=== PATIENT | male | born 1955 | race Caucasian/White ===

== ENCOUNTER 2021-05-16 13:57 | Inpatient (IN) | payer MEDICARE, SELFPAY ==
[2021-05-16] VITALS (42 sets, daily range): BP systolic 122–159; BP diastolic 36–108; PULSE 88–118; RESP 22–41; TEMP 37.3–37.4; O2SAT 70–97; BMI 37.0
--- NOTE | ~2021-05-16 | XR_ITS ---
EXAMINATION: XR chest 1V portable EXAM DATE: 05/19/2021 06:07 INDICATION: COVID-19 pneumonia, acute respiratory failure. TECHNIQUE: Portable AP frontal chest x-ray was obtained. Comparison is made to prior examination from 05/18/2021. FINDINGS: Endotracheal tube, nasogastric tube are in expected positions. There is extensive bilateral pneumonia and/or edema unchanged. Possible small right pleural effusion. There is no pneumothorax pruitt spected. Mild cardiomegaly. There is no pneumothorax suspected. There are bony degenerative changes . IMPRESSION: 1. Tubes in position. 2. Extensive pneumonia/edema unchanged. Reviewed, dictated and finalized at location A. MUTUEL TICKET CASHIER
--- NOTE | ~2021-05-16 | XR_ITS ---
XR chest 1V portable 06/13/2021 05:49 Indication: Respiratory failure Procedure: AP portable chest Comparison: Comparison to multiple prior studies sequentially, with oldest reviewed study dated 06/09. Findings: Endotracheal tube tip 3.9 cm above the alexander. PICC line tip in the SVC. Left-sided chest t ube position unchanged. No pneumothorax identified. Persistent diffuse bilateral airspace disease unc hanged. No significant effusion or pneumothorax. Impression: 1: Stable diffuse bilateral airspace disease which may represent pneumonia or edema. Reviewed, dictated and finalized at location A. NG ROOM MAID Impression: 1: Stable diffuse bilateral airspace disease which may represent pneumonia or e telly.
--- NOTE | ~2021-05-16 | XR_ITS ---
EXAMINATION: XR chest 1V portable DATE: 05/25/2021 06:10 INDICATION: Respiratory failure. COVID-19 pneumonia. TECHNIQUE: A single frontal view of the chest was obtained. COMPARISON: Chest single view 05/24/2021 FINDINGS: The patient is rotated to his left. There are airspace and interstitial opacities throughou t the lungs bilaterally. No pleural effusion or pneumothorax. The heart size is obscured. The endotra cheal tube tip is 4.2 cm above the alexander. The nasogastric tube tip is beyond the inferior margin of the radiograph, but at least to the stomach. A right upper extremity peripherally inserted central ve nous catheter (PICC) is seen with tip at the superior cavoatrial junction. IMPRESSION: 1. Diffuse lung disease with improvement on the left, consistent with COVID-19 pneumonia versus acute respiratory distress syndrome (ARDS). Reviewed, dictated and finalized at location A. MANUFACTURING TECHNICIAN
--- NOTE | ~2021-05-16 | XR_ITS ---
EXAMINATION: XR chest 1V portable DATE: 06/02/2021 05:52 INDICATION: Respiratory failure TECHNIQUE: frontal view of the chest was obtained. COMPARISON: Chest radiograph dated 06/01/2021 FINDINGS: Endotracheal tube tip 4.4 cm above the alexander. Nasogastric tube with proximal side-port in the body o f the stomach and with distal tip collimated off the study. Right upper extremity peripherally insert ed central venous catheter (PICC) tip at the caudal superior vena cava. Unchanged bilateral chest tu bes projecting over the mid lung zones. No interval change in the diffuse increased interstitial pattern and patchy airspace opacities throug hout both lungs. Opacities are greatest at the lung bases where the diaphragm is indistinct suggestin g possibility of small pleural effusions. No pneumothorax. The cardiomediastinal silhouette is normal . IMPRESSION: 1. Stable diffuse bilateral lung disease which could represent pneumonia and/or pulmonary edema gibson haley superimposed over small pleural effusions. Reviewed, dictated and finalized at location A. JOURNEYMAN IMPRESSION: 1. Stable diffuse bilateral lung disease which could represent pneumonia and/or pulmonary edema potentially superimposed over small pleural effusions.
--- NOTE | ~2021-05-16 | XR_ITS ---
EXAMINATION: XR chest 1V portable INDICATION: Respiratory failure TECHNIQUE: Portable AP chest at 0517 hours COMPARISON: 06/10/2021 FINDINGS: The endotracheal tube ends approximately 3.9 cm above the alexander. The nasogastric tube is f ollowed as far as the stomach. Its tip is beyond the inferior margin of the radiograph. Bilateral robert st tubes are unchanged in position. No pneumothorax is identified. A right upper extremity PICC ends with its tip in the distal superior vena cava. Patchy airspace opacities persist throughout all lung zones with slight improvement. There is no pleural effusion or pneumothorax. The cardiomediastinal si lhouette is normal. IMPRESSION: 1. Diffuse lung disease with interval improvement, consistent with pneumonia and/or pulmonary edema a nd/or acute respiratory distress syndrome (ARDS). Reviewed, dictated and finalized at location A. LOGUE AND SPECIAL PRODUCTS MANAGER IMPRESSION: 1. Diffuse lung disease with interval improvement, consistent with pneumonia an d/or pulmonary edema and/or acute respiratory distress syndrome (ARDS).
--- NOTE | ~2021-05-16 | XR_ITS ---
EXAMINATION: XR chest 1V portable DATE: 06/07/2021 05:48 INDICATION: Respiratory failure. TECHNIQUE: A single frontal view of the chest was obtained. COMPARISON: Chest single view 06/06/2021, CT abdomen and pelvis 02/04/2013 FINDINGS: There are airspace and interstitial opacities throughout the lungs bilaterally, worst in th e mid and lower lung zones. No pleural effusion or pneumothorax. The heart size is normal. Bilateral chest tubes are noted. The endotracheal tube tip is 4.5 cm above the alexander. The nasogastric tube tip is beyond the inferior margin of the radiograph, but at least to the stomach. A right upper extremit y peripherally inserted central venous catheter (PICC) is seen with tip in the superior vena cava. IMPRESSION: 1. Stable diffuse lung disease, consistent with pneumonia and/or pulmonary edema and/or acute respira tory distress syndrome (ARDS). 2. No pneumothorax. Bilateral chest tubes unchanged. Reviewed, dictated and finalized at location A. T DRIVER IMPRESSION: 1. Stable diffuse lung disease, consistent with pneumonia and/or pulmonary taras a and/or acute respiratory distress syndrome (ARDS). 2. No pneumothorax. Bilateral chest tubes unchanged.
--- NOTE | ~2021-05-16 | XR_ITS ---
XR chest 1V portable 05/30/2021 06:16 Indication: Respiratory failure. Procedure: AP portable chest Comparison: Comparison to multiple prior studies sequentially, with oldest reviewed study dated 05/2021. Findings: NG tube in the stomach. Endotracheal tube not definitely visualized. Correlate clinically f or extubation. PICC line tip in the SVC. There are bilateral chest tube, positions unchanged. No pneu mothorax identified. Diffuse bilateral airspace disease is unchanged. Impression: 1: Stable diffuse bilateral airspace disease which may represent pneumonia and/or edema. Reviewed, dictated and finalized at location A. ASSESSMENT CONSULTANT Impression: 1: Stable diffuse bilateral airspace disease which may represent pneumonia and/ or edema.
--- NOTE | ~2021-05-16 | XR_ITS ---
EXAMINATION: XR chest 1V portable DATE: 05/31/2021 06:28 INDICATION: Respiratory failure TECHNIQUE: frontal view of the chest was obtained. COMPARISON: Chest radiograph dated 05/30/2021 FINDINGS: Endotracheal tube tip 3.3 cm above the alexander. Nasogastric tube with proximal side-port in the body o f the stomach and distal tip collimated below the inferior margin of the [id number]. Bilateral robert st tubes remain in place. Right upper extremity peripherally inserted central venous catheter (PICC) tip at the superior cavoatrial junction. No significant change in diffuse bilateral airspace opacities. No pleural effusion or pneumothorax. H eart size is normal. IMPRESSION: 1. Stable diffuse bilateral lung disease which could represent pneumonia and/or pulmonary edema. Reviewed, dictated and finalized at location A. ENTICE STYLIST
--- NOTE | ~2021-05-16 | XR_ITS ---
EXAMINATION: XR chest 1V portable INDICATION: Respiratory failure TECHNIQUE: Portable AP chest at 0518 hours COMPARISON: 06/09/2021 FINDINGS: Bilateral chest tubes are unchanged in position. The endotracheal tube ends approximately 3 .6 cm above the alexander. The nasogastric tube is followed as far as the stomach. Its tip is beyond the inferior margin of the radiograph. Interstitial and airspace opacities persist throughout all lung z ones without significant change. There is no pleural effusion or pneumothorax. A right upper extremit y PICC ends with its tip in the distal superior vena cava. The heart size is normal. IMPRESSION: 1. Stable diffuse lung disease, consistent with pneumonia and/or pulmonary edema and/or acute respira tory distress syndrome (ARDS). Reviewed, dictated and finalized at location A. NE MECHANIC IMPRESSION: 1. Stable diffuse lung disease, consistent with pneumonia and/or pulmonary taras a and/or acute respiratory distress syndrome (ARDS).
--- NOTE | ~2021-05-16 | XR_ITS ---
EXAMINATION: XR chest 1V portable INDICATION: Shortness of breath TECHNIQUE: Portable AP chest at 1454 hours COMPARISON: None available FINDINGS: There are diffuse airspace opacities throughout all lung zones. No pleural effusion or pneu mothorax is identified. The cardiomediastinal silhouette is normal. IMPRESSION: 1. Diffuse lung disease, consistent with COVID 19 pneumonia. Reviewed, dictated and finalized at location F. F DEVELOPMENT OFFICER
--- NOTE | ~2021-05-16 | XR_ITS ---
EXAMINATION: XR abdomen NG/feed tube insert DATE: 06/03/2021 14:38 INDICATION: Orogastric tube verification TECHNIQUE: A supine view of the upper abdomen was obtained for evaluation of feeding tube placement. COMPARISON: 05/18/2021 FINDINGS: Nasogastric tube tip in proximal side port in the body of the stomach. Bilateral chest tubes with dis mariposa tips at the inferomedial aspect of both the left and right hemithoraces. Airspace opacities throu ghout the visualized bilateral lung bases. Cholecystectomy clips in right upper quadrant. Proximal lo op of a left internal ureteral stent projects over the expected location of the left renal pelvis. No dilated loops of gas-filled bowel in the visualized abdomen. IMPRESSION: 1. Orogastric tube in the stomach. 2. Opacities in the visualized bilateral lower lung zones which could represent pneumonia and/or pulm onary edema. Reviewed, dictated and finalized at location A. ERGARTEN INSTRUCTIONAL ASSISTANT IMPRESSION: 1. Orogastric tube in the stomach. 2. Opacities in the visualized bilateral lower lung zones which could represent pneumonia and/or pulmonary edema.
--- NOTE | ~2021-05-16 | XR_ITS ---
EXAMINATION: XR chest 1V portable INDICATION: Chest tube leak TECHNIQUE: Portable AP chest at 1703 hours COMPARISON: 06/05/2021 FINDINGS: Diffuse opacities persist throughout all lung zones without significant change. Bilateral c hest tubes appear unchanged in position. The endotracheal tube ends approximately 3.2 cm above the ca sergo. The nasogastric tube is followed as far as the stomach. Its tip is beyond the inferior margin o f the radiograph. A right upper extremity PICC ends with its tip in the distal superior vena cava. Th e cardiomediastinal silhouette is stable. No pleural effusion or pneumothorax is identified. IMPRESSION: 1. Stable diffuse lung disease, consistent with pneumonia and/or pulmonary edema and/or acute respira tory distress syndrome (ARDS). 2. Chest tubes unchanged in position without pneumothorax identified. Reviewed, dictated and finalized at location F. ATOR CONDUCTOR IMPRESSION: 1. Stable diffuse lung disease, consistent with pneumonia and/or pulmonary taras a and/or acute respiratory distress syndrome (ARDS). 2. Chest tubes unchanged in position without pneumothorax identified.
--- NOTE | ~2021-05-16 | XR_ITS ---
EXAMINATION: XR chest 1V portable EXAM DATE: 06/14/2021 05:58 INDICATION: Respiratory failure. TECHNIQUE: Portable AP frontal chest x-ray was obtained. Comparison is made to prior examination from 06/13/2021. FINDINGS: Endotracheal tube in position. Bilateral chest tubes positions unchanged. There is a nasog astric tube seen with tip collimated off the study, but below the left hemidiaphragm. Right-sided P ICC line poorly visualized. Diffuse bilateral pneumonia and/or edema. There are no sizable pleural effusions. There is no pneu mothorax suspected. The cardiomediastinal silhouette is prominent but magnified on this AP techniqu e. The bones and soft tissues are unremarkable. There is no significant interval change compared to prior exam. IMPRESSION: 1. Line and tube(s) in position. 2. Diffuse bilateral pneumonia and/or edema. Reviewed, dictated and finalized at location A. ER CRANE LADLE
--- NOTE | ~2021-05-16 | XR_ITS ---
XR abdomen NG/feed tube insert DATE: 05/18/2021 18:38 INDICATION: Orogastric tube insertion TECHNIQUE: Portable AP view on 05/18/2021 at 1830 hours COMPARISON: None FINDINGS: There is an orogastric tube, with distal tip in the gastric antrum IMPRESSION: OG tube in gastric antrum Status post cholecystectomy Left nephrostomy catheter Extensive diffuse bilateral pulmonary infiltrates Reviewed, dictated and finalized at Location A. Reviewed, dictated and finalized at location A. T LINER
--- NOTE | ~2021-05-16 | XR_ITS ---
EXAMINATION: XR chest 1V portable INDICATION: Respiratory failure TECHNIQUE: Portable AP chest at 0516 hours COMPARISON: 06/15/2021 FINDINGS: The endotracheal tube ends approximately 5.3 cm above the alexander. The nasogastric tube is f ollowed as far as the stomach. Its tip is beyond the inferior margin of the radiograph. Bilateral robert st tubes are unchanged in position. Diffuse interstitial and airspace opacities persist throughout al l lung zones without significant change. There is no pleural effusion or pneumothorax. The cardiomedi astinal silhouette is stable. IMPRESSION: 1. Stable diffuse lung disease, consistent with pneumonia and/or pulmonary edema and/or acute respira tory distress syndrome (ARDS). Reviewed, dictated and finalized at location A. DER / CEO IMPRESSION: 1. Stable diffuse lung disease, consistent with pneumonia and/or pulmonary taras a and/or acute respiratory distress syndrome (ARDS).
--- NOTE | ~2021-05-16 | XR_ITS ---
EXAMINATION: XR abdomen NG/feed tube rechec DATE: 06/04/2021 13:04 INDICATION: Orogastric tube repositioning TECHNIQUE: A supine view of the abdomen and lower chest was obtained for evaluation of feeding tube placement. COMPARISON: None. FINDINGS: Endotracheal tube tip 3.0 cm above the alexander. Nasogastric tube with proximal side-port in the body o f the stomach in distal tip collimated off the inferior margin of the [id number]. Right upper extr emity peripherally inserted central venous catheter (PICC) tip at the caudal superior vena cava. Unc hanged bilateral chest tubes. Proximal loop of a left internal ureteral stent projects of the region of the left renal pelvis. Diffuse bilateral lung disease which could represent pulmonary edema and/or pneumonia. Heart size is normal. IMPRESSION: 1. Nasogastric tube in the stomach. 2. Diffuse bilateral lung disease consistent with pulmonary edema and/or pneumonia. Reviewed, dictated and finalized at location A. HELPER IMPRESSION: 1. Nasogastric tube in the stomach. 2. Diffuse bilateral lung disease consistent with pulmonary edema and/or pneumo [place].
--- NOTE | ~2021-05-16 | XR_ITS ---
EXAMINATION: XR chest 1V portable DATE: 05/24/2021 07:10 INDICATION: Respiratory failure. COVID-19 pneumonia. TECHNIQUE: A single frontal view of the chest was obtained. COMPARISON: Chest single view 05/22/2021 FINDINGS: There are airspace and interstitial opacities throughout the lungs bilaterally. No pleural effusion or pneumothorax. The heart size is obscured. The endotracheal tube tip is 5.6 cm above the c layne. The nasogastric tube tip is beyond the inferior margin of the radiograph, but at least to the stomach. A right upper extremity peripherally inserted central venous catheter (PICC) is seen with ti p at the superior cavoatrial junction. IMPRESSION: 1. Stable diffuse lung disease, consistent with COVID-19 pneumonia versus acute respiratory distress syndrome (ARDS). Reviewed, dictated and finalized at location A. LASS LENS GRINDER
--- NOTE | ~2021-05-16 | US_ITS ---
EXAMINATION: US venous doppler LE EXAM DATE: 05/17/2021 12:52 INDICATION: Respiratory abnormality. Elevated d-dimer. TECHNIQUE: Multiple grayscale, color flow and Doppler images of the lower extremity deep venous syste ms bilaterally were obtained and reviewed. There is no prior study for comparison. FINDINGS: Right side: The right common femoral, femoral and profunda veins demonstrate normal color flow, respi ratory variation, augmentation and compressibility. Compressibility, color flow confirmed within the right popliteal, posterior tibial, peroneal, and greater saphenous veins. Left side: The left common femoral, femoral and profunda veins demonstrate normal color flow, respira tory variation, augmentation and compressibility. Compressibility, color flow confirmed within the l eft popliteal, posterior tibial, peroneal, and greater saphenous veins. IMPRESSION: 1. No lower extremity deep venous thrombosis bilaterally. Reviewed, dictated and finalized at location A. L TENDER
--- NOTE | ~2021-05-16 | XR_ITS ---
EXAMINATION: XR chest 1V portable EXAM DATE: 06/15/2021 06:10 INDICATION: Resp Failure TECHNIQUE: Portable AP frontal chest x-ray was obtained. Comparison is made to prior examination from 06/14/2021. FINDINGS: Endotracheal tube in position. Bilateral chest tubes positions unchanged. There is a nasoga stric tube seen with tip collimated off the study, but below the left hemidiaphragm. Right-sided PI CC line poorly visualized. Diffuse bilateral pneumonia and/or edema. There are no sizable pleural effusions. There is no pneu mothorax suspected. The cardiomediastinal silhouette is prominent but magnified on this AP techniqu e. The bones and soft tissues are unremarkable. There is no significant interval change compared to prior exam. IMPRESSION: 1. Line and tube(s) in position. 2. Diffuse bilateral pneumonia and/or edema. Reviewed, dictated and finalized at location A. EDGE MACHINE OPERATOR
--- NOTE | ~2021-05-16 | XR_ITS ---
EXAMINATION: XR chest 1V portable EXAM DATE: 06/04/2021 13:27 INDICATION: Desaturation. COVID pneumonia. TECHNIQUE: Portable AP frontal chest x-ray was obtained. Comparison is made to prior examination from 06/04/2021. FINDINGS: Endotracheal tube tip is 2.5 centimeters above the alexander. There is a right-sided PICC sol e in position. There are bilateral chest tubes. There is a nasogastric tube seen with tip collimated off the study, but below the left hemidiaphragm. No evidence of pneumothorax. Diffuse bilateral airspace disease with relative sparing of the upper nj ng zones unchanged. Small pleural effusions. Cardiomediastinal silhouette is normal. There are bony d egenerative changes. IMPRESSION: 1. Tubes, line in position. 2. Extensive mid and lower lung zone pneumonia and/or edema unchanged. Reviewed, dictated and finalized at location B. IC CHARGE NURSE
--- NOTE | ~2021-05-16 | XR_ITS ---
EXAMINATION: XR chest 1V portable EXAM DATE: 05/18/2021 05:34 INDICATION: COVID-19 pneumonia, acute respiratory failure. TECHNIQUE: Portable AP frontal chest x-ray was obtained. Comparison is made to prior examination from 05/17/2021, 05/16. FINDINGS: Extensive bilateral ill-defined airspace disease which could be pneumonia or edema. There i s no pneumothorax suspected. There are no pleural effusions. Cardiomediastinal silhouette is normal. There are bony degenerative changes. There is no significant interval change. IMPRESSION: Extensive bilateral pneumonia or edema, unchanged. GER OF OPERATIONS Reviewed, dictated and finalized at location A.
--- NOTE | ~2021-05-16 | XR_ITS ---
EXAMINATION: XR chest 1V portable EXAM DATE: 05/21/2021 05:51 INDICATION: COVID-19 pneumonia, acute respiratory failure . TECHNIQUE: Portable AP frontal chest x-ray was obtained. Comparison is made to prior examination from 05/20/2021. FINDINGS: There is a nasogastric tube seen with tip collimated off the study, but below the left joes diaphragm. Right-sided PICC line in position. Endotracheal tube in expected positions. There is extensive bilateral pneumonia and/or edema unchanged. There is small right pleural effusion. There is no pneumothorax suspected. Mild cardiomegaly. There are bony degenerative changes. IMPRESSION: 1. Tubes, line in position. 2. Extensive pneumonia/edema unchanged. Reviewed, dictated and finalized at location A. ER WAX BALL
--- NOTE | ~2021-05-16 | XR_ITS ---
XR chest ET placement DATE: 05/18/2021 18:38 INDICATION: New intubation TECHNIQUE: COMPARISON: None FINDINGS: ET tube is 5.4 cm above the alexander. NG tube is noted passing at least to the lower esophag us, not well demonstrated. There are extensive bilateral diffuse pulmonary infiltrates consistent with extensive pneumonia and/o r pulmonary edema, increased in severity since05/18/2021 at 0513 hours. IMPRESSION: ET tube 5.4 cm above alexander NG tube not well demonstrated distally Extensive diffuse bilateral pulmonary infiltrates, increased since 05/18/10 at 0513 hours Reviewed, dictated and finalized at Location A. Reviewed, dictated and finalized at location A. N DRIVER IMPRESSION: ET tube 5.4 cm above alexander NG tube not well demonstrated distally Extensive diffuse bilateral pulmonary infiltrates, increased since 05/18/10 at 0 513 hours
--- NOTE | ~2021-05-16 | XR_ITS ---
EXAMINATION: XR chest ET placement DATE: 06/04/2021 06:38 INDICATION: Endotracheal tube replacement TECHNIQUE: frontal view of the chest was obtained. COMPARISON: Chest radiograph dated 06/04/2021 at 6:12 AM FINDINGS: Endotracheal tube tip 3.7 cm above the alexander. Nasogastric tube extends below the left hemidiaphragm with distal tip collimated off the study. Right upper extremity peripherally inserted central venous catheter (PICC) tip at the mid superior vena cava. Unchanged bilateral chest tubes. No significant change in diffuse airspace opacities throughout both lungs with lower lung predominanc e. No pneumothorax. The cardiomediastinal silhouette is normal. IMPRESSION: 1. Unchanged diffuse bilateral lung disease which could represent pneumonia or pulmonary edema potent ially with superimposed small pleural effusions. Reviewed, dictated and finalized at location A. RS IMPRESSION: 1. Unchanged diffuse bilateral lung disease which could represent pneumonia or pulmonary edema potentially with superimposed small pleural effusions.
--- NOTE | ~2021-05-16 | XR_ITS ---
EXAMINATION: XR chest-chest tube insert/pos DATE: 05/25/2021 11:51 INDICATION: Insertion of bilateral chest tubes TECHNIQUE: frontal view of the chest was obtained. COMPARISON: Chest radiograph dated 05/25/2021 at 11:18 AM FINDINGS: Endotracheal tube tip 4.0 cm above the alexander. Right upper extremity peripherally inserted central ve nous catheter (PICC) tip at the caudal superior vena cava. Nasogastric tube with proximal side-port in the body of the stomach and distal tip collimated off the study. Interval placement of a lateral chest tubes which extend inferiorly and medially with the distal tips projecting over the regions of the vertebrophrenic angles. Very small residual right pneumothorax. N o evident left pneumothorax. Airspace opacities throughout both lungs consistent with pneumonia. No d efinite pleural effusion. Heart size is normal. Subcutaneous emphysema along the left chest wall. IMPRESSION: 1. Near complete resolution of a now tiny right pneumothorax and resolution of a prior left pneumotho rax post bilateral chest tube placement. 2. Opacities throughout both lungs consistent with pneumonia. Reviewed, dictated and finalized at location A. SIVE WATER JET CUTTER OPERATOR IMPRESSION: 1. Near complete resolution of a now tiny right pneumothorax and resolution of a prior left pneumothorax post bilateral chest tube placement. 2. Opacities throughout both lungs consistent with pneumonia.
--- NOTE | ~2021-05-16 | XR_ITS ---
EXAMINATION: XR chest ET placement DATE: 06/04/2021 05:31 INDICATION: Hypoxia with increased oxygen demand. Endotracheal tube placement. TECHNIQUE: frontal view of the chest was obtained. COMPARISON: Chest radiograph dated 06/03/2021 FINDINGS: Endotracheal tube tip 4.7 cm above the alexander. Nasogastric tube extends below the left hemidiaphragm with distal tip collimated off the study. Right upper extremity peripherally inserted central venous catheter (PICC) tip at the mid superior vena cava. Unchanged bilateral chest tubes. Slight worsening in diffuse airspace opacities throughout both lungs with lower lung predominance. No pneumothorax. The cardiomediastinal silhouette is normal. IMPRESSION: 1. Slight worsening of diffuse bilateral lung disease which could represent pneumonia or pulmonary ed aracelis potentially with superimposed small pleural effusions. Reviewed, dictated and finalized at location A. RVISOR OF RESEARCH IMPRESSION: 1. Slight worsening of diffuse bilateral lung disease which could represent pne umonia or pulmonary edema potentially with superimposed small pleural effusions .
--- NOTE | ~2021-05-16 | XR_ITS ---
EXAMINATION: XR chest 1V portable DATE: 05/28/2021 06:09 INDICATION: COVID-19 pneumonia. Respiratory failure. TECHNIQUE: A single frontal view of the chest was obtained. COMPARISON: Chest single view 05/27/2021 FINDINGS: There are interstitial and airspace opacities throughout the lungs bilaterally. No pleural effusion or pneumothorax. The heart size is normal. The endotracheal tube tip is 6.8 cm above the car neri. Bilateral chest tubes are noted. A right upper extremity peripherally inserted central venous ca theter (PICC) is seen with tip at the superior cavoatrial junction. The nasogastric tube tip is in th e stomach. IMPRESSION: 1. Diffuse lung disease, likely stable given differences in rotation, consistent with COVID-19 pneumo [place] versus acute respiratory distress syndrome (ARDS). 2. No pneumothorax. Bilateral chest tubes unchanged. Reviewed, dictated and finalized at location E. ER STRIPPER MACHINE IMPRESSION: 1. Diffuse lung disease, likely stable given differences in rotation, consisten t with COVID-19 pneumonia versus acute respiratory distress syndrome (ARDS). 2. No pneumothorax. Bilateral chest tubes unchanged.
--- NOTE | ~2021-05-16 | US_ITS ---
EXAMINATION: US venous doppler UE RT DATE: 06/12/2021 10:59 INDICATION: Right upper limb swelling TECHNIQUE: Grayscale images without and with compression and Doppler images of the right upper extrem ity veins were obtained. COMPARISON: None. FINDINGS: The right internal jugular vein, subclavian vein, axillary vein, brachial vein, basilic vein, cephali c vein, radial vein, and ulnar vein are patent. IMPRESSION: 1. Patent right upper extremity veins. No evidence of venous thrombosis. Reviewed, dictated and finalized at location A. UCK DIVER
--- NOTE | ~2021-05-16 | XR_ITS ---
EXAMINATION: XR chest 1V portable DATE: 06/01/2021 05:47 INDICATION: Respiratory failure TECHNIQUE: frontal view of the chest was obtained. COMPARISON: Chest radiograph dated 05/31/2021 FINDINGS: Endotracheal tube tip 3.1 cm above the alexander. Nasogastric tube extends into the stomach with distal tip collimated below the inferior margin of the [id number]. No significant change in bilateral robert [address] tubes. Right upper extremity peripherally inserted central venous catheter (PICC) tip at the supe rior vena cava. A diffuse increased interstitial and patchy airspace opacities throughout both lungs. No pleural effu rashaun or pneumothorax. The cardiomediastinal silhouette is normal. IMPRESSION: 1. Stable diffuse bilateral lung disease which could represent pneumonia and/or pulmonary edema. Reviewed, dictated and finalized at location A. NOSE THROAT PHYSICIAN
--- NOTE | ~2021-05-16 | XR_ITS ---
EXAMINATION: XR chest 1V portable INDICATION: Respiratory failure, COVID pneumonia TECHNIQUE: Portable AP chest at 0524 hours COMPARISON: 06/04/2021 FINDINGS: The endotracheal tube ends approximately 3.1 cm above the alexander. The nasogastric tube is f ollowed as far as the stomach. Its tip is beyond the inferior margin of the radiograph. Bilateral robert st tubes are unchanged in position. A right upper extremity PICC ends with its tip at the superior ca voatrial junction. Diffuse opacities persist throughout all lung zones with slight interval worsening . No pleural effusion or pneumothorax is identified. IMPRESSION: 1. Diffuse lung disease with slight interval worsening, consistent with pneumonia and/or pulmonary ed aracelis and/or acute respiratory distress syndrome (ARDS). Reviewed, dictated and finalized at location A. R CONE GRADER IMPRESSION: 1. Diffuse lung disease with slight interval worsening, consistent with pneumon ia and/or pulmonary edema and/or acute respiratory distress syndrome (ARDS).
--- NOTE | ~2021-05-16 | XR_ITS ---
XR chest 1V portable 05/29/2021 05:46 Indication: Respiratory failure Procedure: AP portable chest Comparison: Comparison to multiple prior studies sequentially, with oldest reviewed study dated 04/2021. Findings: Endotracheal tube tip 5.5 cm above the alexander. NG tube in the stomach. Stable position to b ilateral chest tubes. PICC line tip in the SVC. No pneumothorax. Diffuse bilateral airspace disease u nchanged. Impression: 1: Diffuse bilateral airspace disease unchanged, which may represent pneumonia, edema or ARDS. Reviewed, dictated and finalized at location A. N STATION AGENT Impression: 1: Diffuse bilateral airspace disease unchanged, which may represent pneumonia, edema or ARDS.
--- NOTE | ~2021-05-16 | XR_ITS ---
EXAMINATION: XR chest 1V portable DATE: 05/22/2021 06:01 INDICATION: COVID-19 pneumonia. TECHNIQUE: A single frontal view of the chest was obtained on 2 radiographs. COMPARISON: Chest single view 05/21/2021, CT abdomen and pelvis 02/04/2013 FINDINGS: The patient is rotated to his left. There are airspace and interstitial opacities throughou t the lungs bilaterally. No pleural effusion or pneumothorax. The heart size is normal. The endotrach eal tube tip is 5.4 cm above the alexander. The nasogastric tube tip is beyond the inferior margin of th e radiograph, but at least to the stomach. A right upper extremity peripherally inserted central veno us catheter (PICC) is seen with tip at the superior cavoatrial junction. IMPRESSION: 1. Stable diffuse lung disease, consistent with COVID-19 pneumonia. Reviewed, dictated and finalized at location A. ITION REPRESENTATIVE
--- NOTE | ~2021-05-16 | CT_ITS ---
EXAMINATION: CT brain wo con INDICATION: Altered mental status COMPARISON: None TECHNIQUE: Standard unenhanced head CT. The dose-length product (DLP) was 681.00 mGy-cm. The mA was a djusted according to patient size. Iterative reconstruction technique was employed. FINDINGS: There is no intracranial hemorrhage, acute infarction, or abnormal mass lesion. The ventric les are normal. There is no abnormal mass effect or midline shift. The duffy-white matter differentiat ion is normal. The basal cisterns are patent. The orbits are normal. The paranasal sinuses, mastoids and calvarium are normal. IMPRESSION: 1. No acute intracranial abnormality. Reviewed, dictated and finalized at location F. MBLER UNIT
--- NOTE | ~2021-05-16 | XR_ITS ---
EXAMINATION: XR chest 1V portable DATE: 06/12/2021 05:47 INDICATION: COVID pneumonia TECHNIQUE: frontal view of the chest was obtained. COMPARISON: Chest radiograph dated 06/11/2021 FINDINGS: Endotracheal tube tip 4.0 cm above the alexander. Nasogastric tube in the stomach. Right upper extremity peripherally inserted central venous catheter (PICC) tip at the caudal superior vena cava. Unchange d bilateral chest tubes. No interval change in airspace opacities scattered throughout both lungs. No pneumothorax or definiti ve pleural effusion. The cardiomediastinal silhouette is normal. IMPRESSION: 1. No significant change in diffuse bilateral lung disease consistent with pneumonia, pulmonary edema and/or acute respiratory distress syndrome (ARDS). Reviewed, dictated and finalized at location A. OIDERY FINISHER IMPRESSION: 1. No significant change in diffuse bilateral lung disease consistent with pneu monia, pulmonary edema and/or acute respiratory distress syndrome (ARDS).
--- NOTE | ~2021-05-16 | XR_ITS ---
EXAMINATION: XR chest 1V portable DATE: 06/09/2021 06:02 INDICATION: Respiratory failure. TECHNIQUE: A single frontal view of the chest was obtained. COMPARISON: Chest single view 06/08/2021 FINDINGS: There are airspace and interstitial opacities throughout the lungs bilaterally with a lower lung predominance. No pleural effusion or pneumothorax. The heart size is normal. The endotracheal t ube tip is 4.4 cm above the alexander. The nasogastric tube tip is beyond the inferior margin of the rad iograph, but at least to the stomach. Bilateral chest tubes are noted. A right upper extremity periph erally inserted central venous catheter (PICC) is seen with tip at the superior cavoatrial junction. IMPRESSION: 1. Worsened diffuse lung disease, consistent with pneumonia versus acute respiratory distress syndrom e (ARDS) without or with pulmonary edema. 2. No pneumothorax. Bilateral chest tubes unchanged. Reviewed, dictated and finalized at location A. S CARRIER IMPRESSION: 1. Worsened diffuse lung disease, consistent with pneumonia versus acute respir atory distress syndrome (ARDS) without or with pulmonary edema. 2. No pneumothorax. Bilateral chest tubes unchanged.
--- NOTE | ~2021-05-16 | XR_ITS ---
EXAMINATION: XR chest 1V portable EXAM DATE: 05/17/2021 06:00 INDICATION: increased oxygen demands. TECHNIQUE: Portable AP frontal chest x-ray was obtained. Comparison is made to prior examination from 05/16/2021. FINDINGS: Extensive bilateral ill-defined airspace disease which could be pneumonia or edema. There i s no pneumothorax suspected. There are no pleural effusions. Cardiomediastinal silhouette is normal. There are bony degenerative changes. IMPRESSION: Extensive bilateral pneumonia or edema, mild interval progression. Reviewed, dictated and finalized at location A. CLINICAL RESEARCH
--- NOTE | ~2021-05-16 | XR_ITS ---
EXAMINATION: XR abdomen NG/feed tube insert DATE: 06/12/2021 13:08 INDICATION: Orogastric tube placement TECHNIQUE: A supine view of the abdomen and lower chest was obtained for evaluation of feeding tube placement. COMPARISON: None. FINDINGS: Orogastric tube extends through the stomach with proximal side-port at the gastric antrum and the dis [place] tip extending into the second portion of the duodenum. There are some gas and stool within the vi sualized transverse colon. No dilated gas-filled loops of bowel to suggest obstruction. Cholecystectomy clips in right upper quadrant. Partially visualized left internal ureteral stent with loops formed over the expected location of the left renal pelvis and with the stent extending distal ly beyond the inferior margin of the [id number]. Bilateral chest tubes remain in place. Diffuse airspace opacities throughout the visualized bilateral mid and lower lung zones. Heart size is normal. IMPRESSION: 1. Orogastric tube tip in the second portion of the duodenum. 2. Diffuse bilateral lung disease consistent with pneumonia, pulmonary edema and/or acute respiratory distress syndrome (ARDS). Reviewed, dictated and finalized at location A. EWATER TREATMENT PLANT CHEMIST IMPRESSION: 1. Orogastric tube tip in the second portion of the duodenum. 2. Diffuse bilateral lung disease consistent with pneumonia, pulmonary edema an d/or acute respiratory distress syndrome (ARDS).
--- NOTE | ~2021-05-16 | XR_ITS ---
EXAMINATION: XR chest 1V portable DATE: 05/26/2021 06:13 INDICATION: Respiratory failure. COVID-19 pneumonia. TECHNIQUE: A single frontal view of the chest was obtained. COMPARISON: Chest single view 05/25/2021 FINDINGS: There are airspace and interstitial opacities throughout the lungs bilaterally. No pleural effusion or pneumothorax. Bilateral chest tubes are noted. The heart size is normal. The endotracheal tube tip is 5.9 cm above the alexander. The nasogastric tube tip is beyond the inferior margin of the r adiograph, but at least to the stomach. A right upper extremity peripherally inserted central venous catheter (PICC) is seen with tip at the superior cavoatrial junction. IMPRESSION: 1. Stable diffuse lung disease, consistent with COVID-19 pneumonia versus acute respiratory distress syndrome (ARDS). 2. No pneumothorax. Bilateral chest tubes noted. Reviewed, dictated and finalized at location E. ERMAN
--- NOTE | ~2021-05-16 | XR_ITS ---
EXAMINATION: XR chest 1V portable EXAM DATE: 05/20/2021 06:13 INDICATION: COVID-19 pneumonia, acute respiratory failure. TECHNIQUE: Portable AP frontal chest x-ray was obtained. Comparison is made to prior examination from 05/19/2021. FINDINGS: Distal aspect nasogastric tube poorly visualized. Right-sided PICC line in position. Endotr acheal tube in expected positions. There is extensive bilateral pneumonia and/or edema unchanged. Pos sible small right pleural effusion. There is no pneumothorax suspected. Mild cardiomegaly. There is no pneumothorax suspected. There are bony degenerative changes. IMPRESSION: 1. Extensive pneumonia/edema unchanged. Reviewed, dictated and finalized at location A. CH CHECKER
--- NOTE | ~2021-05-16 | XR_ITS ---
EXAMINATION: XR chest 1V portable DATE: 06/03/2021 07:59 INDICATION: Respiratory failure TECHNIQUE: frontal view of the chest was obtained. COMPARISON: Chest radiograph dated 06/02/2021 FINDINGS: Endotracheal tube tip 3.7 cm above the alexander. Nasogastric tube extends below the left hemidiaphragm with distal tip collimated off the study. Right upper extremity peripherally inserted central venous catheter (PICC) tip at the caudal superior vena cava. Unchanged bilateral chest tubes. Again seen are diffuse airspace opacities throughout both lungs with lower lobe predominance where th ere has been some improvement in aeration. No pneumothorax. The cardiomediastinal silhouette is caroline l. IMPRESSION: 1. Diffuse bilateral lung disease with slight improvement in aeration at the bilateral lung bases. Kell ng disease could be related to pneumonia and/or pulmonary edema, possibly superimposed over small jonnie ateral pleural effusions. Reviewed, dictated and finalized at location A. RER VINEYARD IMPRESSION: 1. Diffuse bilateral lung disease with slight improvement in aeration at the bi lateral lung bases. Lung disease could be related to pneumonia and/or pulmonary edema, possibly superimposed over small bilateral pleural effusions.
--- NOTE | ~2021-05-16 | XR_ITS ---
EXAMINATION: XR chest 1V portable DATE: 05/25/2021 11:28 INDICATION: Oxygen desaturation. TECHNIQUE: A single frontal view of the chest was obtained. COMPARISON: Chest single view at 5:27 AM FINDINGS: There are airspace and interstitial opacities throughout the lungs bilaterally. There are m oderate-sized bilateral pneumothoraces. No pleural effusion. The heart size is normal. The endotrache al tube tip is 5.4 cm above the alexander. The nasogastric tube tip is beyond the inferior margin of the radiograph, but at least to the stomach. A right upper extremity peripherally inserted central venou s catheter (PICC) is seen with tip in the superior vena cava. There is gas in left lateral chest wall . IMPRESSION: 1. New bilateral moderate-sized pneumothoraces. I called this result to the intensive care unit staff , who were already aware. 2. Diffuse lung disease, consistent with COVID-19 pneumonia versus acute respiratory distress syndrom e (ARDS). Reviewed, dictated and finalized at location A. MATOR AND DRAFTER SUPERVISOR IMPRESSION: 1. New bilateral moderate-sized pneumothoraces. I called this result to the [facility] unit staff, who were already aware. 2. Diffuse lung disease, consistent with COVID-19 pneumonia versus acute respir atory distress syndrome (ARDS).
--- NOTE | ~2021-05-16 | US_ITS ---
EXAMINATION: US renal BI EXAM DATE: 05/17/2021 12:51 INDICATION: Renal failure. TECHNIQUE: Multiple grayscale and Doppler images of the kidneys were obtained (by a technologist who performed the scan) and subsequently reviewed. There is no prior study for comparison. FINDINGS: Incidental note made of hepatic steatosis. Right kidney: There is normal contour and echogenicity. Mild renal cortical thinning. It measures 13. 9 x 6.1 x 6.5 centimeters. There are no focal renal lesions identified. There is no hydronephrosis . Left kidney: There is normal contour and echogenicity. Moderate renal cortical thinning. It measures 8.0 x 13.4 x 4.2 centimeters. There are no focal renal lesions identified. There is no hydronephro sis. Rocha catheter within a collapsed bladder. IMPRESSION: 1. Bilateral renal cortical thinning, atrophy. No hydronephrosis. 2. Hepatic steatosis. Reviewed, dictated and finalized at location A. ER BARBER
--- NOTE | ~2021-05-16 | XR_ITS ---
EXAMINATION: XR chest 1V portable DATE: 06/08/2021 05:51 INDICATION: Respiratory failure. TECHNIQUE: A single frontal view of the chest was obtained. COMPARISON: Chest single view 06/07/2021 FINDINGS: There are airspace opacities in all lung zones bilaterally, worst in the mid and lower lung zones. No pleural effusion or pneumothorax. The heart size is normal. The endotracheal tube tip is 4 .0 cm above the alexander. The nasogastric tube tip is beyond the inferior margin of the radiograph, but at least to the stomach. Bilateral chest tubes are noted. A right upper extremity peripherally inser rosetta central venous catheter (PICC) is seen with tip in the superior vena cava. IMPRESSION: 1. Stable diffuse lung disease, consistent with pneumonia versus acute respiratory distress syndrome (ARDS) without or with pulmonary edema. 2. No pneumothorax. Bilateral chest tubes unchanged. Reviewed, dictated and finalized at location A. ET MAKER IMPRESSION: 1. Stable diffuse lung disease, consistent with pneumonia versus acute respirat ory distress syndrome (ARDS) without or with pulmonary edema. 2. No pneumothorax. Bilateral chest tubes unchanged.
--- NOTE | ~2021-05-16 | XR_ITS ---
EXAMINATION: XR chest 1V portable DATE: 05/27/2021 06:15 INDICATION: Respiratory failure. COVID-19 pneumonia. TECHNIQUE: A single frontal view of the chest was obtained. COMPARISON: Chest single view 05/26/2021 FINDINGS: The patient is rotated to his left. There are airspace and interstitial opacities throughou t the lungs bilaterally. No pleural effusion. There is a tiny left pneumothorax. Bilateral chest tube s are noted. The heart size is normal. The endotracheal tube tip is 6.2 cm above the alexander. The naso gastric tube tip is in the stomach. A right upper extremity peripherally inserted central venous cath eter (PICC) is seen with tip in the superior vena cava. IMPRESSION: 1. Tiny left pneumothorax. Bilateral chest tubes unchanged. 2. Diffuse lung disease, likely unchanged given differences in rotation, consistent with COVID-19 pne umonia versus acute respiratory distress syndrome (ARDS). Reviewed, dictated and finalized at location E. E AUDITOR IMPRESSION: 1. Tiny left pneumothorax. Bilateral chest tubes unchanged. 2. Diffuse lung disease, likely unchanged given differences in rotation, consis tent with COVID-19 pneumonia versus acute respiratory distress syndrome (ARDS).
--- NOTE | 2021-05-16 14:11 | ECG_ITS ---
Measurements Intervals [place] Rate: 115 P: 4 ND: 143 QRS: 11 QRSD: 103 T: -25 QT: 322 QTc: 446 Interpretive Statements SINUS TACHYCARDIA BASELINE WANDER- I, II, III, AVR, AVL, AVF, V1-V6 ABNORMAL ECG Electronically Signed On 05-17-2021 13:44:04 DIRECTOR FACILITIES MAINTENANCE by Diony Skelton D.O.
--- NOTE | 2021-05-16 14:24 | ED.SOB ---
HPI - SOB/Dyspnea General Chief Complaint: Shortness of Breath/Dyspnea Stated Complaint: SOB, COVID + Time Seen by Provider: 05/16/21 14:05 History of Present Illness HPI Narrative: Patient is a 66-year-old male who presents to the ER with shortness of breath. Patient diagnosed with COVID 4 days ago. He has had increased work of breathing. EMS found patient be hypoxic in the 70s on room air. Patient alert to self. According to patient became increasingly short of breath last night and has been daily confused for 2 days. Patient is unvaccinated. Related Data Home Medications Medication Instructions Recorded Confirmed amlodipine 5 mg PO DAILY 05/16/21 05/16/21 apalutamide [Erleada] 240 mg PO DAILY 05/16/21 05/16/21 gabapentin 05/16/21 glimepiride mg 05/16/21 hydrochlorothiazide 05/16/21 montelukast 10 mg PO DAILY 05/16/21 05/16/21 sucralfate 05/16/21 Allergies Allergy/AdvReac Type Severity Reaction Status Date / Time fexofenadine Allergy Unknown Other Verified 05/16/21 14:17 loratadine Allergy Unknown Other Verified 05/16/21 14:17 pseudoephedrine Allergy Unknown Other Verified 05/16/21 14:17 Review of Systems Review of Systems: ROS unobtainable: Yes unobtainable due to mental status PMFSH Past Medical History Medical History (Updated 05/16/21 @ 16:27 by Alysa Burkett PA-C) Arthritis Hypertension Prostate cancer Type 2 diabetes mellitus Surgical History Surgical History (Updated 05/16/21 @ 16:24 by Alysa Burkett PA-C) History of cholecystectomy History of colonoscopy with polypectomy History of total right hip arthroplasty Family History Family History Mother Patient's mother is in good health Father Patient's father is in good health Sibling Patient's sister is in good health Patient's brother is in good health Grandparent Malignant neoplasm of prostate Other Diabetes mellitus Social History Social History (Updated 05/16/21 @ 16:25 by Alysa Burkett PA-C) Social History: Resides in [place]. Retired. Remote smoking history. Surrogate decision maker: Jacqueline Davis, . Code status: Full code. Exam Narrative: GENERAL: Ill-appearing, well-nourished, and in moderate distress. HEAD: Normocephalic, atraumatic. EYES: PERRL and EOMI. ENT: Mucous membranes moist. NECK: Supple. CHEST: Clear to auscultation. Moderate respiratory distress. HEART: Tachycardic and regular. normal peripheral pulses. ABDOMEN: Soft, nontender, nondistended. EXTREMITIES: Normal range of motion. No edema. SKIN: Warm, dry, no rash. NEURO: Alert and oriented x2. Course Course Emergency Course: Patient admitted to hospitalist service. Received Decadron. Patient severely ill. 30 mL/kg IV fluid bolus being provided given sepsis. Patient's contacted triage nurse reporting that they do not want patient to have remdesivir but they would entertain ivermectin. This has been relayed to the hospitalist service. Reevaluation(s) Reevaluation #1: Patient more awake and on BiPAP. Oxygenation seems to be persistently poor. He does not want intubation unless he is obtunded. He has been evaluated by hospitalist service. He will go to the ICU and has been accepted by Dr. Callahan. Date: 05/16/21 Time: 18:10 Vital Signs Vital signs: Vital Signs Temperature 99.1 F 05/16/21 14:04 Pulse Rate 117 H 05/16/21 14:04 Respiratory Rate 38 H 05/16/21 14:04 Blood Pressure 137/77 05/16/21 14:04 Pulse Oximetry 81 L 05/16/21 14:04 Temperature 99.1 F 05/16/21 14:04 Pulse Rate 100 05/16/21 17:49 Respiratory Rate 36 H 05/16/21 17:49 Blood Pressure 124/75 05/16/21 17:49 Pulse Oximetry 89 L 05/16/21 17:49 MDM - SOB/Dyspnea Lab Data Result diagrams: 05/16/21 14:20 05/16/21 14:20 Labs: Lab Results 05/16/21 05/16/21 05/16/21 Range/Units 14:20 14:20 14:20 WBC 11
[2021-05-16 14:36] LABS: Alveolar/Arterial O2 Gradient 621.2 mmHg; Base Excess ABG 1.1 mEq/l (+/-2.0); Carboxyhemoglobin 0.8 % THb (0-2.0); Fractional Inspired Oxygen 100 %; HCO3 ABG 23.1 mEq/l (22.0-26.0); Methemoglobin ABG 0.1 %THb (0-1.5); Oxygen Content ABG 20.3 %vol (16.0-22.0); Oxygen Saturation ABG 93.8 % (95.0-100.0); Oxyhemoglobin 90.6 % THb (90.0-100.0); PCO2 ABG 30.1 mmHg (35.0-45.0); PO2 ABG 61.7 mmHg (80.0-100.0); PO2 FiO2 Ratio Arterial Blood 0.62 %; Reduced Hemoglobin 8.5 %THb (0-5.0)
[2021-05-16 14:37] LABS: Modified Allen's Test Pass; Site Drawn LEFT RADIAL; pH ABG 7.503 (7.350-7.450)
[2021-05-16 14:38] LABS: Device BIPAP; Expiratory Pressure 6 cmH2O; Inspiratory Pressure 12 cmH2O
[2021-05-16 14:46] LABS: Basophils Percent Auto 0.2 % (0.2-1.2); Hematocrit 47.6 % (42.0-52.0); Hemoglobin 16.4 g/dL (14.0-18.0); Immature Granulocyte Absolute 0.12 K/mm3 (0.00-0.031); Immature Granulocyte Percent A 1.1 % (0-0.5); Lymphocytes Percent Auto 13.6 % (18.3-44.2); Mean Corpuscular HGB Conc 34.5 g/dl (32-36); Mean Corpuscular Hemoglobin 30.1 pg (26-34); Mean Corpuscular Volume 87.5 fl (80-100); Mean Platelet Volume 9.9 fl (7.4-10.4); Monocytes Absolute Auto 0.8 K/mm3 (0.1-0.6); Monocytes Percent Auto 7.2 % (2.6-8.5); Neutrophils Absolute Auto 8.6 K/mm3 (1.3-6.7); Neutrophils Percent Auto 77.9 % (45.5-73.1); Nucleated Red Blood Cells Perc 0.2 % (0.0-0.2); Platelet Count Result 278 k/mm3 (150-375); Red Blood Count 5.44 M/mm3 (4.6-6.20); Red Cell Distribution Width 14.2 % (11.5-14.5)
[2021-05-16 15:00] LABS: Alanine Aminotransferase 63 U/L (4-50); Albumin Level 4.1 g/dL (3.5-5.1); Alkaline Phosphatase 127 U/L (38-126); Anion Gap 11 mmol/L (8-16); Aspartate Amino Transferase 88 U/L (17-59); Bilirubin,Total 0.9 mg/dL (0.2-1.3); Blood Urea Nitrogen 59 mg/dL (9-20); Calcium 8.6 mg/dL (8.4-10.2); Carbon Dioxide 30 mmol/L (22-30); Chloride 90 mmol/L (98-107); Estimated CRCL calculation 26 ml/min; Estimated Glomerular Filt Rate 19; Glucose 326 mg/dL (65-110); Potassium 3.9 mmol/L (3.4-5.0); Sodium 131 mmol/L (137-145)
[2021-05-16 15:01] LABS: Lactic Acid Reflex 3.2 mmol/L (0.7-2.1)
[2021-05-16 15:03] LABS: INR 1.1; Prothrombin Time 13.9 Seconds (11.1-14.7)
[2021-05-16 15:04] LABS: Partial Thromboplastin Time 45.6 SECONDS (22.3-36.8)
[2021-05-16 15:06] LABS: D Dimer 0.77 ug/mL (<0.48)
[2021-05-16 15:06] LABS: CRP 7.6 mg/dL (<1.0)
[2021-05-16 15:10] LABS: NT Pro B Type Natriuretic Pept 2060 pg/mL (5-100)
--- NOTE | 2021-05-16 15:21 | PC.NURSE ---
Pt. son roland up to senior front end web developer requesting hospital not to give the pt. remdesiver. left phone number [phone]
[2021-05-16 15:36] LABS: Alveolar/Arterial O2 Gradient 620.9 mmHg; Base Excess ABG 0.7 mEq/l (+/-2.0); Carboxyhemoglobin 1.1 % THb (0-2.0); Fractional Inspired Oxygen 100 %; HCO3 ABG 21.7 mEq/l (22.0-26.0); Oxygen Content ABG 20.3 %vol (16.0-22.0); Oxygen Saturation ABG 95.2 % (95.0-100.0); Oxyhemoglobin 90.8 % THb (90.0-100.0); PCO2 ABG 26.5 mmHg (35.0-45.0); PO2 ABG 65.6 mmHg (80.0-100.0); PO2 FiO2 Ratio Arterial Blood 0.66 %; Reduced Hemoglobin 8.1 %THb (0-5.0); Total Hemoglobin 15.9 g/dL (12.0-18.0)
[2021-05-16 15:38] LABS: pH ABG 7.532 (7.350-7.450)
[2021-05-16 15:39] LABS: Device BIPAP; Expiratory Pressure 6 cmH2O; Inspiratory Pressure 12 cmH2O; Modified Allen's Test Pass; Site Drawn LEFT RADIAL
--- NOTE | 2021-05-16 17:00 | PM.IMHP ---
H&P: HPI History of Present Illness Date/Time: 05/16/21 17:00 Chief Complaint: Shortness of breath. Narrative: This is a 66-year-old male with hypertension, diabetes, chronic kidney disease stage 4, and prostate cancer who presented to the emergency department via EMS from home for evaluation of shortness of breath. He has not been feeling well since May 04 with symptoms to include generalized malaise, body aches, weakness, fatigue, and headache. He was started on levofloxacin on May 10 and I believe he tested positive for COVID on that day as well. He has not been eating or drinking much since that time and has spent a majority of his time asleep on the couch. According to his , he started coughing and complaining of shortness of breath over the last couple of days and she has also noticed that he seems to be confused. Yesterday and today she also noticed that he had some bluish discoloration around his lips and on his fingers and she encouraged him to come to the hospital be he declined. Today he was too sick to even put up a fight about coming to the ER and she called 911. On EMS arrival his SpO2 was in the 70s an on arrival to the emergency department he was satting in the 80s on a non-rebreather. He has since been started on a BiPAP with 100% FiO2 with oxygen saturations consistently in the mid to upper 80s. Chest x-ray shows diffuse pneumonia consistent with COVID and he is being admitted to the ICU in this setting for close monitoring. I had a lengthy discussion with the patient and his family members via phone, with the patient's permission, and he would like to avoid intubation at this time however he agrees to such should his condition deteriorate. The only complaint he has at this time is that of thirst. He denies fever, sinus congestion, sore throat, chest pain, pleuritic pain, vomiting, diarrhea, abdominal pain, dysuria, and hematuria. He did not receive a COVID vaccination. Of note the patient had a ureteral stent placed approximately [address] [facility] due to ?scar tissue? and is supposed to be removed in the next coming week or so. Review of Systems Review of Systems: Twelve systems were reviewed. It does not sound as though he has been checking his glucose often at home. States compliance with CPAP at nighttime. No dysuria. No history of venous thromboembolism. Except as documented, all other systems were reviewed and are negative. [facility] Past Medical History Medical History (Updated 05/17/21 @ 19:49 by Angela Hernandez MD) Arthritis Chronic kidney disease, stage 4 (severe) History of tobacco abuse Hypertension Obstructive sleep apnea Prostate cancer Type 2 diabetes mellitus Surgical History Surgical History History of cholecystectomy History of colonoscopy with polypectomy History of total right hip arthroplasty History of ureter stent Family History Family History Mother Patient's mother is in good health Father Patient's father is in good health Sibling Patient's sister is in good health Patient's brother is in good health Grandparent Malignant neoplasm of prostate Other Diabetes mellitus Social History Social History Social History: Resides in [place]. Retired. Remote smoking history. No alcohol or drug abuse. Surrogate decision maker: Jacqueline Davis, . Code status: Full code. Meds Home Medications and Allergies Home Medications Medication Instructions Recorded Confirmed Type amlodipine 5 mg PO DAILY 05/16/21 05/16/21 History apalutamide [Erleada] 240 mg PO DAILY 05/16/21 05/16/21 History gabapentin 800 mg PO TID 05/16/21 05/16/21 History glimepiride 4 mg PO DAILY 05/16/21 05/16/21 History hydrochlorothiazide 25 mg PO DAILY 05/16/21 05/16/21 History montelukast 10 mg PO DAILY
[2021-05-16 17:36] LABS: Alveolar/Arterial O2 Gradient 631.5 mmHg; Base Excess ABG -1.4 mEq/l (+/-2.0); Carboxyhemoglobin 0.4 % THb (0-2.0); Device BIPAP; Fractional Inspired Oxygen 100 %; HCO3 ABG 21.4 mEq/l (22.0-26.0); Modified Allen's Test Pass; Oxygen Content ABG 16.4 %vol (16.0-22.0); Oxygen Saturation ABG 88.5 % (95.0-100.0); Oxyhemoglobin 83.7 % THb (90.0-100.0); PCO2 ABG 30.6 mmHg (35.0-45.0); PO2 ABG 50.9 mmHg (80.0-100.0); PO2 FiO2 Ratio Arterial Blood 0.51 %; Reduced Hemoglobin 15.9 %THb (0-5.0); Site Drawn LEFT RADIAL; pH ABG 7.462 (7.350-7.450)
[2021-05-16 17:37] LABS: Expiratory Pressure 6 cmH2O; Inspiratory Pressure 12 cmH2O
[2021-05-16 17:40] LABS: SARS-CoV-2 RNA PCR Positive
[2021-05-16 17:42] LABS: Reflex Lactic Acid Yes or No Add Lactic
[2021-05-16 18:27] LABS: Lactic Acid 1.5 mmol/L (0.7-2.1)
[2021-05-16 21:25] LABS: Anion Gap 9 mmol/L (8-16); Blood Urea Nitrogen 57 mg/dL (9-20); Calcium 7.7 mg/dL (8.4-10.2); Carbon Dioxide 22 mmol/L (22-30); Chloride 97 mmol/L (98-107); Estimated CRCL calculation 37 ml/min; Estimated Glomerular Filt Rate 27; Glucose 360 mg/dL (65-110); Magnesium 2.6 mg/dL (1.6-2.3); Potassium 4.2 mmol/L (3.4-5.0); Sodium 128 mmol/L (137-145)
[2021-05-16 21:48] LABS: Hemoglobin A1C 8.4 % (<5.7)
[2021-05-16] MEDS: SODIUM CHLORIDE 0.9% IV 1,000 ML 125 ML IV CONT (22:30)
[2021-05-16] MEDS: ENOXAPARIN 120 MG/0.8 ML SYRINGE SUB-Q (22:32)
[2021-05-16] MEDS: BARICITINIB 2 MG TABLET PO (22:32)
[2021-05-16] MEDS: GABAPENTIN 400 MG CAPSULE 800 MG PO (22:33)
[2021-05-17] VITALS (27 sets, daily range): BP systolic 108–152; BP diastolic 62–87; PULSE 71–95; RESP 20–31; TEMP 35.8–38; O2SAT 88–94
[2021-05-17 00:23] LABS: Glucose Point of Care 425 mg/dl (65-105)
[2021-05-17] MEDS: INSULIN ASPART (*BKC) 100 UNITS/ML 10 UNITS SUB-Q (00:35)
[2021-05-17 04:54] LABS: Basophils Percent Auto 0.1 % (0.2-1.2); Hematocrit 39.8 % (42.0-52.0); Hemoglobin 13.4 g/dL (14.0-18.0); Immature Granulocyte Percent A 1.3 % (0-0.5); Lymphocytes Absolute Auto 1.46 K/mm3 (0.9-3.2); Lymphocytes Percent Auto 18.5 % (18.3-44.2); Mean Corpuscular HGB Conc 33.7 g/dl (32-36); Mean Corpuscular Hemoglobin 30.2 pg (26-34); Mean Corpuscular Volume 89.8 fl (80-100); Mean Platelet Volume 9.4 fl (7.4-10.4); Monocytes Absolute Auto 0.4 K/mm3 (0.1-0.6); Monocytes Percent Auto 4.8 % (2.6-8.5); Neutrophils Absolute Auto 5.9 K/mm3 (1.3-6.7); Neutrophils Percent Auto 75.3 % (45.5-73.1); Platelet Count Result 179 k/mm3 (150-375); Red Blood Count 4.43 M/mm3 (4.6-6.20); White Blood Count 7.9 K/mm3 (4.5-10.0)
[2021-05-17 05:07] LABS: Alanine Aminotransferase 44 U/L (4-50); Albumin Level 2.8 g/dL (3.5-5.1); Alkaline Phosphatase 92 U/L (38-126); Anion Gap 7 mmol/L (8-16); Aspartate Amino Transferase 62 U/L (17-59); Bilirubin,Total 0.5 mg/dL (0.2-1.3); Blood Urea Nitrogen 50 mg/dL (9-20); Calcium 7.7 mg/dL (8.4-10.2); Carbon Dioxide 27 mmol/L (22-30); Chloride 97 mmol/L (98-107); Estimated CRCL calculation 42 ml/min; Estimated Glomerular Filt Rate 32; Glucose 351 mg/dL (65-110); Magnesium 2.9 mg/dL (1.6-2.3); Potassium 3.8 mmol/L (3.4-5.0); Sodium 131 mmol/L (137-145)
[2021-05-17 05:17] LABS: Alveolar/Arterial O2 Gradient 615.9 mmHg; Base Excess ABG 0.9 mEq/l (+/-2.0); Fractional Inspired Oxygen 100 %; HCO3 ABG 25.3 mEq/l (22.0-26.0); Oxygen Content ABG 17.3 %vol (16.0-22.0); Oxygen Saturation ABG 90.6 % (95.0-100.0); Oxyhemoglobin 87.3 % THb (90.0-100.0); PCO2 ABG 39.5 mmHg (35.0-45.0); PO2 ABG 57.6 mmHg (80.0-100.0); PO2 FiO2 Ratio Arterial Blood 0.58 %; Total Hemoglobin 14.1 g/dL (12.0-18.0); pH ABG 7.424 (7.350-7.450)
[2021-05-17 05:18] LABS: Device NON-INVASIVE VENT; Modified Allen's Test Pass; Site Drawn RIGHT RADIAL
[2021-05-17 05:19] LABS: Non-Invasive Expiratory Pressure 6 CMH2O; Non-Invasive Inspiratory Pressure 12 CMH2O; Non-Invasive Vent Rate 20 /MIN
[2021-05-17] MEDS: INSULIN ASPART (*BKC) 100 UNITS/ML SUB-Q ×3 (05:21→16:57)
--- NOTE | 2021-05-17 09:40 | WPDCNINT ---
Assessment and Plan Assessment and plan (1) Acute respiratory failure with hypoxia: Code(s): J96.01 - Acute respiratory failure with hypoxia Status: Acute Assessment and Plan: Acute respiratory failure likely related to COVID pneumonia -currently on BiPAP 03/29, 100% FiO2 -maintain O2 sats greater than 90% -chest x-ray and ABGs reviewed - discussed with patient that if his O2 sats remain low is a PO2 is significantly low or he is in impending respiratory failure will have to put the breathing tube in who came to the breathing machine to which she is agreeable -continue bronchodilators -continue Rocephin and azithromycin for a total of 5 days (2) Pneumonia due to COVID-19 virus: Code(s): U07.1 - COVID-19; J12.82 - Pneumonia due to coronavirus disease 2018 Status: Acute Assessment and Plan: Positive COVID on 05/10/2020, patient is unvaccinated -patient presented with worsening shortness of breath malaise, fatigue, headaches, generalized weakness, decreased p.o. intake -CRP 7.6 -started on dexamethasone and baricitinib on 05/16/2021 -continue droplet, airborne and contact isolation/precautions (3) Type 2 diabetes mellitus: Code(s): E11.9 - Type 2 diabetes mellitus without complications Status: Acute Assessment and Plan: Patient with history of type 2 diabetes, currently hyperglycemic -started on Lantus and high-dose sliding scale and Accu-Cheks, -hemoglobin A1c is 8.4 this admission (4) Acute renal failure superimposed on stage 4 chronic kidney disease: Code(s): N17.9 - Acute kidney failure, unspecified; N18.4 - Chronic kidney disease, stage 4 (severe) Status: Acute Assessment and Plan: Patient presented with acute on chronic kidney disease with a creatinine of 3.30 on admission, patient was given IV fluid bolus in the ER for elevated lactic acid -creatinine down to 2.10 this morning, patient has been making urine -will continue to monitor urine output, renal function and electrolytes -patient does have a ureteral stent which was placed at [facility] 5 weeks ago due to scar tissue -renal ultrasound has been ordered (5) Prostate cancer: Code(s): C61 - Malignant neoplasm of prostate Status: Chronic Assessment and Plan: Patient has a history of prostate cancer -Status post radiation, on Erleada., will continue to hold at this time given patient is on baricitinib (6) Hypertension: Code(s): I10 - Essential (primary) hypertension Status: Acute Assessment and Plan: Blood pressures have been stable, will hold oral antihypertensives -will add p.r.n. hydralazine (7) DVT prophylaxis: Code(s): Z29.9 - Encounter for prophylactic measures, unspecified Status: Acute Assessment and Plan: Enoxaparin Additional Plan Discussed with patient updated with his condition and plan of care Code status: Full code Critical care time spent: 45 minute This dictation may have been done utilizing a voice recognition system. Attempts have been made to correct errors. However, there may be uncorrected grammatical, spelling, and recognition errors present. Due to a high probability of clinically significant, life threatening deterioration, the patient required my highest level of preparedness to intervene emergently and I personally spent this critical care time directly and personally managing the patient. This critical care time included obtaining a history; examining the patient; pulse oximetry; ordering and review of studies; arranging urgent treatment with development of a management plan; evaluation of patient's response to treatment; frequent reassessment; and discussions with other providers. It was exclusive of separately billable procedures and treating other patients and teaching time. Please see Assessment and Plan section and the rest of the note for further information on patient assessment and treatment In
[2021-05-17] MEDS: SODIUM CHLORIDE 0.9% IV 1,000 ML 50 ML IV CONT (09:54)
[2021-05-17] MEDS: INSULIN GLARGINE (*BKC) 100 UNITS/ML 20 UNITS SUB-Q (09:55)
[2021-05-17] MEDS: ENOXAPARIN 40 MG/0.4 ML SYRINGE SUB-Q (10:56)
[2021-05-17] MEDS: BARICITINIB 2 MG TABLET PO (10:56)
[2021-05-17 11:08] LABS: Glucose Point of Care 277 mg/dl (65-105)
--- NOTE | 2021-05-17 13:07 | PM.CNPUL ---
Assessment and Plan Assessment and plan (1) Pneumonia due to COVID-19 virus: Code(s): U07.1 - COVID-19; J12.82 - Pneumonia due to coronavirus disease 2018 Status: Acute Assessment and Plan: (+) COVID SARS CoV-2 on 05/16; non vaccinated. He is at increased risk for adverse outcome with elevated BMI 37.2 and history of tobacco, prostate cancer which he is being treated at [facility], Dr Reid and Dr Mckinnon. He did not want to take remdesivir, family wanted him to have a monoclonal antibody, and he is on baricitinib. He is on 100% O2, on BiPAP, has diffuse infiltrates. He started having symptoms May 04, was admitted when he worsened and was not able to object to being admitted. (2) Acute respiratory failure with hypoxia: Code(s): J96.01 - Acute respiratory failure with hypoxia Status: Acute Assessment and Plan: He is requiring FiO2 100% and positive pressure, desaturates quickly when his mask is removed to take sips of water. He may get worse before getting better. He is a full code. He smoked for 14+ yeras, 2 ppd, had history of asthma in childhood. He is on albuterol. He is not on inhalers at home. Will need PFTs after discharge. (3) Obstructive sleep apnea: Code(s): G47.33 - Obstructive sleep apnea (adult) (pediatric) Status: Acute Assessment and Plan: uses CPAP at home, His current device is one of the many that have been recalled, and he is not using it now as his recent illness has made it difficult for him to tolerate his current settings. (4) History of tobacco abuse: Code(s): Z87.891 - Personal history of nicotine dependence Status: Acute Assessment and Plan: 2 ppd age [age]; had asthma in childhood History of Present Illness History of Present Illness Consult date: 05/17/21 Requesting physician: Sonia Callahan MD Reason for consult: pneumonia (COVID 19 pneumonia, acute respiratory Failure) Chief complaint: COVID pneumonia/respiratory failure/renal failure Narrative: Not vaccinated against COVID NEW: Jake Davis is a 66 year old man admitted 05/16 with increased shortness of breath since May 04, generalized malaise, body aches, weakness, fatigue, and headache. She was treated with Levaquin May 10 and was COVID (+) that day. He had decreased oral intake with bluish discoloration on lips and fingers. His complaint on admission was thirst. He denies fever, sinus congestion, sore throat, chest pain, pleuritic pain, vomiting, diarrhea, abdominal pain, dysuria, and hematuria. He did not receive a COVID vaccination. Of note, the patient had a ureteral stent placed approximately 5 weeks ago at [facility] due to ?scar tissue? and is supposed to be removed in the next coming week or so. He has acute renal insufficiency with BUN 59 and creatinine 3.3. This is improving, BUN 50 and creatinine 2.1. He is a diabetic. He is on Erleada, antineoplastic antiandrogen agent for his prostate cancer. Family stated what they wanted for treatment including no remdesivir, yes to baricitinib as an alternative to other monoclonal antibody that we do not have on our formulary. His family wanted tocilizumab however with his prostate cancer, tocilizumab was not considered as good an option. He was brought to the hospital when he was too lethargic to object to hospital care. Normal bedtime is 9 pm, wakes at 6:30 to 7:00 am. Avoids naps so he sleeps more soundly at night. Labs: DATE 05/16 05/17 BNP 2059 Na+ 131 BUN 59 50 creat 3.3 2.1 WBC 11 7.9 SLEEP: Has COURTNEY, uses CPAP for at least the last 5 years. His current device is one of the many PAP machines impacted by the national recall,
[2021-05-17 16:00] LABS: Glucose Point of Care 281 mg/dl (65-105)
--- NOTE | 2021-05-17 19:58 | PCRCNOTE ---
pt 02 saturation drops when BIPAP mask is off. MDI cannot be given at this time. medication should be switched to in line UPD treatments
[2021-05-17] MEDS: ACETAMINOPHEN 325 MG TABLET 650 MG PO (22:21)
[2021-05-17 23:34] LABS: Glucose Point of Care 212 mg/dl (65-105)
[2021-05-18] VITALS (26 sets, daily range): BP systolic 109–166; BP diastolic 58–84; PULSE 77–117; RESP 20–35; TEMP 36.4–38.7; O2SAT 80–97
[2021-05-18] MEDS: SODIUM CHLORIDE 0.9% IV 1,000 ML 50 ML IV CONT (03:19)
[2021-05-18 03:58] LABS: Glucose Point of Care 169 mg/dl (65-105)
[2021-05-18] MEDS: ACETAMINOPHEN 325 MG TABLET 650 MG PO (04:44)
[2021-05-18 05:04] LABS: Alveolar/Arterial O2 Gradient 625.2 mmHg; Base Excess ABG 4.9 mEq/l (+/-2.0); Carboxyhemoglobin 0.3 % THb (0-2.0); Fractional Inspired Oxygen 100 %; HCO3 ABG 27.6 mEq/l (22.0-26.0); Methemoglobin ABG 0.3 %THb (0-1.5); Oxygen Content ABG 17.4 %vol (16.0-22.0); PCO2 ABG 34.6 mmHg (35.0-45.0); PO2 ABG 53.2 mmHg (80.0-100.0); PO2 FiO2 Ratio Arterial Blood 0.53 %; Reduced Hemoglobin 10.4 %THb (0-5.0); Total Hemoglobin 13.9 g/dL (12.0-18.0)
[2021-05-18 05:05] LABS: Device BIPAP; Modified Allen's Test Unable to perform; Site Drawn RIGHT RADIAL
[2021-05-18 05:06] LABS: Expiratory Pressure 6 cmH2O; Inspiratory Pressure 12 cmH2O
[2021-05-18 05:07] LABS: Basophils Percent Auto 0.1 % (0.2-1.2); Eosinophils Absolute Auto 0.1 K/mm3 (0-0.3); Eosinophils Percent Auto 0.5 % (0-4.4); Hematocrit 39.2 % (42.0-52.0); Hemoglobin 13.1 g/dL (14.0-18.0); Immature Granulocyte Absolute 0.14 K/mm3 (0.00-0.031); Immature Granulocyte Percent A 1.3 % (0-0.5); Lymphocytes Absolute Auto 0.72 K/mm3 (0.9-3.2); Lymphocytes Percent Auto 6.9 % (18.3-44.2); Mean Corpuscular HGB Conc 33.4 g/dl (32-36); Mean Corpuscular Volume 89.7 fl (80-100); Mean Platelet Volume 9.7 fl (7.4-10.4); Monocytes Absolute Auto 0.2 K/mm3 (0.1-0.6); Monocytes Percent Auto 2.1 % (2.6-8.5); Neutrophils Absolute Auto 9.3 K/mm3 (1.3-6.7); Neutrophils Percent Auto 89.1 % (45.5-73.1); Platelet Count Result 183 k/mm3 (150-375); Red Blood Count 4.37 M/mm3 (4.6-6.20); Red Cell Distribution Width 13.7 % (11.5-14.5); White Blood Count 10.5 K/mm3 (4.5-10.0)
[2021-05-18 05:21] LABS: Lactic Acid Reflex 1.5 mmol/L (0.7-2.1)
[2021-05-18 05:37] LABS: D Dimer < 0.27 ug/mL (<0.48)
[2021-05-18 05:38] LABS: Alanine Aminotransferase 63 U/L (4-50); Albumin Level 2.9 g/dL (3.5-5.1); Alkaline Phosphatase 123 U/L (38-126); Anion Gap 6 mmol/L (8-16); Aspartate Amino Transferase 91 U/L (17-59); Blood Urea Nitrogen 35 mg/dL (9-20); CRP 7.7 mg/dL (<1.0); Calcium 7.8 mg/dL (8.4-10.2); Carbon Dioxide 28 mmol/L (22-30); Chloride 102 mmol/L (98-107); Estimated CRCL calculation 63 ml/min; Estimated Glomerular Filt Rate 51; Glucose 204 mg/dL (65-110); Magnesium 2.8 mg/dL (1.6-2.3); Phosphorus 2.3 mg/dL (2.5-4.5); Potassium 3.6 mmol/L (3.4-5.0); Sodium 136 mmol/L (137-145)
[2021-05-18 05:54] LABS: Lactate Dehydrogenase 2178 U/L (313-618)
[2021-05-18] MEDS: INSULIN ASPART (*BKC) 100 UNITS/ML SUB-Q ×3 (06:07→18:41)
[2021-05-18] MEDS: IPRATROPIUM BR 0.02% INH SOLN 0.5 MG/2.5 ML VIAL INHALATION ×2 (08:44→13:18)
[2021-05-18] MEDS: ALBUTEROL SULFATE NEB 2.5 MG/0.5 ML INH INHALATION ×2 (08:44→13:18)
[2021-05-18] MEDS: ENOXAPARIN 40 MG/0.4 ML SYRINGE SUB-Q (09:05)
[2021-05-18] MEDS: INSULIN GLARGINE (*BKC) 100 UNITS/ML 20 UNITS SUB-Q (09:05)
--- NOTE | 2021-05-18 09:45 | PC.NURSE ---
Updated daughter, Veronica and spouse, Jacqueline, for 30 minutes on plan of care and patient condition.
[2021-05-18] MEDS: BARICITINIB 2 MG TABLET PO (11:37)
[2021-05-18 12:04] LABS: Glucose Point of Care 223 mg/dl (65-105)
--- NOTE | 2021-05-18 13:59 | PC.NURSE ---
Updated, Ysabel, daughter, Umang, son-in-law and Jacqueline, spouse, on patient condition. Family now discussing possible transfer of patient to an [facility] facility with Dr. Callahan.
--- NOTE | 2021-05-18 14:14 | P.PNINT_ITS ---
Progress Note: A&P Assessment and Plan (1) Acute respiratory failure with hypoxia: Code(s): J96.01 - Acute respiratory failure with hypoxia Status: Acute Assessment and Plan: Acute respiratory failure likely related to COVID pneumonia -currently on BiPAP 03/29, 100% FiO2 -maintain O2 sats greater than 90% -chest x-ray and ABGs reviewed - discussed with patient that if his O2 sats remain low is a PO2 is signi ficantly low or he is in impending respiratory failure will have to put the breathing tube in who came to the breathing machine to which she is agreeable -continue bronchodilators -continue Rocephin and azithromycin for a total of 5 days (2) Pneumonia due to COVID-19 virus: Code(s): U07.1 - COVID-19; J12.82 - Pneumonia due to coronavirus disease 2018 Status: Acute Assessment and Plan: Positive COVID on 05/10/2020, patient is unvaccinated -patient presented with worsening shortness of breath malaise, fatigue, headaches, generalized weakness, decreased p.o. intake -CRP 7.6 -started on dexamethasone and baricitinib on 05/16/2021 -continue droplet, airborne and contact isolation/precautions (3) Type 2 diabetes mellitus: Code(s): E11.9 - Type 2 diabetes mellitus without complications Status: Acute Assessment and Plan: Patient with history of type 2 diabetes, currently hyperglycemic -started on Lantus and high-dose sliding scale and Accu-Cheks, -hemoglobin A1c is 8.4 this admission (4) Acute renal failure superimposed on stage 4 chronic kidney disease: Code(s): N17.9 - Acute kidney failure, unspecified; N18.4 - Chronic kidney disease, stage 4 (severe) Status: Acute Assessment and Plan: Patient presented with acute on chronic kidney disease with a creatinine of 3.30 on admission, patient was given IV fluid bolus in the ER for elevated lactic acid -creatinine down to 1.40 this morning, patient has been making urine -will continue to monitor urine output, renal function and electrolytes -patient does have a ureteral stent which was placed at [facility] 5 weeks ago due to scar tissue -renal ultrasound has been ordered (5) Prostate cancer: Code(s): C61 - Malignant neoplasm of prostate Status: Chronic Assessment and Plan: Patient has a history of prostate cancer -Status post radiation, on Erleada., will continue to hold at this time given patient is on baricitinib (6) Hypertension: Code(s): I10 - Essential (primary) hypertension Status: Acute Assessment and Plan: Blood pressures have been stable, will hold oral antihypertensives -will add p.r.n. hydralazine (7) DVT prophylaxis: Code(s): Z29.9 - Encounter for prophylactic measures, unspecified Status: Acute Assessment and Plan: Enoxaparin Additional Plan Discussed with patient updated with his condition and plan of care Code status: Full code Critical care time spent: 33 minute This dictation may have been done utilizing a voice recognition system. Attempts have been made to correct errors. However, there may be uncorrected grammatical, spelling, and recognition errors present. Due to a high probability of clinically significant, life threatening deterioration, the patient required my highest level of preparedness to intervene emergently and I personally spent this critical care time directly and personally managing the patient. This critical care time included obtaining a history; examining the patient; pulse oximetry; ordering and review of studies; arranging urgent treatment with development of a management plan; e
--- NOTE | 2021-05-18 16:20 | PM.PNPUL ---
Progress Note: A&P Assessment and Plan (1) Pneumonia due to COVID-19 virus: Code(s): U07.1 - COVID-19; J12.82 - Pneumonia due to coronavirus disease 2018 Status: Acute Assessment and Plan: (+) COVID SARS CoV-2 on 05/16; non vaccinated. He is at increased risk for adverse outcome with elevated BMI 37.2 and history of tobacco, prostate cancer which he is being treated at [facility], Dr Reid and Dr Mckinnon. He did not want to take remdesivir, family wanted him to have a monoclonal antibody, and he is on baricitinib. He is on 100% O2, on BiPAP, has diffuse infiltrates. He started having symptoms May 04, was admitted when he worsened and was not able to object to being admitted. He is having more trouble breathing, working harder. Dr Callahan spoke with the family today about his condition and plans for treatment. Continue current treatment with expectant management. He may get worse before he gets better. (2) Acute respiratory failure with hypoxia: Code(s): J96.01 - Acute respiratory failure with hypoxia Status: Acute Assessment and Plan: He is requiring FiO2 100% and positive pressure, desaturates quickly when his mask is removed to take sips of water. He may get worse before getting better. He is a full code. He smoked for 14+ yeras, 2 ppd, had history of asthma in childhood. He is on albuterol. He is not on inhalers at home. Will need PFTs after discharge. He is having increased O2 demand. He is a full code. (3) Obstructive sleep apnea: Code(s): G47.33 - Obstructive sleep apnea (adult) (pediatric) Status: Acute Assessment and Plan: He uses CPAP at home, His current device is one of the many that have been recalled, and he is not using it now as his recent illness has made it difficult for him to tolerate his current settings. (4) History of tobacco abuse: Code(s): Z87.891 - Personal history of nicotine dependence Status: Acute Assessment and Plan: 2 ppd age [age]; had asthma in childhood Subjective Date/time seen: 05/18/21 16:20 Jake Daivs is a 66 year old man admitted 05/16 with increased shortness of breath since May 04, has COVID pneumonia and acute respiratory failure. He is having more difficulty speaking and his O2 requirements are higher. His renal function is slightly better. BUN is down to 39, creat 1.4. His ferritin is high 1910, increased inflammation. His initial symptoms included shortness of breath, generalized malaise, body aches, weakness, fatigue, and headache. She was treated with Levaquin May 10 and was COVID (+) that day. He had decreased oral intake with bluish discoloration on lips and fingers. His complaint on admission was thirst. He denies fever, sinus congestion, sore throat, chest pain, pleuritic pain, vomiting, diarrhea, abdominal pain, dysuria, and hematuria. He did not receive a COVID vaccination. Of note, the patient had a ureteral stent placed approximately 5 weeks ago at [facility] due to ?scar tissue? and is supposed to be removed in the next coming week or so. He has acute renal insufficiency with BUN 59 and creatinine 3.3. This is improving, BUN 50 and creatinine 2.1. He is a diabetic. He is on Erleada, antineoplastic antiandrogen agent for his prostate cancer. Family stated what they wanted for treatment including no remdesivir, yes to baricitinib as an alternative to other monoclonal antibody that we do not have on our formulary. His family wanted tocilizumab however with his prostate cancer, tocilizumab was not considered as good an option. He was brought to the hospital when he was too lethargic to object to hospital care. Normal bedtime is
--- NOTE | 2021-05-18 16:37 | PC.NURSE ---
FaceTime call initiated with family.
--- NOTE | 2021-05-18 18:15 | P.PCNBED_ITS ---
Procedures Intubation Intubation Date: 05/18/21 <MARVIN Stokes Last Filed: 05/18/21 18:50> Intubation Time: 18:15 <MARVIN Stokes Last Filed: 05/18/21 18:50> Consent: Patient gave verbal consent. <MARVIN Stokes Last Filed: 05/18/21 18:50> A pre-procedural Time-Out was completed immediately before starting the procedure and confirmed: Patient Identification, Site, Procedure, Patient Position and the Availability of Requisite Equipment: Yes <MARVIN Stokes Last Filed: 05/18/21 18:50> Sedative: etomidate <MARVIN Stokes Last Filed: 05/18/21 18:50> Mg given: 30 <MARVIN Stokes Last Filed: 05/18/21 18:50> Paralytic: succinylcholine <MARVIN Stokes Last Filed: 05/18/21 18:50> Mg given: 100 <MARVIN Stokes Last Filed: 05/18/21 18:50> Laryngoscope: fiber optic video scope <MARVIN Stokes Last Filed: 05/18/21 18:50> Assist device used: fiber optic device <MARVIN Stokes Last Filed: 05/18/21 18:50> ET tube size: cuffed <MARVIN Stokes Last Filed: 05/18/21 18:50> Tube secured depth (cm): 23 <MARVIN Stokes Last Filed: 05/18/21 18:50> Tube secured location: teeth <MARVIN Stokes Last Filed: 05/18/21 18:50> Tube placement confirmation: visualized tube passing through cords, equal breath sounds bilaterally, no breath sounds over epigastrium and confirmation by capnometry <MARVIN Stokes Last Filed: 05/18/21 18:50> Patient tolerated procedure: well <MARVIN Stokes Last Filed: 05/18/21 18:50> Intubation complications: hypoxia <Alysa Burkett PA-C - Last Filed: 05/18/21 18:50> Additional comments: Patient had a pre-intubation sat of 86% and we were unable to improve upon that with BVM despite having an easy time bagging. Oxygen dropped to mid 70s post- intubation and he remains in the upper 70's on 100% FiO2. Initial difficulties sedating the patient despite fentanyl and versed bolus and drip and patient was given fentanyl 100 mg bolus and rocuronium 50 mg. Patient is now being bagged with PEEP valve at 15 with steady improvement in SpO2 to the mid to upper 80's near where he has been since admission. Discussed with Dr. Callahan via phone, plan is to start the patient on Nimbex and attempt prone if needed. Dr. García Frias, attending ED physician, was at bedside during the procedure. <Alysa Burkett PA-C - Last Filed: 05/18/21 18:50>
--- NOTE | 2021-05-18 18:15 | P.PNCROSS_ITS ---
Event Note Event Note Event Note: I received a call to intubate the patient due to impending respiratory failure. Patient was on BiPAP, alert and oriented, on my arrival to the room and he gave consent for intubation. Chart was reviewed and I discussed the process with the patient. Vent settings were obtained from the allied health professional. Patient's SpO2 was pretty consistently in the mid to upper 80s on 100% FiO2 on the BiPAP. Attempts to preoxygenate with bag valve mask were unsuccessful despite the patient being easy to bag, and his SpO2 dropped to 76%. Decision was made to intubate emergently. Using fiberoptic scope he was intubated easily and on 1st attempt. Oxygen saturations did not recover above the mid 80s and shortly thereafter the patient became agitated, gagging, and attempting to pull at the tube. His SpO2 dipped briefly into the 60s and verbal orders were given for fentanyl and Versed pushes. Patient remained agitated and he was given propofol 100 mg followed by rocuronium 50 mg. Once he was sedated, we had to bag the patient for 25 minutes with a Peep valve at 15 until his SpO2 was greater than 90%. Decision was made to start Nimbex after discussing the case with Dr. Callahan. Patient was then proned and his SpO2 has been in the mid to upper 90s. <Alysa Burkett PA-C - Last Filed: 05/19/21 00:17> Critical Care Time Critical Care Time: Yes <Alysa Burkett PA-C - Last Filed: 05/19/21 00:17> Total Critical Care Time: 45 <Alysa Burkett PA-C - Last Filed: 05/19/21 00:17> Attestation: A total of 45 minutes critical care time was spent in attention of this patient including assessment, examination, review of chart, arranging urgent treatment with development of a management plan, evaluation of the patient's response to treatment, frequent reassessments, and discussions with other providers including Dr. Callahan. This time was exclusive of separately billable procedures. <Alysa Burkett PA-C - Last Filed: 05/19/21 00:17>
[2021-05-18] MEDS: MIDAZOLAM 100MG/NS 100ML(*CRX) 100 MG/100 ML BAG IV CONT (18:22)
[2021-05-18] MEDS: FENTANYL 2,500MCG/NS250ML(*CRX 2,500 MCG/250 ML BAG 10 MCG IV CONT (18:23)
[2021-05-18] MEDS: PROPOFOL IV EMULSION 200 MG/20 ML VIAL 100 MG IV PUSH (18:41)
[2021-05-18] MEDS: ROCURONIUM BROMIDE 50 MG/5 ML VIAL IV PUSH (18:41)
[2021-05-18] MEDS: CISATRACURIUM BESYLATE 200 MG in DEXTROSE 5% 80 ML 11.09 ML IV CONT (19:00)
[2021-05-18 19:16] LABS: Glucose Point of Care 225 mg/dl (65-105)
--- NOTE | 2021-05-18 19:27 | PC.NURSE ---
Patient intubated, sedated and paralyzed. OG placed and confirmed.
[2021-05-18] MEDS: MINERAL OIL/WHITE PETROLATUM OINTMENT 1 APPLIC EACH EYE (20:25)
[2021-05-18 21:19] LABS: Alveolar/Arterial O2 Gradient 600.8 mmHg; Base Excess ABG -1.8 mEq/l (+/-2.0); Fractional Inspired Oxygen 100 %; HCO3 ABG 24.9 mEq/l (22.0-26.0); Oxygen Saturation ABG 89.6 % (95.0-100.0); PCO2 ABG 50.1 mmHg (35.0-45.0); PO2 ABG 62.1 mmHg (80.0-100.0); PO2 FiO2 Ratio Arterial Blood 0.62 %; Total Hemoglobin 13.8 g/dL (12.0-18.0); pH ABG 7.315 (7.350-7.450)
[2021-05-18 21:20] LABS: Device VENTILATOR; Modified Allen's Test Pass; Oxyhemoglobin 87.4 % THb (90.0-100.0); Site Drawn LEFT RADIAL
[2021-05-18 21:21] LABS: Arterial Blood Gas PEEP 15 cmH2O; Arterial Blood Gas Tidal Volume 450 ml; Arterial Blood Gas Vent Mode CMV; Arterial Blood Gas Ventilator rate 24 /MIN
--- NOTE | 2021-05-18 21:31 | PC.NURSE ---
212 Dr. Callahan informed of [facility]. no new orders received.
--- NOTE | 2021-05-18 22:49 | PC.NURSE ---
2200 Patient placed in prone position. Tolerated well. O2 sats 97%
[2021-05-18 23:41] LABS: Glucose Point of Care 238 mg/dl (65-105)
[2021-05-19] VITALS (31 sets, daily range): BP systolic 103–156; BP diastolic 57–72; PULSE 82–111; RESP 24; TEMP 36.1–37.7; O2SAT 90–97; BMI 36.9
[2021-05-19] MEDS: INSULIN ASPART (*BKC) 100 UNITS/ML SUB-Q ×4 (00:15→23:39)
[2021-05-19] MEDS: SODIUM CHLORIDE 0.9% IV 1,000 ML 50 ML IV CONT (00:17)
[2021-05-19 04:46] LABS: Alveolar/Arterial O2 Gradient 552.8 mmHg; Base Excess ABG 1.1 mEq/l (+/-2.0); Carboxyhemoglobin 0.3 % THb (0-2.0); Fractional Inspired Oxygen 100 %; HCO3 ABG 28.2 mEq/l (22.0-26.0); Methemoglobin ABG 0.2 %THb (0-1.5); Oxygen Content ABG 19.1 %vol (16.0-22.0); Oxygen Saturation ABG 97.3 % (95.0-100.0); Oxyhemoglobin 96.4 % THb (90.0-100.0); PCO2 ABG 55.4 mmHg (35.0-45.0); PO2 ABG 104.8 mmHg (80.0-100.0); PO2 FiO2 Ratio Arterial Blood 1.05 %; Reduced Hemoglobin 3.1 %THb (0-5.0); pH ABG 7.325 (7.350-7.450)
[2021-05-19 04:47] LABS: Device VENTILATOR; Modified Allen's Test Pass; Site Drawn LEFT RADIAL
[2021-05-19 04:48] LABS: Arterial Blood Gas PEEP 15 cmH2O; Arterial Blood Gas Tidal Volume 450 ml; Arterial Blood Gas Vent Mode CMV; Arterial Blood Gas Ventilator rate 24 /MIN
[2021-05-19 05:14] LABS: Glucose Point of Care 181 mg/dl (65-105)
[2021-05-19] MEDS: CISATRACURIUM BESYLATE 200 MG in DEXTROSE 5% 80 ML 11.09 ML IV CONT ×2 (08:00→17:18)
[2021-05-19] MEDS: INSULIN GLARGINE (*BKC) 100 UNITS/ML 20 UNITS SUB-Q (08:50)
[2021-05-19] MEDS: ENOXAPARIN 40 MG/0.4 ML SYRINGE SUB-Q (08:51)
[2021-05-19] MEDS: MINERAL OIL/WHITE PETROLATUM OINTMENT 1 APPLIC EACH EYE ×2 (09:00→20:02)
[2021-05-19] MEDS: IPRATROPIUM BR 0.02% INH SOLN 0.5 MG/2.5 ML VIAL INHALATION ×3 (09:04→20:14)
[2021-05-19] MEDS: ALBUTEROL SULFATE NEB 2.5 MG/0.5 ML INH INHALATION ×3 (09:04→20:14)
[2021-05-19] MEDS: LIDOCAINE HCL 1% PF INJ 5 ML VIAL INFILTRATE (09:50)
[2021-05-19] MEDS: FENTANYL 2,500MCG/NS250ML(*CRX 2,500 MCG/250 ML BAG 15 MCG IV CONT (10:31)
[2021-05-19 10:51] LABS: Basophils Percent Auto 0.2 % (0.2-1.2); Eosinophils Absolute Auto 0.1 K/mm3 (0-0.3); Eosinophils Percent Auto 0.7 % (0-4.4); Hematocrit 41.2 % (42.0-52.0); Hemoglobin 13.2 g/dL (14.0-18.0); Immature Granulocyte Absolute 0.11 K/mm3 (0.00-0.031); Lymphocytes Absolute Auto 0.44 K/mm3 (0.9-3.2); Mean Corpuscular Hemoglobin 30.1 pg (26-34); Mean Corpuscular Volume 94.1 fl (80-100); Mean Platelet Volume 9.9 fl (7.4-10.4); Monocytes Absolute Auto 0.2 K/mm3 (0.1-0.6); Monocytes Percent Auto 1.6 % (2.6-8.5); Neutrophils Absolute Auto 10.1 K/mm3 (1.3-6.7); Neutrophils Percent Auto 92.5 % (45.5-73.1); Platelet Count Result 167 k/mm3 (150-375); Red Blood Count 4.38 M/mm3 (4.6-6.20); Red Cell Distribution Width 14.5 % (11.5-14.5); White Blood Count 10.9 K/mm3 (4.5-10.0)
[2021-05-19 10:54] LABS: Alanine Aminotransferase 40 U/L (4-50); Albumin Level 2.8 g/dL (3.5-5.1); Alkaline Phosphatase 114 U/L (38-126); Anion Gap 6 mmol/L (8-16); Aspartate Amino Transferase 37 U/L (17-59); Bilirubin,Total 0.8 mg/dL (0.2-1.3); Blood Urea Nitrogen 24 mg/dL (9-20); Calcium 7.9 mg/dL (8.4-10.2); Carbon Dioxide 30 mmol/L (22-30); Chloride 105 mmol/L (98-107); Estimated CRCL calculation 67 ml/min; Estimated Glomerular Filt Rate 55; Glucose 218 mg/dL (65-110); Magnesium 2.8 mg/dL (1.6-2.3); Potassium 4.8 mmol/L (3.4-5.0); Sodium 141 mmol/L (137-145)
[2021-05-19 11:18] LABS: Glucose Point of Care 209 mg/dl (65-105)
[2021-05-19] MEDS: BARICITINIB 2 MG TABLET PO (11:55)
[2021-05-19] MEDS: MIDAZOLAM 100MG/NS 100ML(*CRX) 100 MG/100 ML BAG 6 MG IV CONT (12:00)
[2021-05-19 12:09] LABS: Glucose Point of Care 211 mg/dl (65-105)
--- NOTE | 2021-05-19 14:13 | WPDINTPN ---
Progress Note: A&P Assessment and Plan (1) Acute respiratory failure with hypoxia: Code(s): J96.01 - Acute respiratory failure with hypoxia Status: Acute Assessment and Plan: Acute respiratory failure likely related to COVID pneumonia -Intubated on 05/18/2021 - Currently on mechanical ventilator, 100 % FiO2 , Peep or 15. wean FiO2 to maitain )2 sats > 92% - Continue prone positioning for 16-18 hrs daily - low tidal volume, startegy to avoid volu trauma -chest x-ray and ABGs reviewed -continue bronchodilators -continue Rocephin and azithromycin for a total of 5 days (2) Pneumonia due to COVID-19 virus: Code(s): U07.1 - COVID-19; J12.82 - Pneumonia due to coronavirus disease 2018 Status: Acute Assessment and Plan: Positive COVID on 05/10/2020, patient is unvaccinated -patient presented with worsening shortness of breath malaise, fatigue, headaches, generalized weakness, decreased p.o. intake -CRP 7.6 -started on dexamethasone and baricitinib on 05/16/2021 -continue droplet, airborne and contact isolation/precautions (3) Type 2 diabetes mellitus: Code(s): E11.9 - Type 2 diabetes mellitus without complications Status: Acute Assessment and Plan: Patient with history of type 2 diabetes, currently hyperglycemic -started on Lantus and high-dose sliding scale and Accu-Cheks, -hemoglobin A1c is 8.4 this admission (4) Acute renal failure superimposed on stage 4 chronic kidney disease: Code(s): N17.9 - Acute kidney failure, unspecified; N18.4 - Chronic kidney disease, stage 4 (severe) Status: Acute Assessment and Plan: Patient presented with acute on chronic kidney disease with a creatinine of 3.30 on admission, patient was given IV fluid bolus in the ER for elevated lactic acid -creatinine down to 1.30 this morning, patient has been making adequate urine -will continue to monitor urine output, renal function and electrolytes -patient does have a ureteral stent which was placed at [facility] 5 weeks ago due to scar tissue -renal ultrasound has been ordered (5) Prostate cancer: Code(s): C61 - Malignant neoplasm of prostate Status: Chronic Assessment and Plan: Patient has a history of prostate cancer -Status post radiation, on Erleada., will continue to hold at this time given patient is on baricitinib (6) Hypertension: Code(s): I10 - Essential (primary) hypertension Status: Acute Assessment and Plan: Blood pressures have been stable, will hold oral antihypertensives -will add p.r.n. hydralazine (7) DVT prophylaxis: Code(s): Z29.9 - Encounter for prophylactic measures, unspecified Status: Acute Assessment and Plan: Enoxaparin Additional Plan Discussed with patient updated with his condition and plan of care Code status: Full code Critical care time spent: 34 minute This dictation may have been done utilizing a voice recognition system. Attempts have been made to correct errors. However, there may be uncorrected grammatical, spelling, and recognition errors present. Due to a high probability of clinically significant, life threatening deterioration, the patient required my highest level of preparedness to intervene emergently and I personally spent this critical care time directly and personally managing the patient. This critical care time included obtaining a history; examining the patient; pulse oximetry; ordering and review of studies; arranging urgent treatment with development of a management plan; evaluation of patient's response to treatment; frequent reassessment; and discussions with other providers. It was exclusive of separately billable procedures and treating other patients and teaching time. Please see Assessment and Plan section and the rest of the note for further information on patient assessment and treatment Subjective Date/time seen: 05/19/21 14:13 Interval history: Re
[2021-05-19] MEDS: CENTRAL LINE FLUSH 10 ML IV PUSH ×2 (14:35→20:03)
[2021-05-19 17:29] LABS: Glucose Point of Care 264 mg/dl (65-105)
[2021-05-19 23:17] LABS: Pneumococcal Antigen Urine Not Detected (Not Detected)
[2021-05-19 23:36] LABS: Glucose Point of Care 295 mg/dl (65-105)
[2021-05-20] VITALS (43 sets, daily range): BP systolic 102–170; BP diastolic 59–81; PULSE 76–123; RESP 24; TEMP 36.1–37.6; O2SAT 85–97
[2021-05-20] MEDS: FENTANYL 2,500MCG/NS250ML(*CRX 2,500 MCG/250 ML BAG 15 MCG IV CONT (01:24)
[2021-05-20] MEDS: CISATRACURIUM BESYLATE 200 MG in DEXTROSE 5% 80 ML 11.09 ML IV CONT (02:05)
[2021-05-20] MEDS: ALBUTEROL SULFATE NEB 2.5 MG/0.5 ML INH INHALATION ×4 (02:11→19:56)
[2021-05-20] MEDS: IPRATROPIUM BR 0.02% INH SOLN 0.5 MG/2.5 ML VIAL INHALATION ×4 (02:11→19:56)
[2021-05-20 04:10] LABS: Alanine Aminotransferase 11 U/L (4-50); Albumin Level 3.7 g/dL (3.5-5.1); Alkaline Phosphatase 38 U/L (38-126); Anion Gap 8 mmol/L (8-16); Aspartate Amino Transferase 24 U/L (17-59); Bilirubin,Total 0.4 mg/dL (0.2-1.3); Blood Urea Nitrogen 39 mg/dL (9-20); Carbon Dioxide 20 mmol/L (22-30); Chloride 102 mmol/L (98-107); Estimated CRCL calculation 67 ml/min; Estimated Glomerular Filt Rate 55; Glucose 170 mg/dL (65-110); Magnesium 1.8 mg/dL (1.6-2.3); Phosphorus 3.8 mg/dL (2.5-4.5); Potassium 4.1 mmol/L (3.4-5.0); Sodium 130 mmol/L (137-145)
[2021-05-20] MEDS: MIDAZOLAM 100MG/NS 100ML(*CRX) 100 MG/100 ML BAG 6 MG IV CONT (04:25)
[2021-05-20 04:41] LABS: Basophils Percent Auto 0.2 % (0.2-1.2); Eosinophils Percent Auto 0.2 % (0-4.4); Hematocrit 40.7 % (42.0-52.0); Immature Granulocyte Absolute 0.12 K/mm3 (0.00-0.031); Immature Granulocyte Percent A 1.4 % (0-0.5); Lymphocytes Absolute Auto 0.41 K/mm3 (0.9-3.2); Lymphocytes Percent Auto 4.7 % (18.3-44.2); Mean Corpuscular HGB Conc 31.9 g/dl (32-36); Mean Corpuscular Hemoglobin 30.6 pg (26-34); Mean Corpuscular Volume 95.8 fl (80-100); Mean Platelet Volume 10.4 fl (7.4-10.4); Monocytes Absolute Auto 0.2 K/mm3 (0.1-0.6); Monocytes Percent Auto 1.7 % (2.6-8.5); Neutrophils Absolute Auto 8.1 K/mm3 (1.3-6.7); Neutrophils Percent Auto 91.8 % (45.5-73.1); Platelet Count Result 142 k/mm3 (150-375); Red Blood Count 4.25 M/mm3 (4.6-6.20); Red Cell Distribution Width 14.6 % (11.5-14.5); White Blood Count 8.8 K/mm3 (4.5-10.0)
[2021-05-20 05:32] LABS: Alveolar/Arterial O2 Gradient 393.4 mmHg; Base Excess ABG 1.8 mEq/l (+/-2.0); Carboxyhemoglobin 0.2 % THb (0-2.0); Fractional Inspired Oxygen 75 %; HCO3 ABG 29.7 mEq/l (22.0-26.0); Methemoglobin ABG 0.2 %THb (0-1.5); Oxygen Content ABG 18.9 %vol (16.0-22.0); Oxyhemoglobin 94.1 % THb (90.0-100.0); PO2 ABG 77.2 mmHg (80.0-100.0); PO2 FiO2 Ratio Arterial Blood 1.03 %; Reduced Hemoglobin 5.5 %THb (0-5.0); Total Hemoglobin 14.3 g/dL (12.0-18.0); pH ABG 7.309 (7.350-7.450)
[2021-05-20 05:34] LABS: Device VENTILATOR; Modified Allen's Test Unable to perform; PCO2 ABG 60.4 mmHg (35.0-45.0); Site Drawn LEFT RADIAL
[2021-05-20 05:35] LABS: Arterial Blood Gas PEEP 15 cmH2O; Arterial Blood Gas Tidal Volume 450 ml; Arterial Blood Gas Vent Mode CMV; Arterial Blood Gas Ventilator rate 24 /MIN
[2021-05-20] MEDS: CENTRAL LINE FLUSH 10 ML IV PUSH ×3 (06:36→21:35)
[2021-05-20] MEDS: MINERAL OIL/WHITE PETROLATUM OINTMENT 1 APPLIC EACH EYE ×2 (08:49→21:30)
[2021-05-20] MEDS: INSULIN GLARGINE (*BKC) 100 UNITS/ML 20 UNITS SUB-Q (08:50)
[2021-05-20] MEDS: ENOXAPARIN 40 MG/0.4 ML SYRINGE SUB-Q (08:52)
--- NOTE | 2021-05-20 10:15 | PC.NURSE ---
Updated family on labs, patient condition and plan of care.
[2021-05-20] MEDS: polyethylene glycoL 3350 17 GM POWD.PACK PO (11:51)
--- NOTE | 2021-05-20 11:51 | PCFNICU ---
ICU Rounding Note: Pt current nutrition is Vital AF 1.2 at 60 ml/hr hover 22 hours. Goal rate at 75 ml/hr. Last recorded weight is 124.1 kg-stable Bowel Motility:+BM reported 05/18 Labs Reviewed:Glu 170,BUN 39, GFR 55, Na 130, Hct 40.7,Hgb 13.0 Meds Noted:Fentanyl, Versed, Miralax, Decadron, Vit C, Vit D, Zinc, Lantus, Atrovent. Skin: WNL Additional Notes: Patient remains on mechanical vent and tube feedings of Vital AF 1.2 at 60 ml/hr over 22 hours. Tolerating. Plans for goal rate of 75 ml/hr. Free water flush 30 ml q 4 hours. Agree with diet orders. Following daily in ICU rounds. Will monitor every Monday and Monday.
[2021-05-20] MEDS: INSULIN ASPART (*BKC) 100 UNITS/ML SUB-Q (11:52)
[2021-05-20] MEDS: CISATRACURIUM BESYLATE 200 MG in DEXTROSE 5% 80 ML 14.78 ML IV CONT ×2 (11:53→18:48)
[2021-05-20] MEDS: BARICITINIB 2 MG TABLET PO (11:53)
[2021-05-20 12:11] LABS: Glucose Point of Care 272 mg/dl (65-105)
--- NOTE | 2021-05-20 13:25 | WPDINTPN ---
Progress Note: A&P Assessment and Plan (1) Acute respiratory failure with hypoxia: Code(s): J96.01 - Acute respiratory failure with hypoxia Status: Acute Assessment and Plan: Acute respiratory failure likely related to COVID pneumonia -Intubated on 05/18/2021 - Currently on mechanical ventilator, 100 % FiO2 , Peep or 15. Will wean PEEP to 14 and continue of wean FiO2 to maintain O2 sats > 92% - Continue prone positioning for 16-18 hrs daily - low tidal volume, strategy to avoid volu trauma -chest x-ray and ABGs reviewed -patient has been started on vitamin-D, vitamin-C and zinc -continue bronchodilators -continue Rocephin and azithromycin for a total of 5 days (2) Pneumonia due to COVID-19 virus: Code(s): U07.1 - COVID-19; J12.82 - Pneumonia due to coronavirus disease 2019 Status: Acute Assessment and Plan: Positive COVID on 05/10/2020, patient is unvaccinated -patient presented with worsening shortness of breath malaise, fatigue, headaches, generalized weakness, decreased p.o. intake -CRP 7.6 -started on dexamethasone and baricitinib on 05/16/2021 -continue droplet, airborne and contact isolation/precautions (3) Type 2 diabetes mellitus: Code(s): E11.9 - Type 2 diabetes mellitus without complications Status: Acute Assessment and Plan: Patient with history of type 2 diabetes, currently hyperglycemic -started on Lantus and high-dose sliding scale and Accu-Cheks, -hemoglobin A1c is 8.4 this admission (4) Acute renal failure superimposed on stage 4 chronic kidney disease: Code(s): N17.9 - Acute kidney failure, unspecified; N18.4 - Chronic kidney disease, stage 4 (severe) Status: Acute Assessment and Plan: Patient presented with acute on chronic kidney disease with a creatinine of 3.30 on admission, patient was given IV fluid bolus in the ER for elevated lactic acid -creatinine down to 1.30 this morning, patient has been making adequate urine -will continue to monitor urine output, renal function and electrolytes -patient does have a ureteral stent which was placed at [facility] 5 weeks ago due to scar tissue -renal ultrasound has been ordered (5) Prostate cancer: Code(s): C61 - Malignant neoplasm of prostate Status: Chronic Assessment and Plan: Patient has a history of prostate cancer -Status post radiation, on Erleada., will continue to hold at this time given patient is on baricitinib (6) Hypertension: Code(s): I10 - Essential (primary) hypertension Status: Acute Assessment and Plan: Blood pressures have been stable, will hold oral antihypertensives -will add p.r.n. hydralazine (7) DVT prophylaxis: Code(s): Z29.9 - Encounter for prophylactic measures, unspecified Status: Acute Assessment and Plan: Enoxaparin Additional Plan Nutrition: Tolerating tube feeds Stress ulcer prophylaxis: Protonix Code status: Full code Critical care time spent: 34 minute 05/20/2021: Called [facility] and spoke to the patient transfer line, currently they do not have any beds but have taken his information and was they have a bed available they will call us for more information. This dictation may have been done utilizing a voice recognition system. Attempts have been made to correct errors. However, there may be uncorrected grammatical, spelling, and recognition errors present. Due to a high probability of clinically significant, life threatening deterioration, the patient required my highest level of preparedness to intervene emergently and I personally spent this critical care time directly and personally managing the patient. This critical care time included obtaining a history; examining the patient; pulse oximetry; ordering and review of studies; arranging urgent treatment with development of a management plan; evaluation of patient's response to treatment; frequent reassessment; and di
[2021-05-20] MEDS: MIDAZOLAM 100MG/NS 100ML(*CRX) 100 MG/100 ML BAG 7 MG IV CONT (15:15)
[2021-05-20] MEDS: FENTANYL 2,500MCG/NS250ML(*CRX 2,500 MCG/250 ML BAG 20 MCG IV CONT (15:16)
[2021-05-20 17:15] LABS: Legionella pneumophila Ag Ur Not Detected (Not Detected)
[2021-05-20 17:29] LABS: Glucose Point of Care 436 mg/dl (65-105)
[2021-05-20 17:29] LABS: Glucose Point of Care 451 mg/dl (65-105)
[2021-05-20] MEDS: INSULIN HUMAN REGULAR (*BKC) 100 UNITS/ML 10 UNITS SUB-Q (17:49)
[2021-05-20] MEDS: INSULIN GLARGINE (*BKC) 100 UNITS/ML 30 UNITS SUB-Q (21:31)
[2021-05-20 22:06] LABS: Glucose Point of Care 436 mg/dl (65-105)
[2021-05-20 23:00] LABS: Glucose Point of Care 433 mg/dl (65-105)
[2021-05-21] VITALS (36 sets, daily range): BP systolic 90–167; BP diastolic 52–81; PULSE 93–137; RESP 24–31; TEMP 36.1–37.7; O2SAT 89–99
[2021-05-21] MEDS: INSULIN ASPART (*BKC) 100 UNITS/ML 12 UNITS SUB-Q (00:11)
[2021-05-21] MEDS: ALBUTEROL SULFATE NEB 2.5 MG/0.5 ML INH INHALATION ×2 (01:47→19:54)
[2021-05-21] MEDS: IPRATROPIUM BR 0.02% INH SOLN 0.5 MG/2.5 ML VIAL INHALATION ×2 (01:47→19:54)
[2021-05-21] MEDS: CISATRACURIUM BESYLATE 200 MG in DEXTROSE 5% 80 ML 14.78 ML IV CONT (01:56)
[2021-05-21] MEDS: FENTANYL 2,500MCG/NS250ML(*CRX 2,500 MCG/250 ML BAG 20 MCG IV CONT ×2 (03:56→16:31)
[2021-05-21 04:16] LABS: Glucose Point of Care 380 mg/dl (65-105)
[2021-05-21 04:22] LABS: Alveolar/Arterial O2 Gradient 545.9 mmHg; Base Excess ABG 0.3 mEq/l (+/-2.0); Carboxyhemoglobin 0.1 % THb (0-2.0); Fractional Inspired Oxygen 100 %; HCO3 ABG 31.8 mEq/l (22.0-26.0); Methemoglobin ABG 0.4 %THb (0-1.5); Oxygen Content ABG 18.9 %vol (16.0-22.0); Oxygen Saturation ABG 90.7 % (95.0-100.0); Oxyhemoglobin 92.8 % THb (90.0-100.0); PO2 ABG 76.8 mmHg (80.0-100.0); PO2 FiO2 Ratio Arterial Blood 0.77 %; Reduced Hemoglobin 6.7 %THb (0-5.0); Total Hemoglobin 14.5 g/dL (12.0-18.0)
[2021-05-21 04:23] LABS: Device VENTILATOR; Modified Allen's Test Pass; PCO2 ABG 90.3 mmHg (35.0-45.0); Site Drawn LEFT RADIAL; pH ABG 7.165 (7.350-7.450)
[2021-05-21 04:24] LABS: Arterial Blood Gas PEEP 14 cmH2O; Arterial Blood Gas Tidal Volume 480 ml; Arterial Blood Gas Vent Mode CMV; Arterial Blood Gas Ventilator rate 24 /MIN
[2021-05-21 04:31] LABS: Basophils Absolute Auto 0.1 K/mm3 (0.0-0.1); Basophils Percent Auto 0.4 % (0.2-1.2); Eosinophils Absolute Auto 0.1 K/mm3 (0-0.3); Eosinophils Percent Auto 0.8 % (0-4.4); Hematocrit 46.1 % (42.0-52.0); Hemoglobin 14.1 g/dL (14.0-18.0); Immature Granulocyte Absolute 0.38 K/mm3 (0.00-0.031); Immature Granulocyte Percent A 2.4 % (0-0.5); Lymphocytes Absolute Auto 0.68 K/mm3 (0.9-3.2); Lymphocytes Percent Auto 4.3 % (18.3-44.2); Mean Corpuscular HGB Conc 30.6 g/dl (32-36); Mean Corpuscular Hemoglobin 29.7 pg (26-34); Mean Corpuscular Volume 97.3 fl (80-100); Mean Platelet Volume 10.4 fl (7.4-10.4); Monocytes Absolute Auto 0.5 K/mm3 (0.1-0.6); Monocytes Percent Auto 2.9 % (2.6-8.5); Neutrophils Absolute Auto 14.2 K/mm3 (1.3-6.7); Neutrophils Percent Auto 89.2 % (45.5-73.1); Platelet Count Result 183 k/mm3 (150-375); Red Blood Count 4.74 M/mm3 (4.6-6.20); Red Cell Distribution Width 14.8 % (11.5-14.5); White Blood Count 15.9 K/mm3 (4.5-10.0)
[2021-05-21 04:58] LABS: Alanine Aminotransferase 38 U/L (4-50); Albumin Level 3.2 g/dL (3.5-5.1); Alkaline Phosphatase 135 U/L (38-126); Anion Gap 3 mmol/L (8-16); Aspartate Amino Transferase 37 U/L (17-59); Bilirubin,Total 0.8 mg/dL (0.2-1.3); Blood Urea Nitrogen 42 mg/dL (9-20); Calcium 8.6 mg/dL (8.4-10.2); Carbon Dioxide 30 mmol/L (22-30); Chloride 107 mmol/L (98-107); Estimated CRCL calculation 63 ml/min; Estimated Glomerular Filt Rate 51; Glucose 386 mg/dL (65-110); Magnesium 3.5 mg/dL (1.6-2.3); Phosphorus 5.3 mg/dL (2.5-4.5); Potassium 5.6 mmol/L (3.4-5.0); Sodium 140 mmol/L (137-145)
[2021-05-21] MEDS: CENTRAL LINE FLUSH 10 ML IV PUSH ×3 (05:37→20:28)
[2021-05-21] MEDS: INSULIN ASPART (*BKC) 100 UNITS/ML SUB-Q (05:37)
[2021-05-21] MEDS: MIDAZOLAM 100MG/NS 100ML(*CRX) 100 MG/100 ML BAG 7 MG IV CONT ×2 (05:53→20:26)
[2021-05-21] MEDS: polyethylene glycoL 3350 17 GM POWD.PACK PO (08:01)
[2021-05-21] MEDS: MINERAL OIL/WHITE PETROLATUM OINTMENT 1 APPLIC EACH EYE ×2 (08:01→20:28)
[2021-05-21] MEDS: PANTOPRAZOLE SODIUM IV 40 MG VIAL IV PUSH (08:02)
[2021-05-21] MEDS: ENOXAPARIN 40 MG/0.4 ML SYRINGE SUB-Q (08:02)
[2021-05-21] MEDS: ZINC SULFATE 220 MG CAPSULE PO (08:02)
[2021-05-21] MEDS: CHOLECALCIFEROL 1,000 UNITS TABLET 1000 UNITS PO (08:02)
[2021-05-21] MEDS: ASCORBIC ACID 500 MG TABLET PO (08:02)
[2021-05-21] MEDS: CISATRACURIUM BESYLATE 200 MG in DEXTROSE 5% 80 ML 12.94 ML IV CONT ×2 (08:19→16:30)
[2021-05-21 08:24] LABS: Glucose Point of Care 371 mg/dl (65-105)
[2021-05-21] MEDS: INSULIN HUMAN REGULAR (*BKC) 100 UNITS/ML 10 UNITS IV PUSH ×2 (08:58→13:25)
[2021-05-21] MEDS: SODIUM BICARBONATE 8.4% 50 MEQ/50 ML SYRINGE IV PUSH (08:58)
[2021-05-21] MEDS: SODIUM POLYSTYRENE SULFONONATE 15 GM/60 ML BTL 30 GM PO ×2 (08:58→15:14)
[2021-05-21] MEDS: INSULIN GLARGINE (*BKC) 100 UNITS/ML 45 UNITS SUB-Q ×2 (08:59→20:28)
[2021-05-21] MEDS: ALBUTEROL SULFATE NEB 2.5 MG/0.5 ML INH 10 MG INHALATION (09:28)
[2021-05-21 11:59] LABS: Anion Gap 0 mmol/L (8-16); Blood Urea Nitrogen 53 mg/dL (9-20); Calcium 8.1 mg/dL (8.4-10.2); Carbon Dioxide 34 mmol/L (22-30); Chloride 106 mmol/L (98-107); Estimated CRCL calculation 49 ml/min; Estimated Glomerular Filt Rate 38; Glucose 438 mg/dL (65-110); Potassium 5.6 mmol/L (3.4-5.0); Sodium 140 mmol/L (137-145)
[2021-05-21] MEDS: BARICITINIB 2 MG TABLET PO (12:02)
[2021-05-21] MEDS: METOCLOPRAMIDE HCL INJ 10 MG/2 ML VIAL IV PUSH ×3 (12:02→23:29)
[2021-05-21] MEDS: INSULIN ASPART (*BKC) 100 UNITS/ML 15 UNITS SUB-Q (12:13)
--- NOTE | 2021-05-21 12:26 | PCNFU ---
Nutrition Follow-Up Complete: Inadequate Oral Intake as related to mechanical vent and evidenced by NPO Goal: Meet estimated nutritional needs Patient will continue current goal. Pt current nutrition is Vital AF 1.2 at 75 ml/hr over 22 hours. Last recorded weight is 125 kg-stable Bowel Motility:+BM reported 05/19 Labs Reviewed:Glu 386, GFR 51,BUN 42, K 5.6,Alb 3.2 Meds Noted:Fentanyl, Versed, Nimbex, Lantus, Miralax, Vit D, Vit C, Zinc, Atrovent, Reglan. Skin: WNL Additional Notes: Patient current with mechanical vent. Tube feeding had been on hold for increased residuals. Reglan starting today. Tube feedings of Vital AF 1.2 at 75 ml/hr over 22 hours will provide 1980 kcals/124 gm protein/1338 ml water. Free water flush 30 ml q 4 hours. Agree with diet orders. Will monitor in ICU rounds and reassessing every Monday and Monday.
[2021-05-21] MEDS: ALBUTEROL SULFATE NEB 2.5 MG/0.5 ML INH 15 MG INHALATION (12:44)
[2021-05-21] MEDS: INSULIN HUMAN REGULAR (*BKC) 100 UNITS in SODIUM CHLORIDE 0.9% IV 99 ML 7.56 UNITS IV CONT (13:25)
[2021-05-21 13:42] LABS: Alveolar/Arterial O2 Gradient 518.9 mmHg; Base Excess ABG 3.4 mEq/l (+/-2.0); Fractional Inspired Oxygen 100 %; HCO3 ABG 31.1 mEq/l (22.0-26.0); Oxygen Content ABG 17.9 %vol (16.0-22.0); Oxygen Saturation ABG 98.3 % (95.0-100.0); Oxyhemoglobin 97.3 % THb (90.0-100.0); PO2 ABG 131.7 mmHg (80.0-100.0); PO2 FiO2 Ratio Arterial Blood 1.32 %; Total Hemoglobin 12.9 g/dL (12.0-18.0); pH ABG 7.316 (7.350-7.450)
[2021-05-21 13:45] LABS: Device VENTILATOR; Modified Allen's Test Pass; PCO2 ABG 62.4 mmHg (35.0-45.0); Site Drawn RIGHT RADIAL
[2021-05-21 13:46] LABS: Arterial Blood Gas PEEP 15 cmH2O; Arterial Blood Gas Tidal Volume 480 ml; Arterial Blood Gas Vent Mode CMV; Arterial Blood Gas Ventilator rate 30 /MIN
--- NOTE | 2021-05-21 13:46 | WPDINTPN ---
Progress Note: A&P Assessment and Plan (1) Acute respiratory failure with hypoxia: Code(s): J96.01 - Acute respiratory failure with hypoxia Status: Acute Assessment and Plan: Acute respiratory failure likely related to COVID pneumonia -Intubated on 05/18/2021 - Currently on mechanical ventilator, 100 % FiO2 , Peep or 14. Chest x-ray and ABGs reviewed, increased rate to 30, peep of 15 and 100% FiO2. -repeat ABGs much improved, will wean FiO2 to maintain O2 sats greater than 92% - Continue prone positioning for 16-18 hrs daily - low tidal volume, strategy to avoid volu trauma -chest x-ray and ABGs reviewed -patient has been started on vitamin-D, vitamin-C and zinc -continue bronchodilators -continue Rocephin and azithromycin for a total of 5 days (2) Pneumonia due to COVID-19 virus: Code(s): U07.1 - COVID-19; J12.82 - Pneumonia due to coronavirus disease 2018 Status: Acute Assessment and Plan: Positive COVID on 05/10/2020, patient is unvaccinated -patient presented with worsening shortness of breath malaise, fatigue, headaches, generalized weakness, decreased p.o. intake -CRP 7.6 -started on dexamethasone and baricitinib on 05/16/2021 -continue droplet, airborne and contact isolation/precautions (3) Type 2 diabetes mellitus: Code(s): E11.9 - Type 2 diabetes mellitus without complications Status: Acute Assessment and Plan: Patient with history of type 2 diabetes, currently hyperglycemic -patient hyperglycemic will start insulin infusion continue Lantus. Hyperglycemia likely related to steroids -hemoglobin A1c is 8.4 this admission (4) Acute renal failure superimposed on stage 4 chronic kidney disease: Code(s): N17.9 - Acute kidney failure, unspecified; N18.4 - Chronic kidney disease, stage 4 (severe) Status: Acute Assessment and Plan: Patient presented with acute on chronic kidney disease with a creatinine of 3.30 on admission, patient was given IV fluid bolus in the ER for elevated lactic acid -creatinine up to 1.8, nephrology has been consulted -hyperkalemia, patient being treated with insulin, albuterol, bicarb, Kayexalate., -patient continues to have adequate urine output -will continue to monitor urine output, renal function and electrolytes -patient does have a ureteral stent which was placed at [facility] 5 weeks ago due to scar tissue -05/17/2021: Renal ultrasound shows bilateral renal cortical thinning, atrophy, no hydronephrosis a hepatic steatosis (5) Prostate cancer: Code(s): C61 - Malignant neoplasm of prostate Status: Chronic Assessment and Plan: Patient has a history of prostate cancer -Status post radiation, on Erleada., will continue to hold at this time given patient is on baricitinib (6) Hypertension: Code(s): I10 - Essential (primary) hypertension Status: Acute Assessment and Plan: Blood pressures have been stable, will hold oral antihypertensives -will add p.r.n. hydralazine (7) DVT prophylaxis: Code(s): Z29.9 - Encounter for prophylactic measures, unspecified Status: Acute Assessment and Plan: Enoxaparin Additional Plan Nutrition: Tolerating tube feeds Stress ulcer prophylaxis: Protonix Code status: Full code Critical care time spent: 34 minute 05/20/2021: Called [facility] and spoke to the patient transfer line, currently they do not have any beds but have taken his information and was they have a bed available they will call us for more information. This dictation may have been done utilizing a voice recognition system. Attempts have been made to correct errors. However, there may be uncorrected grammatical, spelling, and recognition errors present. Due to a high probability of clinically significant, life threatening deterioration, the patient required my highest level of preparedness to intervene emergently and I personally spent this critical
[2021-05-21 14:47] LABS: Anion Gap 4 mmol/L (8-16); Blood Urea Nitrogen 58 mg/dL (9-20); Calcium 8.1 mg/dL (8.4-10.2); Carbon Dioxide 31 mmol/L (22-30); Chloride 106 mmol/L (98-107); Estimated CRCL calculation 47 ml/min; Estimated Glomerular Filt Rate 36; Glucose 492 mg/dL (65-110); Sodium 141 mmol/L (137-145)
--- NOTE | 2021-05-21 14:59 | PM.CNNEP ---
Assessment and Plan Assessment and plan (1) Acute kidney injury: Code(s): N17.9 - Acute kidney failure, unspecified Status: Acute Assessment and Plan: the patient has acute kidney injury. His creatinine is rising. His blood pressure is a little bit low. His systolic usually runs between 120 and 160. his amlodipine was held at the time of admission. Will try a small amount of IV fluids. If that does not help then possibly midodrine or low-dose pressor might help. (2) Chronic kidney disease, unspecified: Code(s): N18.9 - Chronic kidney disease, unspecified Status: Acute Assessment and Plan: the patient has chronic kidney disease. Not sure with the outpatient GFR is run. He has hypertension and diabetes which are probably responsible. (3) Pneumonia due to COVID-19 virus: Code(s): U07.1 - COVID-19; J12.82 - Pneumonia due to coronavirus disease 2019 Status: Acute Assessment and Plan: The patient has COVID. He is getting supportive care plus dexamethasone plus baricitinib (4) Hypertension: Code(s): I10 - Essential (primary) hypertension Status: Acute Assessment and Plan: blood pressure is low so antihypertensives are off. (5) Type 2 diabetes mellitus: Code(s): E11.9 - Type 2 diabetes mellitus without complications Status: Acute Assessment and Plan: On Accu-Cheks and sliding-scale insulin (6) History of tobacco abuse: Code(s): Z87.891 - Personal history of nicotine dependence Status: Acute (7) Obstructive sleep apnea: Code(s): G47.33 - Obstructive sleep apnea (adult) (pediatric) Status: Acute Assessment and Plan: he is on the ventilator (8) Prostate cancer: Code(s): C61 - Malignant neoplasm of prostate Status: Chronic History of Present Illness Reason for Consult Consult date: 05/21/21 Chief Complaint Chief complaint: COVID pneumonia/respiratory failure/renal failure History of Present Illness Narrative: Jake is an unfortunate 66-year-old gentleman with multiple medical problems including chronic kidney disease per family. he also has history of tobacco abuse, hypertension, sleep apnea, diabetes, prostate cancer. The patient had shortness of breath aches pains weakness and headache. This had been going on for a few days before he came into the hospital. At 1st he resisted coming in but then eventually he gave up as he continued to worsen.He was evaluated and found to have COVID-19. He was hypoxic in the emergency room. Chest x-ray showed COVID findings. He was admitted to the ICU. He was placed on BiPAP on 100% FiO2. He deteriorated further and ended up being intubated on the . Currently is on a peep of 15 and FiO2 of 100%. He is not on pressors. He is getting supportive care, ventilator, Dexamethasone, Baricitinib, . His creatinine was 3.3 on admission. This improved however to 1.3 by the . Now however the creatinine is rising again so renal consultation was requested. It is risen from 1.3-1.9 over the last 4 days. There is no record of him having any nonsteroidal anti-inflammatory agents here or at home. His potassium was also high. He was given insulin bicarb D50 and Kayexalate. His potassium was down to 5.0 today. His hemoglobin is on the rise. His no black or bloody stools recorded. No potassium supplements. [facility] Past Medical History Medical History (Updated 05/21/21 @ 15:13 by Remington Oconnell MD) Acute kidney injury Arthritis Chronic kidney disease, stage 4 (severe) Chronic kidney disease, unspecified History of tobacco abuse Hypertension Obstructive sleep apnea Prostate cancer Type 2 diabetes mellitus Surgical History Surgical History History of cholecystectomy History of colonoscopy with polypectomy History of total right hip arthroplasty History
[2021-05-21 15:06] LABS: Creatine Kinase 77 U/L (55-170)
[2021-05-21 15:52] LABS: Potassium Urine Random 26.8 meq/L
[2021-05-21 16:14] LABS: Sodium Urine Random 5 meq/L
[2021-05-21 16:27] LABS: Glucose Point of Care 420 mg/dl (65-105)
[2021-05-21 16:27] LABS: Glucose Point of Care 445 mg/dl (65-105)
[2021-05-21 16:27] LABS: Glucose Point of Care 338 mg/dl (65-105)
[2021-05-21 16:30] LABS: Eosinophil Urine None Seen % (None Seen)
[2021-05-21] MEDS: SODIUM CHLORIDE 0.9% IV 1,000 ML 50 ML IV CONT (16:31)
[2021-05-21 17:13] LABS: Glucose Point of Care 332 mg/dl (65-105)
[2021-05-21] MEDS: INSULIN HUMAN REGULAR (*BKC) 100 UNITS in SODIUM CHLORIDE 0.9% IV 99 ML 18.8 UNITS IV CONT (18:56)
[2021-05-21 19:00] LABS: Glucose Point of Care 295 mg/dl (65-105)
[2021-05-21 19:00] LABS: Glucose Point of Care 295 mg/dl (65-105)
[2021-05-21 22:24] LABS: Glucose Point of Care 196 mg/dl (65-105)
[2021-05-21 22:24] LABS: Glucose Point of Care 214 mg/dl (65-105)
[2021-05-21 22:24] LABS: Glucose Point of Care 216 mg/dl (65-105)
[2021-05-22] VITALS (35 sets, daily range): BP systolic 111–148; BP diastolic 58–78; PULSE 87–117; RESP 30; TEMP 36.4–37.7; O2SAT 89–96
[2021-05-22] MEDS: CISATRACURIUM BESYLATE 200 MG in DEXTROSE 5% 80 ML 11.09 ML IV CONT ×2 (00:21→19:39)
[2021-05-22 00:41] LABS: Glucose Point of Care 152 mg/dl (65-105)
[2021-05-22 00:41] LABS: Glucose Point of Care 183 mg/dl (65-105)
[2021-05-22] MEDS: ALBUTEROL SULFATE NEB 2.5 MG/0.5 ML INH INHALATION ×4 (02:01→20:52)
[2021-05-22] MEDS: IPRATROPIUM BR 0.02% INH SOLN 0.5 MG/2.5 ML VIAL INHALATION ×4 (02:01→20:53)
[2021-05-22] MEDS: INSULIN HUMAN REGULAR (*BKC) 100 UNITS in SODIUM CHLORIDE 0.9% IV 99 ML 8.8 UNITS IV CONT (03:10)
[2021-05-22 04:30] LABS: Basophils Absolute Auto 0.1 K/mm3 (0.0-0.1); Basophils Percent Auto 0.5 % (0.2-1.2); Eosinophils Absolute Auto 0.3 K/mm3 (0-0.3); Hematocrit 39.3 % (42.0-52.0); Hemoglobin 12.2 g/dL (14.0-18.0); Immature Granulocyte Absolute 0.33 K/mm3 (0.00-0.031); Immature Granulocyte Percent A 3.4 % (0-0.5); Immature Platelet Fraction Pct 4.6 % (0.9-11.2); Lymphocytes Absolute Auto 0.72 K/mm3 (0.9-3.2); Lymphocytes Percent Auto 7.4 % (18.3-44.2); Mean Corpuscular Volume 96.8 fl (80-100); Mean Platelet Volume 10.2 fl (7.4-10.4); Monocytes Absolute Auto 0.4 K/mm3 (0.1-0.6); Monocytes Percent Auto 4.1 % (2.6-8.5); Neutrophils Absolute Auto 7.9 K/mm3 (1.3-6.7); Neutrophils Percent Auto 81.6 % (45.5-73.1); Platelet Count Result 135 k/mm3 (150-375); Red Blood Count 4.06 M/mm3 (4.6-6.20); White Blood Count 9.7 K/mm3 (4.5-10.0)
[2021-05-22 04:39] LABS: Alanine Aminotransferase 41 U/L (4-50); Albumin Level 2.7 g/dL (3.5-5.1); Alkaline Phosphatase 126 U/L (38-126); Anion Gap 2 mmol/L (8-16); Aspartate Amino Transferase 44 U/L (17-59); Bilirubin,Total 0.4 mg/dL (0.2-1.3); Blood Urea Nitrogen 66 mg/dL (9-20); Calcium 8.3 mg/dL (8.4-10.2); Carbon Dioxide 31 mmol/L (22-30); Chloride 109 mmol/L (98-107); Estimated CRCL calculation 39 ml/min; Estimated Glomerular Filt Rate 29; Glucose 125 mg/dL (65-110); Magnesium 3.4 mg/dL (1.6-2.3); Potassium 4.4 mmol/L (3.4-5.0); Sodium 142 mmol/L (137-145)
[2021-05-22 05:15] LABS: Base Excess ABG 3.5 mEq/l (+/-2.0); PCO2 ABG 66.9 mmHg (35.0-45.0)
[2021-05-22 05:16] LABS: Carboxyhemoglobin 0.3 % THb (0-2.0); Methemoglobin ABG 0.3 %THb (0-1.5); Oxygen Content ABG 16.8 %vol (16.0-22.0); Reduced Hemoglobin 5.6 %THb (0-5.0); Total Hemoglobin 12.7 g/dL (12.0-18.0)
[2021-05-22 05:17] LABS: Arterial Blood Gas Vent Mode CMV; Arterial Blood Gas Ventilator rate 30 /MIN; Device VENTILATOR; Fractional Inspired Oxygen 65 %; Modified Allen's Test Pass; PO2 FiO2 Ratio Arterial Blood 1.12 %; Site Drawn RIGHT RADIAL
[2021-05-22] MEDS: FENTANYL 2,500MCG/NS250ML(*CRX 2,500 MCG/250 ML BAG 20 MCG IV CONT ×2 (05:17→17:46)
[2021-05-22 05:18] LABS: Arterial Blood Gas PEEP 15 cmH2O; Arterial Blood Gas Tidal Volume 480 ml
[2021-05-22] MEDS: METOCLOPRAMIDE HCL INJ 10 MG/2 ML VIAL IV PUSH ×3 (05:23→17:40)
[2021-05-22] MEDS: CENTRAL LINE FLUSH 10 ML IV PUSH ×3 (05:24→21:08)
[2021-05-22 06:21] LABS: Glucose Point of Care 131 mg/dl (65-105)
[2021-05-22 06:22] LABS: Glucose Point of Care 131 mg/dl (65-105)
[2021-05-22 06:22] LABS: Glucose Point of Care 127 mg/dl (65-105)
[2021-05-22 06:22] LABS: Glucose Point of Care 148 mg/dl (65-105)
[2021-05-22 06:22] LABS: Glucose Point of Care 111 mg/dl (65-105)
[2021-05-22 06:22] LABS: Glucose Point of Care 107 mg/dl (65-105)
[2021-05-22 07:16] LABS: Glucose Point of Care 137 mg/dl (65-105)
[2021-05-22] MEDS: MINERAL OIL/WHITE PETROLATUM OINTMENT 1 APPLIC EACH EYE ×2 (08:17→21:06)
[2021-05-22] MEDS: INSULIN GLARGINE (*BKC) 100 UNITS/ML 45 UNITS SUB-Q (08:17)
[2021-05-22] MEDS: ASCORBIC ACID 500 MG TABLET PO (08:18)
[2021-05-22] MEDS: ZINC SULFATE 220 MG CAPSULE PO (08:18)
[2021-05-22] MEDS: polyethylene glycoL 3350 17 GM POWD.PACK PO (08:18)
[2021-05-22] MEDS: CHOLECALCIFEROL 1,000 UNITS TABLET 1000 UNITS PO (08:18)
[2021-05-22] MEDS: ENOXAPARIN 40 MG/0.4 ML SYRINGE SUB-Q (08:19)
[2021-05-22] MEDS: PANTOPRAZOLE SODIUM IV 40 MG VIAL IV PUSH (08:19)
--- NOTE | 2021-05-22 09:11 | PM.PNNEP ---
Progress Note: A&P Assessment and Plan (1) Acute kidney injury: Code(s): N17.9 - Acute kidney failure, unspecified Status: Acute Assessment and Plan: the patient has acute kidney injury. Urine sodium is low. Renal ultrasound showed no acute findings. His creatinine continues to rise. His blood pressure was low yesterday. He received 500cc of saline is blood pressure is better now with a systolic between 110 and 130. His urine output has improved since the blood pressure was better Will try low-dose midodrine to see if blood pressures between 140 and 150 will improve renal perfusion and help the BUN and creatinine. Discussed with Dr. Callahan (2) Chronic kidney disease, unspecified: Code(s): N18.9 - Chronic kidney disease, unspecified Status: Acute Assessment and Plan: the patient has chronic kidney disease. Not sure with the outpatient GFR is run. He has hypertension and diabetes which are probably responsible. (3) Pneumonia due to COVID-19 virus: Code(s): U07.1 - COVID-19; J12.82 - Pneumonia due to coronavirus disease 2018 Status: Acute Assessment and Plan: The patient has COVID. He is getting supportive care plus dexamethasone plus baricitinib (4) Hypertension: Code(s): I10 - Essential (primary) hypertension Status: Acute Assessment and Plan: blood pressure is better but not high enough for antihypertensives. (5) Type 2 diabetes mellitus: Code(s): E11.9 - Type 2 diabetes mellitus without complications Status: Acute Assessment and Plan: On Accu-Cheks and sliding-scale insulin (6) History of tobacco abuse: Code(s): Z87.891 - Personal history of nicotine dependence Status: Acute (7) Obstructive sleep apnea: Code(s): G47.33 - Obstructive sleep apnea (adult) (pediatric) Status: Acute Assessment and Plan: he is on the ventilator (8) Prostate cancer: Code(s): C61 - Malignant neoplasm of prostate Status: Chronic Subjective Date/time seen: 05/22/21 09:11 Interval history: Jake is in the prone position on sedatives, on the ventilator, and on paralytics. Exam Narrative: WDWN in NAD skin no rash head ncat lungs bilateral mildly coarse. cor reg no rub abd BS+ nontender and soft ext no edema. Objective Data Vital Signs Vital Signs: Vital Signs - 24 hr 05/21/21 09:30 05/21/21 10:00 05/21/21 10:30 Temperature Pulse Rate 119 H 116 H 101 H Respiratory Rate 30 H 30 H 31 H Blood Pressure 103/58 L Pulse Oximetry 97 97 05/21/21 12:00 05/21/21 12:45 05/21/21 13:45 Temperature 36.8 C Pulse Rate 102 H 99 98 Respiratory Rate 30 H 30 H 30 H Blood Pressure 93/58 L Pulse Oximetry 99 98 05/21/21 14:00 05/21/21 15:06 05/21/21 15:19 Temperature 36.8 C Pulse Rate 102 H 98 98 Respiratory Rate 30 H 30 H 30 H Blood Pressure 90/55 L 97/54 L Pulse Oximetry 99 97 97 05/21/21 15:20 05/21/21 16:00 05/21/21 16:26 Temperature Pulse Rate 98 100 99 Respiratory Rate 30 H Blood Pressure Pulse Oximetry 98 05/21/21 16:30 05/21/21 16:31 05/21/21 17:30 Temperature Pulse Rate 99 99 102 H Respiratory Rate 30 H 30 H Blood Pressure 108/57 L Pulse Oximetry 96 05/21/21 18:00 05/21/21 19:51 05/21/21 19:53 Temperature Pulse Rate 99 100 98 Respiratory Rate 30 H 30 H Blood Pressure 116/58 L Pulse Oximetry 95 95 05/21/21 20:00 05/21/21 20:26 05/21/21 20:29 Temperature 36.6 C Pulse Rate 101 H 102 H 101 H Respiratory Rate 30 H 30 H 30 H Blood Pressure 119/57 L 119/57 L Pulse Oximetry 96 05/21/21 22:00 05/21/21 22:19 05/21/21 22:56 Temperature Pulse Rate 97 97 93 Respiratory Rate 30 H 30 H Blood Pressure 126/72 126/72 Pulse Oximetry 97 96 05/22/21 00:00 05/22/21 00:21 05/22/21 01:26 Temperature 36.7 C Pulse Rate 98 96 97 Respiratory Rate 30 H 30 H 30 H Blood Pressure 118/62
--- NOTE | 2021-05-22 09:23 | WPDINTPN ---
Progress Note: A&P Assessment and Plan (1) Acute respiratory failure with hypoxia: Code(s): J96.01 - Acute respiratory failure with hypoxia Status: Acute Assessment and Plan: Acute respiratory failure likely related to COVID pneumonia -Intubated on 05/18/2021 - Currently on mechanical ventilator, 70 % FiO2 , Peep or 15. Chest x-ray and ABGs reviewed, -allow permissive hypercapnia - Continue prone positioning for 16-18 hrs daily - low tidal volume, strategy to avoid volu trauma -continue bronchodilators -status post 5 days of Rocephin and azithromycin -sedated with fentanyl, Versed, Nimbex infusion for vent synchrony (2) Pneumonia due to COVID-19 virus: Code(s): U07.1 - COVID-19; J12.82 - Pneumonia due to coronavirus disease 2018 Status: Acute Assessment and Plan: Positive COVID on 05/10/2020, patient is unvaccinated -patient presented with worsening shortness of breath malaise, fatigue, headaches, generalized weakness, decreased p.o. intake -CRP 7.6 -started on dexamethasone and baricitinib on 05/16/2021 -continue vitamin-D, vitamin-C and zinc -continue droplet, airborne and contact isolation/precautions (3) Type 2 diabetes mellitus: Code(s): E11.9 - Type 2 diabetes mellitus without complications Status: Acute Assessment and Plan: Patient with history of type 2 diabetes, currently hyperglycemic -patient hyperglycemic patient currently on insulin and Lantus. Anion gap has closed, bicarb is in the 30s, blood sugars in the 100s. Will increase Lantus and discontinue insulin infusion. - Hyperglycemia likely related to steroids -hemoglobin A1c is 8.4 this admission (4) Acute renal failure superimposed on stage 4 chronic kidney disease: Code(s): N17.9 - Acute kidney failure, unspecified; N18.4 - Chronic kidney disease, stage 4 (severe) Status: Acute Assessment and Plan: Patient presented with acute on chronic kidney disease with a creatinine of 3.30 on admission, patient was given IV fluid bolus in the ER for elevated lactic acid -creatinine up to 2.30 this morning -appreciate nephrology following the patient -hyperkalemia, resolved -urine output has decreased, patient had borderline blood pressures yesterday, -patient is on IV fluids at 50 mL/hour per Nephrology -nephrology recommended adding midodrine -urine sodium is low -patient does have a ureteral stent which was placed at [facility] 5 weeks ago due to scar tissue -05/17/2021: Renal ultrasound shows bilateral renal cortical thinning, atrophy, no hydronephrosis a hepatic steatosis (5) Prostate cancer: Code(s): C61 - Malignant neoplasm of prostate Status: Chronic Assessment and Plan: Patient has a history of prostate cancer -Status post radiation, on Erleada., will continue to hold at this time given patient is on baricitinib (6) Hypertension: Code(s): I10 - Essential (primary) hypertension Status: Acute Assessment and Plan: Blood pressures have been stable, will hold oral antihypertensives -will add p.r.n. hydralazine (7) DVT prophylaxis: Code(s): Z29.9 - Encounter for prophylactic measures, unspecified Status: Acute Assessment and Plan: Enoxaparin Additional Plan Nutrition: Tolerating tube feeds Stress ulcer prophylaxis: Protonix Code status: Full code Critical care time spent: 32 minute 05/20/2021: Called [facility] and spoke to the patient transfer line, currently they do not have any beds but have taken his information and was they have a bed available they will call us for more information. This dictation may have been done utilizing a voice recognition system. Attempts have been made to correct errors. However, there may be uncorrected grammatical, spelling, and recognition errors present. Due to a high probability of clinically significant, life threatening deterioration, the patient required my highe
[2021-05-22] MEDS: MIDODRINE HCL 2.5 MG TABLET 5 MG PO ×3 (09:32→17:39)
[2021-05-22 09:37] LABS: Glucose Point of Care 142 mg/dl (65-105)
[2021-05-22 09:37] LABS: Glucose Point of Care 131 mg/dl (65-105)
[2021-05-22] MEDS: INSULIN GLARGINE (*BKC) 100 UNITS/ML 10 UNITS SUB-Q (09:45)
[2021-05-22] MEDS: MIDAZOLAM 100MG/NS 100ML(*CRX) 100 MG/100 ML BAG 7 MG IV CONT (10:44)
[2021-05-22] MEDS: CISATRACURIUM BESYLATE 200 MG in DEXTROSE 5% 80 ML 9.24 ML IV CONT (10:47)
[2021-05-22] MEDS: BARICITINIB 2 MG TABLET PO (11:56)
[2021-05-22 12:09] LABS: Glucose Point of Care 192 mg/dl (65-105)
[2021-05-22 12:09] LABS: Glucose Point of Care 151 mg/dl (65-105)
[2021-05-22] MEDS: SODIUM CHLORIDE 0.9% IV 1,000 ML 50 ML IV CONT (13:03)
[2021-05-22 16:38] LABS: Glucose Point of Care 353 mg/dl (65-105)
[2021-05-22] MEDS: INSULIN ASPART (*BKC) 100 UNITS/ML SUB-Q (17:40)
[2021-05-22] MEDS: INSULIN GLARGINE (*BKC) 100 UNITS/ML 55 UNITS SUB-Q (21:07)
[2021-05-22] MEDS: INSULIN ASPART (*BKC) 100 UNITS/ML 15 UNITS SUB-Q (21:16)
[2021-05-22 21:21] LABS: Glucose Point of Care 415 mg/dl (65-105)
[2021-05-23] VITALS (41 sets, daily range): BP systolic 120–224; BP diastolic 55–93; PULSE 90–123; RESP 30; TEMP 36.1–36.6; O2SAT 94–100
[2021-05-23] MEDS: INSULIN ASPART (*BKC) 100 UNITS/ML SUB-Q ×4 (00:13→12:21)
[2021-05-23] MEDS: METOCLOPRAMIDE HCL INJ 10 MG/2 ML VIAL IV PUSH ×4 (00:18→17:34)
[2021-05-23 00:34] LABS: Glucose Point of Care 378 mg/dl (65-105)
[2021-05-23] MEDS: MIDAZOLAM 100MG/NS 100ML(*CRX) 100 MG/100 ML BAG 7 MG IV CONT ×2 (02:45→16:25)
[2021-05-23] MEDS: ALBUTEROL SULFATE NEB 2.5 MG/0.5 ML INH INHALATION ×4 (03:04→19:35)
[2021-05-23] MEDS: IPRATROPIUM BR 0.02% INH SOLN 0.5 MG/2.5 ML VIAL INHALATION ×4 (03:04→19:35)
[2021-05-23 04:23] LABS: Alveolar/Arterial O2 Gradient 394.1 mmHg; Base Excess ABG -0.6 mEq/l (+/-2.0); Carboxyhemoglobin 0.4 % THb (0-2.0); Fractional Inspired Oxygen 75 %; HCO3 ABG 26.8 mEq/l (22.0-26.0); Methemoglobin ABG 0.4 %THb (0-1.5); Oxygen Content ABG 20.8 %vol (16.0-22.0); Oxyhemoglobin 94.8 % THb (90.0-100.0); PCO2 ABG 54.7 mmHg (35.0-45.0); PO2 ABG 82.5 mmHg (80.0-100.0); Reduced Hemoglobin 4.4 %THb (0-5.0); Total Hemoglobin 15.6 g/dL (12.0-18.0); pH ABG 7.308 (7.350-7.450)
[2021-05-23 04:24] LABS: Arterial Blood Gas PEEP 15 cmH2O; Arterial Blood Gas Tidal Volume 480 ml; Arterial Blood Gas Vent Mode CMV; Arterial Blood Gas Ventilator rate 30 /MIN; Device VENTILATOR; Modified Allen's Test Pass; Site Drawn LEFT RADIAL
[2021-05-23] MEDS: CENTRAL LINE FLUSH 10 ML IV PUSH ×3 (04:49→20:10)
[2021-05-23] MEDS: CISATRACURIUM BESYLATE 200 MG in DEXTROSE 5% 80 ML 11.09 ML IV CONT ×3 (04:56→21:08)
[2021-05-23 05:09] LABS: Glucose Point of Care 309 mg/dl (65-105)
[2021-05-23 05:48] LABS: Basophils Absolute Auto 0.1 K/mm3 (0.0-0.1); Basophils Percent Auto 0.5 % (0.2-1.2); Eosinophils Absolute Auto 0.2 K/mm3 (0-0.3); Hematocrit 38.2 % (42.0-52.0); Hemoglobin 11.6 g/dL (14.0-18.0); Immature Granulocyte Percent A 5.4 % (0-0.5); Lymphocytes Absolute Auto 0.86 K/mm3 (0.9-3.2); Lymphocytes Percent Auto 9.3 % (18.3-44.2); Mean Corpuscular HGB Conc 30.4 g/dl (32-36); Mean Corpuscular Hemoglobin 29.7 pg (26-34); Mean Corpuscular Volume 97.9 fl (80-100); Mean Platelet Volume 10.4 fl (7.4-10.4); Monocytes Absolute Auto 0.4 K/mm3 (0.1-0.6); Monocytes Percent Auto 4.6 % (2.6-8.5); Neutrophils Absolute Auto 7.2 K/mm3 (1.3-6.7); Neutrophils Percent Auto 78.2 % (45.5-73.1); Platelet Count Result 138 k/mm3 (150-375); Red Cell Distribution Width 15.3 % (11.5-14.5); White Blood Count 9.3 K/mm3 (4.5-10.0)
[2021-05-23] MEDS: SODIUM CHLORIDE 0.9% IV 1,000 ML 50 ML IV CONT (06:03)
[2021-05-23] MEDS: FENTANYL 2,500MCG/NS250ML(*CRX 2,500 MCG/250 ML BAG 20 MCG IV CONT ×2 (06:04→18:18)
[2021-05-23 06:10] LABS: Alanine Aminotransferase 57 U/L (4-50); Aspartate Amino Transferase 44 U/L (17-59); Estimated CRCL calculation 40 ml/min; Estimated Glomerular Filt Rate 29
[2021-05-23 06:50] LABS: Alanine Aminotransferase 59 U/L (4-50); Albumin Level 2.6 g/dL (3.5-5.1); Alkaline Phosphatase 151 U/L (38-126); Anion Gap 2 mmol/L (8-16); Aspartate Amino Transferase 45 U/L (17-59); Bilirubin,Total 0.5 mg/dL (0.2-1.3); Blood Urea Nitrogen 93 mg/dL (9-20); Calcium 8.2 mg/dL (8.4-10.2); Carbon Dioxide 30 mmol/L (22-30); Chloride 108 mmol/L (98-107); Estimated CRCL calculation 36 ml/min; Estimated Glomerular Filt Rate 26; Glucose 345 mg/dL (65-110); Potassium 5.2 mmol/L (3.4-5.0); Sodium 140 mmol/L (137-145)
[2021-05-23] MEDS: CHOLECALCIFEROL 1,000 UNITS TABLET 1000 UNITS PO (07:41)
[2021-05-23] MEDS: ASCORBIC ACID 500 MG TABLET PO (07:42)
[2021-05-23] MEDS: ENOXAPARIN 40 MG/0.4 ML SYRINGE SUB-Q (07:42)
[2021-05-23] MEDS: PANTOPRAZOLE SODIUM IV 40 MG VIAL IV PUSH (07:43)
[2021-05-23] MEDS: MINERAL OIL/WHITE PETROLATUM OINTMENT 1 APPLIC EACH EYE ×2 (07:43→20:10)
[2021-05-23] MEDS: polyethylene glycoL 3350 17 GM POWD.PACK PO (07:43)
[2021-05-23] MEDS: MIDODRINE HCL 2.5 MG TABLET 5 MG PO ×2 (07:43→12:23)
[2021-05-23] MEDS: ZINC SULFATE 220 MG CAPSULE PO (07:43)
[2021-05-23 07:57] LABS: Glucose Point of Care 295 mg/dl (65-105)
[2021-05-23] MEDS: INSULIN GLARGINE (*BKC) 100 UNITS/ML 55 UNITS SUB-Q (07:58)
[2021-05-23] MEDS: INSULIN GLARGINE (*BKC) 100 UNITS/ML 20 UNITS SUB-Q (09:11)
--- NOTE | 2021-05-23 09:59 | PM.PNNEP ---
Progress Note: A&P Assessment and Plan (1) Acute kidney injury: Code(s): N17.9 - Acute kidney failure, unspecified Status: Acute Assessment and Plan: the patient has acute kidney injury. Urine sodium is low. Renal ultrasound showed no acute findings. His creatinine seems to have stabilized and his urine output is a little bit better. Systolic pressure is a little bit better overnight. Will see high urine output and creatinine is tomorrow. Consider diuretics at that point Discussed with Dr. Callahan (2) Chronic kidney disease, unspecified: Code(s): N18.9 - Chronic kidney disease, unspecified Status: Acute Assessment and Plan: the patient has chronic kidney disease. Not sure with the outpatient GFR runs. He has hypertension and diabetes which are probably responsible. (3) Pneumonia due to COVID-19 virus: Code(s): U07.1 - COVID-19; J12.82 - Pneumonia due to coronavirus disease 2019 Status: Acute Assessment and Plan: The patient has COVID. He is getting supportive care plus dexamethasone plus baricitinib (4) Hypertension: Code(s): I10 - Essential (primary) hypertension Status: Acute Assessment and Plan: blood pressure is better but not high enough for antihypertensives. (5) Type 2 diabetes mellitus: Code(s): E11.9 - Type 2 diabetes mellitus without complications Status: Acute Assessment and Plan: On Accu-Cheks and sliding-scale insulin (6) History of tobacco abuse: Code(s): Z87.891 - Personal history of nicotine dependence Status: Acute (7) Obstructive sleep apnea: Code(s): G47.33 - Obstructive sleep apnea (adult) (pediatric) Status: Acute Assessment and Plan: he is on the ventilator (8) Prostate cancer: Code(s): C61 - Malignant neoplasm of prostate Status: Chronic Subjective Date/time seen: 05/23/21 09:59 Interval history: Jake is in the prone position on sedatives, on the ventilator, and on paralytics. he cannot give a history or review of systems Exam Narrative: WDWN in NAD skin no rash head ncat lungs bilateral mildly coarse. cor reg no rub or gallop abd BS+ nontender and soft ext no edema. Objective Data Vital Signs Vital Signs: Vital Signs - 24 hr 05/22/21 10:00 05/22/21 11:50 05/22/21 12:00 Temperature 37.2 C Pulse Rate 113 H 109 H 108 H Respiratory Rate 30 H 30 H Blood Pressure 130/64 122/61 Pulse Oximetry 94 93 94 05/22/21 14:00 05/22/21 14:03 05/22/21 14:04 Temperature Pulse Rate 99 104 H 101 H Respiratory Rate 30 H 30 H Blood Pressure 132/68 Pulse Oximetry 93 93 05/22/21 14:11 05/22/21 16:00 05/22/21 17:45 Temperature 37.2 C Pulse Rate 100 96 100 Respiratory Rate 30 H 30 H 30 H Blood Pressure 142/77 H 148/78 H Pulse Oximetry 93 95 05/22/21 17:46 05/22/21 18:02 05/22/21 19:39 Temperature Pulse Rate 100 96 95 Respiratory Rate 30 H 30 H Blood Pressure 144/67 H Pulse Oximetry 96 05/22/21 20:00 05/22/21 20:57 05/22/21 20:58 Temperature 36.4 C L Pulse Rate 93 94 94 Respiratory Rate 30 H 30 H Blood Pressure 130/58 L Pulse Oximetry 95 96 05/22/21 21:08 05/22/21 22:00 05/22/21 23:26 Temperature Pulse Rate 98 87 94 Respiratory Rate 30 H 30 H Blood Pressure 113/60 Pulse Oximetry 95 93 05/23/21 00:00 05/23/21 00:16 05/23/21 00:18 Temperature 36.6 C Pulse Rate 93 93 95 Respiratory Rate 30 H 30 H 30 H Blood Pressure 132/69 Pulse Oximetry 95 05/23/21 02:00 05/23/21 02:45 05/23/21 03:05 Temperature Pulse Rate 98 98 102 H Respiratory Rate 30 H 30 H Blood Pressure 150/70 H Pulse Oximetry 94 95 05/23/21 03:07 05/23/21 04:00 05/23/21 04:56 Temperature 36.5 C Pulse Rate 102 H 96 100 Respiratory Rate 30 H 30 H 30 H Blood Pressure 120/59 L 120/59 L Pulse Oximetry 95 05/23/21 05:22 05/23/21 06:00 05/23/21 06:04 Tem
[2021-05-23] MEDS: SODIUM POLYSTYRENE SULFONONATE 15 GM/60 ML BTL 30 GM PO (10:45)
[2021-05-23] MEDS: INSULIN HUMAN REGULAR (*BKC) 100 UNITS/ML 10 UNITS IV PUSH (10:45)
[2021-05-23] MEDS: BARICITINIB 2 MG TABLET PO (10:46)
[2021-05-23] MEDS: SODIUM BICARBONATE 8.4% 50 MEQ/50 ML SYRINGE IV PUSH (10:46)
--- NOTE | 2021-05-23 10:46 | WPDINTPN ---
Progress Note: A&P Assessment and Plan (1) Acute respiratory failure with hypoxia: Code(s): J96.01 - Acute respiratory failure with hypoxia Status: Acute Assessment and Plan: Acute respiratory failure likely related to COVID pneumonia -Intubated on 05/18/2021 - Currently on mechanical ventilator, 75 % FiO2 , Peep or 15. Chest x-ray and ABGs reviewed, -allow permissive hypercapnia -patient being in prone position for the last 48 hours - low tidal volume, strategy to avoid volu trauma -continue bronchodilators -status post 5 days of Rocephin and azithromycin -sedated with fentanyl, Versed, Nimbex infusion for vent synchrony (2) Pneumonia due to COVID-19 virus: Code(s): U07.1 - COVID-19; J12.82 - Pneumonia due to coronavirus disease 2018 Status: Acute Assessment and Plan: Positive COVID on 05/10/2020, patient is unvaccinated -patient presented with worsening shortness of breath malaise, fatigue, headaches, generalized weakness, decreased p.o. intake -CRP 7.6 -continue dexamethasone and renally dosed baricitinib on 05/16/2021 -continue vitamin-D, vitamin-C and zinc -continue droplet, airborne and contact isolation/precautions (3) Type 2 diabetes mellitus: Code(s): E11.9 - Type 2 diabetes mellitus without complications Status: Acute Assessment and Plan: Patient with history of type 2 diabetes, currently hyperglycemic -patient hyperglycemic patient currently on insulin and Lantus. Anion gap has closed, bicarb is in the 30s, blood sugars in the 100s. Insulin infusion discontinued yesterday, remains hyperglycemic, increase Lantus this morning - Hyperglycemia likely related to steroids -hemoglobin A1c is 8.4 this admission (4) Acute renal failure superimposed on stage 4 chronic kidney disease: Code(s): N17.9 - Acute kidney failure, unspecified; N18.4 - Chronic kidney disease, stage 4 (severe) Status: Acute Assessment and Plan: Patient presented with acute on chronic kidney disease with a creatinine of 3.30 on admission, patient was given IV fluid bolus in the ER for elevated lactic acid -appreciate nephrology following the patient -hyperkalemia, resolved -urine output improving, creatinine has stabilized, continue to monitor -patient is on IV fluids at 50 mL/hour per Nephrology -on midodrine on 05/22/2021 per Nephrology to maintain higher systolic blood pressures for adequate renal perfusion -urine sodium is low -patient does have a ureteral stent which was placed at [facility] 5 weeks ago due to scar tissue -05/17/2021: Renal ultrasound shows bilateral renal cortical thinning, atrophy, no hydronephrosis a hepatic steatosis (5) Prostate cancer: Code(s): C61 - Malignant neoplasm of prostate Status: Chronic Assessment and Plan: Patient has a history of prostate cancer -Status post radiation, on Erleada., will continue to hold at this time given patient is on baricitinib (6) Hypertension: Code(s): I10 - Essential (primary) hypertension Status: Acute Assessment and Plan: Blood pressures have been stable, will hold oral antihypertensives - p.r.n. hydralazine (7) DVT prophylaxis: Code(s): Z29.9 - Encounter for prophylactic measures, unspecified Status: Acute Assessment and Plan: Enoxaparin Additional Plan Nutrition: Tolerating tube feeds Stress ulcer prophylaxis: Protonix Code status: Full code Critical care time spent: 32 minute 05/23/2021: Discussed with Cesar, patient's son and updated with patient's condition and plan of care. I did discuss with him regarding patient being on high ventilatory support, I discussed with him regarding his acute kidney injury, I also discussed with him that he is on baricitinib and dexamethasone for his COVID 19 pneumonia. They had a question regarding his prostate cancer chemotherapy I explained to them that since patient is on steroids and baricitin
[2021-05-23] MEDS: ALBUTEROL SULFATE NEB 2.5 MG/0.5 ML INH 15 MG INHALATION (11:17)
[2021-05-23 12:08] LABS: Anion Gap 1 mmol/L (8-16); Blood Urea Nitrogen 85 mg/dL (9-20); Calcium 7.3 mg/dL (8.4-10.2); Carbon Dioxide 28 mmol/L (22-30); Chloride 112 mmol/L (98-107); Estimated CRCL calculation 41 ml/min; Estimated Glomerular Filt Rate 30; Glucose 349 mg/dL (65-110); Potassium 4.7 mmol/L (3.4-5.0); Sodium 141 mmol/L (137-145)
[2021-05-23 12:29] LABS: Glucose Point of Care 375 mg/dl (65-105)
[2021-05-23 16:30] LABS: Glucose Point of Care 432 mg/dl (65-105)
[2021-05-23] MEDS: INSULIN HUMAN REGULAR (*BKC) 100 UNITS in SODIUM CHLORIDE 0.9% IV 99 ML 7.4 UNITS IV CONT (17:34)
[2021-05-23 18:25] LABS: Glucose Point of Care 391 mg/dl (65-105)
[2021-05-23] MEDS: hydrALAZINE HCL 20 MG/ML VIAL IV PUSH (18:41)
--- NOTE | 2021-05-23 19:02 | PC.NURSE ---
MD Callahan notified pt with increasing SBP from 160s to 220s, HR to 1 teens, midazolam increased with no change, pt given 20mg Hydralazine x1 per MD order.
--- NOTE | 2021-05-23 19:10 | PC.NURSE ---
BP 249/98, HR 122, MD wong notified received order metoprolol 5mg IVP q 6hrs PRN for HR >120
[2021-05-23] MEDS: METOPROLOL TARTRATE INJ 5 MG/5 ML VIAL (19:20)
[2021-05-23 20:32] LABS: Glucose Point of Care 404 mg/dl (65-105)
[2021-05-23] MEDS: INSULIN HUMAN REGULAR (*BKC) 100 UNITS in SODIUM CHLORIDE 0.9% IV 99 ML 17.3 UNITS IV CONT (23:57)
[2021-05-24] VITALS (36 sets, daily range): BP systolic 112–177; BP diastolic 52–81; PULSE 99–126; RESP 30; TEMP 36.3–37.1; O2SAT 92–98
[2021-05-24 00:26] LABS: Glucose Point of Care 390 mg/dl (65-105)
[2021-05-24 00:27] LABS: Glucose Point of Care 303 mg/dl (65-105)
[2021-05-24 00:27] LABS: Glucose Point of Care 276 mg/dl (65-105)
[2021-05-24 00:27] LABS: Glucose Point of Care 349 mg/dl (65-105)
[2021-05-24] MEDS: SODIUM CHLORIDE 0.9% IV 1,000 ML 50 ML IV CONT (02:06)
[2021-05-24] MEDS: hydrALAZINE HCL 20 MG/ML VIAL 10 MG IV PUSH (02:07)
[2021-05-24] MEDS: ALBUTEROL SULFATE NEB 2.5 MG/0.5 ML INH INHALATION ×4 (02:40→20:45)
[2021-05-24] MEDS: IPRATROPIUM BR 0.02% INH SOLN 0.5 MG/2.5 ML VIAL INHALATION ×4 (02:41→20:45)
[2021-05-24] MEDS: METOPROLOL TARTRATE INJ 5 MG/5 ML VIAL IV PUSH (03:16)
[2021-05-24 05:08] LABS: Alveolar/Arterial O2 Gradient 347.8 mmHg; Carboxyhemoglobin 0.4 % THb (0-2.0); Fractional Inspired Oxygen 70 %; HCO3 ABG 24.2 mEq/l (22.0-26.0); Oxygen Content ABG 18.8 %vol (16.0-22.0); Oxygen Saturation ABG 98.1 % (95.0-100.0); Oxyhemoglobin 97.6 % THb (90.0-100.0); PCO2 ABG 37.9 mmHg (35.0-45.0); PO2 ABG 110.6 mmHg (80.0-100.0); PO2 FiO2 Ratio Arterial Blood 1.58 %; Total Hemoglobin 13.6 g/dL (12.0-18.0); pH ABG 7.423 (7.350-7.450)
[2021-05-24] MEDS: MIDAZOLAM 100MG/NS 100ML(*CRX) 100 MG/100 ML BAG 8 MG IV CONT ×2 (05:08→17:54)
[2021-05-24] MEDS: FENTANYL 2,500MCG/NS250ML(*CRX 2,500 MCG/250 ML BAG 20 MCG IV CONT ×2 (05:08→17:53)
[2021-05-24 05:09] LABS: Device VENTILATOR; Modified Allen's Test Pass; Site Drawn RIGHT RADIAL
[2021-05-24 05:10] LABS: Arterial Blood Gas PEEP 15 cmH2O; Arterial Blood Gas Tidal Volume 480 ml; Arterial Blood Gas Vent Mode CMV; Arterial Blood Gas Ventilator rate 30 /MIN
[2021-05-24] MEDS: CENTRAL LINE FLUSH 10 ML IV PUSH ×3 (05:14→22:58)
[2021-05-24] MEDS: METOCLOPRAMIDE HCL INJ 10 MG/2 ML VIAL IV PUSH ×5 (05:14→23:00)
[2021-05-24 05:35] LABS: Hematocrit 41.7 % (42.0-52.0); Hemoglobin 12.4 g/dL (14.0-18.0); Mean Corpuscular HGB Conc 29.7 g/dl (32-36); Mean Corpuscular Volume 100.7 fl (80-100); Mean Platelet Volume 10.6 fl (7.4-10.4); Platelet Count Result 192 k/mm3 (150-375); Red Blood Count 4.14 M/mm3 (4.6-6.20); Red Cell Distribution Width 15.9 % (11.5-14.5)
[2021-05-24 05:47] LABS: Alanine Aminotransferase 78 U/L (4-50); Albumin Level 2.8 g/dL (3.5-5.1); Alkaline Phosphatase 176 U/L (38-126); Anion Gap 2 mmol/L (8-16); Aspartate Amino Transferase 49 U/L (17-59); Bilirubin,Total 0.4 mg/dL (0.2-1.3); Blood Urea Nitrogen 100 mg/dL (9-20); Calcium 8.6 mg/dL (8.4-10.2); Carbon Dioxide 31 mmol/L (22-30); Chloride 113 mmol/L (98-107); Estimated CRCL calculation 39 ml/min; Estimated Glomerular Filt Rate 29; Glucose 193 mg/dL (65-110); Magnesium 3.5 mg/dL (1.6-2.3); Phosphorus 5.6 mg/dL (2.5-4.5); Sodium 146 mmol/L (137-145)
[2021-05-24 05:59] LABS: Band Neutrophils Percent 2 % (0-6); Eosinophils Absolute Manual 0.13 K/mm3 (0.02-0.5); Eosinophils Percent Manual 1 % (0-4); Lymphocytes Absolute Manual 0.52 K/mm3 (1.1-4.5); Monocytes Absolute Manual 0.26 K/mm3 (0.1-0.90); Monocytes Percent Manual 2 % (3-9); Neutrophils Absolute Manual 12.09 K/mm3 (1.3-6.7); Neutrophils Percent Manual 91 % (46-73); Nucleated Red Blood Cells 1 %; Platelet Estimate Adequate (Adequate); Total Cells Counted 100
[2021-05-24] MEDS: CISATRACURIUM BESYLATE 200 MG in DEXTROSE 5% 80 ML 11.09 ML IV CONT ×2 (06:03→15:00)
[2021-05-24] MEDS: INSULIN HUMAN REGULAR (*BKC) 100 UNITS in SODIUM CHLORIDE 0.9% IV 99 ML 16.4 UNITS IV CONT (06:06)
[2021-05-24] MEDS: PERMETHRIN 1% LIQUID 59 ML BOTTLE 1 APPLIC TOPICAL (06:36)
[2021-05-24 07:15] LABS: Glucose Point of Care 184 mg/dl (65-105)
[2021-05-24 07:15] LABS: Glucose Point of Care 164 mg/dl (65-105)
[2021-05-24 07:15] LABS: Glucose Point of Care 201 mg/dl (65-105)
[2021-05-24 07:15] LABS: Glucose Point of Care 223 mg/dl (65-105)
[2021-05-24 07:15] LABS: Glucose Point of Care 197 mg/dl (65-105)
[2021-05-24 07:15] LABS: Glucose Point of Care 197 mg/dl (65-105)
[2021-05-24 07:15] LABS: Glucose Point of Care 230 mg/dl (65-105)
[2021-05-24] MEDS: ZINC SULFATE 220 MG CAPSULE PO (08:39)
[2021-05-24] MEDS: ASCORBIC ACID 500 MG TABLET PO (08:39)
[2021-05-24] MEDS: ENOXAPARIN 40 MG/0.4 ML SYRINGE SUB-Q (08:39)
[2021-05-24] MEDS: CHOLECALCIFEROL 1,000 UNITS TABLET 1000 UNITS PO (08:39)
[2021-05-24] MEDS: BUMETANIDE INJ 1 MG/4 ML VIAL IV PUSH ×2 (08:39→17:00)
[2021-05-24] MEDS: polyethylene glycoL 3350 17 GM POWD.PACK PO (08:40)
[2021-05-24] MEDS: PANTOPRAZOLE SODIUM IV 40 MG VIAL IV PUSH (08:40)
[2021-05-24] MEDS: DEXTROSE 5% 1,000 ML 1,000 ML 50 ML IV CONT (08:48)
[2021-05-24 09:06] LABS: Glucose Point of Care 159 mg/dl (65-105)
[2021-05-24 09:37] LABS: Glucose Point of Care 154 mg/dl (65-105)
[2021-05-24 10:22] LABS: Glucose Point of Care 166 mg/dl (65-105)
--- NOTE | 2021-05-24 11:34 | PM.PNNEP ---
Progress Note: A&P Assessment and Plan (1) Acute kidney injury: Code(s): N17.9 - Acute kidney failure, unspecified Status: Acute Assessment and Plan: the patient has acute kidney injury. Urine sodium is low. Renal ultrasound showed no acute findings. His creatinine has been fairly stable the last 4 days. Urine output was 1875. Systolic pressure Has been good. Sodium level is a little high. Will give D5W and diuretics. Discussed with Dr George. (2) Chronic kidney disease, unspecified: Code(s): N18.9 - Chronic kidney disease, unspecified Status: Acute Assessment and Plan: the patient has chronic kidney disease. Not sure with the outpatient GFR runs. He has hypertension and diabetes which are probably responsible. (3) Pneumonia due to COVID-19 virus: Code(s): U07.1 - COVID-19; J12.82 - Pneumonia due to coronavirus disease 2018 Status: Acute Assessment and Plan: The patient has COVID. He is getting supportive care plus dexamethasone plus baricitinib (4) Hypertension: Code(s): I10 - Essential (primary) hypertension Status: Acute Assessment and Plan: blood pressure is better but not high enough for antihypertensives. (5) Type 2 diabetes mellitus: Code(s): E11.9 - Type 2 diabetes mellitus without complications Status: Acute Assessment and Plan: On Accu-Cheks and sliding-scale insulin (6) History of tobacco abuse: Code(s): Z87.891 - Personal history of nicotine dependence Status: Acute (7) Obstructive sleep apnea: Code(s): G47.33 - Obstructive sleep apnea (adult) (pediatric) Status: Acute Assessment and Plan: he is on the ventilator (8) Prostate cancer: Code(s): C61 - Malignant neoplasm of prostate Status: Chronic Subjective Date/time seen: 05/24/21 11:34 Interval history: Jake is in the prone position on sedatives, on the ventilator, and on paralytics. he cannot give a history or review of systems Exam Narrative: WDWN in NAD skin no rash or subcu nodules head ncat lungs bilateral mildly coarse. cor reg no rub or gallop abd BS+ nontender and soft ext no edema. Objective Data Vital Signs Vital Signs: Vital Signs - 24 hr 05/23/21 11:36 05/23/21 12:00 05/23/21 14:00 Temperature 36.5 C Pulse Rate 96 96 100 Respiratory Rate 30 H 30 H Blood Pressure 126/55 L 150/75 H Pulse Oximetry 96 97 05/23/21 14:09 05/23/21 14:19 05/23/21 16:00 Temperature Pulse Rate 96 93 99 Respiratory Rate 30 H 30 H 30 H Blood Pressure 158/73 H Pulse Oximetry 94 97 05/23/21 16:25 05/23/21 17:40 05/23/21 18:00 Temperature Pulse Rate 96 102 H 113 H Respiratory Rate 30 H 30 H Blood Pressure 224/93 H Pulse Oximetry 99 100 05/23/21 18:18 05/23/21 19:20 05/23/21 19:32 Temperature Pulse Rate 103 H 123 H 99 Respiratory Rate 30 H Blood Pressure Pulse Oximetry 96 05/23/21 19:35 05/23/21 19:39 05/23/21 19:48 Temperature Pulse Rate 99 101 H 99 Respiratory Rate 30 H 30 H 30 H Blood Pressure 168/75 H Pulse Oximetry 99 05/23/21 20:00 05/23/21 20:10 05/23/21 20:11 Temperature 36.1 C L Pulse Rate 109 H 106 H 106 H Respiratory Rate 30 H 30 H 30 H Blood Pressure 203/79 H 203/79 H Pulse Oximetry 98 05/23/21 20:12 05/23/21 21:08 05/23/21 22:00 Temperature Pulse Rate 106 H 112 H 113 H Respiratory Rate 30 H 30 H 30 H Blood Pressure 148/64 H 137/59 L Pulse Oximetry 96 05/23/21 23:09 05/24/21 00:00 05/24/21 02:00 Temperature 36.3 C L Pulse Rate 111 H 116 H 116 H Respiratory Rate 30 H 30 H Blood Pressure 135/62 177/81 H Pulse Oximetry 97 96 94 05/24/21 02:38 05/24/21 02:40 05/24/21 02:49 Temperature Pulse Rate 117 H 99 104 H Respiratory Rate 30 H 30 H Blood Pressure Pulse Oximetry 97 05/24/21 03:15 05/24/21 03:16 05/24/21 04:00 Temperature 37.0 C P
[2021-05-24] MEDS: BARICITINIB 1 MG TABLET PO (11:45)
[2021-05-24 11:53] LABS: Glucose Point of Care 152 mg/dl (65-105)
--- NOTE | 2021-05-24 12:08 | PCFNICU ---
ICU Rounding Note: Pt current nutrition is Vital AF 1.2 at 75 ml/hr Last recorded weight is 128.1 kg-stable Bowel Motility: +BM reported 05/19 Labs Reviewed:PO4 5.6,GFR 29, BUN 100, Cr 2.3, Alb 2.8,Na 146 Meds Noted:Reglan,Fentanyl, Versed, Nimbex, Vit D, Vit C, Zinc, Atrovent, Lantus, Miralax,Lopressor. Skin: WNL Additional Notes: Patient remains on mechanical vent and tube feedings of Vital AF 1.2 at 75 ml/hr over 22 hours and tolerating per nursing. 30 ml q 4 hours free water flush. Patient is unproned at this time. Agree with diet orders. Following daily in ICU rounds. Will monitor every Monday and Monday.
[2021-05-24 13:23] LABS: Glucose Point of Care 152 mg/dl (65-105)
--- NOTE | 2021-05-24 13:43 | WPDINTPN ---
Progress Note: A&P Assessment and Plan (1) Acute respiratory failure with hypoxia: Code(s): J96.01 - Acute respiratory failure with hypoxia Status: Acute Assessment and Plan: Acute respiratory failure likely related to COVID pneumonia -Intubated on 05/18/2021 - Currently on mechanical ventilator, 750% FiO2 , Peep or 15. Chest x-ray reviewed advance ET tube by 3 cm, ABG reviewed -patient being in prone position for the last 48 hours hence I will place patient in supine position and see if he tolerates -continue daily prone for 18 hours - low tidal volume, strategy to avoid volutrauma -continue bronchodilators -status post 5 day course of of Rocephin and azithromycin -sedated with fentanyl, Versed, Nimbex infusion for vent synchrony (2) Pneumonia due to COVID-19 virus: Code(s): U07.1 - COVID-19; J12.82 - Pneumonia due to coronavirus disease 2018 Status: Acute Assessment and Plan: Positive COVID on 05/10/2020, patient is unvaccinated -patient presented with worsening shortness of breath malaise, fatigue, headaches, generalized weakness, decreased p.o. intake -CRP 7.6 -continue dexamethasone and renally dosed baricitinib started on on 05/16/2021 -patient refused remdesivir on presentation -continue vitamin-D, vitamin-C and zinc -continue droplet, airborne and contact isolation/precautions (3) Type 2 diabetes mellitus: Code(s): E11.9 - Type 2 diabetes mellitus without complications Status: Acute Assessment and Plan: Patient with history of type 2 diabetes and now on steroids - currently hyperglycemic Currently on insulin infusion. I will resume Lantus and try to wean off insulin drip -hemoglobin A1c is 8.4 this admission (4) Acute renal failure superimposed on stage 4 chronic kidney disease: Code(s): N17.9 - Acute kidney failure, unspecified; N18.4 - Chronic kidney disease, stage 4 (severe) Status: Acute Assessment and Plan: Patient presented with acute on chronic kidney disease with a creatinine of 3.30 on admission, patient was given IV fluid bolus in the ER for elevated lactic acid -appreciate nephrology following the patient -patient has been started on Bumex and D5 water by Nephrology - Off midodrine -patient does have a ureteral stent which was placed at [facility] 5 weeks ago due to some sort of scar tissue -05/17/2021: Renal ultrasound shows bilateral renal cortical thinning, atrophy, no hydronephrosis a hepatic steatosis -may need hemodialysis (5) Prostate cancer: Code(s): C61 - Malignant neoplasm of prostate Status: Chronic Assessment and Plan: Patient has a history of prostate cancer -Status post radiation, on Erleada. It was held as patient was started on immunosuppressant baricitinib and is also on dexamethasone (6) Hypertension: Code(s): I10 - Essential (primary) hypertension Status: Acute Assessment and Plan: Blood pressures have been stable, will hold oral antihypertensives - p.r.n. hydralazine (7) DVT prophylaxis: Code(s): Z29.9 - Encounter for prophylactic measures, unspecified Status: Acute Assessment and Plan: Enoxaparin (8) Lice infested hair: Code(s): B85.2 - Pediculosis, unspecified Status: Acute Assessment and Plan: 05/24 Patient was treated with lice treating shampoo. It will be repeated in 1 week Additional Plan Nutrition: Tolerating tube feeds Stress ulcer prophylaxis: Protonix Code status: Full code At family's request I called and spoke to transfer line at [facility] in [place]. Patient is on the wait list but they do not have any bed at this time. I also spoke to Dr. Jaime with [facility] regarding whether patient was an ECMO. I was told that they will give me a call back after reviewing patient's chart and discussing with their ECMO team. Critical care time spent: 35 minute This dictation may have bee
[2021-05-24] MEDS: INSULIN HUMAN REGULAR (*BKC) 100 UNITS in SODIUM CHLORIDE 0.9% IV 99 ML 11.5 UNITS IV CONT (14:06)
[2021-05-24 14:11] LABS: Glucose Point of Care 156 mg/dl (65-105)
[2021-05-24 15:05] LABS: Glucose Point of Care 153 mg/dl (65-105)
[2021-05-24 17:11] LABS: Anion Gap 3 mmol/L (8-16); Blood Urea Nitrogen 100 mg/dL (9-20); Calcium 7.7 mg/dL (8.4-10.2); Carbon Dioxide 30 mmol/L (22-30); Chloride 110 mmol/L (98-107); Estimated CRCL calculation 45 ml/min; Estimated Glomerular Filt Rate 33; Glucose 197 mg/dL (65-110); Potassium 5.1 mmol/L (3.4-5.0); Sodium 143 mmol/L (137-145)
[2021-05-24 17:17] LABS: Glucose Point of Care 193 mg/dl (65-105)
[2021-05-24 17:17] LABS: Glucose Point of Care 150 mg/dl (65-105)
[2021-05-24 18:01] LABS: Glucose Point of Care 145 mg/dl (65-105)
[2021-05-24 18:58] LABS: Glucose Point of Care 143 mg/dl (65-105)
[2021-05-24 20:18] LABS: Glucose Point of Care 123 mg/dl (65-105)
[2021-05-24] MEDS: INSULIN GLARGINE (*BKC) 100 UNITS/ML 50 UNITS SUB-Q (20:51)
[2021-05-24] MEDS: MINERAL OIL/WHITE PETROLATUM OINTMENT 1 APPLIC EACH EYE (21:16)
[2021-05-24 22:02] LABS: Glucose Point of Care 125 mg/dl (65-105)
[2021-05-24 23:53] LABS: Glucose Point of Care 95 mg/dl (65-105)
[2021-05-24 23:53] LABS: Glucose Point of Care 87 mg/dl (65-105)
[2021-05-25] VITALS (40 sets, daily range): BP systolic 87–179; BP diastolic 43–84; PULSE 60–119; RESP 14–30; TEMP 36.2–36.9; O2SAT 69–97
[2021-05-25] MEDS: CISATRACURIUM BESYLATE 200 MG in DEXTROSE 5% 80 ML 14.78 ML IV CONT ×3 (00:15→16:34)
[2021-05-25 02:16] LABS: Glucose Point of Care 96 mg/dl (65-105)
[2021-05-25 02:16] LABS: Glucose Point of Care 140 mg/dl (65-105)
[2021-05-25] MEDS: IPRATROPIUM BR 0.02% INH SOLN 0.5 MG/2.5 ML VIAL INHALATION ×2 (02:20→08:34)
[2021-05-25] MEDS: ALBUTEROL SULFATE NEB 2.5 MG/0.5 ML INH INHALATION ×2 (02:20→08:34)
[2021-05-25] MEDS: DEXTROSE 5% 1,000 ML 1,000 ML 50 ML IV CONT (03:30)
[2021-05-25] MEDS: INSULIN HUMAN REGULAR (*BKC) 100 UNITS in SODIUM CHLORIDE 0.9% IV 99 ML 11.2 UNITS IV CONT (03:31)
[2021-05-25 03:39] LABS: Glucose Point of Care 162 mg/dl (65-105)
[2021-05-25] MEDS: CENTRAL LINE FLUSH 10 ML IV PUSH ×2 (04:20→22:01)
[2021-05-25 04:23] LABS: Glucose Point of Care 154 mg/dl (65-105)
[2021-05-25 04:34] LABS: Hematocrit 34.6 % (42.0-52.0); Hemoglobin 10.7 g/dL (14.0-18.0); Mean Corpuscular HGB Conc 30.9 g/dl (32-36); Mean Corpuscular Hemoglobin 29.9 pg (26-34); Mean Corpuscular Volume 96.6 fl (80-100); Mean Platelet Volume 10.5 fl (7.4-10.4); Platelet Count Result 180 k/mm3 (150-375); Red Blood Count 3.58 M/mm3 (4.6-6.20); Red Cell Distribution Width 15.8 % (11.5-14.5); White Blood Count 10.5 K/mm3 (4.5-10.0)
[2021-05-25 04:50] LABS: Alanine Aminotransferase 67 U/L (4-50); Albumin Level 2.5 g/dL (3.5-5.1); Alkaline Phosphatase 136 U/L (38-126); Anion Gap 0 mmol/L (8-16); Aspartate Amino Transferase 42 U/L (17-59); Bilirubin,Total 0.5 mg/dL (0.2-1.3); Blood Urea Nitrogen 107 mg/dL (9-20); Calcium 8.2 mg/dL (8.4-10.2); Carbon Dioxide 33 mmol/L (22-30); Chloride 112 mmol/L (98-107); Estimated CRCL calculation 46 ml/min; Estimated Glomerular Filt Rate 33; Glucose 176 mg/dL (65-110); Magnesium 3.1 mg/dL (1.6-2.3); Phosphorus 3.1 mg/dL (2.5-4.5); Potassium 4.5 mmol/L (3.4-5.0); Sodium 145 mmol/L (137-145)
[2021-05-25] MEDS: METOCLOPRAMIDE HCL INJ 10 MG/2 ML VIAL IV PUSH ×3 (05:16→17:12)
[2021-05-25] MEDS: FENTANYL 2,500MCG/NS250ML(*CRX 2,500 MCG/250 ML BAG 20 MCG IV CONT (05:35)
[2021-05-25] MEDS: MIDAZOLAM 100MG/NS 100ML(*CRX) 100 MG/100 ML BAG 8 MG IV CONT (05:36)
[2021-05-25 05:54] LABS: Band Neutrophils Percent 7 % (0-6); Lymphocytes Absolute Manual 0.73 K/mm3 (1.1-4.5); Metamyelocytes Percent 1 %; Monocytes Absolute Manual 0.63 K/mm3 (0.1-0.90); Monocytes Percent Manual 6 % (3-9); Neutrophils Absolute Manual 9.03 K/mm3 (1.3-6.7); Neutrophils Percent Manual 79 % (46-73); Platelet Estimate Adequate (Adequate); Total Cells Counted 100
[2021-05-25 05:55] LABS: Anisocytosis 1+ (NORMAL); Hypochromasia 1+ (NORMAL)
[2021-05-25 06:27] LABS: Alveolar/Arterial O2 Gradient 325.2 mmHg; Base Excess ABG 2.5 mEq/l (+/-2.0); Carboxyhemoglobin 0.3 % THb (0-2.0); Device VENTILATOR; Fractional Inspired Oxygen 65 %; HCO3 ABG 28.6 mEq/l (22.0-26.0); Methemoglobin ABG 0.3 %THb (0-1.5); Modified Allen's Test Unable to perform; Oxygen Content ABG 17.4 %vol (16.0-22.0); Oxygen Saturation ABG 95.8 % (95.0-100.0); PCO2 ABG 50.5 mmHg (35.0-45.0); PO2 ABG 83.3 mmHg (80.0-100.0); PO2 FiO2 Ratio Arterial Blood 1.28 %; Reduced Hemoglobin 4.4 %THb (0-5.0); Site Drawn LEFT RADIAL; pH ABG 7.371 (7.350-7.450)
[2021-05-25 06:28] LABS: Arterial Blood Gas PEEP 15 cmH2O; Arterial Blood Gas Tidal Volume 480 ml; Arterial Blood Gas Vent Mode CMV; Arterial Blood Gas Ventilator rate 30 /MIN
[2021-05-25 06:56] LABS: Glucose Point of Care 136 mg/dl (65-105)
[2021-05-25 06:56] LABS: Glucose Point of Care 134 mg/dl (65-105)
[2021-05-25 06:56] LABS: Glucose Point of Care 144 mg/dl (65-105)
--- NOTE | 2021-05-25 07:00 | PM.PNNEP ---
Progress Note: A&P Assessment and Plan (1) Acute kidney injury: Code(s): N17.9 - Acute kidney failure, unspecified Status: Acute Assessment and Plan: the patient has acute kidney injury. Urine sodium is low. Renal ultrasound showed no acute findings. His creatinine has been gradually improving from 2.5 to today's level of 2.0 over the last few days. Urine output was 2050 Systolic pressure Has been stable. Sodium level is better. He is on D5W. Continue diuretics. He still a little swollen, his creatinine is improving, and it may help lung water. (2) Chronic kidney disease, unspecified: Code(s): N18.9 - Chronic kidney disease, unspecified Status: Acute Assessment and Plan: the patient has chronic kidney disease. Not sure with the outpatient GFR runs. He has hypertension and diabetes which are probably responsible. (3) Pneumonia due to COVID-19 virus: Code(s): U07.1 - COVID-19; J12.82 - Pneumonia due to coronavirus disease 2018 Status: Acute Assessment and Plan: The patient has COVID. He is getting supportive care plus dexamethasone plus baricitinib (4) Hypertension: Code(s): I10 - Essential (primary) hypertension Status: Acute Assessment and Plan: blood pressure is better but not high enough for antihypertensives. Allow for blood pressure up to 150 before restarting. (5) Type 2 diabetes mellitus: Code(s): E11.9 - Type 2 diabetes mellitus without complications Status: Acute Assessment and Plan: On Accu-Cheks and sliding-scale insulin (6) History of tobacco abuse: Code(s): Z87.891 - Personal history of nicotine dependence Status: Acute (7) Obstructive sleep apnea: Code(s): G47.33 - Obstructive sleep apnea (adult) (pediatric) Status: Acute Assessment and Plan: he is on the ventilator (8) Prostate cancer: Code(s): C61 - Malignant neoplasm of prostate Status: Chronic Subjective Date/time seen: 05/25/21 07:00 Interval history: Jake is in the prone position on sedatives, on the ventilator, and on paralytics. he cannot give a history or review of systems Exam Narrative: WDWN in NAD skin no rash or subcu nodules head ncat lungs bilateral mildly coarse. cor reg no rub or gallop abd BS+ nontender and soft ext trace edema Objective Data Vital Signs Vital Signs: Vital Signs - 24 hr 05/24/21 08:00 05/24/21 08:25 05/24/21 08:32 Temperature 36.5 C Pulse Rate 112 H 112 H 112 H Respiratory Rate 30 H 30 H 30 H Blood Pressure 150/70 H Pulse Oximetry 94 94 05/24/21 10:00 05/24/21 11:31 05/24/21 12:00 Temperature 36.3 C L Pulse Rate 109 H 105 H 106 H Respiratory Rate 30 H 30 H Blood Pressure 155/71 H 113/62 Pulse Oximetry 95 96 96 05/24/21 14:00 05/24/21 14:08 05/24/21 14:20 Temperature Pulse Rate 105 H 106 H 107 H Respiratory Rate 30 H 30 H Blood Pressure 120/62 Pulse Oximetry 97 97 05/24/21 14:34 05/24/21 15:29 05/24/21 16:00 Temperature 37.1 C Pulse Rate 111 H 107 H Respiratory Rate 30 H 30 H Blood Pressure 142/54 H Pulse Oximetry 96 97 05/24/21 17:38 05/24/21 17:53 05/24/21 17:54 Temperature Pulse Rate 106 H 106 H 106 H Respiratory Rate 30 H 30 H 30 H Blood Pressure Pulse Oximetry 05/24/21 18:00 05/24/21 20:00 05/24/21 20:45 Temperature Pulse Rate 106 H 105 H 105 H Respiratory Rate 30 H 30 H Blood Pressure 132/52 L Pulse Oximetry 97 95 05/24/21 20:51 05/24/21 21:00 05/24/21 22:00 Temperature 36.8 C Pulse Rate 104 H 107 H 107 H Respiratory Rate 30 H 30 H 30 H Blood Pressure 131/56 L 138/58 L 127/57 L Pulse Oximetry 98 95 05/24/21 23:05 05/24/21 23:50 05/24/21 23:59 Temperature 36.8 C Pulse Rate 107 H 103 H 102 H Respiratory Rate 30 H 30 H 30 H Blood Pressure 112/57 L 113/61 Pulse Oximetry 93 05/25/21 00:00 05/25/21 00:15
[2021-05-25] MEDS: BUMETANIDE INJ 1 MG/4 ML VIAL IV PUSH ×2 (08:57→17:12)
[2021-05-25] MEDS: ZINC SULFATE 220 MG CAPSULE PO (08:57)
[2021-05-25] MEDS: CHOLECALCIFEROL 1,000 UNITS TABLET 1000 UNITS PO (08:57)
[2021-05-25] MEDS: PANTOPRAZOLE SODIUM IV 40 MG VIAL IV PUSH (08:57)
[2021-05-25] MEDS: ASCORBIC ACID 500 MG TABLET PO (08:57)
[2021-05-25] MEDS: MINERAL OIL/WHITE PETROLATUM OINTMENT 1 APPLIC EACH EYE ×2 (08:57→22:00)
[2021-05-25] MEDS: ENOXAPARIN 40 MG/0.4 ML SYRINGE SUB-Q (08:58)
[2021-05-25] MEDS: polyethylene glycoL 3350 17 GM POWD.PACK PO (08:58)
[2021-05-25] MEDS: INSULIN GLARGINE (*BKC) 100 UNITS/ML 50 UNITS SUB-Q ×2 (08:58→22:00)
[2021-05-25 09:14] LABS: Glucose Point of Care 105 mg/dl (65-105)
[2021-05-25 10:18] LABS: Glucose Point of Care 112 mg/dl (65-105)
--- NOTE | 2021-05-25 11:59 | P.CODEBLUE_ITS ---
Code Blue Note Code Blue Note Time Arrived at Code Blue: 1110 Initial Rhythm on Arrival: PEA Airway Management: Pt being bagged on arrival Chest Compressions: In process on arrival to bedside Cardiac Rhythm Post Code: Sinus tach Code Blue Summary: Patient was in prone position for mechanical ventilation. Around 11:00 a.m. and was placed back in supine position by nursing staff and RT. patient immediately desaturated and had low tidal volumes on the ventilator I was called to evaluate the patient. I could not hear breath sounds in either side. And patient saturations are low. I ordered a stat chest x-ray. Chest x- ray was done and I reviewed image at bedside and it appeared the patient had bilateral pneumothorax. From clinical situation it appeared the patient had tension pneumothorax as patient's saturations and blood pressure was low and he was tachycardic. General surgery was called overhead for chest tube placement and Dr. Aguilar arrived at bedside within few minutes. I discussed the case with him and we prepped patient for him to place bilateral chest tubes. While he was placing chest tube on the right side, patient's saturation was low in 30- 40 and he lost his pulse. CPR was initiated. One dose of epinephrine was given. ROSC was obtained after 1 dose of epi, 2 amps of bicarb and 2-3 minutes of CPR. By this time right chest tube was in place. Patient was continued to bag ventilated while the chest tube on the left side was placed. I placed a dressing on the right chest tube. Once bilateral chest tubes were in place patient's saturations improved. Repeat chest x-ray was reviewed. Lungs are mostly expanded except small tiny right residual pneumothorax. ET tube is in acceptable position Levophed was started and patient was given 1 L bolus. Patient's saturation although has improved but remains low in 70s at this time. I will increase his PEEP to 18 and will plan to repeat re- prone patient once stable Total Critical Care Time - 56 minutes Due to a high probability of clinically significant, life threatening deterioration, the patient required my highest level of preparedness to intervene emergently and I personally spent this critical care time directly and personally managing the patient. This critical care time included obtaining a history; examining the patient; pulse oximetry; ordering and review of studies; arranging urgent treatment with development of a management plan; evaluation of patient's response to treatment; frequent reassessment; and discussions with other providers. It was exclusive of separately billable procedures and treating other patients and teaching time. Please see Assessment and Plan section and the rest of the note for further information on patient assessment and treatment
[2021-05-25] MEDS: METOPROLOL TARTRATE INJ 5 MG/5 ML VIAL IV PUSH (12:14)
[2021-05-25] MEDS: SODIUM BICARBONATE 8.4% 50 MEQ/50 ML SYRINGE 100 MEQ (12:15)
[2021-05-25] MEDS: MIDAZOLAM HCL (*CRX) 2 MG/2 ML VIAL (12:15)
[2021-05-25] MEDS: BARICITINIB 1 MG TABLET PO (12:15)
[2021-05-25] MEDS: NOREPINEPHRINE 8 MG/D5W 250 ML 8 MG/250 ML BAG 5 MG (12:16)
[2021-05-25] MEDS: SODIUM CHLORIDE 0.9% IV 1,000 ML 999 ML (12:16)
[2021-05-25 12:28] LABS: Glucose Point of Care 168 mg/dl (65-105)
--- NOTE | 2021-05-25 13:09 | PCNFU ---
Nutrition Follow-Up Complete: Inadequate Oral Intake as related to mechanical vent and evidenced by NPO Goal: Meet estimated nutritional needs We will continue with current goal. Pt current nutrition is Vital AF 1.2 at 75 ml/hr over 22 hours. Last recorded weight is 131 kg, up from 123.6 kg. Bowel Motility:+BM reported 05/24 Labs Reviewed:Mg 3.1,BUN 107,Cr 2.0,Glu 176,Alb 2.5,Hct 34.6,Hgb 10.6 Meds Noted:Fentanyl, Versed, Nimbex, Lantus, Miralax, Vit C, Vit D, Zinc, Atrovent, Lopressor. Skin: WNL Additional Notes: Patient remains on mechanical vent and tube feedings Vital AF 1.2 at 75 ml/hr over 22 hours. 30 ml Free water flush q 4 hours. Current tube feeding is providing 1980 kcals/ 124 gm protein/1338 ml water. Bilateral Chest tubes placed today for pneumothorax. Agree with diet orders. Will monitor in ICU rounds and reassessing every Monday and Monday.
--- NOTE | 2021-05-25 13:19 | WPDINTPN ---
Progress Note: A&P Assessment and Plan (1) Spontaneous tension pneumothorax: Code(s): J93.0 - Spontaneous tension pneumothorax Status: Acute Assessment and Plan: Patient was spontaneous tension pneumothorax bilateral this morning when he was placed in supine position Bilateral chest tubes were emergently placed Chest x-ray shows complete resolution of pneumothorax on the left but tiny residual pneumothorax on the right No air leak on chest tubes at this time (2) Cardiac arrest: Code(s): I46.9 - Cardiac arrest, cause unspecified Status: Acute Assessment and Plan: PEA arrest Secondary to bilateral tension pneumothorax ROSC after 1 dose of epinephrine and 1 round of CPR (3) Acute respiratory failure with hypoxia: Code(s): J96.01 - Acute respiratory failure with hypoxia Status: Acute Assessment and Plan: Acute respiratory failure likely related to COVID pneumonia -Intubated on 05/18/2021 - 05/25 bilateral tension pneumothorax spontaneous which also led to a brief PEA arrest -status post chest tube placement bilateral - Currently on mechanical ventilator, 100% % FiO2 , Peep or 18. Saturations are low in to 70s despite that - Chest x-ray reviewed post chest tube placed, ABG done this morning reviewed -start Flolan -place patient back on prone position - low tidal volume, strategy to avoid volutrauma -continue bronchodilators -status post 5 day course of of Rocephin and azithromycin -sedated with fentanyl, Versed, Nimbex infusion for vent synchrony (4) Pneumonia due to COVID-19 virus: Code(s): U07.1 - COVID-19; J12.82 - Pneumonia due to coronavirus disease 2018 Status: Acute Assessment and Plan: Positive COVID on 05/10/2020, patient is unvaccinated -patient presented with worsening shortness of breath malaise, fatigue, headaches, generalized weakness, decreased p.o. intake -continue dexamethasone and renally dosed baricitinib started on on 05/16/2021 -patient refused remdesivir on presentation -continue vitamin-D, vitamin-C and zinc -continue droplet, airborne and contact isolation/precautions (5) Type 2 diabetes mellitus: Code(s): E11.9 - Type 2 diabetes mellitus without complications Status: Acute Assessment and Plan: Patient with history of type 2 diabetes and now on steroids - currently hyperglycemic Currently on insulin infusion. Continue Lantus and try to wean off insulin drip -hemoglobin A1c is 8.4 this admission (6) Acute renal failure superimposed on stage 4 chronic kidney disease: Code(s): N17.9 - Acute kidney failure, unspecified; N18.4 - Chronic kidney disease, stage 4 (severe) Status: Acute Assessment and Plan: Patient presented with acute on chronic kidney disease with a creatinine of 3.30 on admission, patient was given IV fluid bolus in the ER for elevated lactic acid -appreciate nephrology following the patient -patient has been started on Bumex and D5 water by Nephrology - Off midodrine -patient does have a ureteral stent which was placed at [facility] 5 weeks ago due to some sort of scar tissue -05/17/2021: Renal ultrasound shows bilateral renal cortical thinning, atrophy, no hydronephrosis a hepatic steatosis -may need hemodialysis (7) Prostate cancer: Code(s): C61 - Malignant neoplasm of prostate Status: Chronic Assessment and Plan: Patient has a history of prostate cancer -Status post radiation, on Erleada. It was held as patient was started on immunosuppressant baricitinib and is also on dexamethasone (8) DVT prophylaxis: Code(s): Z29.9 - Encounter for prophylactic measures, unspecified Status: Acute Assessment and Plan: Enoxaparin (9) Lice infested hair: Code(s): B85.2 - Pediculosis, unspecified Status: Acute Assessment and Plan: 05/24 Patient was treated with lice treating shampoo with permethrin. It will be repeated
[2021-05-25] MEDS: EPOPROSTENOL SODIUM 0.5 MG VIAL 1 MG INHALATION ×2 (14:32→20:26)
[2021-05-25 14:34] LABS: Glucose Point of Care 111 mg/dl (65-105)
[2021-05-25 15:39] LABS: Glucose Point of Care 149 mg/dl (65-105)
[2021-05-25 15:51] LABS: Glucose Point of Care 103 mg/dl (65-105)
--- NOTE | 2021-05-25 16:05 | PC.NURSE ---
turned pt to supine with another nurse and respiratory therapist, once pt was turned, pt was not getting tidal volumes, unable to bag also, Dr. George notified and stat x-ray ordered and done, showing two pneumos, surgeon paged, still unable to get breaths, continues to desat, even while bagging, surgeon here and started placing chest tubes, pt bradied down to zero, cpr started and code called, see code paper, levo started , after one epi and two sodium bicarbs given then darryl le, both chest tubes in place, sats in 60's, attempts to bag to no avail, Dr. George Ordered and started Flolan
--- NOTE | 2021-05-25 16:51 | P.OP_ITS ---
Procedure Note - Detailed Date of Procedure 05/25/21 Pre-op Diagnosis Bilateral tension pneumothorax/COVID pneumonia/respiratory failure/ Post-op Diagnosis same Procedure Performed Bilateral chest tube placement Surgeon Ronen Aguilar, DO Anesthesia none Indications this is a 66-year-old man who I was called stat to the ICU to evaluate for bilateral pneumothorax. I spoke with the critical care physician who was at bedside and he stated that the patient was prone earlier this morning but had to be placed back in supine position due to desaturation. Chest x-ray was obtained just moments ago which showed evidence of bilateral pneumothorax. He is showing signs of tension pneumothorax with hypotension and progressive hypoxia. Findings Bilateral chest tubes were placed at the bedside in the ICU. This was done as patient was gradually becoming more hypotensive and losing a pulse. ACLS protocol was initiated until patient had return of pulse. Once both chest tubes were placed, a repeat chest x-ray was ordered to confirm placement. Description of Procedure Patient was lying supine in the ICU bed. His right arm was draped over his head and the right chest area was prepped and draped initially. A 2 cm incision was made using a 15 blade scalpel in the anterior axillary line at the level of the nipple. Blunt dissection was carried out down to the intercostal space. I then used a curved hemostat to bluntly dissect over the rib and into the pleural space. A gush of air and pleural fluid was released. A 32 [place] chest tube was then inserted and advanced in an anterior and cephalad direction. The tube was then connected to the Pleur-Evac and the chest tube was secured in place at the skin using an 0 silk drain stitch. I then moved over to the left side of the patient. His left arm was draped over his head and the left chest was prepped and draped in sterile fashion. A 2 cm incision was made in the anterior axillary line at the level of the nipple using a 15 blade scalpel. Blunt dissection was carried down to the intercostal space. A curved hemostat was then used to bluntly dissect over the rib into the pleural space. A gush of air and pleural fluid was released. A 30 Liberian chest tube was then inserted and advanced an anterior and cephalad direction. The tube was then connected to the Pleur-Evac and the chest tube was secured in place at the skin using an 0 silk drain stitch. Vaseline gauze followed by 4 x 4 gauze and tape were applied over each chest tube. Chest x-ray was then ordered to confirm placement. Estimated Blood Loss 10 Complications No immediate complications Condition critical Disposition no change
[2021-05-25 17:38] LABS: Glucose Point of Care 108 mg/dl (65-105)
[2021-05-25 18:28] LABS: Glucose Point of Care 108 mg/dl (65-105)
[2021-05-25] MEDS: INSULIN HUMAN REGULAR (*BKC) 100 UNITS in SODIUM CHLORIDE 0.9% IV 99 ML 7.4 UNITS IV CONT (20:00)
[2021-05-25 20:17] LABS: Glucose Point of Care 127 mg/dl (65-105)
[2021-05-25 21:13] LABS: Glucose Point of Care 134 mg/dl (65-105)
[2021-05-25 22:13] LABS: Glucose Point of Care 134 mg/dl (65-105)
[2021-05-25 23:14] LABS: Glucose Point of Care 127 mg/dl (65-105)
[2021-05-26] VITALS (33 sets, daily range): BP systolic 103–162; BP diastolic 53–79; PULSE 104–118; RESP 30; TEMP 36.4–37.8; O2SAT 91–100
[2021-05-26] MEDS: FENTANYL 2,500MCG/NS250ML(*CRX 2,500 MCG/250 ML BAG 10 MCG IV CONT (00:07)
[2021-05-26] MEDS: METOCLOPRAMIDE HCL INJ 10 MG/2 ML VIAL IV PUSH ×5 (00:09→23:54)
[2021-05-26 00:26] LABS: Glucose Point of Care 105 mg/dl (65-105)
[2021-05-26] MEDS: CISATRACURIUM BESYLATE 200 MG in DEXTROSE 5% 80 ML 11.09 ML IV CONT ×2 (01:31→10:43)
[2021-05-26 02:13] LABS: Glucose Point of Care 101 mg/dl (65-105)
[2021-05-26 02:14] LABS: Glucose Point of Care 129 mg/dl (65-105)
[2021-05-26] MEDS: EPOPROSTENOL SODIUM 0.5 MG VIAL 1 MG INHALATION ×4 (02:16→20:04)
[2021-05-26] MEDS: MIDAZOLAM 100MG/NS 100ML(*CRX) 100 MG/100 ML BAG IV CONT (03:12)
[2021-05-26 03:17] LABS: Glucose Point of Care 121 mg/dl (65-105)
[2021-05-26 04:11] LABS: Glucose Point of Care 116 mg/dl (65-105)
[2021-05-26 04:51] LABS: Fractional Inspired Oxygen 100 %; HCO3 ABG 31.5 mEq/l (22.0-26.0); Methemoglobin ABG 0.1 %THb (0-1.5); Oxygen Content ABG 16.2 %vol (16.0-22.0); Oxygen Saturation ABG 91.8 % (95.0-100.0); Oxyhemoglobin 91.4 % THb (90.0-100.0); PO2 ABG 67.8 mmHg (80.0-100.0); PO2 FiO2 Ratio Arterial Blood 0.68 %; Reduced Hemoglobin 8.5 %THb (0-5.0); Total Hemoglobin 12.6 g/dL (12.0-18.0); pH ABG 7.329 (7.350-7.450)
[2021-05-26 04:53] LABS: Device VENTILATOR; Modified Allen's Test Pass; PCO2 ABG 61.2 mmHg (35.0-45.0); Site Drawn RIGHT RADIAL
[2021-05-26 04:54] LABS: Arterial Blood Gas PEEP 18 cmH2O; Arterial Blood Gas Tidal Volume 480 ml; Arterial Blood Gas Vent Mode CMV; Arterial Blood Gas Ventilator rate 30 /MIN
[2021-05-26] MEDS: CENTRAL LINE FLUSH 10 ML IV PUSH ×3 (05:10→21:04)
[2021-05-26 05:23] LABS: Glucose Point of Care 113 mg/dl (65-105)
[2021-05-26 05:55] LABS: Basophils Absolute Auto 0.1 K/mm3 (0.0-0.1); Basophils Percent Auto 0.4 % (0.2-1.2); Eosinophils Absolute Auto 0.1 K/mm3 (0-0.3); Eosinophils Percent Auto 1.1 % (0-4.4); Hematocrit 37.6 % (42.0-52.0); Hemoglobin 11.3 g/dL (14.0-18.0); Immature Granulocyte Absolute 0.62 K/mm3 (0.00-0.031); Immature Granulocyte Percent A 4.7 % (0-0.5); Lymphocytes Absolute Auto 1.14 K/mm3 (0.9-3.2); Lymphocytes Percent Auto 8.7 % (18.3-44.2); Mean Corpuscular HGB Conc 30.1 g/dl (32-36); Mean Corpuscular Hemoglobin 30.1 pg (26-34); Mean Platelet Volume 10.7 fl (7.4-10.4); Monocytes Absolute Auto 0.6 K/mm3 (0.1-0.6); Monocytes Percent Auto 4.3 % (2.6-8.5); Neutrophils Absolute Auto 10.7 K/mm3 (1.3-6.7); Neutrophils Percent Auto 80.8 % (45.5-73.1); Nucleated Red Blood Cells Perc 0.2 % (0.0-0.2); Platelet Count Result 187 k/mm3 (150-375); Red Blood Count 3.76 M/mm3 (4.6-6.20); White Blood Count 13.2 K/mm3 (4.5-10.0)
[2021-05-26 06:07] LABS: Alanine Aminotransferase 101 U/L (4-50); Albumin Level 2.6 g/dL (3.5-5.1); Alkaline Phosphatase 130 U/L (38-126); Anion Gap 0 mmol/L (8-16); Aspartate Amino Transferase 70 U/L (17-59); Bilirubin,Total 0.6 mg/dL (0.2-1.3); Blood Urea Nitrogen 114 mg/dL (9-20); Calcium 8.4 mg/dL (8.4-10.2); Carbon Dioxide 35 mmol/L (22-30); Chloride 110 mmol/L (98-107); Estimated CRCL calculation 42 ml/min; Estimated Glomerular Filt Rate 30; Glucose 127 mg/dL (65-110); Magnesium 2.9 mg/dL (1.6-2.3); Phosphorus 5.4 mg/dL (2.5-4.5); Potassium 5.3 mmol/L (3.4-5.0); Sodium 145 mmol/L (137-145)
[2021-05-26 06:09] LABS: Glucose Point of Care 107 mg/dl (65-105)
[2021-05-26 07:00] LABS: Glucose Point of Care 124 mg/dl (65-105)
--- NOTE | 2021-05-26 07:04 | PM.PNNEP ---
Progress Note: A&P Assessment and Plan (1) Acute kidney injury: Code(s): N17.9 - Acute kidney failure, unspecified Status: Acute Assessment and Plan: the patient has acute kidney injury. Urine sodium is low. Renal ultrasound showed no acute findings. Creatinine slightly higher today. Perhaps not surprising with the cardiac arrest yesterday. BUN is higher. Dexamethasone stopped yesterday. Caps BUN will come down because of this. Still making lots of urine: 12/11/2024 yesterday Systolic pressure has been stable. Systolic 120-160 Sodium level is gradually improving. Yesterday it came back in the 120s but it was because it was drawn above a line. Repeat was the expected value. Continue diuretics. Potassium is mildly high. Follow this along. Consider Kayexalate if it rises more. (2) Chronic kidney disease, unspecified: Code(s): N18.9 - Chronic kidney disease, unspecified Status: Acute Assessment and Plan: the patient has chronic kidney disease. Not sure with the outpatient GFR runs. He has hypertension and diabetes which are probably responsible. (3) Pneumonia due to COVID-19 virus: Code(s): U07.1 - COVID-19; J12.82 - Pneumonia due to coronavirus disease 2018 Status: Acute Assessment and Plan: The patient has COVID. He is getting supportive care and baricitinib. Bilateral pneumothoraces. Prognosis is poor. (4) Hypertension: Code(s): I10 - Essential (primary) hypertension Status: Acute Assessment and Plan: blood pressure is better but not high enough for antihypertensives. Allow for systolic blood pressure to be consistently above 150 before restarting. (5) Type 2 diabetes mellitus: Code(s): E11.9 - Type 2 diabetes mellitus without complications Status: Acute Assessment and Plan: On Accu-Cheks and sliding-scale insulin (6) History of tobacco abuse: Code(s): Z87.891 - Personal history of nicotine dependence Status: Acute (7) Obstructive sleep apnea: Code(s): G47.33 - Obstructive sleep apnea (adult) (pediatric) Status: Acute Assessment and Plan: he is on the ventilator (8) Prostate cancer: Code(s): C61 - Malignant neoplasm of prostate Status: Chronic Subjective Date/time seen: 05/26/21 07:04 Interval history: Events from yesterday noted. He had bilateral pneumothorax. Bilateral chest tubes are in place now. He is in the supine position. he cannot give a history or review of systems Exam Narrative: WDWN in NAD skin no rash or subcu nodules head ncat lungs bilateral mildly coarse. cor reg no rub or gallop abd BS+ nontender and soft ext trace to1+ edema Objective Data Vital Signs Vital Signs: Vital Signs - 24 hr 05/25/21 08:00 05/25/21 08:36 05/25/21 08:39 Temperature 36.2 C L Pulse Rate 109 H 95 98 Respiratory Rate 24 H 24 H Blood Pressure 115/55 L Pulse Oximetry 95 95 05/25/21 10:00 05/25/21 10:58 05/25/21 12:00 Temperature 36.9 C Pulse Rate 103 H 109 H 105 H Respiratory Rate 30 H 30 H Blood Pressure 128/60 165/81 H Pulse Oximetry 95 95 69 L 05/25/21 13:15 05/25/21 13:17 05/25/21 13:36 Temperature Pulse Rate 105 H 105 H 103 H Respiratory Rate 30 H 30 H 30 H Blood Pressure 144/70 H Pulse Oximetry 05/25/21 14:00 05/25/21 14:14 05/25/21 14:30 Temperature Pulse Rate 99 101 H Respiratory Rate 14 Blood Pressure 138/78 Pulse Oximetry 87 L 88 L 88 L 05/25/21 16:00 05/25/21 16:34 05/25/21 17:00 Temperature 36.9 C Pulse Rate 103 H 103 H 105 H Respiratory Rate 30 H 30 H Blood Pressure 144/70 H 144/70 H Pulse Oximetry 89 L 90 05/25/21 18:00 05/25/21 19:45 05/25/21 20:00 Temperature 36.6 C Pulse Rate 104 H 117 H 115 H Respiratory Rate 30 H 30 H 30 H Blood Pressure 137/76 179/84 H Pulse Oximetry 94 93 92 05/25/21 20:26 05/25/21 22:00
[2021-05-26 08:06] LABS: Glucose Point of Care 128 mg/dl (65-105)
--- NOTE | 2021-05-26 09:03 | PCFNICU ---
ICU Rounding Note: Pt current nutrition is Vital AF 1.2 75 ml/hr ale 22 hours . Last recorded weight is 134.2 kg, down from 123.6 kg on admit. Bowel Motility:Last BM reported 05/25- Miralax given 05/25 Labs Reviewed:Hgb 11.3,Hct 37.6, Alb 2.6,PO4 2.9,GFR 30,BUN 114,Cr 2.2 Meds Noted:Fentanyl, Versed, Reglan, Miralax, Vit D, Vit C, Zinc, Atrovent, Lantus, Nimbex Skin: WNL Additional Notes: Patient remains on mechanical vent and tube feedings of Vital AF 1.2 at 75 ml/hr over 22 hours. Spoke with nursing today, tolerating feedings. 30 ml free water flush q 4 hours. Bilateral chest tube in place. Agree with diet orders. Following daily in ICU rounds. Will monitor every Monday and Monday.
[2021-05-26 09:09] LABS: Glucose Point of Care 112 mg/dl (65-105)
[2021-05-26] MEDS: MINERAL OIL/WHITE PETROLATUM OINTMENT 1 APPLIC EACH EYE ×2 (09:26→20:12)
[2021-05-26] MEDS: polyethylene glycoL 3350 17 GM POWD.PACK PO (09:26)
[2021-05-26] MEDS: ZINC SULFATE 220 MG CAPSULE PO (09:26)
[2021-05-26] MEDS: PANTOPRAZOLE SODIUM IV 40 MG VIAL IV PUSH (09:26)
[2021-05-26] MEDS: ASCORBIC ACID 500 MG TABLET PO (09:26)
[2021-05-26] MEDS: CHOLECALCIFEROL 1,000 UNITS TABLET 1000 UNITS PO (09:27)
[2021-05-26] MEDS: ENOXAPARIN 40 MG/0.4 ML SYRINGE SUB-Q (09:27)
[2021-05-26] MEDS: BUMETANIDE INJ 1 MG/4 ML VIAL IV PUSH ×2 (09:28→17:36)
[2021-05-26] MEDS: INSULIN GLARGINE (*BKC) 100 UNITS/ML 50 UNITS SUB-Q (09:44)
[2021-05-26] MEDS: DEXTROSE 5% 1,000 ML 1,000 ML 50 ML IV CONT (09:45)
--- NOTE | 2021-05-26 10:03 | WPDINTPN ---
Progress Note: A&P Assessment and Plan (1) Acute respiratory failure with hypoxia: Code(s): J96.01 - Acute respiratory failure with hypoxia Status: Acute Assessment and Plan: Acute respiratory failure likely related to COVID pneumonia -Intubated on 05/18/2021 - 05/25 bilateral tension pneumothorax spontaneous which also led to a brief PEA arrest. S/P chest tube placement bilateral - Currently on mechanical ventilator, 100% % FiO2 , Peep or 18. - Chest x-ray reviewed ABG done this morning reviewed permissive hypercapnia - Started inhaled Flolan 05/25 -will place patient back on prone position today although it is going to be tricky with bilateral chest tubes - low tidal volume, strategy to avoid volutrauma -continue bronchodilators -status post 5 day course of of Rocephin and azithromycin -sedated with fentanyl, Versed, Nimbex infusion for vent synchrony (2) Pneumonia due to COVID-19 virus: Code(s): U07.1 - COVID-19; J12.82 - Pneumonia due to coronavirus disease 2018 Status: Acute Assessment and Plan: Positive COVID on 05/10/2020, patient is unvaccinated -patient presented with worsening shortness of breath malaise, fatigue, headaches, generalized weakness, decreased p.o. intake -patient has completed a 10 day course of dexamethasone which was started on 05/16/2021 -continue renally dosed baricitinib started on 05/16/2021 -patient refused remdesivir on presentation -continue vitamin-D, vitamin-C and zinc -continue droplet, airborne and contact isolation/precautions (3) Spontaneous tension pneumothorax: Code(s): J93.0 - Spontaneous tension pneumothorax Status: Acute Assessment and Plan: 05/25 Patient was spontaneous tension pneumothorax bilateral when he was placed in supine position Bilateral chest tubes were emergently placed Chest x-ray shows complete resolution of pneumothorax bilaterally No air leak on chest tubes at this time (4) Cardiac arrest: Code(s): I46.9 - Cardiac arrest, cause unspecified Status: Acute Assessment and Plan: PEA arrest Secondary to bilateral tension pneumothorax ROSC after 1 dose of epinephrine and 1 round of CPR (5) Type 2 diabetes mellitus: Code(s): E11.9 - Type 2 diabetes mellitus without complications Status: Acute Assessment and Plan: Patient with history of type 2 diabetes and now on steroids - currently hyperglycemic Currently on insulin infusion. Continue Lantus and increase dose -hemoglobin A1c is 8.4 this admission (6) Acute renal failure superimposed on stage 4 chronic kidney disease: Code(s): N17.9 - Acute kidney failure, unspecified; N18.4 - Chronic kidney disease, stage 4 (severe) Status: Acute Assessment and Plan: Patient presented with acute on chronic kidney disease with a creatinine of 3.30 on admission, patient was given IV fluid bolus in the ER for elevated lactic acid -appreciate nephrology following the patient -patient has been started on Bumex and D5 water by Nephrology -urine output is adequate - Off midodrine -patient does have a ureteral stent which was placed at [facility] 5 weeks ago due to some sort of scar tissue -05/17/2021: Renal ultrasound shows bilateral renal cortical thinning, atrophy, no hydronephrosis a hepatic steatosis -may need hemodialysis -Kayexalate per tube (7) Prostate cancer: Code(s): C61 - Malignant neoplasm of prostate Status: Chronic Assessment and Plan: Patient has a history of prostate cancer -Status post radiation, on Erleada. It was held as patient was started on immunosuppressant baricitinib and is also on dexamethasone (8) DVT prophylaxis: Code(s): Z29.9 - Encounter for prophylactic measures, unspecified Status: Acute Assessment and Plan: Enoxaparin (9) Lice infested hair: Code(s): B85.2 - Pediculosis, unspecified Status: Acute Assessment and Plan: 05/24
[2021-05-26 10:19] LABS: Glucose Point of Care 114 mg/dl (65-105)
[2021-05-26] MEDS: BARICITINIB 1 MG TABLET PO ×2 (10:45)
[2021-05-26 11:03] LABS: Glucose Point of Care 116 mg/dl (65-105)
[2021-05-26] MEDS: INSULIN HUMAN REGULAR (*BKC) 100 UNITS in SODIUM CHLORIDE 0.9% IV 99 ML 5.1 UNITS IV CONT (12:02)
[2021-05-26 12:09] LABS: Glucose Point of Care 106 mg/dl (65-105)
[2021-05-26] MEDS: SODIUM POLYSTYRENE SULFONONATE 15 GM/60 ML BTL 30 GM PO (13:02)
[2021-05-26 13:03] LABS: Glucose Point of Care 83 mg/dl (65-105)
[2021-05-26 14:03] LABS: Glucose Point of Care 91 mg/dl (65-105)
[2021-05-26 15:02] LABS: Glucose Point of Care 109 mg/dl (65-105)
[2021-05-26 16:35] LABS: Glucose Point of Care 141 mg/dl (65-105)
[2021-05-26 18:38] LABS: Glucose Point of Care 121 mg/dl (65-105)
[2021-05-26 18:39] LABS: Glucose Point of Care 122 mg/dl (65-105)
[2021-05-26] MEDS: CISATRACURIUM BESYLATE 200 MG in DEXTROSE 5% 80 ML 12.94 ML IV CONT (19:55)
[2021-05-26] MEDS: INSULIN GLARGINE (*BKC) 100 UNITS/ML 70 UNITS SUB-Q (20:13)
[2021-05-26 20:22] LABS: Glucose Point of Care 124 mg/dl (65-105)
[2021-05-26 21:11] LABS: Glucose Point of Care 108 mg/dl (65-105)
[2021-05-26 23:49] LABS: Glucose Point of Care 99 mg/dl (65-105)
[2021-05-26 23:49] LABS: Glucose Point of Care 113 mg/dl (65-105)
[2021-05-27] VITALS (39 sets, daily range): BP systolic 112–145; BP diastolic 53–70; PULSE 105–118; RESP 30; TEMP 36.4–37.4; O2SAT 93–98
[2021-05-27 00:38] LABS: Glucose Point of Care 101 mg/dl (65-105)
[2021-05-27 00:47] LABS: Glucose Point of Care 98 mg/dl (65-105)
[2021-05-27] MEDS: EPOPROSTENOL SODIUM 0.5 MG VIAL 1 MG INHALATION ×4 (02:03→19:40)
[2021-05-27] MEDS: FENTANYL 2,500MCG/NS250ML(*CRX 2,500 MCG/250 ML BAG 10 MCG IV CONT (02:15)
[2021-05-27] MEDS: CISATRACURIUM BESYLATE 200 MG in DEXTROSE 5% 80 ML 14.78 ML IV CONT ×3 (02:50→16:38)
[2021-05-27 04:35] LABS: Basophils Absolute Auto 0.1 K/mm3 (0.0-0.1); Basophils Percent Auto 0.3 % (0.2-1.2); Eosinophils Absolute Auto 0.2 K/mm3 (0-0.3); Hemoglobin 10.4 g/dL (14.0-18.0); Immature Granulocyte Absolute 0.57 K/mm3 (0.00-0.031); Immature Granulocyte Percent A 3.7 % (0-0.5); Lymphocytes Absolute Auto 1.09 K/mm3 (0.9-3.2); Mean Corpuscular HGB Conc 31.5 g/dl (32-36); Mean Corpuscular Hemoglobin 30.7 pg (26-34); Mean Corpuscular Volume 97.3 fl (80-100); Mean Platelet Volume 11.1 fl (7.4-10.4); Monocytes Absolute Auto 0.6 K/mm3 (0.1-0.6); Monocytes Percent Auto 3.8 % (2.6-8.5); Neutrophils Absolute Auto 13.1 K/mm3 (1.3-6.7); Neutrophils Percent Auto 84.2 % (45.5-73.1); Nucleated Red Blood Cells Perc 0.3 % (0.0-0.2); Platelet Count Result 204 k/mm3 (150-375); Red Blood Count 3.39 M/mm3 (4.6-6.20); Red Cell Distribution Width 15.9 % (11.5-14.5); White Blood Count 15.5 K/mm3 (4.5-10.0)
[2021-05-27 04:45] LABS: Alanine Aminotransferase 66 U/L (4-50); Albumin Level 2.5 g/dL (3.5-5.1); Alkaline Phosphatase 129 U/L (38-126); Anion Gap 2 mmol/L (8-16); Aspartate Amino Transferase 43 U/L (17-59); Bilirubin,Total 0.5 mg/dL (0.2-1.3); Blood Urea Nitrogen 112 mg/dL (9-20); Calcium 8.3 mg/dL (8.4-10.2); Carbon Dioxide 35 mmol/L (22-30); Chloride 108 mmol/L (98-107); Estimated CRCL calculation 37 ml/min; Estimated Glomerular Filt Rate 26; Glucose 121 mg/dL (65-110); Phosphorus 6.4 mg/dL (2.5-4.5); Potassium 4.6 mmol/L (3.4-5.0); Sodium 145 mmol/L (137-145)
[2021-05-27] MEDS: CENTRAL LINE FLUSH 10 ML IV PUSH ×3 (05:28→19:35)
[2021-05-27] MEDS: DEXTROSE 5% 1,000 ML 1,000 ML 50 ML IV CONT (05:28)
[2021-05-27] MEDS: METOCLOPRAMIDE HCL INJ 10 MG/2 ML VIAL IV PUSH ×3 (05:29→18:24)
[2021-05-27 05:39] LABS: Alveolar/Arterial O2 Gradient 323.3 mmHg; Base Excess ABG 2.1 mEq/l (+/-2.0); Carboxyhemoglobin 0.2 % THb (0-2.0); Fractional Inspired Oxygen 65 %; HCO3 ABG 29.1 mEq/l (22.0-26.0); Methemoglobin ABG 0.2 %THb (0-1.5); Oxygen Content ABG 16.9 %vol (16.0-22.0); Oxygen Saturation ABG 94.8 % (95.0-100.0); Oxyhemoglobin 93.8 % THb (90.0-100.0); PCO2 ABG 55.9 mmHg (35.0-45.0); PO2 ABG 79.4 mmHg (80.0-100.0); PO2 FiO2 Ratio Arterial Blood 1.22 %; Reduced Hemoglobin 5.8 %THb (0-5.0); Total Hemoglobin 12.8 g/dL (12.0-18.0); pH ABG 7.334 (7.350-7.450)
[2021-05-27 05:40] LABS: Arterial Blood Gas Vent Mode CMV; Arterial Blood Gas Ventilator rate 30 /MIN; Device VENTILATOR; Modified Allen's Test Unable to perform; Site Drawn LEFT RADIAL
[2021-05-27 05:41] LABS: Arterial Blood Gas PEEP 18 cmH2O; Arterial Blood Gas Tidal Volume 480 ml
[2021-05-27 06:58] LABS: Glucose Point of Care 113 mg/dl (65-105)
[2021-05-27 06:58] LABS: Glucose Point of Care 113 mg/dl (65-105)
[2021-05-27 06:58] LABS: Glucose Point of Care 109 mg/dl (65-105)
[2021-05-27 06:58] LABS: Glucose Point of Care 125 mg/dl (65-105)
[2021-05-27 06:58] LABS: Glucose Point of Care 104 mg/dl (65-105)
[2021-05-27 06:58] LABS: Glucose Point of Care 107 mg/dl (65-105)
[2021-05-27 07:35] LABS: Glucose Point of Care 105 mg/dl (65-105)
[2021-05-27] MEDS: MIDAZOLAM 100MG/NS 100ML(*CRX) 100 MG/100 ML BAG IV CONT (07:42)
[2021-05-27 09:07] LABS: Chloride Rand Ur <20 mmol/L (32-290); Creatinine Random Urine 139 mg/dL (20-320)
[2021-05-27] MEDS: ASCORBIC ACID 500 MG TABLET PO (09:30)
[2021-05-27] MEDS: ENOXAPARIN 40 MG/0.4 ML SYRINGE SUB-Q (09:30)
[2021-05-27] MEDS: PANTOPRAZOLE SODIUM IV 40 MG VIAL IV PUSH (09:30)
[2021-05-27] MEDS: MINERAL OIL/WHITE PETROLATUM OINTMENT 1 APPLIC EACH EYE ×2 (09:30→19:35)
[2021-05-27] MEDS: polyethylene glycoL 3350 17 GM POWD.PACK PO (09:30)
[2021-05-27] MEDS: CHOLECALCIFEROL 1,000 UNITS TABLET 1000 UNITS PO (09:30)
[2021-05-27] MEDS: INSULIN GLARGINE (*BKC) 100 UNITS/ML 50 UNITS SUB-Q ×2 (09:30→19:33)
[2021-05-27] MEDS: ZINC SULFATE 220 MG CAPSULE PO (09:30)
[2021-05-27 09:46] LABS: Glucose Point of Care 179 mg/dl (65-105)
[2021-05-27 10:35] LABS: Glucose Point of Care 95 mg/dl (65-105)
--- NOTE | 2021-05-27 11:31 | WPDINTPN ---
Progress Note: A&P Assessment and Plan (1) Acute respiratory failure with hypoxia: Code(s): J96.01 - Acute respiratory failure with hypoxia Status: Acute Assessment and Plan: Acute respiratory failure likely related to COVID pneumonia -Intubated on 05/18/2021 - 05/25 bilateral tension pneumothorax spontaneous which also led to a brief PEA arrest. S/P chest tube placement bilateral - Currently on mechanical ventilator, 65% % FiO2 , Peep or 18. Decrease PEEP to 16 continue to wean FiO2 - Chest x-ray reviewed shows tiny left pneumothorax - ABG done this morning reviewed permissive hypercapnia -continue inhaled Flolan that was started on 05/25 -continue prone position at this time as flipping him frequently will be tricky with bilateral chest tubes - low tidal volume, strategy to avoid volutrauma -continue bronchodilators -status post 5 day course of of Rocephin and azithromycin -sedated with fentanyl, Versed, Nimbex infusion for vent synchrony (2) Pneumonia due to COVID-19 virus: Code(s): U07.1 - COVID-19; J12.82 - Pneumonia due to coronavirus disease 2018 Status: Acute Assessment and Plan: Positive COVID on 05/10/2020, patient is unvaccinated -patient has completed a 10 day course of dexamethasone which was started on 05/16/2021 -continue renally dosed baricitinib started on 05/16/2021 -patient refused remdesivir on presentation -continue vitamin-D, vitamin-C and zinc -continue droplet, airborne and contact isolation/precautions (3) Spontaneous tension pneumothorax: Code(s): J93.0 - Spontaneous tension pneumothorax Status: Acute Assessment and Plan: 05/25 Patient was spontaneous tension pneumothorax bilateral when he was placed in supine position Bilateral chest tubes were emergently placed Chest x-ray reviewed No air leak on chest tubes at this time (4) Cardiac arrest: Code(s): I46.9 - Cardiac arrest, cause unspecified Status: Acute Assessment and Plan: PEA arrest Secondary to bilateral tension pneumothorax ROSC after 1 dose of epinephrine and 1 round of CPR (5) Type 2 diabetes mellitus: Code(s): E11.9 - Type 2 diabetes mellitus without complications Status: Acute Assessment and Plan: Patient with history of type 2 diabetes and now on steroids - currently hyperglycemic Currently off of insulin infusion. Continue Lantus but decrease dose and add sliding -hemoglobin A1c is 8.4 this admission (6) Acute renal failure superimposed on stage 4 chronic kidney disease: Code(s): N17.9 - Acute kidney failure, unspecified; N18.4 - Chronic kidney disease, stage 4 (severe) Status: Acute Assessment and Plan: Patient presented with acute on chronic kidney disease with a creatinine of 3.30 on admission, patient was given IV fluid bolus in the ER for elevated lactic acid -appreciate nephrology following the patient -patient has been started on Bumex and D5 water by Nephrology. Discussed with Dr. Oconnell will hold for today as sodium is better -his BUN is elevated but creatinine is acceptable and urine output is adequate for now - Off midodrine -patient does have a ureteral stent which was placed at [facility] 5 weeks ago due to some sort of scar tissue -05/17/2021: Renal ultrasound shows bilateral renal cortical thinning, atrophy, no hydronephrosis a hepatic steatosis -he may need hemodialysis (7) Prostate cancer: Code(s): C61 - Malignant neoplasm of prostate Status: Chronic Assessment and Plan: Patient has a history of prostate cancer -Status post radiation, on Erleada. It was held as patient was started on immunosuppressant baricitinib and is also on dexamethasone (8) DVT prophylaxis: Code(s): Z29.9 - Encounter for prophylactic measures, unspecified Status: Acute Assessment and Plan: Enoxaparin (9) Lice infested hair: Code(s): B85.2 - Pediculosis, unspecified
[2021-05-27 11:49] LABS: Glucose Point of Care 82 mg/dl (65-105)
--- NOTE | 2021-05-27 12:32 | PM.PNNEP ---
Progress Note: A&P Assessment and Plan (1) Acute kidney injury: Code(s): N17.9 - Acute kidney failure, unspecified Status: Acute Assessment and Plan: the patient has acute kidney injury. Urine sodium is low. Renal ultrasound showed no acute findings. creatinine martha again from 2-2.2 and today is 2.5. BUN is on the rise as well. Hopefully BUN will fall as he is off the Dexamethasone. He probably is in a hyper catabolic state however with his illness and so the BUN might rise. Still making lots of urine: 12/11/2024 yesterday Systolic pressure has been stable. Systolic 110-130 Sodium level is at the upper limits of normal. Discussed with Dr. George. since sodium is better and since creatinine is high will stop both the fluids and the diuretics. Potassium is doing better (2) Chronic kidney disease, unspecified: Code(s): N18.9 - Chronic kidney disease, unspecified Status: Acute Assessment and Plan: the patient has chronic kidney disease. Not sure with the outpatient GFR runs. He has hypertension and diabetes which are probably responsible. (3) Pneumonia due to COVID-19 virus: Code(s): U07.1 - COVID-19; J12.82 - Pneumonia due to coronavirus disease 2018 Status: Acute Assessment and Plan: The patient has COVID. He is getting supportive care and baricitinib. Bilateral pneumothoraces. Prognosis is poor. (4) Hypertension: Code(s): I10 - Essential (primary) hypertension Status: Acute Assessment and Plan: blood pressure is better but not high enough for antihypertensives. Allow for systolic blood pressure to be consistently above 150 before restarting. (5) Type 2 diabetes mellitus: Code(s): E11.9 - Type 2 diabetes mellitus without complications Status: Acute Assessment and Plan: On Accu-Cheks and sliding-scale insulin (6) History of tobacco abuse: Code(s): Z87.891 - Personal history of nicotine dependence Status: Acute (7) Obstructive sleep apnea: Code(s): G47.33 - Obstructive sleep apnea (adult) (pediatric) Status: Acute Assessment and Plan: he is on the ventilator (8) Prostate cancer: Code(s): C61 - Malignant neoplasm of prostate Status: Chronic Subjective Date/time seen: 05/27/21 12:32 Interval history: patient is sedated and on the ventilator. he cannot give a history or review of systems Bilateral chest tubes in place. He is back in the prone position and FiO2 is 65% Exam Narrative: WDWN in NAD skin no rash or subcu nodules head ncat lungs bilateral mildly coarse. cor reg no rub abd BS+ nontender and soft ext trace to 1+ edema Objective Data Vital Signs Vital Signs: Vital Signs - 24 hr 05/26/21 14:00 05/26/21 14:24 05/26/21 16:00 Temperature 37.4 C Pulse Rate 111 H 111 H 116 H Respiratory Rate 30 H 30 H 30 H Blood Pressure 120/61 103/60 Pulse Oximetry 99 99 97 05/26/21 18:00 05/26/21 18:05 05/26/21 19:55 Temperature Pulse Rate 118 H 118 H 118 H Respiratory Rate 30 H 30 H 30 H Blood Pressure 111/58 L 124/59 L Pulse Oximetry 98 99 05/26/21 20:00 05/26/21 20:05 05/26/21 20:09 Temperature 37.8 C H Pulse Rate 117 H 117 H 118 H Respiratory Rate 30 H 30 H Blood Pressure 109/58 L Pulse Oximetry 98 100 100 05/26/21 20:11 05/26/21 21:02 05/26/21 22:00 Temperature 37.6 C Pulse Rate 118 H 118 H 116 H Respiratory Rate 30 H 30 H 30 H Blood Pressure 104/61 113/58 L Pulse Oximetry 98 05/26/21 22:02 05/27/21 00:00 05/27/21 00:01 Temperature 37.4 C Pulse Rate 117 H 117 H 117 H Respiratory Rate 30 H 30 H 30 H Blood Pressure 112/58 L 112/58 L Pulse Oximetry 99 97 97 05/27/21 02:00 05/27/21 02:04 05/27/21 02:15 Temperature Pulse Rate 115 H 115 H 115 H Respiratory Rate 30 H 30 H 30 H Blood Pressure 118/63 Pulse Oximetry 98 97 05/27/21 02:16
--- NOTE | 2021-05-27 14:21 | PCFNICU ---
ICU Rounding Note: Pt current nutrition is Nepro at 75 ml/hr. Nutrition recommendation:goal rate at 55 ml/hr Last recorded weight is 134.2 kg. Bowel Motility:Last BM reported 05/25 Labs Reviewed: Hgb 10.4,Ht 33.0,BUN 112, Cr 2.5,Alb 2.5,GFR 26,PO4 6.4 Meds Noted:Versed,Lantus, Protonix,Miralax,Reglan,Vit D,Zinc,Nimbex, Flolan,Lovenox Skin:WNL Additional Notes: Spoke with nursing today. Tube feedings formula change to Nepro. Tube feeding ordered at 75 ml/hr which is providing 2970 kcals. Recommend goal rate at 55 ml/hr providing 2178 kclas/98 gms protein/880 ml water. Free water flush 30 ml q 4 hours. Agree with diet orders. Following daily in ICU rounds. Will monitor every Monday and Monday..
[2021-05-27 16:49] LABS: Glucose Point of Care 141 mg/dl (65-105)
[2021-05-27 20:19] LABS: Glucose Point of Care 125 mg/dl (65-105)
[2021-05-27] MEDS: CISATRACURIUM BESYLATE 200 MG in DEXTROSE 5% 80 ML 29.57 ML IV CONT (22:02)
[2021-05-28] VITALS (40 sets, daily range): BP systolic 120–147; BP diastolic 56–76; PULSE 100–113; RESP 30; TEMP 36.4–37.4; O2SAT 95–99
[2021-05-28 00:19] LABS: Glucose Point of Care 131 mg/dl (65-105)
[2021-05-28] MEDS: CISATRACURIUM BESYLATE 200 MG in DEXTROSE 5% 80 ML 29.57 ML IV CONT ×7 (01:49→22:04)
[2021-05-28] MEDS: EPOPROSTENOL SODIUM 0.5 MG VIAL 1 MG INHALATION ×4 (01:53→20:22)
[2021-05-28] MEDS: FENTANYL 2,500MCG/NS250ML(*CRX 2,500 MCG/250 ML BAG 10 MCG IV CONT (03:37)
[2021-05-28 03:46] LABS: Glucose Point of Care 113 mg/dl (65-105)
[2021-05-28 04:45] LABS: Basophils Absolute Auto 0.1 K/mm3 (0.0-0.1); Basophils Percent Auto 0.4 % (0.2-1.2); Eosinophils Absolute Auto 0.2 K/mm3 (0-0.3); Eosinophils Percent Auto 1.2 % (0-4.4); Hematocrit 33.5 % (42.0-52.0); Immature Granulocyte Absolute 0.66 K/mm3 (0.00-0.031); Immature Granulocyte Percent A 4.1 % (0-0.5); Lymphocytes Absolute Auto 0.95 K/mm3 (0.9-3.2); Lymphocytes Percent Auto 5.8 % (18.3-44.2); Mean Corpuscular HGB Conc 29.9 g/dl (32-36); Mean Corpuscular Hemoglobin 29.9 pg (26-34); Mean Corpuscular Volume 100.3 fl (80-100); Mean Platelet Volume 10.7 fl (7.4-10.4); Monocytes Absolute Auto 0.6 K/mm3 (0.1-0.6); Monocytes Percent Auto 3.9 % (2.6-8.5); Neutrophils Absolute Auto 13.8 K/mm3 (1.3-6.7); Neutrophils Percent Auto 84.6 % (45.5-73.1); Nucleated Red Blood Cells Perc 0.1 % (0.0-0.2); Platelet Count Result 227 k/mm3 (150-375); Red Blood Count 3.34 M/mm3 (4.6-6.20); Red Cell Distribution Width 16.1 % (11.5-14.5); White Blood Count 16.3 K/mm3 (4.5-10.0)
[2021-05-28 04:54] LABS: Alveolar/Arterial O2 Gradient 319.4 mmHg; Carboxyhemoglobin 0.2 % THb (0-2.0); Fractional Inspired Oxygen 65 %; HCO3 ABG 30.7 mEq/l (22.0-26.0); Methemoglobin ABG 0.3 %THb (0-1.5); Oxyhemoglobin 94.8 % THb (90.0-100.0); PCO2 ABG 54.4 mmHg (35.0-45.0); PO2 ABG 84.9 mmHg (80.0-100.0); PO2 FiO2 Ratio Arterial Blood 1.31 %; Reduced Hemoglobin 4.7 %THb (0-5.0)
[2021-05-28 04:55] LABS: Device VENTILATOR; Modified Allen's Test Pass; Site Drawn LEFT RADIAL
[2021-05-28 04:56] LABS: Arterial Blood Gas PEEP 16 cmH2O; Arterial Blood Gas Tidal Volume 480 ml; Arterial Blood Gas Vent Mode CMV; Arterial Blood Gas Ventilator rate 30 /MIN
[2021-05-28 04:57] LABS: Alanine Aminotransferase 56 U/L (4-50); Albumin Level 2.5 g/dL (3.5-5.1); Alkaline Phosphatase 165 U/L (38-126); Anion Gap 2 mmol/L (8-16); Aspartate Amino Transferase 46 U/L (17-59); Bilirubin,Total 0.4 mg/dL (0.2-1.3); Blood Urea Nitrogen 116 mg/dL (9-20); Calcium 8.2 mg/dL (8.4-10.2); Carbon Dioxide 34 mmol/L (22-30); Chloride 108 mmol/L (98-107); Estimated CRCL calculation 36 ml/min; Estimated Glomerular Filt Rate 25; Glucose 142 mg/dL (65-110); Magnesium 2.9 mg/dL (1.6-2.3); Phosphorus 6.5 mg/dL (2.5-4.5); Potassium 4.7 mmol/L (3.4-5.0); Sodium 144 mmol/L (137-145)
[2021-05-28] MEDS: CENTRAL LINE FLUSH 10 ML IV PUSH ×3 (05:43→20:18)
[2021-05-28] MEDS: METOCLOPRAMIDE HCL INJ 10 MG/2 ML VIAL IV PUSH ×3 (05:43→14:00)
[2021-05-28 07:42] LABS: Glucose Point of Care 120 mg/dl (65-105)
[2021-05-28] MEDS: MIDAZOLAM 100MG/NS 100ML(*CRX) 100 MG/100 ML BAG IV CONT (08:15)
[2021-05-28] MEDS: ENOXAPARIN 40 MG/0.4 ML SYRINGE SUB-Q (08:24)
[2021-05-28] MEDS: ZINC SULFATE 220 MG CAPSULE PO (08:25)
[2021-05-28] MEDS: PANTOPRAZOLE SODIUM IV 40 MG VIAL IV PUSH (08:25)
[2021-05-28] MEDS: polyethylene glycoL 3350 17 GM POWD.PACK PO (08:25)
[2021-05-28] MEDS: MINERAL OIL/WHITE PETROLATUM OINTMENT 1 APPLIC EACH EYE ×2 (08:25→20:18)
[2021-05-28] MEDS: CHOLECALCIFEROL 1,000 UNITS TABLET 1000 UNITS PO (08:26)
[2021-05-28] MEDS: ASCORBIC ACID 500 MG TABLET PO (08:26)
[2021-05-28] MEDS: INSULIN GLARGINE (*BKC) 100 UNITS/ML 50 UNITS SUB-Q ×2 (08:27→20:16)
--- NOTE | 2021-05-28 10:30 | PM.PNNEP ---
Progress Note: A&P Assessment and Plan (1) Acute kidney injury: Code(s): N17.9 - Acute kidney failure, unspecified Status: Acute Assessment and Plan: the patient has acute kidney injury. Urine sodium is low. Renal ultrasound showed no acute findings. BUN and creatinine slowly rising. Still making lots of urine Systolic pressure has been stable. Systolic 110-130 Sodium level is still at the upper limits of normal. Discussed with Dr. George. Potassium is doing better (2) Chronic kidney disease, unspecified: Code(s): N18.9 - Chronic kidney disease, unspecified Status: Acute Assessment and Plan: the patient has chronic kidney disease. Not sure with the outpatient GFR runs. He has hypertension and diabetes which are probably responsible. (3) Pneumonia due to COVID-19 virus: Code(s): U07.1 - COVID-19; J12.82 - Pneumonia due to coronavirus disease 2019 Status: Acute Assessment and Plan: The patient has COVID. He is getting supportive care and baricitinib. Bilateral pneumothoraces. Prognosis is poor. (4) Hypertension: Code(s): I10 - Essential (primary) hypertension Status: Acute Assessment and Plan: blood pressure is better but not high enough for antihypertensives. Allow for systolic blood pressure to be consistently above 150 before restarting. (5) Type 2 diabetes mellitus: Code(s): E11.9 - Type 2 diabetes mellitus without complications Status: Acute Assessment and Plan: On Accu-Cheks and sliding-scale insulin (6) History of tobacco abuse: Code(s): Z87.891 - Personal history of nicotine dependence Status: Acute (7) Obstructive sleep apnea: Code(s): G47.33 - Obstructive sleep apnea (adult) (pediatric) Status: Acute Assessment and Plan: he is on the ventilator (8) Prostate cancer: Code(s): C61 - Malignant neoplasm of prostate Status: Chronic Subjective Date/time seen: 05/28/21 10:30 Interval history: patient is sedated and on the ventilator. he cannot give a history or review of systems Bilateral chest tubes in place. Still in the prone position Exam Narrative: WDWN in NAD on the ventilator sedated and on paralytics in the prone position skin no rash or subcu nodules head ncat lungs bilateral mildly coarse. cor reg no rub or gallop abd BS+ nontender and soft ext trace to 1+ edema Objective Data Vital Signs Vital Signs: Vital Signs - 24 hr 05/27/21 11:55 05/27/21 12:00 05/27/21 13:40 Temperature 36.6 C Pulse Rate 107 H 108 H 108 H Respiratory Rate 30 H 30 H 30 H Blood Pressure 123/55 L Pulse Oximetry 94 95 96 05/27/21 14:00 05/27/21 16:00 05/27/21 16:25 Temperature 37.0 C Pulse Rate 107 H 107 H 107 H Respiratory Rate 30 H 30 H 30 H Blood Pressure 144/58 H 127/59 L 144/58 H Pulse Oximetry 95 97 05/27/21 16:38 05/27/21 16:40 05/27/21 18:00 Temperature Pulse Rate 107 H 108 H 107 H Respiratory Rate 30 H 30 H 30 H Blood Pressure 144/58 H 120/57 L Pulse Oximetry 95 95 05/27/21 18:10 05/27/21 19:35 05/27/21 19:36 Temperature Pulse Rate 105 H 110 H 110 H Respiratory Rate 30 H 30 H 30 H Blood Pressure 134/60 Pulse Oximetry 97 05/27/21 19:46 05/27/21 19:48 05/27/21 19:52 Temperature 37.1 C Pulse Rate 112 H 112 H 110 H Respiratory Rate 30 H 30 H Blood Pressure 134/60 Pulse Oximetry 96 96 93 05/27/21 19:54 05/27/21 20:00 05/27/21 21:04 Temperature Pulse Rate 113 H 112 H 111 H Respiratory Rate 30 H 30 H Blood Pressure 144/70 H 145/69 H Pulse Oximetry 05/27/21 22:00 05/27/21 22:02 05/27/21 22:04 Temperature Pulse Rate 111 H 109 H 109 H Respiratory Rate 30 H 30 H 30 H Blood Pressure 138/61 138/61 Pulse Oximetry 97 05/28/21 00:00 05/28/21 01:49 05/28/21 01:59 Temperature 37.4 C Pulse Rate 113 H 111 H 110 H Respiratory Rate 30 H 30 H
[2021-05-28] MEDS: BARICITINIB 1 MG TABLET PO (11:00)
--- NOTE | 2021-05-28 11:26 | WPDINTPN ---
Progress Note: A&P Assessment and Plan (1) Acute respiratory failure with hypoxia: Code(s): J96.01 - Acute respiratory failure with hypoxia Status: Acute Assessment and Plan: Acute respiratory failure likely related to COVID pneumonia -Intubated on 05/18/2021 - 05/25 bilateral tension pneumothorax spontaneous which also led to a brief PEA arrest. S/P chest tube placement bilateral - Currently on mechanical ventilator, 65% % FiO2 , PEEP is at 16 continue to wean FiO2 - Chest x-ray reviewed - advance ET tube by 3 cm - ABG done this morning reviewed permissive hypercapnia -continue inhaled Flolan that was started on 05/25 -continue prone position for longer period of time as flipping him frequently will be tricky with bilateral chest tubes - will spine today for 6 hours as tolerated - low tidal volume, strategy to avoid volutrauma -continue bronchodilators -status post 5 day course of of Rocephin and azithromycin -sedated with fentanyl, Versed, Nimbex infusion for vent synchrony (2) Pneumonia due to COVID-19 virus: Code(s): U07.1 - COVID-19; J12.82 - Pneumonia due to coronavirus disease 2018 Status: Acute Assessment and Plan: Positive COVID on 05/10/2020, patient is unvaccinated -patient has completed a 10 day course of dexamethasone which was started on 05/16/2021 -continue renally dosed baricitinib started on 05/16/2021 -patient refused remdesivir on presentation -continue vitamin-D, vitamin-C and zinc -continue droplet, airborne and contact isolation/precautions (3) Spontaneous tension pneumothorax: Code(s): J93.0 - Spontaneous tension pneumothorax Status: Acute Assessment and Plan: 05/25 Patient was spontaneous tension pneumothorax bilateral when he was placed in supine position Bilateral chest tubes were emergently placed Chest x-ray reviewed No air leak on chest tubes at this time (4) Cardiac arrest: Code(s): I46.9 - Cardiac arrest, cause unspecified Status: Acute Assessment and Plan: PEA arrest Secondary to bilateral tension pneumothorax ROSC after 1 dose of epinephrine and 1 round of CPR (5) Type 2 diabetes mellitus: Code(s): E11.9 - Type 2 diabetes mellitus without complications Status: Acute Assessment and Plan: Patient with history of type 2 diabetes and now on steroids - currently hyperglycemic Currently off of insulin infusion. Continue Lantus but decrease dose and add sliding -hemoglobin A1c is 8.4 this admission (6) Acute renal failure superimposed on stage 4 chronic kidney disease: Code(s): N17.9 - Acute kidney failure, unspecified; N18.4 - Chronic kidney disease, stage 4 (severe) Status: Acute Assessment and Plan: Patient presented with acute on chronic kidney disease with a creatinine of 3.30 on admission, patient was given IV fluid bolus in the ER for elevated lactic acid -appreciate nephrology following the patient - off Bumex and D5 water at this time -his BUN is elevated but creatinine is acceptable and urine output is adequate for now - Off midodrine -patient does have a ureteral stent which was placed at [facility] 5 weeks ago due to some sort of scar tissue -05/17/2021: Renal ultrasound shows bilateral renal cortical thinning, atrophy, no hydronephrosis a hepatic steatosis -he may need hemodialysis - discussed with Dr. Oconnell (7) Prostate cancer: Code(s): C61 - Malignant neoplasm of prostate Status: Chronic Assessment and Plan: Patient has a history of prostate cancer -Status post radiation, on Erleada. It was held as patient was started on immunosuppressant baricitinib and is also on dexamethasone (8) DVT prophylaxis: Code(s): Z29.9 - Encounter for prophylactic measures, unspecified Status: Acute Assessment and Plan: Enoxaparin (9) Lice infested hair: Code(s): B85.2 - Pediculosis, unspecified Status: Acute
[2021-05-28 12:46] LABS: Glucose Point of Care 118 mg/dl (65-105)
--- NOTE | 2021-05-28 13:07 | PCNFU ---
Nutrition Follow-Up Complete: Inadequate Oral Intake as related to mechanical vent and evidenced by NPO Goal: Meet estimated nutritional needs Patient will continue current goal. Pt current nutrition is Nepro at 55 ml/hr over 22 hours. Last recorded weight is 133 kg, up from 123.6 kg on admit. Bowel Motility: No BM reported-Miralax given 2/4 Labs Reviewed:Mg 2.9, Glu 142, Cr 2.6,BUN 116, Alb 2.5,Hct 33.5,Hgb 10.0 Meds Noted:Reglan, Fentanyl, Nimbex, Miralax, Vit C, Vit D, Zinc, Protonix, Lantus, Flolan, Lovenox. Skin: WNL Additional Notes: Patient remains on mechanical vent and tube feedings of Nepro at 55 ml/hr over 22 hours. Spoke with MD this morning regarding tube feeding rate. Recommended adjusting from 75 ml/hr to 55 ml/hr. Current tube feeding at 55 ml/hr will provide 2178 kcals/98 gms protein/880 ml water. Free water flush 30 ml q 4 hours. Agree with diet orders. Will monitor in ICU rounds and reassessing every Monday and Monday.
[2021-05-28 17:07] LABS: Glucose Point of Care 117 mg/dl (65-105)
[2021-05-28 20:48] LABS: Glucose Point of Care 114 mg/dl (65-105)
[2021-05-28 21:42] LABS: Procalcitonin 3.4 ng/mL
[2021-05-29] VITALS (37 sets, daily range): BP systolic 101–145; BP diastolic 58–75; PULSE 85–106; RESP 30; TEMP 35.8–36.4; O2SAT 87–98
[2021-05-29] MEDS: METOCLOPRAMIDE HCL INJ 10 MG/2 ML VIAL IV PUSH ×5 (00:15→23:34)
[2021-05-29 00:34] LABS: Glucose Point of Care 99 mg/dl (65-105)
[2021-05-29] MEDS: CISATRACURIUM BESYLATE 200 MG in DEXTROSE 5% 80 ML 29.57 ML IV CONT ×3 (01:28→08:58)
[2021-05-29] MEDS: EPOPROSTENOL SODIUM 0.5 MG VIAL 1 MG INHALATION ×4 (02:35→20:15)
[2021-05-29] MEDS: FENTANYL 2,500MCG/NS250ML(*CRX 2,500 MCG/250 ML BAG 10 MCG IV CONT (02:39)
--- NOTE | 2021-05-29 02:45 | PCRCNOTE ---
During 02:30 flolan & vent check, pt's ETT found to be at 22 at the lip. With help from the nurse, tube advanced back to 26 at the lip.
[2021-05-29] MEDS: CENTRAL LINE FLUSH 10 ML IV PUSH ×3 (05:01→20:49)
[2021-05-29 05:42] LABS: Hematocrit 33.4 % (42.0-52.0); Hemoglobin 10.1 g/dL (14.0-18.0); Mean Corpuscular HGB Conc 30.2 g/dl (32-36); Mean Corpuscular Hemoglobin 30.4 pg (26-34); Mean Corpuscular Volume 100.6 fl (80-100); Mean Platelet Volume 10.7 fl (7.4-10.4); Platelet Count Result 264 k/mm3 (150-375); Red Blood Count 3.32 M/mm3 (4.6-6.20); Red Cell Distribution Width 15.9 % (11.5-14.5); White Blood Count 14.1 K/mm3 (4.5-10.0)
[2021-05-29 05:42] LABS: Glucose Point of Care 99 mg/dl (65-105)
[2021-05-29 05:48] LABS: Alveolar/Arterial O2 Gradient 301.9 mmHg; Base Excess ABG 6.1 mEq/l (+/-2.0); Carboxyhemoglobin 0.9 % THb (0-2.0); Fractional Inspired Oxygen 60 %; HCO3 ABG 32.3 mEq/l (22.0-26.0); Methemoglobin ABG 0.2 %THb (0-1.5); Oxygen Content ABG 19.3 %vol (16.0-22.0); Oxygen Saturation ABG 93.6 % (95.0-100.0); PCO2 ABG 52.2 mmHg (35.0-45.0); PO2 ABG 68.5 mmHg (80.0-100.0); PO2 FiO2 Ratio Arterial Blood 1.14 %; Reduced Hemoglobin 6.9 %THb (0-5.0); Total Hemoglobin 14.9 g/dL (12.0-18.0); pH ABG 7.409 (7.350-7.450)
[2021-05-29 05:49] LABS: Arterial Blood Gas PEEP 16 cmH2O; Arterial Blood Gas Tidal Volume 480 ml; Arterial Blood Gas Vent Mode CMV; Arterial Blood Gas Ventilator rate 30 /MIN; Device VENTILATOR; Modified Allen's Test Unable to perform; Site Drawn LEFT RADIAL
[2021-05-29 05:59] LABS: Alanine Aminotransferase 56 U/L (4-50); Albumin Level 2.5 g/dL (3.5-5.1); Alkaline Phosphatase 195 U/L (38-126); Anion Gap 1 mmol/L (8-16); Aspartate Amino Transferase 68 U/L (17-59); Bilirubin,Total 0.4 mg/dL (0.2-1.3); Blood Urea Nitrogen 111 mg/dL (9-20); Calcium 8.9 mg/dL (8.4-10.2); Carbon Dioxide 35 mmol/L (22-30); Chloride 110 mmol/L (98-107); Estimated CRCL calculation 37 ml/min; Estimated Glomerular Filt Rate 26; Glucose 142 mg/dL (65-110); Magnesium 3.1 mg/dL (1.6-2.3); Potassium 4.4 mmol/L (3.4-5.0); Sodium 146 mmol/L (137-145)
[2021-05-29 07:24] LABS: Basophils Absolute Auto 0.1 K/mm3 (0.0-0.1); Basophils Percent Auto 0.5 % (0.2-1.2); Eosinophils Absolute Auto 0.2 K/mm3 (0-0.3); Eosinophils Percent Auto 1.1 % (0-4.4); Immature Granulocyte Absolute 0.42 K/mm3 (0.00-0.031); Lymphocytes Absolute Auto 0.99 K/mm3 (0.9-3.2); Monocytes Absolute Auto 0.6 K/mm3 (0.1-0.6); Monocytes Percent Auto 4.3 % (2.6-8.5); Neutrophils Absolute Auto 11.9 K/mm3 (1.3-6.7); Neutrophils Percent Auto 84.1 % (45.5-73.1)
[2021-05-29 08:13] LABS: Glucose Point of Care 130 mg/dl (65-105)
--- NOTE | 2021-05-29 08:48 | WPDINTPN ---
Progress Note: A&P Assessment and Plan (1) Acute respiratory failure with hypoxia: Code(s): J96.01 - Acute respiratory failure with hypoxia Status: Acute Assessment and Plan: Acute respiratory failure likely related to COVID pneumonia -Intubated on 05/18/2021 - 05/25 bilateral tension pneumothorax spontaneous which also led to a brief PEA arrest. S/P chest tube placement bilateral - Currently on mechanical ventilator, 65% % FiO2 , PEEP is at 16 continue to wean FiO2 - Chest x-ray reviewed - advance ET tube by 2 cm - ABG done this morning reviewed permissive hypercapnia -continue inhaled Flolan that was started on 05/25 - will spine today for 6 hours as tolerated and back to prone position. Will keep prone position for longer period of time as flipping him frequently will be tricky with bilateral chest tubes - low tidal volume, strategy to avoid volutrauma -continue bronchodilators -sedated with fentanyl, Versed, Nimbex infusion for vent synchrony (2) Pneumonia due to COVID-19 virus: Code(s): U07.1 - COVID-19; J12.82 - Pneumonia due to coronavirus disease 2018 Status: Acute Assessment and Plan: Positive COVID on 05/10/2020, patient is unvaccinated -patient has completed a 10 day course of dexamethasone which was started on 05/16/2021 -continue renally dosed baricitinib started on 05/16/2021 -patient refused remdesivir on presentation -continue vitamin-D, vitamin-C and zinc -continue droplet, airborne and contact isolation/precautions (3) Spontaneous tension pneumothorax: Code(s): J93.0 - Spontaneous tension pneumothorax Status: Acute Assessment and Plan: 05/25 Patient was spontaneous tension pneumothorax bilateral when he was placed in supine position Bilateral chest tubes were emergently placed Chest x-ray reviewed No air leak on chest tubes at this time (4) Cardiac arrest: Code(s): I46.9 - Cardiac arrest, cause unspecified Status: Acute Assessment and Plan: PEA arrest Secondary to bilateral tension pneumothorax ROSC after 1 dose of epinephrine and 1 round of CPR (5) Type 2 diabetes mellitus: Code(s): E11.9 - Type 2 diabetes mellitus without complications Status: Acute Assessment and Plan: Patient with history of type 2 diabetes and now on steroids - currently hyperglycemic Currently off of insulin infusion. Continue Lantus but decrease dose further - continue sliding scale insulin -hemoglobin A1c is 8.4 this admission (6) Acute renal failure superimposed on stage 4 chronic kidney disease: Code(s): N17.9 - Acute kidney failure, unspecified; N18.4 - Chronic kidney disease, stage 4 (severe) Status: Acute Assessment and Plan: Patient presented with acute on chronic kidney disease with a creatinine of 3.30 on admission, patient was given IV fluid bolus in the ER for elevated lactic acid - off Bumex and D5 water at this time -his BUN is elevated but creatinine is acceptable and urine output is adequate for now - Off midodrine -patient does have a ureteral stent which was placed at [facility] 5 weeks ago due to some sort of scar tissue -05/17/2021: Renal ultrasound shows bilateral renal cortical thinning, atrophy, no hydronephrosis a hepatic steatosis -he may need hemodialysis - nephrology following (7) Prostate cancer: Code(s): C61 - Malignant neoplasm of prostate Status: Chronic Assessment and Plan: Patient has a history of prostate cancer -Status post radiation, on Erleada. It was held as patient was started on immunosuppressant baricitinib and is also on dexamethasone (8) DVT prophylaxis: Code(s): Z29.9 - Encounter for prophylactic measures, unspecified Status: Acute Assessment and Plan: Enoxaparin (9) Lice infested hair: Code(s): B85.2 - Pediculosis, unspecified Status: Acute Assessment and Plan: 05/24 Patient was treated with lic
[2021-05-29] MEDS: INSULIN GLARGINE (*BKC) 100 UNITS/ML 40 UNITS SUB-Q ×2 (09:03→20:48)
[2021-05-29] MEDS: PANTOPRAZOLE SODIUM IV 40 MG VIAL IV PUSH (09:04)
[2021-05-29] MEDS: CHOLECALCIFEROL 1,000 UNITS TABLET 1000 UNITS PO (09:04)
[2021-05-29] MEDS: ZINC SULFATE 220 MG CAPSULE PO (09:04)
[2021-05-29] MEDS: polyethylene glycoL 3350 17 GM POWD.PACK PO (09:04)
[2021-05-29] MEDS: MINERAL OIL/WHITE PETROLATUM OINTMENT 1 APPLIC EACH EYE ×2 (09:04→20:50)
[2021-05-29] MEDS: ASCORBIC ACID 500 MG TABLET PO (09:04)
[2021-05-29] MEDS: ENOXAPARIN 40 MG/0.4 ML SYRINGE SUB-Q (09:04)
[2021-05-29] MEDS: MIDAZOLAM 100MG/NS 100ML(*CRX) 100 MG/100 ML BAG IV CONT (09:13)
[2021-05-29 11:08] LABS: Add Urine Microscopic? YES; Appearance Urine Cloudy (Clear); Bacteria Urine Trace /hpf; Bilirubin Urine Negative (Negative); Blood Urine 3+ (Negative); Color Urine Yellow (Yellow); Glucose Urine UA Negative (Negative); Ketones Urine Negative (Negative); Leukocyte Esterase Ur Trace LEU/UL (Negative); Nitrate Urine Negative (Negative); Protein Urine 1+ mg/dL (Negative); RBC Urine 51-75 /hpf (0-2); Specific Grav Ur 1.015 (1.001-1.035); Squamous Epithelial Cell Urine Rare /hpf (Few); Urobilinogen Urine Negative mg/dL (<2.0)
[2021-05-29] MEDS: CISATRACURIUM BESYLATE 200 MG in DEXTROSE 5% 80 ML 27.72 ML IV CONT (12:29)
--- NOTE | 2021-05-29 12:34 | P.PNNP_ITS ---
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 (2) Chronic kidney disease, unspecified: Code(s): N18.9 - Chronic kidney disease, unspecified Status: Chronic Assessment and Plan: * unclear what baseline creatinine/GFR is * creatinine did improve to 1.3mg/dl (from 3.3mg/dl on admission) early on during this hospitalization * renal ultrasound with evidence of CKD (bilateral renal cortical thinning and atrophy) * suspect secondary to hypertension and diabetes (3) Acute respiratory failure with hypoxia: Code(s): J96.01 - Acute respiratory failure with hypoxia Status: Acute Assessment and Plan: * been on mechanical ventilation since 05/18/21 * due to COVID-19 pneumonia * complciated by bilateral tension pneumothorax s/p bilateral chest tube placement * prone positioning as tolerated (4) Pneumonia due to COVID-19 virus: Code(s): U07.1 - COVID-19; J12.82 - Pneumonia due to coronavirus disease 2018 Status: Acute Assessment and Plan: * COVID positive 05/10/21 * s/p course of decadron * s/p course of baricitinib (last dose today) * refused remdesivir on admission/presentation * continue ventilator support (5) Cardiac arrest: Code(s): I46.9 - Cardiac arrest, cause unspecified Status: Acute Assessment and Plan: * PEA arrest * secondary to bilateral tension pneumothorax * ROSC after 1 dose of epinephrine and 1 round of CPR (6) Hypertension: Code(s): I10 - Essential (primary) hypertension Status: Chronic Assessment and Plan: * reasonable control at this time * follow trend of hemodyanmics (7) Type 2 diabetes mellitus: Code(s): E11.9 - Type 2 diabetes mellitus without complications Status: Acute Assessment and Plan: * follow Accu-Cheks * on sliding-scale insulin Will continue to follow. Subjective Date/time seen: 05/29/21 12:34 Chart reviewed - assuming care from Dr. Oconnell; remains int[place] rosetta/sedated/paralyzed and on full mechanical ventilatory support; acceptable hemodynamics and no new issues/events overnight or earlier this AM; continues to make reasonable urine output but BUN and creatinine continue to climb/worsen; tolerating prone positioning. Exam Narrative: General: WD/WN male intubated/sedated/paralyzed on mechanical ventilation Heart: normal S1 and S2; no rub Lungs: coarse breath sounds throughout Abdomen: soft, nontender, nondistended, positive bowel sounds Extremities: no cyanosis or clubbing; 1+ edema Skin: warm and dry Objective Data Vital Signs Vital Signs: Vital Signs Temp Pulse Resp BP Pulse Ox 05/29/21 12:29 89 30 H 130/60 05/29/21 12:21 86 96 05/29/21 10:00 93 30 H 134/71 95 05/29/21 09:13 94 30 H 05/29/21 08:58 94 30 H 145/75 H 05/29/21 08:47 94 97 05/29/21 08:46 95 30 H 98 05/29/21 08:0
--- NOTE | 2021-05-29 12:34 | PM.PNNEP ---
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 (2) Chronic kidney disease, unspecified: Code(s): N18.9 - Chronic kidney disease, unspecified Status: Chronic Assessment and Plan: unclear what baseline creatinine/GFR is creatinine did improve to 1.3mg/dl (from 3.3mg/dl on admission) early on during this hospitalization renal ultrasound with evidence of CKD (bilateral renal cortical thinning and atrophy) suspect secondary to hypertension and diabetes (3) Acute respiratory failure with hypoxia: Code(s): J96.01 - Acute respiratory failure with hypoxia Status: Acute Assessment and Plan: been on mechanical ventilation since 05/18/21 due to COVID-19 pneumonia complciated by bilateral tension pneumothorax s/p bilateral chest tube placement prone positioning as tolerated (4) Pneumonia due to COVID-19 virus: Code(s): U07.1 - COVID-19; J12.82 - Pneumonia due to coronavirus disease 2019 Status: Acute Assessment and Plan: COVID positive 05/10/21 s/p course of decadron s/p course of baricitinib (last dose today) refused remdesivir on admission/presentation continue ventilator support (5) Cardiac arrest: Code(s): I46.9 - Cardiac arrest, cause unspecified Status: Acute Assessment and Plan: PEA arrest secondary to bilateral tension pneumothorax ROSC after 1 dose of epinephrine and 1 round of CPR (6) Hypertension: Code(s): I10 - Essential (primary) hypertension Status: Chronic Assessment and Plan: reasonable control at this time follow trend of hemodyanmics (7) Type 2 diabetes mellitus: Code(s): E11.9 - Type 2 diabetes mellitus without complications Status: Acute Assessment and Plan: follow Accu-Cheks on sliding-scale insulin Will continue to follow. Subjective Date/time seen: 05/29/21 12:34 Chart reviewed - assuming care from Dr. Oconnell; remains intubated/sedated/paralyzed and on full mechanical ventilatory support; acceptable hemodynamics and no new issues/events overnight or earlier this AM; continues to make reasonable urine output but BUN and creatinine continue to climb/worsen; tolerating prone positioning. Exam Narrative: General: WD/WN male intubated/sedated/paralyzed on mechanical ventilation Heart: normal S1 and S2; no rub Lungs: coarse breath sounds throughout Abdomen: soft, nontender, nondistended, positive bowel sounds Extremities: no cyanosis or clubbing; 1+ edema Skin: warm and dry Objective Data Vital Signs Vital Signs: Vital Signs Temp Pulse Resp BP Pulse Ox 05/29/21 12:29 89 30 H 130/60 05/29/21 12:21 86 96 05/29/21 10:00 93 30 H 134/71 95 05/29/21 09:13 94 30 H 05/29/21 08:58 94 30 H 145/75 H 05/29/21 08:47 94 97 05/29/21 08:46 95 30 H 98 05/29/21 08:00 36.0 C L 94 30 H 137/72 98 05/29/21 06:20 95 30 H 95 05/29/21 06:00 94 30 H 134/72 95 05/29/21 05:15 96 30 H 95 05/29/21 05:00 95 30 H 138/68 05/29/21 04:00 36.0 C L 96 30 H 136/71 95 05/29/21 02:44 99 30 H 95 05/29/21 02:39 99 30 H 05/29/21 02:00 98 30 H 132/74 95 05/29/21 01:28 98 30 H 124/58 L 05/29/21 00:55 99 30 H 97 05/29/21 00:25 99 30 H 136/65 05/29/21 00:00 36.4 C L 106 H 30 H 135/65 97 05/28/21 22:27 103 H 30 H 96 05/28/21 22:04 104 H 30 H 137/63 05/28/21 22:00 103 H 30 H 137/63 95 05/28/21 20:20 110 H 30
[2021-05-29] MEDS: BARICITINIB 1 MG TABLET PO (12:35)
[2021-05-29 12:36] LABS: Glucose Point of Care 151 mg/dl (65-105)
[2021-05-29] MEDS: CEFEPIME 0.5 GM in DEXTROSE 5% IN WATER 50 ML IVPB (14:20)
[2021-05-29 16:25] LABS: Glucose Point of Care 166 mg/dl (65-105)
[2021-05-29] MEDS: CISATRACURIUM BESYLATE 200 MG in DEXTROSE 5% 80 ML 24.02 ML IV CONT ×2 (16:33→20:43)
[2021-05-29 20:55] LABS: Glucose Point of Care 177 mg/dl (65-105)
[2021-05-29 23:52] LABS: Glucose Point of Care 159 mg/dl (65-105)
[2021-05-30] VITALS (60 sets, daily range): BP systolic 111–136; BP diastolic 61–71; PULSE 93–104; RESP 30; TEMP 36.1–36.9; O2SAT 90–101
[2021-05-30] MEDS: CISATRACURIUM BESYLATE 200 MG in DEXTROSE 5% 80 ML 24.02 ML IV CONT ×2 (00:48→05:00)
[2021-05-30] MEDS: FENTANYL 2,500MCG/NS250ML(*CRX 2,500 MCG/250 ML BAG 10 MCG IV CONT (03:30)
[2021-05-30 04:05] LABS: Glucose Point of Care 147 mg/dl (65-105)
[2021-05-30] MEDS: CENTRAL LINE FLUSH 10 ML IV PUSH ×3 (05:02→20:42)
[2021-05-30] MEDS: METOCLOPRAMIDE HCL INJ 10 MG/2 ML VIAL IV PUSH ×3 (05:02→17:19)
[2021-05-30 05:44] LABS: Hematocrit 33.6 % (42.0-52.0); Hemoglobin 10.1 g/dL (14.0-18.0); Mean Corpuscular HGB Conc 30.1 g/dl (32-36); Mean Corpuscular Hemoglobin 30.1 pg (26-34); Mean Corpuscular Volume 100.3 fl (80-100); Mean Platelet Volume 10.6 fl (7.4-10.4); Platelet Count Result 276 k/mm3 (150-375); Red Blood Count 3.35 M/mm3 (4.6-6.20); Red Cell Distribution Width 15.9 % (11.5-14.5); White Blood Count 13.5 K/mm3 (4.5-10.0)
[2021-05-30 06:07] LABS: Alanine Aminotransferase 66 U/L (4-50); Albumin Level 2.6 g/dL (3.5-5.1); Alkaline Phosphatase 218 U/L (38-126); Anion Gap 3 mmol/L (8-16); Aspartate Amino Transferase 71 U/L (17-59); Bilirubin,Total 0.5 mg/dL (0.2-1.3); Blood Urea Nitrogen 116 mg/dL (9-20); Calcium 8.6 mg/dL (8.4-10.2); Carbon Dioxide 35 mmol/L (22-30); Chloride 111 mmol/L (98-107); Estimated CRCL calculation 38 ml/min; Estimated Glomerular Filt Rate 27; Glucose 184 mg/dL (65-110); Potassium 4.7 mmol/L (3.4-5.0); Sodium 149 mmol/L (137-145)
[2021-05-30 06:38] LABS: Alveolar/Arterial O2 Gradient 332.7 mmHg; Base Excess ABG 5.8 mEq/l (+/-2.0); Carboxyhemoglobin 0.3 % THb (0-2.0); Fractional Inspired Oxygen 65 %; Methemoglobin ABG 0.2 %THb (0-1.5); Oxygen Content ABG 15.6 %vol (16.0-22.0); Oxygen Saturation ABG 94.2 % (95.0-100.0); PCO2 ABG 53.7 mmHg (35.0-45.0); PO2 ABG 72.4 mmHg (80.0-100.0); PO2 FiO2 Ratio Arterial Blood 1.11 %; Reduced Hemoglobin 7.5 %THb (0-5.0); pH ABG 7.393 (7.350-7.450)
[2021-05-30 06:39] LABS: Arterial Blood Gas PEEP 16 cmH2O; Arterial Blood Gas Vent Mode CMV; Arterial Blood Gas Ventilator rate 30 /MIN; Device VENTILATOR; Modified Allen's Test Unable to perform; Site Drawn RIGHT RADIAL
[2021-05-30 06:40] LABS: Arterial Blood Gas Tidal Volume 480 ml
[2021-05-30] MEDS: EPOPROSTENOL SODIUM 0.5 MG VIAL 1 MG INHALATION ×3 (08:12→20:08)
--- NOTE | 2021-05-30 08:55 | WPDINTPN ---
Progress Note: A&P Assessment and Plan (1) Acute respiratory failure with hypoxia: Code(s): J96.01 - Acute respiratory failure with hypoxia Status: Acute Assessment and Plan: Acute respiratory failure likely related to COVID pneumonia -Intubated on 05/18/2021 - 05/25 bilateral tension pneumothorax spontaneous which also led to a brief PEA arrest. S/P chest tube placement bilateral - Currently on mechanical ventilator, 65% % FiO2, PEEP is at 16 continue to wean FiO2 - Chest x-ray reviewed - ABG done this morning reviewed permissive hypercapnia -continue inhaled Flolan that was started on 05/25 - continue prone position through today. Will keep prone position for longer period of times as long as he tolerates, as flipping him frequently is tricky and risky with bilateral chest tubes - low tidal volume, strategy to avoid volutrauma -continue bronchodilators -sedated with fentanyl, Versed, Nimbex infusion for vent synchrony (2) Pneumonia due to COVID-19 virus: Code(s): U07.1 - COVID-19; J12.82 - Pneumonia due to coronavirus disease 2018 Status: Acute Assessment and Plan: Positive COVID on 05/10/2020, patient is unvaccinated -patient has completed a 10 day course of dexamethasone which was started on 05/16/2021 -continue renally dosed baricitinib which will complete today 05/30 -patient refused remdesivir on presentation -continue vitamin-D, vitamin-C and zinc -continue droplet, airborne and contact isolation/precautions (3) Spontaneous tension pneumothorax: Code(s): J93.0 - Spontaneous tension pneumothorax Status: Acute Assessment and Plan: 05/25 Patient was spontaneous tension pneumothorax bilateral when he was placed in supine position Bilateral chest tubes were emergently placed Chest x-ray reviewed No air leak on chest tubes at this time (4) Cardiac arrest: Code(s): I46.9 - Cardiac arrest, cause unspecified Status: Acute Assessment and Plan: PEA arrest Secondary to bilateral tension pneumothorax ROSC after 1 dose of epinephrine and 1 round of CPR (5) Type 2 diabetes mellitus: Code(s): E11.9 - Type 2 diabetes mellitus without complications Status: Acute Assessment and Plan: Patient with history of type 2 diabetes and now on steroids - currently hyperglycemic Currently off of insulin infusion. Continue Lantus but decrease dose further - continue sliding scale insulin -hemoglobin A1c is 8.4 this admission (6) Acute renal failure superimposed on stage 4 chronic kidney disease: Code(s): N17.9 - Acute kidney failure, unspecified; N18.4 - Chronic kidney disease, stage 4 (severe) Status: Acute Assessment and Plan: Patient presented with acute on chronic kidney disease with a creatinine of 3.30 on admission, patient was given IV fluid bolus in the ER for elevated lactic acid - off Bumex and D5 water at this time -his BUN is elevated but creatinine is acceptable and urine output is adequate for now - Off midodrine -patient does have a ureteral stent which was placed at [facility] 5 weeks ago due to some sort of scar tissue -05/17/2021: Renal ultrasound shows bilateral renal cortical thinning, atrophy, no hydronephrosis a hepatic steatosis -he may need hemodialysis - nephrology following (7) Prostate cancer: Code(s): C61 - Malignant neoplasm of prostate Status: Chronic Assessment and Plan: Patient has a history of prostate cancer -Status post radiation, on Erleada. It was held as patient was started on immunosuppressant baricitinib and is also on dexamethasone (8) DVT prophylaxis: Code(s): Z29.9 - Encounter for prophylactic measures, unspecified Status: Acute Assessment and Plan: Enoxaparin (9) Lice infested hair: Code(s): B85.2 - Pediculosis, unspecified Status: Acute Assessment and Plan: 05/24 Patient was treated with lice treating sham
[2021-05-30] MEDS: ZINC SULFATE 220 MG CAPSULE PO (09:17)
[2021-05-30] MEDS: polyethylene glycoL 3350 17 GM POWD.PACK PO (09:17)
[2021-05-30] MEDS: PANTOPRAZOLE SODIUM IV 40 MG VIAL IV PUSH (09:17)
[2021-05-30] MEDS: MINERAL OIL/WHITE PETROLATUM OINTMENT 1 APPLIC EACH EYE ×2 (09:17→20:42)
[2021-05-30] MEDS: ENOXAPARIN 40 MG/0.4 ML SYRINGE SUB-Q (09:18)
[2021-05-30] MEDS: CHOLECALCIFEROL 1,000 UNITS TABLET 1000 UNITS PO (09:18)
[2021-05-30] MEDS: INSULIN GLARGINE (*BKC) 100 UNITS/ML 40 UNITS SUB-Q ×2 (09:18→21:15)
[2021-05-30] MEDS: ASCORBIC ACID 500 MG TABLET PO (09:19)
[2021-05-30] MEDS: CEFEPIME 0.5 GM in DEXTROSE 5% IN WATER 50 ML IVPB (09:19)
[2021-05-30] MEDS: CISATRACURIUM BESYLATE 200 MG in DEXTROSE 5% 80 ML 25.87 ML IV CONT (09:27)
[2021-05-30] MEDS: MIDAZOLAM 100MG/NS 100ML(*CRX) 100 MG/100 ML BAG IV CONT (09:29)
[2021-05-30 09:39] LABS: Glucose Point of Care 165 mg/dl (65-105)
--- NOTE | 2021-05-30 11:19 | P.PNIM_ITS ---
Progress Note: A&P Assessment and Plan (1) Acute respiratory failure with hypoxia: Code(s): J96.01 - Acute respiratory failure with hypoxia Status: Acute Assessment and Plan: Acute respiratory failure likely related to COVID pneumonia -Intubated on 05/18/2021 - 05/25 bilateral tension pneumothorax spontaneous which also led to a brief PEA arrest. S/P chest tube placement bilateral - Currently on mechanical ventilator, 65% % FiO2, PEEP is at 16 continue to wean FiO2 - Chest x-ray reviewed - ABG done this morning reviewed permissive hypercapnia -continue inhaled Flolan that was started on 05/25 - continue prone position through today. Will keep prone position for longer period of times as long as he tolerates, as flipping him frequently is tricky and risky with bilateral chest tubes - low tidal volume, strategy to avoid volutrauma -continue bronchodilators -sedated with fentanyl, Versed, Nimbex infusion for vent synchrony (2) Pneumonia due to COVID-19 virus: Code(s): U07.1 - COVID-19; J12.82 - Pneumonia due to coronavirus disease 2018 Status: Acute Assessment and Plan: Positive COVID on 05/10/2020, patient is unvaccinated -patient has completed a 10 day course of dexamethasone which was started on 05/16/2021 -continue renally dosed baricitinib which will complete today 05/30 -patient refused remdesivir on presentation -continue vitamin-D, vitamin-C and zinc -continue droplet, airborne and contact isolation/precautions (3) Spontaneous tension pneumothorax: Code(s): J93.0 - Spontaneous tension pneumothorax Status: Acute Assessment and Plan: 05/25 Patient was spontaneous tension pneumothorax bilateral when he was placed in supine position Bilateral chest tubes were emergently placed Chest x-ray reviewed No air leak on chest tubes at this time (4) Cardiac arrest: Code(s): I46.9 - Cardiac arrest, cause unspecified Status: Acute Assessment and Plan: PEA arrest Secondary to bilateral tension pneumothorax ROSC after 1 dose of epinephrine and 1 round of CPR (5) Type 2 diabetes mellitus: Code(s): E11.9 - Type 2 diabetes mellitus without complications Status: Acute Assessment and Plan: Patient with history of type 2 diabetes and now on steroids - currently hyperglycemic Currently off of insulin infusion. Continue Lantus but decrease dose further - continue sliding scale insulin -hemoglobin A1c is 8.4 this admission (6) Acute renal failure superimposed on stage 4 chronic kidney disease: Code(s): N17.9 - Acute kidney failure, unspecified; N18.4 - Chronic kidney disease, stage 4 (severe) Status: Acute Assessment and Plan: Patient presented with acute on chronic kidney disease with a creatinine of 3.30 on admission, patient was given IV fluid bolus in the ER for elevated lactic acid - off Bumex and D5 water at this time -his BUN is elevated but creatinine is acceptable and urine output is adequate for now - Off midodrine -patient does have a ureteral stent which was placed at [facility] 5 weeks ago due to some sort of scar tissue -05/17/2021: Renal ultrasound shows bilateral renal cortical thinning, atrophy, no hydronephrosis a hepatic steatosis -he may need hemodialysis - nephrology following (7) Prostate cancer: Code(s): C61 - Malignant neoplasm of prostate Status: Chronic Assessment and Plan: Patient has a history of prostate cancer -Status post radiation, on Erleada. It was held as patient was started on immunosuppressant baricitinib and is also o
[2021-05-30 12:00] LABS: Glucose Point of Care 98 mg/dl (65-105)
--- NOTE | 2021-05-30 12:29 | P.PNNP_ITS ---
Progress Note: A&P Assessment and Plan (1) Acute kidney injury: Code(s): N17.9 - Acute kidney failure, unspecified Status: Acute Assessment and Plan: * multifactorial etiology: * cardiac arrest * infection (pneumonia/COVID-19) * possible pre-renal factors * continues to make good urine output * however, BUN and creatinine remain elevated * evaluation to date: * urine electrolytes prerenal * renal ultrasound without acute pathology * remains at risk for requiring GAME SHOW HOST/dialysis (2) Chronic kidney disease, unspecified: Code(s): N18.9 - Chronic kidney disease, unspecified Status: Chronic Assessment and Plan: * unclear what baseline creatinine/GFR is * creatinine did improve to 1.3mg/dl (from 3.3mg/dl on admission) early on during this hospitalization * renal ultrasound with evidence of CKD (bilateral renal cortical thinning and atrophy) * suspect secondary to hypertension and diabetes (3) Hypernatremia: Code(s): E87.0 - Hyperosmolality and hypernatremia Status: Acute Assessment and Plan: * due to free water deficit * increased free water flushes to compensate * follow trend of sodium level (4) Acute respiratory failure with hypoxia: Code(s): J96.01 - Acute respiratory failure with hypoxia Status: Acute Assessment and Plan: * been on mechanical ventilation since 05/18/21 * due to COVID-19 pneumonia * complciated by bilateral tension pneumothorax s/p bilateral chest tube placement * prone positioning as tolerated (5) Pneumonia due to COVID-19 virus: Code(s): U07.1 - COVID-19; J12.82 - Pneumonia due to coronavirus disease 2018 Status: Acute Assessment and Plan: * COVID positive 05/10/21 * s/p course of decadron * s/p course of baricitinib (last dose today) * refused remdesivir on admission/presentation * continue ventilator support (6) Cardiac arrest: Code(s): I46.9 - Cardiac arrest, cause unspecified Status: Acute Assessment and Plan: * PEA arrest * secondary to bilateral tension pneumothorax * ROSC after 1 dose of epinephrine and 1 round of CPR (7) Hypertension: Code(s): I10 - Essential (primary) hypertension Status: Chronic Assessment and Plan: * reasonable control at this time * follow trend of hemodyanmics (8) Type 2 diabetes mellitus: Code(s): E11.9 - Type 2 diabetes mellitus without complications Status: Acute Assessment and Plan: * follow Accu-Cheks * on sliding-scale insulin Will continue to follow. Subjective Date/time seen: 05/30/21 12:29 No significant change - remains intubated/sedated/paralyzed on mechanical ventilation; stable/reasonable urine output and renal function relatively stable as well; remains hemodynamically stable at this time; no other issues/events overnight or earlier this AM. Exam Narrative: General: WD/WN male intubated/sedated/paralyzed on mechanical ventilation Heart: normal S1 and S2; no rub Lungs: coarse breath sounds throughout Abdomen: soft, nontender, nondistended, positive bowel sounds Extremities: no cyanosis or clubbing; 1+ edema Skin: warm and intact Objective Data Vital Signs Vital Signs: Vital Signs Temp Pulse Resp BP Pulse Ox 05/30/21 13:18 100 30 H 93 05/30/21 12:09 36.6 C 98 30 H 118/61 94 05/30/21 1
--- NOTE | 2021-05-30 12:29 | PM.PNNEP ---
Progress Note: A&P Assessment and Plan (1) Acute kidney injury: Code(s): N17.9 - Acute kidney failure, unspecified Status: Acute Assessment and Plan: multifactorial etiology: cardiac arrest infection (pneumonia/COVID-19) possible pre-renal factors continues to make good urine output however, BUN and creatinine remain elevated evaluation to date: urine electrolytes prerenal renal ultrasound without acute pathology remains at risk for requiring COUNTERINTELLIGENCE/HUMINT SPECIALIST/dialysis (2) Chronic kidney disease, unspecified: Code(s): N18.9 - Chronic kidney disease, unspecified Status: Chronic Assessment and Plan: unclear what baseline creatinine/GFR is creatinine did improve to 1.3mg/dl (from 3.3mg/dl on admission) early on during this hospitalization renal ultrasound with evidence of CKD (bilateral renal cortical thinning and atrophy) suspect secondary to hypertension and diabetes (3) Hypernatremia: Code(s): E87.0 - Hyperosmolality and hypernatremia Status: Acute Assessment and Plan: due to free water deficit increased free water flushes to compensate follow trend of sodium level (4) Acute respiratory failure with hypoxia: Code(s): J96.01 - Acute respiratory failure with hypoxia Status: Acute Assessment and Plan: been on mechanical ventilation since 05/18/21 due to COVID-19 pneumonia complciated by bilateral tension pneumothorax s/p bilateral chest tube placement prone positioning as tolerated (5) Pneumonia due to COVID-19 virus: Code(s): U07.1 - COVID-19; J12.82 - Pneumonia due to coronavirus disease 2018 Status: Acute Assessment and Plan: COVID positive 05/10/21 s/p course of decadron s/p course of baricitinib (last dose today) refused remdesivir on admission/presentation continue ventilator support (6) Cardiac arrest: Code(s): I46.9 - Cardiac arrest, cause unspecified Status: Acute Assessment and Plan: PEA arrest secondary to bilateral tension pneumothorax ROSC after 1 dose of epinephrine and 1 round of CPR (7) Hypertension: Code(s): I10 - Essential (primary) hypertension Status: Chronic Assessment and Plan: reasonable control at this time follow trend of hemodyanmics (8) Type 2 diabetes mellitus: Code(s): E11.9 - Type 2 diabetes mellitus without complications Status: Acute Assessment and Plan: follow Accu-Cheks on sliding-scale insulin Will continue to follow. Subjective Date/time seen: 05/30/21 12:29 No significant change - remains intubated/sedated/paralyzed on mechanical ventilation; stable/reasonable urine output and renal function relatively stable as well; remains hemodynamically stable at this time; no other issues/events overnight or earlier this AM. Exam Narrative: General: WD/WN male intubated/sedated/paralyzed on mechanical ventilation Heart: normal S1 and S2; no rub Lungs: coarse breath sounds throughout Abdomen: soft, nontender, nondistended, positive bowel sounds Extremities: no cyanosis or clubbing; 1+ edema Skin: warm and intact Objective Data Vital Signs Vital Signs: Vital Signs Temp Pulse Resp BP Pulse Ox 05/30/21 13:18 100 30 H 93 05/30/21 12:09 36.6 C 98 30 H 118/61 94 05/30/21 12:00 94 05/30/21 11:52 100 30 H 111/66 05/30/21 11:00 36.5 C 96 30 H 111/66 93 05/30/21 10:55 36.5 C 97 30 H 121/70 93 05/30/21 10:45 98 93 05/30/21 10:41 100 30 H 92 05/30/21 09:29 96 30 H 05/30/21 09:10 97 30 H 117/71 05/30/21 09:00 36.5 C 97 30 H 117/71 95 05/30/21 08:57 36.5 C 97 30 H 94 05/30/21 08:39 36.5 C 98 30 H 94 05/30/21 08:25 36.4 C 97 30 H 117/64 94 05/30/21 08:17 97 94 05/30/21 08:00 96 30 H 93 05/30/21 06:06 95 94 05/30/21 06:00 36.3 C L 96 30 H 118/64 94 05/30/21 05:57 96 30 H 94 0
[2021-05-30] MEDS: CISATRACURIUM BESYLATE 200 MG in DEXTROSE 5% 80 ML 27.72 ML IV CONT (13:32)
[2021-05-30 16:28] LABS: Glucose Point of Care 153 mg/dl (65-105)
[2021-05-30] MEDS: CISATRACURIUM BESYLATE 200 MG in DEXTROSE 5% 80 ML 29.57 ML IV CONT ×3 (17:15→23:58)
[2021-05-30 20:54] LABS: Glucose Point of Care 175 mg/dl (65-105)
[2021-05-31] VITALS (61 sets, daily range): BP systolic 97–135; BP diastolic 48–67; PULSE 91–107; RESP 30–36; TEMP 35.9–37.1; O2SAT 90–98
[2021-05-31] MEDS: METOCLOPRAMIDE HCL INJ 10 MG/2 ML VIAL IV PUSH ×2 (00:04→05:56)
[2021-05-31 00:19] LABS: Glucose Point of Care 176 mg/dl (65-105)
[2021-05-31] MEDS: EPOPROSTENOL SODIUM 0.5 MG VIAL 1 MG INHALATION ×2 (01:55→08:00)
[2021-05-31] MEDS: FENTANYL 2,500MCG/NS250ML(*CRX 2,500 MCG/250 ML BAG 12.5 MCG IV CONT (02:40)
[2021-05-31] MEDS: CISATRACURIUM BESYLATE 200 MG in DEXTROSE 5% 80 ML 29.57 ML IV CONT ×5 (02:41→15:54)
[2021-05-31 04:03] LABS: Hematocrit 32.4 % (42.0-52.0); Hemoglobin 9.7 g/dL (14.0-18.0); Mean Corpuscular HGB Conc 29.9 g/dl (32-36); Mean Corpuscular Volume 100.3 fl (80-100); Mean Platelet Volume 10.7 fl (7.4-10.4); Platelet Count Result 288 k/mm3 (150-375); Red Blood Count 3.23 M/mm3 (4.6-6.20); Red Cell Distribution Width 16.1 % (11.5-14.5); White Blood Count 12.2 K/mm3 (4.5-10.0)
[2021-05-31 04:19] LABS: Alanine Aminotransferase 71 U/L (4-50); Albumin Level 2.6 g/dL (3.5-5.1); Alkaline Phosphatase 243 U/L (38-126); Anion Gap 3 mmol/L (8-16); Aspartate Amino Transferase 68 U/L (17-59); Bilirubin,Total 0.5 mg/dL (0.2-1.3); Calcium 8.3 mg/dL (8.4-10.2); Carbon Dioxide 34 mmol/L (22-30); Chloride 110 mmol/L (98-107); Estimated CRCL calculation 41 ml/min; Estimated Glomerular Filt Rate 29; Glucose 185 mg/dL (65-110); Potassium 5.4 mmol/L (3.4-5.0); Sodium 147 mmol/L (137-145)
[2021-05-31 04:23] LABS: Blood Urea Nitrogen 113 mg/dL (9-20)
[2021-05-31 05:00] LABS: Alveolar/Arterial O2 Gradient 277.6 mmHg; Base Excess ABG 6.7 mEq/l (+/-2.0); Carboxyhemoglobin 0.3 % THb (0-2.0); Fractional Inspired Oxygen 55 %; HCO3 ABG 32.4 mEq/l (22.0-26.0); Methemoglobin ABG 0.1 %THb (0-1.5); Oxygen Content ABG 11.5 %vol (16.0-22.0); Oxygen Saturation ABG 88.8 % (95.0-100.0); PCO2 ABG 52.7 mmHg (35.0-45.0); PO2 ABG 55.9 mmHg (80.0-100.0); PO2 FiO2 Ratio Arterial Blood 1.02 %; Total Hemoglobin 9.4 g/dL (12.0-18.0); pH ABG 7.406 (7.350-7.450)
[2021-05-31 05:03] LABS: Device VENTILATOR; Modified Allen's Test Pass; Oxyhemoglobin 86.6 % THb (90.0-100.0); Site Drawn LEFT RADIAL
[2021-05-31 05:04] LABS: Arterial Blood Gas PEEP 16 cmH2O; Arterial Blood Gas Tidal Volume 480 ml; Arterial Blood Gas Vent Mode CMV; Arterial Blood Gas Ventilator rate 30 /MIN
[2021-05-31] MEDS: CENTRAL LINE FLUSH 10 ML IV PUSH ×3 (05:56→20:55)
[2021-05-31] MEDS: MIDAZOLAM 100MG/NS 100ML(*CRX) 100 MG/100 ML BAG IV CONT (08:03)
[2021-05-31] MEDS: INSULIN GLARGINE (*BKC) 100 UNITS/ML 40 UNITS SUB-Q ×2 (08:07→20:51)
[2021-05-31] MEDS: MINERAL OIL/WHITE PETROLATUM OINTMENT 1 APPLIC EACH EYE ×2 (08:07→20:55)
[2021-05-31] MEDS: PERMETHRIN 5% CREAM 60 GM TUBE 1 APPLIC TOPICAL (08:08)
[2021-05-31] MEDS: polyethylene glycoL 3350 17 GM POWD.PACK PO (08:09)
[2021-05-31] MEDS: ZINC SULFATE 220 MG CAPSULE PO (08:09)
[2021-05-31] MEDS: PANTOPRAZOLE SODIUM IV 40 MG VIAL IV PUSH (08:09)
[2021-05-31] MEDS: ASCORBIC ACID 500 MG TABLET PO (08:09)
[2021-05-31] MEDS: CHOLECALCIFEROL 1,000 UNITS TABLET 1000 UNITS PO (08:09)
[2021-05-31] MEDS: ENOXAPARIN 40 MG/0.4 ML SYRINGE SUB-Q (08:09)
[2021-05-31] MEDS: SODIUM POLYSTYRENE SULFONONATE 15 GM/60 ML BTL 30 GM FEED TUBE (08:11)
--- NOTE | 2021-05-31 10:29 | PM.IMPN ---
Progress Note: A&P Assessment and Plan (1) Acute respiratory failure with hypoxia: Code(s): J96.01 - Acute respiratory failure with hypoxia Status: Acute Assessment and Plan: Acute respiratory failure likely related to COVID pneumonia requiring intubation on 05/18/2021 - 05/25 bilateral tension pneumothorax spontaneous which also led to a brief PEA arrest. S/P chest tube placement bilateral - He remains on mechanical ventilator, 65% FiO2, PEEP 16 - Chest x-ray reviewed - ABG done this morning reviewed permissive hypercapnia 7.40/53/56. - Continue inhaled Flolan that was started on 05/25 - Continue prone positioning per animal husbandry manager - continue current sedation with fentanyl, Versed, Nimbex infusion for vent synchrony (2) Pneumonia due to COVID-19 virus: Code(s): U07.1 - COVID-19; J12.82 - Pneumonia due to coronavirus disease 2019 Status: Acute Assessment and Plan: Patient was found to be COVID positive on 05/10/2021; he is unvaccinated. Patient completed a 10 day course of dexamethasone and baricitinib. Patient refused remdesivir on presentation. Continue vitamin-D, vitamin-C and zinc. Continue droplet, airborne and contact isolation/precautions. Continue supportive care. (3) Sepsis: Code(s): A41.9 - Sepsis, unspecified organism Status: Acute Assessment and Plan: Present on admission with elevated WBC, lactic acidosis but has been afebrile. BCx 05/16 negative. Sputum growing yeast 05/22. UCx 05/29 negative. BCx 2 growing GPC in clusters (1of2). Procalcitonin was 3.4. Rocha replaced. Continue empiric vancomycin and cefepime. (4) Spontaneous tension pneumothorax: Code(s): J93.0 - Spontaneous tension pneumothorax Status: Acute Assessment and Plan: Patient developed spontaneous tension pneumothorax bilateral 05/25/21 when he was placed in supine position. He had PEA requiring code blue. Bilateral chest tubes were emergently placed. Chest x-ray reviewed. Appreciate General surgery input. (5) Cardiac arrest: Code(s): I46.9 - Cardiac arrest, cause unspecified Status: Acute Assessment and Plan: PEA arrest on 05/25/21 related to bilateral tension pneumothorax. ROSC after 1 dose of epinephrine and 1 round of CPR (6) Acute renal failure superimposed on stage 4 chronic kidney disease: Code(s): N17.9 - Acute kidney failure, unspecified; N18.4 - Chronic kidney disease, stage 4 (severe) Status: Acute Assessment and Plan: Patient does have a ureteral stent which was placed at [facility] 5 weeks ago due to some sort of scar tissue. Patient presented with acute on chronic kidney disease with a creatinine of 3.30 on admission. Patient was treated with IV fluids. Renal ultrasound 05/17 shows bilateral renal cortical thinning with atrophy but no hydronephrosis. BUN 113 and Cr 2.3 better. Nephrology following. (7) Shock: Code(s): R57.9 - Shock, unspecified Status: Acute Assessment and Plan: Blood pressure dropped after tension pneumothorax. 1 L saline bolus given and started on levophed. Levophed drip has been weaned off. BP stable. Follow (8) Electrolyte abnormality: Code(s): E87.8 - Other disorders of electrolyte and fluid balance, not elsewhere classified Status: Acute Assessment and Plan: Hypernatremia - patient off D5 water. Na 147 today. Follow. Continue free water flushes. Hyperkalemia - noted. Kayexalate ordered. Follow (9) Type 2 diabetes mellitus: Code(s): E11.9 - Type 2 diabetes mellitus without complications Status: Acute Assessment and Plan: A1c 8.4. The patient's blood glucose was reviewed on 05/31 Glucose remains reasonably well controlled. Continue AccuCheks covering with sliding scale. Hypoglycemia protocol available as needed. Continue current medications with Lantus (10) Lice infested hair: Code(s): B85.2 - Pediculosis, unspecified
--- NOTE | 2021-05-31 10:52 | WPDINTPN ---
Progress Note: A&P Assessment and Plan (1) Acute respiratory failure with hypoxia: Code(s): J96.01 - Acute respiratory failure with hypoxia Status: Acute Assessment and Plan: Acute respiratory failure likely related to COVID pneumonia -Intubated on 05/18/2021 - 05/25 bilateral tension pneumothorax spontaneous which also led to a brief PEA arrest. S/P chest tube placement bilateral - Currently on mechanical ventilator, 60% % FiO2, PEEP is at 16 continue to wean FiO2 - Chest x-ray reviewed - ABG done this morning reviewed permissive hypercapnia -continue inhaled Flolan that was started on 05/25 but will try to wean down the dose - patient placed in supine position this morning. will prone back after 6 hours. Will keep prone position for longer period of times as long as he tolerates, as flipping him frequently is tricky and risky with bilateral chest tubes - low tidal volume, strategy to avoid volutrauma -continue bronchodilators -sedated with fentanyl, Versed, Nimbex infusion for vent synchrony (2) Pneumonia due to COVID-19 virus: Code(s): U07.1 - COVID-19; J12.82 - Pneumonia due to coronavirus disease 2018 Status: Acute Assessment and Plan: Positive COVID on 05/10/2020, patient is unvaccinated -patient has completed a 10 day course of dexamethasone which was started on 05/16/2021 - he has completed a 14 day course of baricitinib -patient refused remdesivir on presentation -continue vitamin-D, vitamin-C and zinc -continue droplet, airborne and contact isolation/precautions (3) Spontaneous tension pneumothorax: Code(s): J93.0 - Spontaneous tension pneumothorax Status: Acute Assessment and Plan: 05/25 Patient was spontaneous tension pneumothorax bilateral when he was placed in supine position Bilateral chest tubes were emergently placed Chest x-ray reviewed No air leak on chest tubes at this time (4) Cardiac arrest: Code(s): I46.9 - Cardiac arrest, cause unspecified Status: Acute Assessment and Plan: PEA arrest Secondary to bilateral tension pneumothorax ROSC after 1 dose of epinephrine and 1 round of CPR (5) Type 2 diabetes mellitus: Code(s): E11.9 - Type 2 diabetes mellitus without complications Status: Acute Assessment and Plan: Patient with history of type 2 diabetes and now on steroids - currently hyperglycemic Currently off of insulin infusion. Continue Lantus but decrease dose further - continue sliding scale insulin -hemoglobin A1c is 8.4 this admission (6) Acute renal failure superimposed on stage 4 chronic kidney disease: Code(s): N17.9 - Acute kidney failure, unspecified; N18.4 - Chronic kidney disease, stage 4 (severe) Status: Acute Assessment and Plan: Patient presented with acute on chronic kidney disease with a creatinine of 3.30 on admission, patient was given IV fluid bolus in the ER for elevated lactic acid - off Bumex and D5 water at this time -his BUN is elevated but stable and creatinine is acceptable and stable. urine output is adequate for now - Off midodrine -patient does have a ureteral stent which was placed at [facility] 5 weeks ago due to some sort of scar tissue -05/17/2021: Renal ultrasound shows bilateral renal cortical thinning, atrophy, no hydronephrosis a hepatic steatosis -he may need hemodialysis if worsens -nephrology following (7) Prostate cancer: Code(s): C61 - Malignant neoplasm of prostate Status: Chronic Assessment and Plan: Patient has a history of prostate cancer -Status post radiation, on Erleada. It was held as patient was started on immunosuppressant baricitinib and is also on dexamethasone (8) DVT prophylaxis: Code(s): Z29.9 - Encounter for prophylactic measures, unspecified Status: Acute Assessment and Plan: Enoxaparin (9) Lice infested hair: Code(s): B85.2 - Pediculosis, unspecified Status:
[2021-05-31] MEDS: CEFEPIME 0.5 GM in DEXTROSE 5% IN WATER 50 ML IVPB (11:10)
--- NOTE | 2021-05-31 12:03 | PCFNICU ---
ICU Rounding Note: Pt current nutrition is Nepro at 55 ml/hr over 22 hours. Last recorded weight is 136.8 kg, up from 123.6 kg on admit. Bowel Motility:+BM reported 05/31 Labs Reviewed:Glu 185, Cr 2.3,BUN 113, K 5.4,Na 147, Alb 2.6,Hct 32.4,Hgb 9.7 Meds Noted:Versed, Fentanyl, Nimbex, Reglan, Lantus, Lovenox, Vit C, Vit D, Zinc, Miralax, Protonix Skin: WNL Additional Notes: Patient remains on mechanical vent and tube feedings of Nepro at 55 ml/hr and tolerating per nursing. Current tube feeding is providing 2178 kcals/98 gms protein/888 ml water. Free water flush increased from 30 ml to 150 ml q 4 hours, Na 147 today. Agree with diet orders. Following daily in ICU rounds. Will monitor every Monday and Monday.
[2021-05-31 12:39] LABS: Glucose Point of Care 165 mg/dl (65-105)
[2021-05-31] MEDS: EPOPROSTENOL SODIUM 0.5 MG VIAL INHALATION ×2 (14:13→20:27)
--- NOTE | 2021-05-31 14:21 | P.PNNP_ITS ---
Progress Note: A&P Assessment and Plan (1) Acute kidney injury: Code(s): N17.9 - Acute kidney failure, unspecified Status: Acute Assessment and Plan: * multifactorial etiology: * cardiac arrest * infection (pneumonia/COVID-19) * possible pre-renal factors * continues to make good urine output * Creatinine peaked to 2.6 and is down to 2.3 today. BUN is also mildly down. Both her coursed still very high. * evaluation to date: * urine electrolytes prerenal * renal ultrasound without acute pathology * remains at risk for requiring [employer]/dialysis (2) Chronic kidney disease, unspecified: Code(s): N18.9 - Chronic kidney disease, unspecified Status: Chronic Assessment and Plan: * unclear what baseline creatinine/GFR is * creatinine did improve to 1.3mg/dl (from 3.3mg/dl on admission) early on during this hospitalization * renal ultrasound with evidence of CKD (bilateral renal cortical thinning and atrophy) * suspect secondary to hypertension and diabetes (3) Hypernatremia: Code(s): E87.0 - Hyperosmolality and hypernatremia Status: Acute Assessment and Plan: * due to free water deficit * increased free water flushes to compensate * Sodium level down from 149 to 147. Will keep an eye on this. (4) Acute respiratory failure with hypoxia: Code(s): J96.01 - Acute respiratory failure with hypoxia Status: Acute Assessment and Plan: * been on mechanical ventilation since 05/18/21 * due to COVID-19 pneumonia * complciated by bilateral tension pneumothorax s/p bilateral chest tube placement * prone positioning as tolerated (5) Pneumonia due to COVID-19 virus: Code(s): U07.1 - COVID-19; J12.82 - Pneumonia due to coronavirus disease 2019 Status: Acute Assessment and Plan: * COVID positive 05/10/21 * s/p course of decadron * s/p course of baricitinib * refused remdesivir on admission/presentation * continue ventilator support * Continue respiratory isolation (6) Cardiac arrest: Code(s): I46.9 - Cardiac arrest, cause unspecified Status: Acute Assessment and Plan: * PEA arrest * secondary to bilateral tension pneumothorax * ROSC after 1 dose of epinephrine and 1 round of CPR (7) Hypertension: Code(s): I10 - Essential (primary) hypertension Status: Chronic Assessment and Plan: * reasonable control at this time * follow trend of hemodyanmics (8) Type 2 diabetes mellitus: Code(s): E11.9 - Type 2 diabetes mellitus without complications Status: Acute Assessment and Plan: * follow Accu-Cheks * on sliding-scale insulin Will continue to follow. Subjective Date/time seen: 05/31/21 14:21 Interval history: patient is sedated and on the ventilator. He is supine now because of the bilateral chest tubes in place. Cannot give a history or review of systems due to medical condition Exam Narrative: General: WD/WN male intubated/sedated/paralyzed on mechanical ventilation Heart: normal S1 and S2; no rub or gallop Lungs: coarse breath sounds throughout Abdomen: soft, nontender, nondistended, positive bowel sounds Extremities: no cyanosis or clubbing; 1+ edema Skin: No rash Objective Data Vital Signs Vital Signs: Vital Signs - 24 hr 05/30/21 15:01 05/30/21 15:47 05/30/21 15:51 Temperature 36.6 C Pulse Rate 101 H 103 H 102
--- NOTE | 2021-05-31 14:21 | PM.PNNEP ---
Progress Note: A&P Assessment and Plan (1) Acute kidney injury: Code(s): N17.9 - Acute kidney failure, unspecified Status: Acute Assessment and Plan: multifactorial etiology: cardiac arrest infection (pneumonia/COVID-19) possible pre-renal factors continues to make good urine output Creatinine peaked to 2.6 and is down to 2.3 today. BUN is also mildly down. Both her coursed still very high. evaluation to date: urine electrolytes prerenal renal ultrasound without acute pathology remains at risk for requiring [employer]/dialysis (2) Chronic kidney disease, unspecified: Code(s): N18.9 - Chronic kidney disease, unspecified Status: Chronic Assessment and Plan: unclear what baseline creatinine/GFR is creatinine did improve to 1.3mg/dl (from 3.3mg/dl on admission) early on during this hospitalization renal ultrasound with evidence of CKD (bilateral renal cortical thinning and atrophy) suspect secondary to hypertension and diabetes (3) Hypernatremia: Code(s): E87.0 - Hyperosmolality and hypernatremia Status: Acute Assessment and Plan: due to free water deficit increased free water flushes to compensate Sodium level down from 149 to 147. Will keep an eye on this. (4) Acute respiratory failure with hypoxia: Code(s): J96.01 - Acute respiratory failure with hypoxia Status: Acute Assessment and Plan: been on mechanical ventilation since 05/18/21 due to COVID-19 pneumonia complciated by bilateral tension pneumothorax s/p bilateral chest tube placement prone positioning as tolerated (5) Pneumonia due to COVID-19 virus: Code(s): U07.1 - COVID-19; J12.82 - Pneumonia due to coronavirus disease 2019 Status: Acute Assessment and Plan: COVID positive 05/10/21 s/p course of decadron s/p course of baricitinib refused remdesivir on admission/presentation continue ventilator support Continue respiratory isolation (6) Cardiac arrest: Code(s): I46.9 - Cardiac arrest, cause unspecified Status: Acute Assessment and Plan: PEA arrest secondary to bilateral tension pneumothorax ROSC after 1 dose of epinephrine and 1 round of CPR (7) Hypertension: Code(s): I10 - Essential (primary) hypertension Status: Chronic Assessment and Plan: reasonable control at this time follow trend of hemodyanmics (8) Type 2 diabetes mellitus: Code(s): E11.9 - Type 2 diabetes mellitus without complications Status: Acute Assessment and Plan: follow Accu-Cheks on sliding-scale insulin Will continue to follow. Subjective Date/time seen: 05/31/21 14:21 Interval history: patient is sedated and on the ventilator. He is supine now because of the bilateral chest tubes in place. Cannot give a history or review of systems due to medical condition Exam Narrative: General: WD/WN male intubated/sedated/paralyzed on mechanical ventilation Heart: normal S1 and S2; no rub or gallop Lungs: coarse breath sounds throughout Abdomen: soft, nontender, nondistended, positive bowel sounds Extremities: no cyanosis or clubbing; 1+ edema Skin: No rash Objective Data Vital Signs Vital Signs: Vital Signs - 24 hr 05/30/21 15:01 05/30/21 15:47 05/30/21 15:51 Temperature 36.6 C Pulse Rate 101 H 103 H 102 H Respiratory Rate 30 H 30 H Blood Pressure 136/62 Pulse Oximetry 93 97 98 05/30/21 16:00 05/30/21 16:16 05/30/21 17:15 Temperature 36.6 C Pulse Rate 102 H 101 H 100 Respiratory Rate 30 H 30 H 30 H Blood Pressure 129/69 129/69 128/66 Pulse Oximetry 93 05/30/21 17:57 05/30/21 18:14 05/30/21 18:15 Temperature 36.8 C Pulse Rate 102 H 102 H Respiratory Rate 30 H 30 H Blood Pressure 125/69 Pulse Oximetry 101 H 94 05/30/21 20:00 05/30/21 20:09 05/30/21 20:10 Temperature 36.9 C Pulse Rate 100 100 100 Respiratory Rate 30 H 30 H Blood P
[2021-05-31 17:06] LABS: Glucose Point of Care 160 mg/dl (65-105)
[2021-05-31] MEDS: CISATRACURIUM BESYLATE 200 MG in DEXTROSE 5% 80 ML 33.26 ML IV CONT ×2 (18:45→21:29)
[2021-05-31] MEDS: CISATRACURIUM BESYLATE 20 MG/10 ML VIAL 10 MG IV PUSH (18:58)
[2021-05-31 21:08] LABS: Glucose Point of Care 159 mg/dl (65-105)
[2021-05-31] MEDS: FENTANYL 2,500MCG/NS250ML(*CRX 2,500 MCG/250 ML BAG 15 MCG IV CONT (21:30)
[2021-06-01] VITALS (53 sets, daily range): BP systolic 108–140; BP diastolic 48–65; PULSE 92–99; RESP 30; TEMP 36.2–36.6; O2SAT 93–99
[2021-06-01 00:46] LABS: Glucose Point of Care 155 mg/dl (65-105)
[2021-06-01] MEDS: MIDAZOLAM 100MG/NS 100ML(*CRX) 100 MG/100 ML BAG 6 MG IV CONT ×2 (00:48→17:30)
[2021-06-01] MEDS: CISATRACURIUM BESYLATE 200 MG in DEXTROSE 5% 80 ML 33.26 ML IV CONT ×4 (02:57→08:44)
[2021-06-01] MEDS: METOCLOPRAMIDE HCL INJ 10 MG/2 ML VIAL IV PUSH ×5 (04:55→23:05)
[2021-06-01] MEDS: CENTRAL LINE FLUSH 10 ML IV PUSH ×3 (04:55→21:08)
[2021-06-01 05:03] LABS: Hematocrit 29.9 % (42.0-52.0); Mean Corpuscular HGB Conc 30.1 g/dl (32-36); Mean Corpuscular Hemoglobin 29.5 pg (26-34); Mean Platelet Volume 10.6 fl (7.4-10.4); Platelet Count Result 282 k/mm3 (150-375); Red Blood Count 3.05 M/mm3 (4.6-6.20); Red Cell Distribution Width 16.2 % (11.5-14.5); White Blood Count 11.1 K/mm3 (4.5-10.0)
[2021-06-01 05:13] LABS: Alveolar/Arterial O2 Gradient 289.8 mmHg; Base Excess ABG 6.8 mEq/l (+/-2.0); Carboxyhemoglobin 0.3 % THb (0-2.0); Device VENTILATOR; Fractional Inspired Oxygen 60 %; HCO3 ABG 32.1 mEq/l (22.0-26.0); Methemoglobin ABG 0.3 %THb (0-1.5); Modified Allen's Test Unable to perform; Oxygen Content ABG 13.5 %vol (16.0-22.0); Oxygen Saturation ABG 96.4 % (95.0-100.0); Oxyhemoglobin 94.5 % THb (90.0-100.0); PCO2 ABG 49.4 mmHg (35.0-45.0); PO2 ABG 83.7 mmHg (80.0-100.0); PO2 FiO2 Ratio Arterial Blood 1.39 %; Reduced Hemoglobin 4.9 %THb (0-5.0); Site Drawn LEFT RADIAL; Total Hemoglobin 10.1 g/dL (12.0-18.0)
[2021-06-01 05:14] LABS: Arterial Blood Gas PEEP 14 cmH2O; Arterial Blood Gas Tidal Volume 480 ml; Arterial Blood Gas Vent Mode CMV; Arterial Blood Gas Ventilator rate 30 /MIN
[2021-06-01 05:20] LABS: Alanine Aminotransferase 73 U/L (4-50); Albumin Level 2.4 g/dL (3.5-5.1); Alkaline Phosphatase 265 U/L (38-126); Anion Gap 3 mmol/L (8-16); Aspartate Amino Transferase 62 U/L (17-59); Bilirubin,Total 0.5 mg/dL (0.2-1.3); Blood Urea Nitrogen 110 mg/dL (9-20); Calcium 8.4 mg/dL (8.4-10.2); Carbon Dioxide 35 mmol/L (22-30); Chloride 112 mmol/L (98-107); Estimated CRCL calculation 39 ml/min; Estimated Glomerular Filt Rate 27; Glucose 169 mg/dL (65-110); Magnesium 2.9 mg/dL (1.6-2.3); Potassium 4.3 mmol/L (3.4-5.0); Sodium 150 mmol/L (137-145)
--- NOTE | 2021-06-01 06:46 | P.PNNP_ITS ---
Progress Note: A&P Assessment and Plan (1) Acute kidney injury: Code(s): N17.9 - Acute kidney failure, unspecified Status: Acute Assessment and Plan: * multifactorial etiology: * cardiac arrest * infection (pneumonia/COVID-19) * possible pre-renal factors * continues to make good urine output. 1200cc overnight. * Creatinine seems to be wandering in the low 2s. BUN fell a little bit to 110. * evaluation to date: * urine electrolytes prerenal * renal ultrasound without acute pathology * Hopefully renal function will improve enough for him to avoid dialysis. (2) Chronic kidney disease, unspecified: Code(s): N18.9 - Chronic kidney disease, unspecified Status: Chronic Assessment and Plan: * unclear what baseline creatinine/GFR is * creatinine did improve to 1.3mg/dl (from 3.3mg/dl on admission) early on during this hospitalization * renal ultrasound with evidence of CKD (bilateral renal cortical thinning and atrophy) * suspect secondary to hypertension and diabetes (3) Hypernatremia: Code(s): E87.0 - Hyperosmolality and hypernatremia Status: Acute Assessment and Plan: * due to free water deficit * increased free water flushes to compensate * Sodium level down from 149 to 147 to 150.. * Increase tube feeding flushes from 150-200 cc q.4 hours. * Check urine osmolality. (4) Acute respiratory failure with hypoxia: Code(s): J96.01 - Acute respiratory failure with hypoxia Status: Acute Assessment and Plan: * been on mechanical ventilation since 05/18/21 * due to COVID-19 pneumonia * complciated by bilateral tension pneumothorax s/p bilateral chest tube placement * prone position currently. * FiO2 about 60%. (5) Pneumonia due to COVID-19 virus: Code(s): U07.1 - COVID-19; J12.82 - Pneumonia due to coronavirus disease 2019 Status: Acute Assessment and Plan: * COVID positive 05/10/21 * s/p course of decadron * s/p course of baricitinib * refused remdesivir on admission/presentation * On respiratory isolation (6) Cardiac arrest: Code(s): I46.9 - Cardiac arrest, cause unspecified Status: Acute Assessment and Plan: * PEA arrest * secondary to bilateral tension pneumothorax * Bilateral chest tubes in place. No air leak (7) Hypertension: Code(s): I10 - Essential (primary) hypertension Status: Chronic Assessment and Plan: * Systolic running 97-111. * follow trend of hemodyanmics (8) Type 2 diabetes mellitus: Code(s): E11.9 - Type 2 diabetes mellitus without complications Status: Acute Assessment and Plan: * follow Accu-Cheks * on sliding-scale insulin Will continue to follow. Subjective Date/time seen: 06/01/21 06:46 Interval history: patient is sedated and on the ventilator. He is on paralytics He is in the prone position. Cannot give a history or review of systems due to medical condition Exam Narrative: General: WD/WN male intubated/sedated/paralyzed on mechanical ventilation Heart: normal S1 and S2; no rub Lungs: coarse breath sounds throughout Abdomen: soft, nontender, nondistended, positive bowel sounds Extremities: no cyanosis or clubbing; 1+ edema in both extremities Skin: No rash or subQ nodules Objective Data Vital Signs Vital Signs: Vital Signs - 24 hr 05/31/21 07:43 05/31/21 07:49 05/31/21 08:00
--- NOTE | 2021-06-01 06:46 | PM.PNNEP ---
Progress Note: A&P Assessment and Plan (1) Acute kidney injury: Code(s): N17.9 - Acute kidney failure, unspecified Status: Acute Assessment and Plan: multifactorial etiology: cardiac arrest infection (pneumonia/COVID-19) possible pre-renal factors continues to make good urine output. 1200cc overnight. Creatinine seems to be wandering in the low 2s. BUN fell a little bit to 110. evaluation to date: urine electrolytes prerenal renal ultrasound without acute pathology Hopefully renal function will improve enough for him to avoid dialysis. (2) Chronic kidney disease, unspecified: Code(s): N18.9 - Chronic kidney disease, unspecified Status: Chronic Assessment and Plan: unclear what baseline creatinine/GFR is creatinine did improve to 1.3mg/dl (from 3.3mg/dl on admission) early on during this hospitalization renal ultrasound with evidence of CKD (bilateral renal cortical thinning and atrophy) suspect secondary to hypertension and diabetes (3) Hypernatremia: Code(s): E87.0 - Hyperosmolality and hypernatremia Status: Acute Assessment and Plan: due to free water deficit increased free water flushes to compensate Sodium level down from 149 to 147 to 150.. Increase tube feeding flushes from 150-200 cc q.4 hours. Check urine osmolality. (4) Acute respiratory failure with hypoxia: Code(s): J96.01 - Acute respiratory failure with hypoxia Status: Acute Assessment and Plan: been on mechanical ventilation since 05/18/21 due to COVID-19 pneumonia complciated by bilateral tension pneumothorax s/p bilateral chest tube placement prone position currently. FiO2 about 60%. (5) Pneumonia due to COVID-19 virus: Code(s): U07.1 - COVID-19; J12.82 - Pneumonia due to coronavirus disease 2019 Status: Acute Assessment and Plan: COVID positive 05/10/21 s/p course of decadron s/p course of baricitinib refused remdesivir on admission/presentation On respiratory isolation (6) Cardiac arrest: Code(s): I46.9 - Cardiac arrest, cause unspecified Status: Acute Assessment and Plan: PEA arrest secondary to bilateral tension pneumothorax Bilateral chest tubes in place. No air leak (7) Hypertension: Code(s): I10 - Essential (primary) hypertension Status: Chronic Assessment and Plan: Systolic running 97-111. follow trend of hemodyanmics (8) Type 2 diabetes mellitus: Code(s): E11.9 - Type 2 diabetes mellitus without complications Status: Acute Assessment and Plan: follow Accu-Cheks on sliding-scale insulin Will continue to follow. Subjective Date/time seen: 06/01/21 06:46 Interval history: patient is sedated and on the ventilator. He is on paralytics He is in the prone position. Cannot give a history or review of systems due to medical condition Exam Narrative: General: WD/WN male intubated/sedated/paralyzed on mechanical ventilation Heart: normal S1 and S2; no rub Lungs: coarse breath sounds throughout Abdomen: soft, nontender, nondistended, positive bowel sounds Extremities: no cyanosis or clubbing; 1+ edema in both extremities Skin: No rash or subQ nodules Objective Data Vital Signs Vital Signs: Vital Signs - 24 hr 05/31/21 07:43 05/31/21 07:49 05/31/21 08:00 Temperature 36.6 C Pulse Rate 99 99 99 Respiratory Rate 30 H 30 H Blood Pressure 130/61 Pulse Oximetry 96 96 05/31/21 08:02 05/31/21 08:03 05/31/21 08:04 Temperature Pulse Rate 100 99 99 Respiratory Rate 30 H 30 H 30 H Blood Pressure 130/61 Pulse Oximetry 96 05/31/21 08:06 05/31/21 08:51 05/31/21 09:09 Temperature Pulse Rate 99 97 98 Respiratory Rate 30 H 30 H 30 H Blood Pressure 120/60 Pulse Oximetry 05/31/21 10:00 05/31/21 10:11 05/31/21 10:50 Temperature 36.5 C Pulse Rate 96 96 100 Respiratory Rate 30 H 30
[2021-06-01] MEDS: EPOPROSTENOL SODIUM 0.5 MG VIAL INHALATION ×2 (08:23→14:49)
[2021-06-01] MEDS: ENOXAPARIN 40 MG/0.4 ML SYRINGE SUB-Q (08:38)
[2021-06-01] MEDS: PANTOPRAZOLE SODIUM IV 40 MG VIAL IV PUSH (08:39)
[2021-06-01] MEDS: CHOLECALCIFEROL 1,000 UNITS TABLET 1000 UNITS PO (08:41)
[2021-06-01] MEDS: ASCORBIC ACID 500 MG TABLET PO (08:41)
[2021-06-01] MEDS: ZINC SULFATE 220 MG CAPSULE PO (08:41)
[2021-06-01] MEDS: CEFEPIME 0.5 GM in DEXTROSE 5% IN WATER 50 ML IVPB (08:43)
[2021-06-01] MEDS: INSULIN GLARGINE (*BKC) 100 UNITS/ML 40 UNITS SUB-Q ×2 (08:48→21:08)
[2021-06-01] MEDS: MINERAL OIL/WHITE PETROLATUM OINTMENT 1 APPLIC EACH EYE ×2 (08:51→21:08)
[2021-06-01] MEDS: polyethylene glycoL 3350 17 GM POWD.PACK PO (08:51)
[2021-06-01 09:57] LABS: Vancomycin Trough 12.9 ug/mL (10.0-20.0)
[2021-06-01 11:50] LABS: Glucose Point of Care 166 mg/dl (65-105)
[2021-06-01] MEDS: CISATRACURIUM BESYLATE 200 MG in DEXTROSE 5% 80 ML 29.57 ML IV CONT ×2 (12:13→15:24)
--- NOTE | 2021-06-01 13:00 | PCNFU ---
Nutrition Follow-Up Complete: Inadequate Oral Intake as related to mechanical vent and evidenced by NPO Goal: Meet estimated nutritional needs Patient will continue current goal. Pt current nutrition is Nepro at 55 ml/hr over 22 hours. Last recorded weight is 136.2 kg, up from 123.6 kg on admit. Bowel Motility:FMS Labs Reviewed:Mg 2.9, Na 150, Cr 2.4, BUN 110,Mg 2.9,Alb 2.4,Hgb 9.0,Hct 29.9 Meds Noted:Versed, Fentanyl,Reglan, Protonix, Miralax, Lovenox, Vit C, Vit D, Vancomycin, Lantus,Flolan Skin: WNL Additional Notes: Patient remains on a mechanical vent and tube feedings of Nepro at 55 ml/hr. 200 ml water flush, Na 150. Tube feeding is providing 2178 kcals/98 gms protein/880 ml water. Meeting 96% of caloric needs/76% protein needs. Agree with diet orders. Will monitor in ICU rounds and reassess every Monday and Monday.
--- NOTE | 2021-06-01 13:42 | WPDINTPN ---
Progress Note: A&P Assessment and Plan (1) Acute respiratory failure with hypoxia: Code(s): J96.01 - Acute respiratory failure with hypoxia Status: Acute Assessment and Plan: Acute respiratory failure likely related to COVID pneumonia -Intubated on 05/18/2021 - 05/25 bilateral tension pneumothorax spontaneous which also led to a brief PEA arrest. S/P chest tube placement bilateral - Currently on mechanical ventilator, 60% % FiO2, PEEP of 14, -on Flolan which was started on 05/25/2021, continue to wean to off -chest x-ray and ABGs reviewed -will keep patient in prone position as it is difficult to place patient in supine and then back to prone positione with bilateral chest tubes in place - low tidal volume, strategy to avoid volutrauma -continue bronchodilators -sedated with fentanyl, Versed, Nimbex infusion for vent synchrony (2) Pneumonia due to COVID-19 virus: Code(s): U07.1 - COVID-19; J12.82 - Pneumonia due to coronavirus disease 2018 Status: Acute Assessment and Plan: Positive COVID on 05/10/2020, patient is unvaccinated -patient has completed a 10 day course of dexamethasone which was started on 05/16/2021 - he has completed a 14 day course of baricitinib -patient refused remdesivir on presentation -continue vitamin-D, vitamin-C and zinc -continue droplet, airborne and contact isolation/precautions (3) Spontaneous tension pneumothorax: Code(s): J93.0 - Spontaneous tension pneumothorax Status: Acute Assessment and Plan: 05/25 Patient was spontaneous tension pneumothorax bilateral when he was placed in supine position Bilateral chest tubes were emergently placed Chest x-ray reviewed No air leak on chest tubes at this time (4) Cardiac arrest: Code(s): I46.9 - Cardiac arrest, cause unspecified Status: Acute Assessment and Plan: PEA arrest Secondary to bilateral tension pneumothorax ROSC after 1 dose of epinephrine and 1 round of CPR (5) Type 2 diabetes mellitus: Code(s): E11.9 - Type 2 diabetes mellitus without complications Status: Acute Assessment and Plan: Patient with history of type 2 diabetes and now on steroids - currently hyperglycemic Currently off of insulin infusion. - Continue Lantus - continue sliding scale insulin -hemoglobin A1c is 8.4 this admission (6) Acute renal failure superimposed on stage 4 chronic kidney disease: Code(s): N17.9 - Acute kidney failure, unspecified; N18.4 - Chronic kidney disease, stage 4 (severe) Status: Acute Assessment and Plan: Patient presented with acute on chronic kidney disease with a creatinine of 3.30 on admission, patient was given IV fluid bolus in the ER for elevated lactic acid - off Bumex and D5 water at this time -his BUN is elevated but stable and creatinine is acceptable and stable. urine output is adequate for now - Off midodrine -patient does have a ureteral stent which was placed at [facility] 5 weeks ago due to some sort of scar tissue -05/17/2021: Renal ultrasound shows bilateral renal cortical thinning, atrophy, no hydronephrosis a hepatic steatosis -he may need hemodialysis if worsens -nephrology following (7) Prostate cancer: Code(s): C61 - Malignant neoplasm of prostate Status: Chronic Assessment and Plan: Patient has a history of prostate cancer -Status post radiation, on Erleada. It was held as patient was started on immunosuppressant baricitinib and is also on dexamethasone (8) DVT prophylaxis: Code(s): Z29.9 - Encounter for prophylactic measures, unspecified Status: Acute Assessment and Plan: Enoxaparin (9) Lice infested hair: Code(s): B85.2 - Pediculosis, unspecified Status: Acute Assessment and Plan: 05/24 Patient was treated with lice treating shampoo with permethrin. It will be repeated in today on 05/31 (10) Shock: Code(s): R57.9 - Shock, unspecifi
--- NOTE | 2021-06-01 14:55 | PM.IMPN ---
Progress Note: A&P Assessment and Plan (1) Acute respiratory failure with hypoxia: Code(s): J96.01 - Acute respiratory failure with hypoxia Status: Acute Assessment and Plan: Acute respiratory failure likely related to COVID pneumonia requiring intubation on 05/18/2021 - 05/25 bilateral tension pneumothorax spontaneous which also led to a brief PEA arrest. S/P chest tube placement bilateral - He remains on mechanical ventilator, sedated and paralyzed. - ABG done this morning reviewed permissive hypercapnia 7.40/53/56. 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 Patient completed a 10 day course of dexamethasone and baricitinib. Patient refused remdesivir on presentation. Continue vitamin-D, vitamin-C and zinc. Continue droplet, airborne and contact isolation/precautions. Continue supportive care. (3) Sepsis: Code(s): A41.9 - Sepsis, unspecified organism Status: Acute Assessment and Plan: Present on admission with elevated WBC, lactic acidosis but has been afebrile. BCx 05/16 negative. Sputum growing yeast 05/22. UCx 05/29 negative. BCx 05/28 growing Staph Epi and Staph cohnii (1of2) suspected to be a colonization. Procalcitonin was 3.4. Rocha replaced. Patient remains on vancomycin and cefepime. (4) Spontaneous tension pneumothorax: Code(s): J93.0 - Spontaneous tension pneumothorax Status: Acute Assessment and Plan: Patient developed spontaneous tension pneumothorax bilateral 05/25/21 when he was placed in supine position. He had PEA requiring code blue. Bilateral chest tubes were emergently placed. Chest x-ray reviewed today. Appreciate General surgery input. (5) Cardiac arrest: Code(s): I46.9 - Cardiac arrest, cause unspecified Status: Acute Assessment and Plan: PEA arrest on 05/25/21 related to bilateral tension pneumothorax. ROSC after 1 dose of epinephrine and 1 round of CPR (6) Acute renal failure superimposed on stage 4 chronic kidney disease: Code(s): N17.9 - Acute kidney failure, unspecified; N18.4 - Chronic kidney disease, stage 4 (severe) Status: Acute Assessment and Plan: Patient does have a ureteral stent which was placed at [facility] 5 weeks ago due to some sort of scar tissue. Patient presented with acute on chronic kidney disease with a creatinine of 3.30 on admission. Patient was treated with IV fluids. Renal ultrasound 05/17 shows bilateral renal cortical thinning with atrophy but no hydronephrosis. BUN 110 and Cr 2.4 but having excellent UOP. Continue to follow. Nephrology following. (7) Shock: Code(s): R57.9 - Shock, unspecified Status: Acute Assessment and Plan: Blood pressure dropped after tension pneumothorax. 1 L saline bolus given and started on levophed. Levophed drip has been weaned off. BP stable. Follow (8) Electrolyte abnormality: Code(s): E87.8 - Other disorders of electrolyte and fluid balance, not elsewhere classified Status: Acute Assessment and Plan: Hypernatremia - Na 150 today. Free water flushes advanced. Continue to follow. Hyperkalemia - Resolved. Follow (9) Type 2 diabetes mellitus: Code(s): E11.9 - Type 2 diabetes mellitus without complications Status: Acute Assessment and Plan: A1c 8.4. The patient's blood glucose was reviewed on 06/01 Glucose remains reasonably well controlled. Continue AccuCheks covering with sliding scale. Hypoglycemia protocol available as needed. Continue current medications with Lantus (10) Lice infested hair: Code(s
[2021-06-01 17:51] LABS: Glucose Point of Care 166 mg/dl (65-105)
[2021-06-01] MEDS: CISATRACURIUM BESYLATE 200 MG in DEXTROSE 5% 80 ML 25.87 ML IV CONT ×2 (18:54→22:20)
[2021-06-01 19:59] LABS: Glucose Point of Care 157 mg/dl (65-105)
[2021-06-01] MEDS: FENTANYL 2,500MCG/NS250ML(*CRX 2,500 MCG/250 ML BAG 12.5 MCG IV CONT (21:09)
[2021-06-01 23:58] LABS: Glucose Point of Care 117 mg/dl (65-105)
[2021-06-02] VITALS (42 sets, daily range): BP systolic 100–146; BP diastolic 51–65; PULSE 88–103; RESP 30–32; TEMP 35.8–37.4; O2SAT 91–95
[2021-06-02] MEDS: CISATRACURIUM BESYLATE 200 MG in DEXTROSE 5% 80 ML 25.87 ML IV CONT ×4 (01:58→18:16)
[2021-06-02] MEDS: EPOPROSTENOL SODIUM 0.5 MG VIAL INHALATION (02:23)
[2021-06-02 05:04] LABS: Alveolar/Arterial O2 Gradient 236.2 mmHg; Base Excess ABG 7.7 mEq/l (+/-2.0); Fractional Inspired Oxygen 50 %; HCO3 ABG 33.4 mEq/l (22.0-26.0); Methemoglobin ABG 0.2 %THb (0-1.5); Oxygen Content ABG 14.1 %vol (16.0-22.0); Oxygen Saturation ABG 91.8 % (95.0-100.0); PO2 ABG 61.8 mmHg (80.0-100.0); PO2 FiO2 Ratio Arterial Blood 1.24 %; Reduced Hemoglobin 8.8 %THb (0-5.0); pH ABG 7.425 (7.350-7.450)
[2021-06-02] MEDS: METOCLOPRAMIDE HCL INJ 10 MG/2 ML VIAL IV PUSH ×3 (05:07→18:17)
[2021-06-02] MEDS: CENTRAL LINE FLUSH 10 ML IV PUSH ×3 (05:07→20:43)
[2021-06-02 05:10] LABS: Arterial Blood Gas PEEP 14 cmH2O; Arterial Blood Gas Tidal Volume 480 ml; Arterial Blood Gas Vent Mode CMV; Arterial Blood Gas Ventilator rate 30 /MIN; Device VENTILATOR; Modified Allen's Test Unable to perform; Site Drawn LEFT RADIAL
[2021-06-02 05:41] LABS: Hematocrit 31.3 % (42.0-52.0); Hemoglobin 9.4 g/dL (14.0-18.0); Mean Corpuscular Hemoglobin 29.6 pg (26-34); Mean Corpuscular Volume 98.4 fl (80-100); Mean Platelet Volume 10.3 fl (7.4-10.4); Platelet Count Result 282 k/mm3 (150-375); Red Blood Count 3.18 M/mm3 (4.6-6.20); Red Cell Distribution Width 16.2 % (11.5-14.5); White Blood Count 11.4 K/mm3 (4.5-10.0)
[2021-06-02 05:58] LABS: Alanine Aminotransferase 60 U/L (4-50); Albumin Level 2.5 g/dL (3.5-5.1); Alkaline Phosphatase 250 U/L (38-126); Anion Gap 4 mmol/L (8-16); Aspartate Amino Transferase 50 U/L (17-59); Bilirubin,Total 0.4 mg/dL (0.2-1.3); Blood Urea Nitrogen 101 mg/dL (9-20); Calcium 8.7 mg/dL (8.4-10.2); Carbon Dioxide 33 mmol/L (22-30); Chloride 112 mmol/L (98-107); Estimated CRCL calculation 41 ml/min; Estimated Glomerular Filt Rate 29; Glucose 127 mg/dL (65-110); Potassium 4.4 mmol/L (3.4-5.0); Sodium 149 mmol/L (137-145)
--- NOTE | 2021-06-02 06:47 | P.PNNP_ITS ---
Progress Note: A&P Assessment and Plan (1) Acute kidney injury: Code(s): N17.9 - Acute kidney failure, unspecified Status: Acute Assessment and Plan: * multifactorial etiology: * cardiac arrest * infection (pneumonia/COVID-19) * possible pre-renal factors * Urine output 2950 yesterday. * Creatinine seems to be wandering in the low 2s. BUN fell a little bit to 101 * evaluation to date: * urine electrolytes prerenal * renal ultrasound without acute pathology * No signs of uremia. * Volume status looks reasonable. He does have a little bit of swelling. * Hopefully renal function will improve enough for him to avoid dialysis. (2) Chronic kidney disease, unspecified: Code(s): N18.9 - Chronic kidney disease, unspecified Status: Chronic Assessment and Plan: * unclear what baseline creatinine/GFR is * creatinine baseline probably around 1.3 * renal ultrasound with evidence of CKD (bilateral renal cortical thinning and atrophy) * suspect secondary to hypertension and diabetes (3) Hypernatremia: Code(s): E87.0 - Hyperosmolality and hypernatremia Status: Acute Assessment and Plan: * due to free water deficit * He is on 2 calories per cc of tube feeding flushes * increased free water flushes to compensate * Sodium level still mildly high. * He is on tube feeding flushes at 200 cc q.4 hours. * urine osmolality pending (4) Acute respiratory failure with hypoxia: Code(s): J96.01 - Acute respiratory failure with hypoxia Status: Acute Assessment and Plan: * been on mechanical ventilation since 05/18/21 * due to COVID-19 pneumonia * complciated by bilateral tension pneumothorax s/p bilateral chest tube placement * prone position currently. * FiO2 about 50%. (5) Pneumonia due to COVID-19 virus: Code(s): U07.1 - COVID-19; J12.82 - Pneumonia due to coronavirus disease 2019 Status: Acute Assessment and Plan: * COVID positive 05/10/21 * s/p course of decadron * s/p course of baricitinib * refused remdesivir on admission/presentation * On respiratory isolation (6) Cardiac arrest: Code(s): I46.9 - Cardiac arrest, cause unspecified Status: Acute Assessment and Plan: * PEA arrest * secondary to bilateral tension pneumothorax * Bilateral chest tubes in place. No air leak (7) Hypertension: Code(s): I10 - Essential (primary) hypertension Status: Chronic Assessment and Plan: * Systolic running 100-134 * follow trend of hemodyanmics (8) Type 2 diabetes mellitus: Code(s): E11.9 - Type 2 diabetes mellitus without complications Status: Acute Assessment and Plan: * follow Accu-Cheks * on sliding-scale insulin Will continue to follow. Subjective Date/time seen: 06/02/21 06:47 Interval history: patient is sedated and on the ventilator. He is on paralytics still He is in the prone position. Bilateral chest tubes. Air leak. Cannot give a history or review of systems due to medical condition Exam Narrative: General: WD/WN male intubated/sedated/paralyzed on mechanical ventilation Heart: normal S1 and S2; no rub or gallop Lungs: coarse breath sounds throughout Abdomen: soft, nontender, nondistended, positive bowel sounds Extremities: 1+ edema bilaterally Skin: No rash Objective Data Vital Signs Vital Signs: Vital Signs - 24 hr
--- NOTE | 2021-06-02 06:47 | PM.PNNEP ---
Progress Note: A&P Assessment and Plan (1) Acute kidney injury: Code(s): N17.9 - Acute kidney failure, unspecified Status: Acute Assessment and Plan: multifactorial etiology: cardiac arrest infection (pneumonia/COVID-19) possible pre-renal factors Urine output 2950 yesterday. Creatinine seems to be wandering in the low 2s. BUN fell a little bit to 101 evaluation to date: urine electrolytes prerenal renal ultrasound without acute pathology No signs of uremia. Volume status looks reasonable. He does have a little bit of swelling. Hopefully renal function will improve enough for him to avoid dialysis. (2) Chronic kidney disease, unspecified: Code(s): N18.9 - Chronic kidney disease, unspecified Status: Chronic Assessment and Plan: unclear what baseline creatinine/GFR is creatinine baseline probably around 1.3 renal ultrasound with evidence of CKD (bilateral renal cortical thinning and atrophy) suspect secondary to hypertension and diabetes (3) Hypernatremia: Code(s): E87.0 - Hyperosmolality and hypernatremia Status: Acute Assessment and Plan: due to free water deficit He is on 2 calories per cc of tube feeding flushes increased free water flushes to compensate Sodium level still mildly high. He is on tube feeding flushes at 200 cc q.4 hours. urine osmolality pending (4) Acute respiratory failure with hypoxia: Code(s): J96.01 - Acute respiratory failure with hypoxia Status: Acute Assessment and Plan: been on mechanical ventilation since 05/18/21 due to COVID-19 pneumonia complciated by bilateral tension pneumothorax s/p bilateral chest tube placement prone position currently. FiO2 about 50%. (5) Pneumonia due to COVID-19 virus: Code(s): U07.1 - COVID-19; J12.82 - Pneumonia due to coronavirus disease 2019 Status: Acute Assessment and Plan: COVID positive 05/10/21 s/p course of decadron s/p course of baricitinib refused remdesivir on admission/presentation On respiratory isolation (6) Cardiac arrest: Code(s): I46.9 - Cardiac arrest, cause unspecified Status: Acute Assessment and Plan: PEA arrest secondary to bilateral tension pneumothorax Bilateral chest tubes in place. No air leak (7) Hypertension: Code(s): I10 - Essential (primary) hypertension Status: Chronic Assessment and Plan: Systolic running 100-134 follow trend of hemodyanmics (8) Type 2 diabetes mellitus: Code(s): E11.9 - Type 2 diabetes mellitus without complications Status: Acute Assessment and Plan: follow Accu-Cheks on sliding-scale insulin Will continue to follow. Subjective Date/time seen: 06/02/21 06:47 Interval history: patient is sedated and on the ventilator. He is on paralytics still He is in the prone position. Bilateral chest tubes. Air leak. Cannot give a history or review of systems due to medical condition Exam Narrative: General: WD/WN male intubated/sedated/paralyzed on mechanical ventilation Heart: normal S1 and S2; no rub or gallop Lungs: coarse breath sounds throughout Abdomen: soft, nontender, nondistended, positive bowel sounds Extremities: 1+ edema bilaterally Skin: No rash Objective Data Vital Signs Vital Signs: Vital Signs - 24 hr 06/01/21 08:00 06/01/21 08:29 06/01/21 08:32 Temperature 36.6 C Pulse Rate 97 96 96 Respiratory Rate 30 H 30 H Blood Pressure 130/56 L Pulse Oximetry 95 95 95 06/01/21 08:34 06/01/21 08:44 06/01/21 10:00 Temperature 36.6 C Pulse Rate 96 96 95 Respiratory Rate 30 H 30 H 30 H Blood Pressure 130/56 L 130/56 L 127/58 L Pulse Oximetry 95 06/01/21 10:58 06/01/21 10:59 06/01/21 11:45 Temperature Pulse Rate 97 97 96 Respiratory Rate 30 H 30 H Blood Pressure 137/57 L Pulse Oximetry 94 95 06/01/21 12:00 06/01/21 12:13 06/01/21
[2021-06-02 08:06] LABS: Glucose Point of Care 118 mg/dl (65-105)
[2021-06-02] MEDS: CISATRACURIUM BESYLATE 200 MG in DEXTROSE 5% 80 ML 22.18 ML IV CONT (09:40)
[2021-06-02] MEDS: ZINC SULFATE 220 MG CAPSULE PO (09:49)
[2021-06-02] MEDS: ASCORBIC ACID 500 MG TABLET PO (09:49)
[2021-06-02] MEDS: ENOXAPARIN 40 MG/0.4 ML SYRINGE SUB-Q (09:49)
[2021-06-02] MEDS: CEFEPIME 0.5 GM in DEXTROSE 5% IN WATER 50 ML IVPB (09:49)
[2021-06-02] MEDS: CHOLECALCIFEROL 1,000 UNITS TABLET 1000 UNITS PO (09:49)
[2021-06-02] MEDS: MINERAL OIL/WHITE PETROLATUM OINTMENT 1 APPLIC EACH EYE ×2 (09:50→20:44)
[2021-06-02] MEDS: PANTOPRAZOLE SODIUM IV 40 MG VIAL IV PUSH (09:50)
[2021-06-02] MEDS: INSULIN GLARGINE (*BKC) 100 UNITS/ML 40 UNITS SUB-Q (09:50)
[2021-06-02] MEDS: polyethylene glycoL 3350 17 GM POWD.PACK PO (09:50)
[2021-06-02] MEDS: MIDAZOLAM 100MG/NS 100ML(*CRX) 100 MG/100 ML BAG 6 MG IV CONT (10:02)
[2021-06-02] MEDS: FENTANYL 2,500MCG/NS250ML(*CRX 2,500 MCG/250 ML BAG 12.5 MCG IV CONT (12:08)
[2021-06-02 12:23] LABS: Glucose Point of Care 146 mg/dl (65-105)
--- NOTE | 2021-06-02 13:17 | PM.IMPN ---
Progress Note: A&P Assessment and Plan (1) Acute respiratory failure with hypoxia: Code(s): J96.01 - Acute respiratory failure with hypoxia Status: Acute Assessment and Plan: Acute respiratory failure likely related to COVID pneumonia requiring intubation on 05/18/21. - 05/25 bilateral tension PTX spontaneous which also led to a brief PEA arrest. S/P chest tube placement bilateral. - He remains on mechanical ventilator, sedated and paralyzed. - Inhaled Flolan that was started on 05/25 stopped this morning - Continue prone positioning per manager machine - continue current sedation with fentanyl, Versed, Nimbex infusion for vent synchrony (2) Pneumonia due to COVID-19 virus: Code(s): U07.1 - COVID-19; J12.82 - Pneumonia due to coronavirus disease 2018 Status: Acute Assessment and Plan: Patient was found to be COVID positive on 05/10/2021; he is unvaccinated. Patient completed a 10 day course of dexamethasone and baricitinib. Patient refused remdesivir on presentation. Continue vitamin-D, vitamin-C and zinc. Continue droplet, airborne and contact isolation/precautions. Continue supportive care. (3) Sepsis: Code(s): A41.9 - Sepsis, unspecified organism Status: Acute Assessment and Plan: Present on admission with elevated WBC, lactic acidosis but has been afebrile. BCx 05/16 negative. Sputum growing yeast 05/22. UCx 05/29 negative. BCx 05/28 growing Staph Epi and Staph cohnii (1of2) suspected to be a contaminate. Procalcitonin was 3.4. Rocha replaced. Patient remains on vancomycin and cefepime. (4) Spontaneous tension pneumothorax: Code(s): J93.0 - Spontaneous tension pneumothorax Status: Acute Assessment and Plan: Patient developed spontaneous tension pneumothorax bilateral 05/25/21 when he was placed in supine position. He had PEA requiring code blue. Bilateral chest tubes were emergently placed. Chest x-ray reviewed today. Appreciate General surgery input. (5) Cardiac arrest: Code(s): I46.9 - Cardiac arrest, cause unspecified Status: Acute Assessment and Plan: PEA arrest on 05/25/21 related to bilateral tension pneumothorax. ROSC after 1 dose of epinephrine and 1 round of CPR. (6) Acute renal failure superimposed on stage 4 chronic kidney disease: Code(s): N17.9 - Acute kidney failure, unspecified; N18.4 - Chronic kidney disease, stage 4 (severe) Status: Acute Assessment and Plan: Patient does have a ureteral stent which was placed at [facility] 5 weeks ago due to some sort of scar tissue. Patient presented with acute on chronic kidney disease with a creatinine of 3.3 on admission. Patient was treated with IV fluids. Renal ultrasound 05/17 shows bilateral renal cortical thinning with atrophy but no hydronephrosis. Cr normalized but then worsened to the 2 range. Creatinine remaining elevated but stable in the mid-2 range. BUN still remains above 100. He continues to have excellent UOP. Continue to follow. Nephrology following. (7) Shock: Code(s): R57.9 - Shock, unspecified Status: Acute Assessment and Plan: Blood pressure dropped after tension pneumothorax. 1 L saline bolus given and started on levophed. Levophed drip has been weaned off. BP stable. Follow (8) Electrolyte abnormality: Code(s): E87.8 - Other disorders of electrolyte and fluid balance, not elsewhere classified Status: Acute Assessment and Plan: Hypernatremia - Na 149 today. Continue current free water flushes. Continue to follow. Hyperkalemia - Resolved. Follow (9) Type 2 diabetes mellitus: Code(s): E11.9 - Type 2 diabetes mellitus without complications Status: Acute Assessment and Plan: A1c 8.4. The patient's blood glucose was reviewed on 06/02 Glucose remains well controlled. Continue AccuCheks covering with sliding scale. Hypoglycemia protocol available as needed. Continue current medicatio
--- NOTE | 2021-06-02 13:20 | WPDINTPN ---
Progress Note: A&P Assessment and Plan (1) Acute respiratory failure with hypoxia: Code(s): J96.01 - Acute respiratory failure with hypoxia Status: Acute Assessment and Plan: Acute respiratory failure likely related to COVID pneumonia -Intubated on 05/18/2021 - 2 bilateral tension pneumothorax spontaneous which also led to a brief PEA arrest. S/P chest tube placement bilateral - Currently on mechanical ventilator, 60% % FiO2, PEEP of 14, -on Flolan which was started on 05/25/2021, continue to wean to off -chest x-ray and ABGs reviewed - Will place pt in supine position. as he has been in prone position for > 48 hrs - low tidal volume, strategy to avoid volutrauma -continue bronchodilators -sedated with fentanyl, Versed, Nimbex infusion for vent synchrony (2) Pneumonia due to COVID-19 virus: Code(s): U07.1 - COVID-19; J12.82 - Pneumonia due to coronavirus disease 2018 Status: Acute Assessment and Plan: Positive COVID on 05/10/2020, patient is unvaccinated -patient has completed a 10 day course of dexamethasone which was started on 05/16/2021 - he has completed a 14 day course of baricitinib -patient refused remdesivir on presentation -continue vitamin-D, vitamin-C and zinc -continue droplet, airborne and contact isolation/precautions (3) Spontaneous tension pneumothorax: Code(s): J93.0 - Spontaneous tension pneumothorax Status: Acute Assessment and Plan: 05/25 Patient was spontaneous tension pneumothorax bilateral when he was placed in supine position Bilateral chest tubes were emergently placed Chest x-ray reviewed No air leak on chest tubes at this time (4) Cardiac arrest: Code(s): I46.9 - Cardiac arrest, cause unspecified Status: Acute Assessment and Plan: PEA arrest Secondary to bilateral tension pneumothorax ROSC after 1 dose of epinephrine and 1 round of CPR (5) Type 2 diabetes mellitus: Code(s): E11.9 - Type 2 diabetes mellitus without complications Status: Acute Assessment and Plan: Patient with history of type 2 diabetes and now on steroids - currently hyperglycemic Currently off of insulin infusion. - Continue Lantus - continue sliding scale insulin -hemoglobin A1c is 8.4 this admission (6) Acute renal failure superimposed on stage 4 chronic kidney disease: Code(s): N17.9 - Acute kidney failure, unspecified; N18.4 - Chronic kidney disease, stage 4 (severe) Status: Acute Assessment and Plan: Patient presented with acute on chronic kidney disease with a creatinine of 3.30 on admission, patient was given IV fluid bolus in the ER for elevated lactic acid - off Bumex and D5 water at this time -his BUN is elevated but stable and creatinine is acceptable and stable. urine output is adequate for now - Off midodrine -patient does have a ureteral stent which was placed at [facility] 5 weeks ago due to some sort of scar tissue -05/17/2021: Renal ultrasound shows bilateral renal cortical thinning, atrophy, no hydronephrosis a hepatic steatosis -he may need hemodialysis if worsens -nephrology following (7) Prostate cancer: Code(s): C61 - Malignant neoplasm of prostate Status: Chronic Assessment and Plan: Patient has a history of prostate cancer -Status post radiation, on Erleada. It was held as patient was started on immunosuppressant baricitinib and is also on dexamethasone (8) DVT prophylaxis: Code(s): Z29.9 - Encounter for prophylactic measures, unspecified Status: Acute Assessment and Plan: Enoxaparin (9) Lice infested hair: Code(s): B85.2 - Pediculosis, unspecified Status: Acute Assessment and Plan: 05/24 Patient was treated with lice treating shampoo with permethrin. It will be repeated in today on 05/31 (10) Shock: Code(s): R57.9 - Shock, unspecified Status: Acute Assessment and Plan: Blood pressure d
--- NOTE | 2021-06-02 13:20 | PCFNICU ---
ICU Rounding Note: Pt current nutrition is Nepro at 55 ml/hr over 22 hours. Last recorded weight is 137.1 kg, up from 123.6 kg on admit. Bowel Motility: FMS Labs Reviewed:PO4 6.0,Cr 2.3, BUN 101,Glu 127,Alb 2.5,Hgb 9.4,Hct 31.3 Meds Noted:Reglan, Flolan,Versed, Fentanyl, Nimbex, Lovenox, Vit C, Vit D,Zinc, Lantus Skin: WNL Additional Notes: Patient remains on mechanical vent and tube feedings of Nepro at 55 ml/hr over 22 hours and tolerating. Free water flush 200 ml q 4 hours. Agree with diet orders. Following daily in ICU rounds. Will monitor every Monday and Monday.
[2021-06-02 15:35] LABS: Glucose Point of Care 101 mg/dl (65-105)
[2021-06-02] MEDS: CISATRACURIUM BESYLATE 200 MG in DEXTROSE 5% 80 ML 29.57 ML IV CONT (20:50)
[2021-06-02 20:58] LABS: Glucose Point of Care 108 mg/dl (65-105)
[2021-06-03] VITALS (37 sets, daily range): BP systolic 115–139; BP diastolic 57–64; PULSE 91–105; RESP 29–30; TEMP 36.1–36.6; O2SAT 91–96
[2021-06-03] MEDS: CISATRACURIUM BESYLATE 200 MG in DEXTROSE 5% 80 ML 29.57 ML IV CONT ×4 (00:13→10:04)
[2021-06-03 00:43] LABS: Glucose Point of Care 149 mg/dl (65-105)
[2021-06-03] MEDS: MIDAZOLAM 100MG/NS 100ML(*CRX) 100 MG/100 ML BAG 6 MG IV CONT (01:20)
[2021-06-03 04:34] LABS: Alveolar/Arterial O2 Gradient 368.3 mmHg; Base Excess ABG 8.2 mEq/l (+/-2.0); Carboxyhemoglobin 0.3 % THb (0-2.0); Fractional Inspired Oxygen 70 %; HCO3 ABG 35.3 mEq/l (22.0-26.0); Methemoglobin ABG 0.3 %THb (0-1.5); Oxygen Content ABG 17.9 %vol (16.0-22.0); Oxygen Saturation ABG 92.6 % (95.0-100.0); Oxyhemoglobin 90.8 % THb (90.0-100.0); PCO2 ABG 59.6 mmHg (35.0-45.0); PO2 ABG 66.7 mmHg (80.0-100.0); PO2 FiO2 Ratio Arterial Blood 0.95 %; Reduced Hemoglobin 8.6 %THb (0-5.0)
[2021-06-03 04:36] LABS: Arterial Blood Gas PEEP 14 cmH2O; Arterial Blood Gas Vent Mode CMV; Arterial Blood Gas Ventilator rate 30 /MIN; Device VENTILATOR; Modified Allen's Test Pass; Site Drawn LEFT RADIAL
[2021-06-03 04:37] LABS: Arterial Blood Gas Tidal Volume 480 ml
[2021-06-03] MEDS: CENTRAL LINE FLUSH 10 ML IV PUSH ×3 (05:00→21:30)
[2021-06-03 05:48] LABS: Basophils Percent Auto 0.3 % (0.2-1.2); Eosinophils Absolute Auto 0.4 K/mm3 (0-0.3); Eosinophils Percent Auto 2.9 % (0-4.4); Hematocrit 32.1 % (42.0-52.0); Hemoglobin 9.4 g/dL (14.0-18.0); Immature Granulocyte Absolute 0.52 K/mm3 (0.00-0.031); Immature Granulocyte Percent A 4.4 % (0-0.5); Lymphocytes Absolute Auto 0.94 K/mm3 (0.9-3.2); Lymphocytes Percent Auto 7.9 % (18.3-44.2); Mean Corpuscular HGB Conc 29.3 g/dl (32-36); Mean Corpuscular Hemoglobin 29.9 pg (26-34); Mean Corpuscular Volume 102.2 fl (80-100); Mean Platelet Volume 10.3 fl (7.4-10.4); Monocytes Absolute Auto 0.5 K/mm3 (0.1-0.6); Monocytes Percent Auto 4.2 % (2.6-8.5); Neutrophils Absolute Auto 9.6 K/mm3 (1.3-6.7); Neutrophils Percent Auto 80.3 % (45.5-73.1); Platelet Count Result 253 k/mm3 (150-375); Red Blood Count 3.14 M/mm3 (4.6-6.20); Red Cell Distribution Width 16.5 % (11.5-14.5); White Blood Count 11.9 K/mm3 (4.5-10.0)
[2021-06-03 06:01] LABS: Alanine Aminotransferase 55 U/L (4-50); Albumin Level 2.5 g/dL (3.5-5.1); Alkaline Phosphatase 265 U/L (38-126); Anion Gap 1 mmol/L (8-16); Aspartate Amino Transferase 49 U/L (17-59); Bilirubin,Total 0.4 mg/dL (0.2-1.3); Blood Urea Nitrogen 99 mg/dL (9-20); Calcium 8.8 mg/dL (8.4-10.2); Carbon Dioxide 34 mmol/L (22-30); Chloride 112 mmol/L (98-107); Estimated CRCL calculation 41 ml/min; Estimated Glomerular Filt Rate 29; Glucose 152 mg/dL (65-110); Phosphorus 6.3 mg/dL (2.5-4.5); Potassium 4.4 mmol/L (3.4-5.0); Sodium 147 mmol/L (137-145)
[2021-06-03] MEDS: FENTANYL 2,500MCG/NS250ML(*CRX 2,500 MCG/250 ML BAG 12.5 MCG IV CONT (06:25)
[2021-06-03 07:20] LABS: Glucose Point of Care 132 mg/dl (65-105)
--- NOTE | 2021-06-03 07:48 | P.PNNP_ITS ---
Progress Note: A&P Assessment and Plan (1) Acute kidney injury: Code(s): N17.9 - Acute kidney failure, unspecified Status: Acute Assessment and Plan: * multifactorial etiology: * cardiac arrest * infection (pneumonia/COVID-19) * possible pre-renal factors * Urine output 2450 yesterday. * Creatinine seems to be wandering in the low 2s. BUN again fell a little bit to 99 * evaluation to date: * urine electrolytes prerenal * renal ultrasound without acute pathology * No signs of uremia. * Volume status about the same. * Hopefully renal function will improve enough for him to avoid dialysis. (2) Chronic kidney disease, unspecified: Code(s): N18.9 - Chronic kidney disease, unspecified Status: Chronic Assessment and Plan: * unclear what baseline creatinine/GFR is * creatinine baseline probably around 1.3 * renal ultrasound with evidence of CKD (bilateral renal cortical thinning and atrophy) * suspect secondary to hypertension and diabetes (3) Hypernatremia: Code(s): E87.0 - Hyperosmolality and hypernatremia Status: Acute Assessment and Plan: * due to free water deficit * He is on 2 calories per cc of tube feeding flushes * increased free water flushes to compensate * Sodium level still mildly high but better at 147. * He is on tube feeding flushes at 200 cc q.4 hours. * urine osmolality pending? will check (4) Acute respiratory failure with hypoxia: Code(s): J96.01 - Acute respiratory failure with hypoxia Status: Acute Assessment and Plan: * been on mechanical ventilation since 05/18/21 * due to COVID-19 pneumonia * complciated by bilateral tension pneumothorax s/p bilateral chest tube placement * prone position currently. * FiO2 about 50%. (5) Pneumonia due to COVID-19 virus: Code(s): U07.1 - COVID-19; J12.82 - Pneumonia due to coronavirus disease 2019 Status: Acute Assessment and Plan: * COVID positive 05/10/21 * s/p course of decadron * s/p course of baricitinib * refused remdesivir on admission/presentation * On respiratory isolation (6) Cardiac arrest: Code(s): I46.9 - Cardiac arrest, cause unspecified Status: Acute Assessment and Plan: * PEA arrest * secondary to bilateral tension pneumothorax * Bilateral chest tubes in place. No air leak (7) Hypertension: Code(s): I10 - Essential (primary) hypertension Status: Chronic Assessment and Plan: * Systolic running 120s/60s * follow trend of hemodyanmics (8) Type 2 diabetes mellitus: Code(s): E11.9 - Type 2 diabetes mellitus without complications Status: Acute Assessment and Plan: * on accuchecks and ssi Will continue to follow. Subjective Date/time seen: 06/03/21 07:48 Interval history: patient is sedated and on the ventilator. He is on paralytics still He is in the supine position this morning. Bilateral chest tubes. NO air leak. Cannot give a history or review of systems due to medical condition Exam Narrative: General: WD/WN male intubated/sedated/paralyzed on mechanical ventilation Heart: normal S1 and S2; no rub or gallop Lungs: coarse breath sounds throughout Abdomen: soft, nontender, nondistended, positive bowel sounds Extremities: 1+ edema bilaterally Skin: No rash or sq nodules Objective Data Vital Signs Vital Signs: Vital Signs - 24 hr
--- NOTE | 2021-06-03 07:48 | PM.PNNEP ---
Progress Note: A&P Assessment and Plan (1) Acute kidney injury: Code(s): N17.9 - Acute kidney failure, unspecified Status: Acute Assessment and Plan: multifactorial etiology: cardiac arrest infection (pneumonia/COVID-19) possible pre-renal factors Urine output 2450 yesterday. Creatinine seems to be wandering in the low 2s. BUN again fell a little bit to 99 evaluation to date: urine electrolytes prerenal renal ultrasound without acute pathology No signs of uremia. Volume status about the same. Hopefully renal function will improve enough for him to avoid dialysis. (2) Chronic kidney disease, unspecified: Code(s): N18.9 - Chronic kidney disease, unspecified Status: Chronic Assessment and Plan: unclear what baseline creatinine/GFR is creatinine baseline probably around 1.3 renal ultrasound with evidence of CKD (bilateral renal cortical thinning and atrophy) suspect secondary to hypertension and diabetes (3) Hypernatremia: Code(s): E87.0 - Hyperosmolality and hypernatremia Status: Acute Assessment and Plan: due to free water deficit He is on 2 calories per cc of tube feeding flushes increased free water flushes to compensate Sodium level still mildly high but better at 147. He is on tube feeding flushes at 200 cc q.4 hours. urine osmolality pending? will check (4) Acute respiratory failure with hypoxia: Code(s): J96.01 - Acute respiratory failure with hypoxia Status: Acute Assessment and Plan: been on mechanical ventilation since 05/18/21 due to COVID-19 pneumonia complciated by bilateral tension pneumothorax s/p bilateral chest tube placement prone position currently. FiO2 about 50%. (5) Pneumonia due to COVID-19 virus: Code(s): U07.1 - COVID-19; J12.82 - Pneumonia due to coronavirus disease 2019 Status: Acute Assessment and Plan: COVID positive 05/10/21 s/p course of decadron s/p course of baricitinib refused remdesivir on admission/presentation On respiratory isolation (6) Cardiac arrest: Code(s): I46.9 - Cardiac arrest, cause unspecified Status: Acute Assessment and Plan: PEA arrest secondary to bilateral tension pneumothorax Bilateral chest tubes in place. No air leak (7) Hypertension: Code(s): I10 - Essential (primary) hypertension Status: Chronic Assessment and Plan: Systolic running 120s/60s follow trend of hemodyanmics (8) Type 2 diabetes mellitus: Code(s): E11.9 - Type 2 diabetes mellitus without complications Status: Acute Assessment and Plan: on accuchecks and ssi Will continue to follow. Subjective Date/time seen: 06/03/21 07:48 Interval history: patient is sedated and on the ventilator. He is on paralytics still He is in the supine position this morning. Bilateral chest tubes. NO air leak. Cannot give a history or review of systems due to medical condition Exam Narrative: General: WD/WN male intubated/sedated/paralyzed on mechanical ventilation Heart: normal S1 and S2; no rub or gallop Lungs: coarse breath sounds throughout Abdomen: soft, nontender, nondistended, positive bowel sounds Extremities: 1+ edema bilaterally Skin: No rash or sq nodules Objective Data Vital Signs Vital Signs: Vital Signs - 24 hr 06/02/21 08:00 06/02/21 08:48 06/02/21 09:40 Temperature 36.4 C Pulse Rate 96 96 97 Respiratory Rate 30 H 30 H Blood Pressure 132/58 L 138/62 Pulse Oximetry 92 94 06/02/21 10:00 06/02/21 10:02 06/02/21 11:05 Temperature 36.4 C Pulse Rate 98 99 98 Respiratory Rate 30 H 30 H Blood Pressure 146/63 H Pulse Oximetry 91 93 06/02/21 12:00 06/02/21 12:08 06/02/21 13:01 Temperature 36.1 C L Pulse Rate 95 96 93 Respiratory Rate 30 H 30 H 30 H Blood Pressure 141/58 H 125/57 L Pulse Oximetry 92 06/02/21 13:33 06/02/21 14:00
[2021-06-03] MEDS: CEFEPIME 0.5 GM in DEXTROSE 5% IN WATER 50 ML IVPB (10:06)
[2021-06-03] MEDS: INSULIN GLARGINE (*BKC) 100 UNITS/ML 40 UNITS SUB-Q (10:06)
[2021-06-03] MEDS: ENOXAPARIN 40 MG/0.4 ML SYRINGE SUB-Q (10:07)
[2021-06-03] MEDS: polyethylene glycoL 3350 17 GM POWD.PACK PO (10:07)
[2021-06-03] MEDS: PANTOPRAZOLE SODIUM IV 40 MG VIAL IV PUSH (10:10)
[2021-06-03] MEDS: ZINC SULFATE 220 MG CAPSULE PO (10:10)
[2021-06-03] MEDS: ASCORBIC ACID 500 MG TABLET PO (10:10)
[2021-06-03] MEDS: MINERAL OIL/WHITE PETROLATUM OINTMENT 1 APPLIC EACH EYE ×2 (10:10→21:29)
[2021-06-03] MEDS: CHOLECALCIFEROL 1,000 UNITS TABLET 1000 UNITS PO (10:10)
[2021-06-03 12:10] LABS: Glucose Point of Care 161 mg/dl (65-105)
--- NOTE | 2021-06-03 13:02 | PCFNICU ---
ICU Rounding Note: Pt current nutrition is Nepro at 55 ml/hr over 22 hours. Last recorded weight is 139.8 kg, up from 123.6 kg on admit. Bowel Motility: FMS Labs Reviewed:PO4 6.3,Cr 2.3,GFR 29, ALb 2.5,Na 147, Hct 32.1,Hgb 9.4 Meds Noted:Reglan,Versed, Fentanyl, Nimbex, Lovenox, Vit C, Vit D,Zinc, Lantus Skin: No pressure ulcers reported. Additional Notes: Patient remains on mechanical vent and tube feedings of Nepro at 55 ml/hr over 22 hours. 200 ml free water flush q 4 hours. Agree with diet orders. Following daily in ICU rounds. Will monitor every Monday and Monday.
--- NOTE | 2021-06-03 13:34 | WPDINTPN ---
Progress Note: A&P Assessment and Plan (1) Acute respiratory failure with hypoxia: Code(s): J96.01 - Acute respiratory failure with hypoxia Status: Acute Assessment and Plan: Acute respiratory failure likely related to COVID pneumonia -Intubated on 05/18/2021 - 05/25 bilateral tension pneumothorax spontaneous which also led to a brief PEA arrest. S/P chest tube placement bilateral - Currently on mechanical ventilator, 70% % FiO2, PEEP of 14, -OFF Flolan since 06/02/21 -chest x-ray and ABGs reviewed - Placed in supine position on 06/02 after > 48 hrs. Patient has bilateral chest tubes and is not placed in prone position every day due to risk of dislodging the chest tubes. - low tidal volume, strategy to avoid volutrauma -continue bronchodilators -sedated with fentanyl, Versed, Nimbex infusion for vent synchrony (2) Pneumonia due to COVID-19 virus: Code(s): U07.1 - COVID-19; J12.82 - Pneumonia due to coronavirus disease 2018 Status: Acute Assessment and Plan: Positive COVID on 05/10/2020, patient is unvaccinated -patient has completed a 10 day course of dexamethasone which was started on 05/16/2021 - he has completed a 14 day course of baricitinib -patient refused remdesivir on presentation -continue vitamin-D, vitamin-C and zinc -continue droplet, airborne and contact isolation/precautions (3) Spontaneous tension pneumothorax: Code(s): J93.0 - Spontaneous tension pneumothorax Status: Acute Assessment and Plan: 05/25 Patient was spontaneous tension pneumothorax bilateral when he was placed in supine position Bilateral chest tubes were emergently placed Chest x-ray reviewed No air leak on chest tubes at this time (4) Cardiac arrest: Code(s): I46.9 - Cardiac arrest, cause unspecified Status: Acute Assessment and Plan: PEA arrest Secondary to bilateral tension pneumothorax ROSC after 1 dose of epinephrine and 1 round of CPR (5) Type 2 diabetes mellitus: Code(s): E11.9 - Type 2 diabetes mellitus without complications Status: Acute Assessment and Plan: Patient with history of type 2 diabetes and now on steroids - currently hyperglycemic Currently off of insulin infusion. - Continue Lantus - continue sliding scale insulin -hemoglobin A1c is 8.4 this admission (6) Acute renal failure superimposed on stage 4 chronic kidney disease: Code(s): N17.9 - Acute kidney failure, unspecified; N18.4 - Chronic kidney disease, stage 4 (severe) Status: Acute Assessment and Plan: Patient presented with acute on chronic kidney disease with a creatinine of 3.30 on admission, patient was given IV fluid bolus in the ER for elevated lactic acid - off Bumex and D5 water at this time -his BUN is elevated but stable and creatinine is acceptable and stable. urine output is adequate for now - Off midodrine -patient does have a ureteral stent which was placed at [facility] 5 weeks ago due to some sort of scar tissue -05/17/2021: Renal ultrasound shows bilateral renal cortical thinning, atrophy, no hydronephrosis a hepatic steatosis -he may need hemodialysis if worsens -nephrology following (7) Prostate cancer: Code(s): C61 - Malignant neoplasm of prostate Status: Chronic Assessment and Plan: Patient has a history of prostate cancer -Status post radiation, on Erleada. It was held as patient was started on immunosuppressant baricitinib and is also on dexamethasone (8) DVT prophylaxis: Code(s): Z29.9 - Encounter for prophylactic measures, unspecified Status: Acute Assessment and Plan: Enoxaparin (9) Lice infested hair: Code(s): B85.2 - Pediculosis, unspecified Status: Acute Assessment and Plan: 05/24 Patient was treated with lice treating shampoo with permethrin. It will be repeated in today on 05/31 (10) Shock: Code(s): R57.9 - Shock, unspecified Status: Ac
[2021-06-03] MEDS: CISATRACURIUM BESYLATE 200 MG in DEXTROSE 5% 80 ML 22.18 ML IV CONT (14:00)
--- NOTE | 2021-06-03 14:19 | PM.IMPN ---
Progress Note: A&P Assessment and Plan (1) Acute respiratory failure with hypoxia: Code(s): J96.01 - Acute respiratory failure with hypoxia Status: Acute Assessment and Plan: Acute respiratory failure likely related to COVID pneumonia requiring intubation on 05/18/21. MV Day - 05/25 bilateral tension PTX spontaneous which also led to a brief PEA arrest. S/P chest tube placement bilateral. - He remains on mechanical ventilator, sedated and paralyzed. - Inhaled Flolan that was started on 05/25 and stopped 06/02 - Continue prone positioning per wet end supervisor - continue current sedation with fentanyl, Versed; Nimbex infusion for vent synchrony (2) Pneumonia due to COVID-19 virus: Code(s): U07.1 - COVID-19; J12.82 - Pneumonia due to coronavirus disease 2019 Status: Acute Assessment and Plan: Patient was found to be COVID positive on 05/10/21; he is unvaccinated. Patient completed a 10 day course of dexamethasone and baricitinib. Patient refused remdesivir on presentation. Continue vitamin-D, vitamin-C and zinc. Continue droplet, airborne and contact isolation/precautions. Continue supportive care. (3) Sepsis: Code(s): A41.9 - Sepsis, unspecified organism Status: Acute Assessment and Plan: Present on admission with elevated WBC, lactic acidosis but has been afebrile. BCx 05/16 negative. Sputum growing yeast 05/22. UCx 05/29 negative. BCx 05/28 growing Staph Epi and Staph cohnii (1of2) suspected to be a contaminate. Procalcitonin was 3.4. No fevers. Rocha replaced. Patient remains on vancomycin and cefepime. (4) Spontaneous tension pneumothorax: Code(s): J93.0 - Spontaneous tension pneumothorax Status: Acute Assessment and Plan: Patient developed spontaneous bilateral tension pneumothorax on 05/25/21 when he was placed in supine position. He had PEA requiring code blue. Bilateral chest tubes were emergently placed. Chest tube management per [facility]. Appreciate General surgery input. (5) Cardiac arrest: Code(s): I46.9 - Cardiac arrest, cause unspecified Status: Acute Assessment and Plan: PEA arrest on 05/25/21 related to bilateral tension pneumothorax. ROSC after 1 dose of epinephrine and 1 round of CPR. (6) Acute renal failure superimposed on stage 4 chronic kidney disease: Code(s): N17.9 - Acute kidney failure, unspecified; N18.4 - Chronic kidney disease, stage 4 (severe) Status: Acute Assessment and Plan: Patient does have a ureteral stent which was placed at [facility] 5 weeks ago due to some sort of scar tissue. Patient presented with acute on chronic kidney disease with a creatinine of 3.3 on admission. Patient was treated with IV fluids. Renal ultrasound 05/17 shows bilateral renal cortical thinning with atrophy but no hydronephrosis. Cr normalized but then worsened to the 2 range. Creatinine remaining elevated but stable in the mid-2 range. BUN still elevated but less than 100 now. He continues to have excellent UOP. Continue to follow. Nephrology following. (7) Shock: Code(s): R57.9 - Shock, unspecified Status: Acute Assessment and Plan: Blood pressure dropped after tension pneumothorax. 1 L saline bolus given and started on levophed. Levophed drip has been weaned off. BP stable. Follow (8) Electrolyte abnormality: Code(s): E87.8 - Other disorders of electrolyte and fluid balance, not elsewhere classified Status: Acute Assessment and Plan: Hypernatremia - Na better at 147 today. Continue current free water flushes. Continue to follow. Hyperkalemia - Resolved. Follow (9) Type 2 diabetes mellitus: Code(s): E11.9 - Type 2 diabetes mellitus without complications Status: Acute Assessment and Plan: A1c 8.4. The patient's blood glucose was reviewed on 06/03 Glucose remains well controlled but Lantus held last night and glucose 132 Continue AccuCheks covering
[2021-06-03] MEDS: METOCLOPRAMIDE HCL INJ 10 MG/2 ML VIAL IV PUSH ×3 (14:26→23:55)
[2021-06-03 15:53] LABS: Glucose Point of Care 148 mg/dl (65-105)
[2021-06-03] MEDS: MIDAZOLAM 100MG/NS 100ML(*CRX) 100 MG/100 ML BAG IV CONT (17:49)
[2021-06-03 20:20] LABS: Glucose Point of Care 121 mg/dl (65-105)
[2021-06-03] MEDS: CISATRACURIUM BESYLATE 200 MG in DEXTROSE 5% 80 ML 7.39 ML IV CONT (21:28)
--- NOTE | 2021-06-03 22:23 | PC.NURSE ---
22:00 Daughter, and son called. Both updated, and all questions answered. Son said he will call back.
[2021-06-04] VITALS (42 sets, daily range): BP systolic 85–145; BP diastolic 36–92; PULSE 91–119; RESP 30–35; TEMP 37.3–38.9; O2SAT 85–99
[2021-06-04 00:03] LABS: Glucose Point of Care 138 mg/dl (65-105)
[2021-06-04] MEDS: ACETAMINOPHEN 325 MG TABLET 650 MG PO ×2 (01:14→06:55)
[2021-06-04] MEDS: FENTANYL 2,500MCG/NS250ML(*CRX 2,500 MCG/250 ML BAG 17.5 MCG IV CONT (01:22)
[2021-06-04 04:48] LABS: Alveolar/Arterial O2 Gradient 414.4 mmHg; Base Excess ABG 6.8 mEq/l (+/-2.0); Carboxyhemoglobin 0.3 % THb (0-2.0); Fractional Inspired Oxygen 75 %; HCO3 ABG 32.4 mEq/l (22.0-26.0); Methemoglobin ABG 0.3 %THb (0-1.5); Oxygen Content ABG 12.5 %vol (16.0-22.0); Oxygen Saturation ABG 92.6 % (95.0-100.0); Oxyhemoglobin 90.1 % THb (90.0-100.0); PCO2 ABG 52.1 mmHg (35.0-45.0); PO2 FiO2 Ratio Arterial Blood 0.87 %; Reduced Hemoglobin 9.3 %THb (0-5.0); Total Hemoglobin 9.8 g/dL (12.0-18.0); pH ABG 7.412 (7.350-7.450)
[2021-06-04 04:49] LABS: Device VENTILATOR; Modified Allen's Test Unable to perform; Site Drawn LEFT RADIAL
[2021-06-04 04:50] LABS: Arterial Blood Gas PEEP 14 cmH2O; Arterial Blood Gas Tidal Volume 480 ml; Arterial Blood Gas Vent Mode CMV; Arterial Blood Gas Ventilator rate 30 /MIN
[2021-06-04 04:57] LABS: Glucose Point of Care 147 mg/dl (65-105)
[2021-06-04 05:21] LABS: Hematocrit 31.2 % (42.0-52.0); Hemoglobin 9.1 g/dL (14.0-18.0); Mean Corpuscular HGB Conc 29.2 g/dl (32-36); Mean Corpuscular Hemoglobin 29.7 pg (26-34); Mean Platelet Volume 10.2 fl (7.4-10.4); Platelet Count Result 242 k/mm3 (150-375); Red Blood Count 3.06 M/mm3 (4.6-6.20); Red Cell Distribution Width 16.5 % (11.5-14.5); White Blood Count 9.9 K/mm3 (4.5-10.0)
[2021-06-04 05:48] LABS: Albumin Level 2.5 g/dL (3.5-5.1); Anion Gap 6 mmol/L (8-16); Blood Urea Nitrogen 98 mg/dL (9-20); Carbon Dioxide 34 mmol/L (22-30); Chloride 108 mmol/L (98-107); Estimated CRCL calculation 38 ml/min; Estimated Glomerular Filt Rate 26; Glucose 163 mg/dL (65-110); Magnesium 2.9 mg/dL (1.6-2.3); Phosphorus 6.2 mg/dL (2.5-4.5); Potassium 4.6 mmol/L (3.4-5.0); Sodium 148 mmol/L (137-145)
[2021-06-04 05:59] LABS: CRP 15.7 mg/dL (<1.0)
[2021-06-04 06:08] LABS: Band Neutrophils Percent 11 % (0-6); Eosinophils Absolute Manual 0.09 K/mm3 (0.02-0.5); Eosinophils Percent Manual 1 % (0-4); Lymphocytes Absolute Manual 1.08 K/mm3 (1.1-4.5); Metamyelocytes Percent 1 %; Monocytes Absolute Manual 0.29 K/mm3 (0.1-0.90); Monocytes Percent Manual 3 % (3-9); Neutrophils Absolute Manual 8.31 K/mm3 (1.3-6.7); Neutrophils Percent Manual 73 % (46-73); Total Cells Counted 100
--- NOTE | 2021-06-04 06:10 | WPDPROCEDUR ---
Procedures Intubation Intubation Date: 06/04/21 Intubation Time: 05:35 Sedative: fentanyl Mg given: 100 Paralytic: rocuronium Mg given: 50 Laryngoscope: fiber optic video scope Assist device used: Bougie ET tube size: 8 Tube secured depth (cm): 26 Tube secured location: teeth Tube placement confirmation: visualized tube passing through cords, equal breath sounds bilaterally, no breath sounds over epigastrium and confirmation by capnometry Intubation complications: hypoxia Additional comments: Nursing staff called the patient was not able to maintain tidal volumes on vent. Patient was desaturating to the 50s. It was thought that the ET tube cuff may be punctured. However when I went to remove the ET tube patient's cuff was actually inflated and would not deflate. The tube was exchanged over bougie and placement was confirmed with assistance of glide scope. After intubation the patient's oxygen saturations with Ambu bag ventilation improved to mid 80s. Post intubation patient was still not pulling tidal volumes. Subsequently the ventilator was exchanged. After exchanging the ventilator the patient's tidal volumes improved in oxygenation normalized. Chest x-ray was reviewed. ET tube 5 and half to 6 cm from the alexander. Ordered given to advance ET tube 1 cm.
[2021-06-04] MEDS: METOCLOPRAMIDE HCL INJ 10 MG/2 ML VIAL IV PUSH ×4 (06:12→23:22)
[2021-06-04] MEDS: CENTRAL LINE FLUSH 10 ML IV PUSH ×3 (06:13→20:48)
[2021-06-04 06:38] LABS: Hepatitis B Surface Antigen Negative (Negative)
[2021-06-04 06:44] LABS: HAV RESULT Negative (Negative); Hepatitis B Core IgM Result Negative (Negative)
[2021-06-04 07:02] LABS: Hepatitis C Virus Antibody Reactive (Negative)
--- NOTE | 2021-06-04 07:58 | PC.NURSE ---
04:15 This RN, and Jason RN were cleaning up patient. While patient was turned on his right side, he stopped getting tidal volume. Patient was rolled onto his back while both RNs began looking for a cause. After a few seconds, decision was made to begin bagging patient. RT was called. After RTs arrival it was discovered that the patient had a cuff leak, and the ventilator needed to be changed. Cattle Farmer exchanged patient's ET tube, and RT changed ventilator. After this patient's oxygen saturation returned to baseline, and patient has remained at 93%. Patient is now resting comfortably. Will continue to monitor.
[2021-06-04] MEDS: CEFEPIME 0.5 GM in DEXTROSE 5% IN WATER 50 ML IVPB (10:12)
[2021-06-04] MEDS: MINERAL OIL/WHITE PETROLATUM OINTMENT 1 APPLIC EACH EYE ×2 (10:14→20:48)
[2021-06-04] MEDS: ENOXAPARIN 40 MG/0.4 ML SYRINGE SUB-Q (10:15)
[2021-06-04 10:27] LABS: Glucose Point of Care 141 mg/dl (65-105)
--- NOTE | 2021-06-04 10:29 | P.PNNP_ITS ---
Progress Note: A&P Assessment and Plan (1) Acute kidney injury: Code(s): N17.9 - Acute kidney failure, unspecified Status: Acute Assessment and Plan: * multifactorial etiology: * cardiac arrest * infection (pneumonia/COVID-19) * possible pre-renal factors * Urine output 2255 yesterday. * Creatinine is a little higher. BUN again inched downwards to 98 * evaluation to date: * urine electrolytes prerenal * renal ultrasound without acute pathology * No signs of uremia. * Volume status about the same. * Hopefully renal function will improve enough for him to avoid dialysis. (2) Chronic kidney disease, unspecified: Code(s): N18.9 - Chronic kidney disease, unspecified Status: Chronic Assessment and Plan: * unclear what baseline creatinine/GFR is * creatinine baseline probably around 1.3 * renal ultrasound with evidence of CKD (bilateral renal cortical thinning and atrophy) * suspect secondary to hypertension and diabetes (3) Hypernatremia: Code(s): E87.0 - Hyperosmolality and hypernatremia Status: Acute Assessment and Plan: * due to free water deficit * He is on 2 calories per cc of tube feeding flushes * increased free water flushes to compensate * Sodium level still mildly high at 1:48 a.m. * He is on tube feeding flushes at 200 cc q.4 hours. * urine osmolality pending. * will increase tube feeding flushes a little (4) Acute respiratory failure with hypoxia: Code(s): J96.01 - Acute respiratory failure with hypoxia Status: Acute Assessment and Plan: * been on mechanical ventilation since 05/18/21 * due to COVID-19 pneumonia * complciated by bilateral tension pneumothorax s/p bilateral chest tube placement * prone position currently. * FiO2 up to 75%. (5) Pneumonia due to COVID-19 virus: Code(s): U07.1 - COVID-19; J12.82 - Pneumonia due to coronavirus disease 2019 Status: Acute Assessment and Plan: * COVID positive 05/10/21 * s/p course of decadron * s/p course of baricitinib * refused remdesivir on admission/presentation * On respiratory isolation (6) Cardiac arrest: Code(s): I46.9 - Cardiac arrest, cause unspecified Status: Acute Assessment and Plan: * PEA arrest * secondary to bilateral tension pneumothorax * Bilateral chest tubes in place. No air leak (7) Hypertension: Code(s): I10 - Essential (primary) hypertension Status: Chronic Assessment and Plan: * Systolic running 120s/60s * follow trend of hemodyanmics (8) Type 2 diabetes mellitus: Code(s): E11.9 - Type 2 diabetes mellitus without complications Status: Acute Assessment and Plan: * on accuchecks and ssi Will continue to follow. Subjective Date/time seen: 06/04/21 10:29 Interval history: patient is sedated and on the ventilator. He is on pa ralytics still He is supine and oxygenation is doing okay. Bilateral chest tubes in place Cannot give a history or review of systems due to medical condition Exam Narrative: General: WD/WN male intubated/sedated/paralyzed on mechanical ventilation Heart: normal S1 and S2; no rub Lungs: coarse breath sounds bilaterally Abdomen: soft, nontender, nondistended, positive bowel sounds Extremities: 1+ edema bilaterally Skin: No rash or subcu nodules Objective Data Vital Signs Vital Signs: Vital Signs - 24 hr
--- NOTE | 2021-06-04 10:29 | PM.PNNEP ---
Progress Note: A&P Assessment and Plan (1) Acute kidney injury: Code(s): N17.9 - Acute kidney failure, unspecified Status: Acute Assessment and Plan: multifactorial etiology: cardiac arrest infection (pneumonia/COVID-19) possible pre-renal factors Urine output 2255 yesterday. Creatinine is a little higher. BUN again inched downwards to 98 evaluation to date: urine electrolytes prerenal renal ultrasound without acute pathology No signs of uremia. Volume status about the same. Hopefully renal function will improve enough for him to avoid dialysis. (2) Chronic kidney disease, unspecified: Code(s): N18.9 - Chronic kidney disease, unspecified Status: Chronic Assessment and Plan: unclear what baseline creatinine/GFR is creatinine baseline probably around 1.3 renal ultrasound with evidence of CKD (bilateral renal cortical thinning and atrophy) suspect secondary to hypertension and diabetes (3) Hypernatremia: Code(s): E87.0 - Hyperosmolality and hypernatremia Status: Acute Assessment and Plan: due to free water deficit He is on 2 calories per cc of tube feeding flushes increased free water flushes to compensate Sodium level still mildly high at 1:48 a.m. He is on tube feeding flushes at 200 cc q.4 hours. urine osmolality pending. will increase tube feeding flushes a little (4) Acute respiratory failure with hypoxia: Code(s): J96.01 - Acute respiratory failure with hypoxia Status: Acute Assessment and Plan: been on mechanical ventilation since 05/18/21 due to COVID-19 pneumonia complciated by bilateral tension pneumothorax s/p bilateral chest tube placement prone position currently. FiO2 up to 75%. (5) Pneumonia due to COVID-19 virus: Code(s): U07.1 - COVID-19; J12.82 - Pneumonia due to coronavirus disease 2019 Status: Acute Assessment and Plan: COVID positive 05/10/21 s/p course of decadron s/p course of baricitinib refused remdesivir on admission/presentation On respiratory isolation (6) Cardiac arrest: Code(s): I46.9 - Cardiac arrest, cause unspecified Status: Acute Assessment and Plan: PEA arrest secondary to bilateral tension pneumothorax Bilateral chest tubes in place. No air leak (7) Hypertension: Code(s): I10 - Essential (primary) hypertension Status: Chronic Assessment and Plan: Systolic running 120s/60s follow trend of hemodyanmics (8) Type 2 diabetes mellitus: Code(s): E11.9 - Type 2 diabetes mellitus without complications Status: Acute Assessment and Plan: on accuchecks and ssi Will continue to follow. Subjective Date/time seen: 06/04/21 10:29 Interval history: patient is sedated and on the ventilator. He is on paralytics still He is supine and oxygenation is doing okay. Bilateral chest tubes in place Cannot give a history or review of systems due to medical condition Exam Narrative: General: WD/WN male intubated/sedated/paralyzed on mechanical ventilation Heart: normal S1 and S2; no rub Lungs: coarse breath sounds bilaterally Abdomen: soft, nontender, nondistended, positive bowel sounds Extremities: 1+ edema bilaterally Skin: No rash or subcu nodules Objective Data Vital Signs Vital Signs: Vital Signs - 24 hr 06/03/21 11:29 06/03/21 12:00 06/03/21 13:50 Temperature 36.4 C Pulse Rate 94 93 95 Respiratory Rate 30 H 30 H Blood Pressure 118/58 L 131/59 L Pulse Oximetry 93 94 06/03/21 14:00 06/03/21 14:36 06/03/21 16:00 Temperature 36.4 C 36.4 C Pulse Rate 94 93 92 Respiratory Rate 30 H 30 H Blood Pressure 131/59 L 119/57 L Pulse Oximetry 93 92 93 06/03/21 16:14 06/03/21 16:56 06/03/21 17:47 Temperature Pulse Rate 93 94 92 Respiratory Rate 30 H 30 H Blood Pressure 118/58 L Pulse Oximetry 92 06/03/21 17:49 06/03/21 17:5
[2021-06-04] MEDS: MIDAZOLAM 100MG/NS 100ML(*CRX) 100 MG/100 ML BAG 6 MG IV CONT (11:16)
[2021-06-04] MEDS: PANTOPRAZOLE SODIUM IV 40 MG VIAL IV PUSH (11:19)
[2021-06-04] MEDS: CHOLECALCIFEROL 1,000 UNITS TABLET 1000 UNITS PO (11:19)
[2021-06-04] MEDS: ZINC SULFATE 220 MG CAPSULE PO (11:19)
[2021-06-04] MEDS: ASCORBIC ACID 500 MG TABLET PO (11:19)
[2021-06-04] MEDS: INSULIN GLARGINE (*BKC) 100 UNITS/ML 35 UNITS SUB-Q (11:19)
[2021-06-04] MEDS: BUMETANIDE INJ 1 MG/4 ML VIAL IV PUSH (11:19)
[2021-06-04] MEDS: polyethylene glycoL 3350 17 GM POWD.PACK PO (11:19)
[2021-06-04] MEDS: EPOPROSTENOL SODIUM 0.5 MG VIAL INHALATION (11:30)
[2021-06-04 12:22] LABS: Glucose Point of Care 190 mg/dl (65-105)
[2021-06-04] MEDS: ACETAMINOPHEN ELIXIR 325 MG/10.15 ML UDC 650 MG PO (13:16)
--- NOTE | 2021-06-04 13:20 | PCNFU ---
Nutrition Follow-Up Complete: Inadequate Oral Intake as related to mechanical vent and evidenced by NPO goal: Meet estimated nutritional needs Patient is progressing towards goal. We will continue current goal. Pt current nutrition is Nepro at 55 ml/hr over 22 hours. Last recorded weight is 133.8 kg, up from 123.6 kg on admit. Bowel Motility:+BM reported 06/04, FMS as has been discontinued. Labs Reviewed:BUN 98, Cr 2.5,Glu 163,Na 147, Alb 2.5,Hct 31.2,Hgb 9.1 Meds Noted:Tylenol, Reglan,Versed, Fentanyl, Nimbex, Lovenox, Vit C, Vit D,Zinc, Lantus, Miralax, Protonix. Skin: WNL Additional Notes: Patient remains on mechanical vent and tube feedings of Nepro at 55 ml/hr over 22 hours. Tube feeding is providing 2178 kcals/98 gms protein/888 ml water. Meeting 96% of caloric needs and 76% of protein needs. Free water flush 200 ml q 4 hours, Na 147 today. Agree with diet orders. Will monitor in ICU rounds and reassessing every Monday and Monday.
[2021-06-04] MEDS: EPOPROSTENOL SODIUM 0.5 MG VIAL 1 MG INHALATION ×2 (13:30→20:04)
[2021-06-04] MEDS: CISATRACURIUM BESYLATE 200 MG in DEXTROSE 5% 80 ML 7.39 ML IV CONT (13:30)
--- NOTE | 2021-06-04 13:34 | WPDINTPN ---
Progress Note: A&P Assessment and Plan (1) Acute respiratory failure with hypoxia: Code(s): J96.01 - Acute respiratory failure with hypoxia Status: Acute Assessment and Plan: Acute respiratory failure likely related to COVID pneumonia -Intubated on 05/18/2021 - 05/25 bilateral tension pneumothorax spontaneous which also led to a brief PEA arrest. S/P chest tube placement bilateral -patient was hypoxic, dropped his O2 sats in the low to mid 80s. Peep was increased 16, FiO2 was increased to 100%. Patient was restarted on Flolan and Nimbex. Despite which O2 sats remain low, patient was placed in supine position on 06/04 -restarted on Flolan 06/04 -chest x-ray and ABGs reviewed - low tidal volume, strategy to avoid volutrauma -continue bronchodilators -sedated with fentanyl, Versed, restarted Nimbex on 06/04 (2) Shock: Code(s): R57.9 - Shock, unspecified Status: Acute Assessment and Plan: Currently in severe sepsis, tachycardia, bandemia, increase in ventilatory support -worsening creatinine -febrile -continue cefepime and vancomycin, added levofloxacin (06/04) Levophed is off -white count is normal but has 9% anemia -pancultured (3) Pneumonia due to COVID-19 virus: Code(s): U07.1 - COVID-19; J12.82 - Pneumonia due to coronavirus disease 2019 Status: Acute Assessment and Plan: Positive COVID on 05/10/2020, patient is unvaccinated -patient has completed a 10 day course of dexamethasone which was started on 05/16/2021 - he has completed a 14 day course of baricitinib -patient refused remdesivir on presentation -continue vitamin-D, vitamin-C and zinc -continue droplet, airborne and contact isolation/precautions (4) Spontaneous tension pneumothorax: Code(s): J93.0 - Spontaneous tension pneumothorax Status: Acute Assessment and Plan: 05/25 Patient was spontaneous tension pneumothorax bilateral when he was placed in supine position Bilateral chest tubes were emergently placed Chest x-ray reviewed No air leak on chest tubes at this time (5) Cardiac arrest: Code(s): I46.9 - Cardiac arrest, cause unspecified Status: Acute Assessment and Plan: PEA arrest Secondary to bilateral tension pneumothorax ROSC after 1 dose of epinephrine and 1 round of CPR (6) Type 2 diabetes mellitus: Code(s): E11.9 - Type 2 diabetes mellitus without complications Status: Acute Assessment and Plan: Patient with history of type 2 diabetes and now on steroids - currently hyperglycemic Currently off of insulin infusion. - Continue Lantus - continue sliding scale insulin -hemoglobin A1c is 8.4 this admission (7) Acute renal failure superimposed on stage 4 chronic kidney disease: Code(s): N17.9 - Acute kidney failure, unspecified; N18.4 - Chronic kidney disease, stage 4 (severe) Status: Acute Assessment and Plan: Patient presented with acute on chronic kidney disease with a creatinine of 3.30 on admission, patient was given IV fluid bolus in the ER for elevated lactic acid - off Bumex and D5 water at this time -his BUN is elevated but stable and creatinine is acceptable and stable. urine output is adequate for now - Off midodrine -patient does have a ureteral stent which was placed at [facility] 5 weeks ago due to some sort of scar tissue -05/17/2021: Renal ultrasound shows bilateral renal cortical thinning, atrophy, no hydronephrosis a hepatic steatosis -continues to have urine output, creatinine gradually increasing, BUN stable -nephrology following, may require dialysis urine output decreases or renal function worsens (8) Prostate cancer: Code(s): C61 - Malignant neoplasm of prostate Status: Chronic Assessment and Plan: Patient has a history of prostate cancer -Status post radiation, on Erleada. It was held as patient was started on immunosuppressant baricitinib and is also on dexamethaso
--- NOTE | 2021-06-04 14:05 | PM.IMPN ---
Progress Note: A&P Assessment and Plan (1) Acute respiratory failure with hypoxia: Code(s): J96.01 - Acute respiratory failure with hypoxia Status: Acute Assessment and Plan: Acute respiratory failure likely related to COVID pneumonia requiring intubation on 05/18/21. MV Day - 05/25 bilateral tension PTX spontaneous which also led to a brief PEA arrest. S/P chest tube placement bilateral. - He remains on mechanical ventilator, sedated and paralyzed. - Inhaled Flolan that was started on 05/25 and stopped 06/02; Resumed 06/04 - Continue prone positioning per internal recruiter - continue current sedation with fentanyl, Versed; Nimbex infusion for vent synchrony (2) Pneumonia due to COVID-19 virus: Code(s): U07.1 - COVID-19; J12.82 - Pneumonia due to coronavirus disease 2018 Status: Acute Assessment and Plan: Patient was found to be COVID positive on 05/10/21; he is unvaccinated. Patient completed a 10 day course of dexamethasone and baricitinib. Patient refused remdesivir on presentation. Continue vitamin-D, vitamin-C and zinc. Continue droplet, airborne and contact isolation/precautions. Continue supportive care. (3) Sepsis: Code(s): A41.9 - Sepsis, unspecified organism Status: Acute Assessment and Plan: Present on admission with elevated WBC, lactic acidosis. BCx 05/16 negative. Sputum growing yeast 05/22. UCx 05/29 negative. BCx 05/28 growing Staph Epi and Staph cohnii (1of2) suspected to be a contaminate. Procalcitonin was 3.4. CRP 15.7 and now having fevers. CXR showing extensive lung zone changes. Patient remains on vancomycin and cefepime. Levaquin added. BCx ordered. (4) Spontaneous tension pneumothorax: Code(s): J93.0 - Spontaneous tension pneumothorax Status: Acute Assessment and Plan: Patient developed spontaneous bilateral tension pneumothorax on 05/25/21 when he was placed in supine position. He had PEA requiring code blue. Bilateral chest tubes were emergently placed. Chest tube management per GenSur. Appreciate General surgery input. (5) Cardiac arrest: Code(s): I46.9 - Cardiac arrest, cause unspecified Status: Acute Assessment and Plan: PEA arrest on 05/25/21 related to bilateral tension pneumothorax. ROSC after 1 dose of epinephrine and 1 round of CPR. (6) Acute renal failure superimposed on stage 4 chronic kidney disease: Code(s): N17.9 - Acute kidney failure, unspecified; N18.4 - Chronic kidney disease, stage 4 (severe) Status: Acute Assessment and Plan: Patient does have a ureteral stent which was placed at [facility] 5 weeks ago due to some sort of scar tissue. Patient presented with acute on chronic kidney disease with a creatinine of 3.3 on admission. Patient was treated with IV fluids. Renal ultrasound 05/17 shows bilateral renal cortical thinning with atrophy but no hydronephrosis. Cr normalized but then worsened to the 2 range. Creatinine remaining elevated but stable in the mid-2 range. BUN still elevated but less than 100 now. He continues to have good UOP. Continue to follow. Nephrology following. (7) Shock: Code(s): R57.9 - Shock, unspecified Status: Acute Assessment and Plan: Blood pressure dropped after tension pneumothorax. 1 L saline bolus given and started on levophed. Levophed drip has been weaned off. BP stable. Follow (8) Electrolyte abnormality: Code(s): E87.8 - Other disorders of electrolyte and fluid balance, not elsewhere classified Status: Acute Assessment and Plan: Hypernatremia - Na better at 148 today and stable. Continue current free water flushes. Continue to follow. Hyperkalemia - Resolved. Follow (9) Type 2 diabetes mellitus: Code(s): E11.9 - Type 2 diabetes mellitus without complications Status: Acute Assessment and Plan: A1c 8.4. The patient's blood glucose was reviewed on 06/04 Glucose remains well controlle
[2021-06-04 16:13] LABS: Glucose Point of Care 180 mg/dl (65-105)
[2021-06-04 17:22] LABS: Glucose Point of Care 191 mg/dl (65-105)
[2021-06-04] MEDS: FENTANYL 2,500MCG/NS250ML(*CRX 2,500 MCG/250 ML BAG 12.5 MCG IV CONT (17:38)
[2021-06-04] MEDS: NOREPINEPHRINE 8 MG/D5W 250 ML 8 MG/250 ML BAG 9.38 MG IV CONT (19:54)
[2021-06-04] MEDS: CISATRACURIUM BESYLATE 200 MG in DEXTROSE 5% 80 ML 14.78 ML IV CONT (20:33)
[2021-06-04] MEDS: INSULIN ASPART (*BKC) 100 UNITS/ML SUB-Q (23:18)
[2021-06-04 23:38] LABS: Glucose Point of Care 237 mg/dl (65-105)
[2021-06-05] VITALS (38 sets, daily range): BP systolic 101–134; BP diastolic 49–60; PULSE 81–97; RESP 30; TEMP 36.1–37.1; O2SAT 91–100
[2021-06-05] MEDS: EPOPROSTENOL SODIUM 0.5 MG VIAL 1 MG INHALATION ×4 (02:28→19:52)
[2021-06-05] MEDS: CISATRACURIUM BESYLATE 200 MG in DEXTROSE 5% 80 ML 18.48 ML IV CONT ×4 (02:48→20:39)
[2021-06-05] MEDS: MIDAZOLAM 100MG/NS 100ML(*CRX) 100 MG/100 ML BAG 6 MG IV CONT ×2 (04:39→20:47)
[2021-06-05 05:18] LABS: Alveolar/Arterial O2 Gradient 380.9 mmHg; Base Excess ABG 3.4 mEq/l (+/-2.0); Carboxyhemoglobin 0.3 % THb (0-2.0); Fractional Inspired Oxygen 75 %; HCO3 ABG 29.5 mEq/l (22.0-26.0); Methemoglobin ABG 0.4 %THb (0-1.5); Oxygen Content ABG 13.2 %vol (16.0-22.0); Oxygen Saturation ABG 97.2 % (95.0-100.0); Oxyhemoglobin 95.7 % THb (90.0-100.0); PCO2 ABG 52.4 mmHg (35.0-45.0); PO2 ABG 98.2 mmHg (80.0-100.0); PO2 FiO2 Ratio Arterial Blood 1.31 %; Reduced Hemoglobin 3.6 %THb (0-5.0); Total Hemoglobin 9.7 g/dL (12.0-18.0); pH ABG 7.368 (7.350-7.450)
[2021-06-05 05:19] LABS: Device VENTILATOR; Modified Allen's Test Pass; Site Drawn RIGHT RADIAL
[2021-06-05 05:21] LABS: Arterial Blood Gas Ventilator rate 30 /MIN
[2021-06-05 05:22] LABS: Arterial Blood Gas PEEP 14 cmH2O; Arterial Blood Gas Tidal Volume 480 ml; Arterial Blood Gas Vent Mode CMV
[2021-06-05 05:22] LABS: Hematocrit 28.6 % (42.0-52.0); Hemoglobin 8.3 g/dL (14.0-18.0); Mean Corpuscular Hemoglobin 30.2 pg (26-34); Mean Platelet Volume 10.4 fl (7.4-10.4); Platelet Count Result 194 k/mm3 (150-375); Red Blood Count 2.75 M/mm3 (4.6-6.20); Red Cell Distribution Width 16.3 % (11.5-14.5)
[2021-06-05 05:36] LABS: Alanine Aminotransferase 44 U/L (4-50); Albumin Level 2.3 g/dL (3.5-5.1); Alkaline Phosphatase 286 U/L (38-126); Anion Gap 4 mmol/L (8-16); Aspartate Amino Transferase 43 U/L (17-59); Bilirubin,Total 0.3 mg/dL (0.2-1.3); Blood Urea Nitrogen 102 mg/dL (9-20); Calcium 8.8 mg/dL (8.4-10.2); Carbon Dioxide 29 mmol/L (22-30); Chloride 110 mmol/L (98-107); Estimated CRCL calculation 29 ml/min; Estimated Glomerular Filt Rate 19; Glucose 216 mg/dL (65-110); Magnesium 2.9 mg/dL (1.6-2.3); Phosphorus 5.9 mg/dL (2.5-4.5); Potassium 4.5 mmol/L (3.4-5.0); Sodium 143 mmol/L (137-145)
[2021-06-05] MEDS: INSULIN ASPART (*BKC) 100 UNITS/ML SUB-Q (05:50)
[2021-06-05] MEDS: CENTRAL LINE FLUSH 10 ML IV PUSH ×3 (05:51→20:50)
[2021-06-05] MEDS: METOCLOPRAMIDE HCL INJ 10 MG/2 ML VIAL IV PUSH ×3 (05:51→17:01)
[2021-06-05 07:56] LABS: Band Neutrophils Percent 13 % (0-6); Lymphocytes Absolute Manual 0.32 K/mm3 (1.1-4.5); Monocytes Absolute Manual 0.16 K/mm3 (0.1-0.90); Monocytes Percent Manual 1 % (3-9); Neutrophils Absolute Manual 15.52 K/mm3 (1.3-6.7); Neutrophils Percent Manual 84 % (46-73); Platelet Estimate Adequate (Adequate); Total Cells Counted 100
[2021-06-05 08:38] LABS: Add Urine Microscopic? YES; Amorphous Sediment Urine Few; Appearance Urine Cloudy (Clear); Bacteria Urine Trace /hpf; Bilirubin Urine Negative (Negative); Blood Urine 1+ (Negative); Color Urine Yellow (Yellow); Glucose Urine UA Negative (Negative); Ketones Urine Negative (Negative); Leukocyte Esterase Ur Negative LEU/UL (NEGATIVE); Mucus Urine Rare /lpf; Nitrate Urine Negative (Negative); Protein Urine Negative (Negative); Specific Grav Ur 1.016 (1.001-1.035); Squamous Epithelial Cell Urine Few /hpf (Few); Urobilinogen Urine Negative mg/dL (<2.0)
[2021-06-05] MEDS: CEFEPIME 0.5 GM in DEXTROSE 5% IN WATER 50 ML IVPB (09:38)
[2021-06-05] MEDS: INSULIN GLARGINE (*BKC) 100 UNITS/ML 35 UNITS SUB-Q (09:39)
[2021-06-05] MEDS: MINERAL OIL/WHITE PETROLATUM OINTMENT 1 APPLIC EACH EYE ×2 (09:40→20:50)
[2021-06-05] MEDS: ENOXAPARIN 40 MG/0.4 ML SYRINGE SUB-Q (09:40)
[2021-06-05] MEDS: CHOLECALCIFEROL 1,000 UNITS TABLET 1000 UNITS PO (09:40)
[2021-06-05] MEDS: PANTOPRAZOLE SODIUM IV 40 MG VIAL IV PUSH (09:40)
[2021-06-05] MEDS: ZINC SULFATE 220 MG CAPSULE PO (09:40)
[2021-06-05] MEDS: ASCORBIC ACID 500 MG TABLET PO (09:41)
[2021-06-05] MEDS: polyethylene glycoL 3350 17 GM POWD.PACK PO (09:41)
--- NOTE | 2021-06-05 10:22 | P.PNNP_ITS ---
Progress Note: A&P Assessment and Plan (1) Acute kidney injury: Code(s): N17.9 - Acute kidney failure, unspecified Status: Acute Assessment and Plan: * multifactorial etiology: * cardiac arrest * infection (pneumonia/COVID-19) * possible pre-renal factors * Urine output 1115 yesterday. * Creatinine is higher. up to 3.2. * evaluation to date: * urine electrolytes prerenal * renal ultrasound without acute pathology * No signs of uremia. * Volume status about the same. * BUN and creatinine are a bit higher. This is most likely from his lower blood pressure. He is on pressors now in the blood pressure is better. Hopefully renal function will improve some over the next day or 2 (2) Chronic kidney disease, unspecified: Code(s): N18.9 - Chronic kidney disease, unspecified Status: Chronic Assessment and Plan: * unclear what baseline creatinine/GFR is * creatinine baseline probably around 1.3 * renal ultrasound with evidence of CKD (bilateral renal cortical thinning and atrophy) * suspect secondary to hypertension and diabetes (3) Hypernatremia: Code(s): E87.0 - Hyperosmolality and hypernatremia Status: Acute Assessment and Plan: * due to free water deficit * He is on 2 calories per cc of tube feeding flushes * increased free water flushes to compensate * Sodium level is better * He is on tube feeding flushes at 200 cc q.4 hours. * urine osmolality still pending. * I was going to increase tube feeding flushes but now the sodium is down to 143 so I think we will leave where it is. (4) Acute respiratory failure with hypoxia: Code(s): J96.01 - Acute respiratory failure with hypoxia Status: Acute Assessment and Plan: * been on mechanical ventilation since 05/18/21 * due to COVID-19 pneumonia * complciated by bilateral tension pneumothorax s/p bilateral chest tube placement * prone position currently. * FiO2 now 75%. (5) Pneumonia due to COVID-19 virus: Code(s): U07.1 - COVID-19; J12.82 - Pneumonia due to coronavirus disease 2019 Status: Acute Assessment and Plan: * COVID positive 05/10/21 * s/p course of decadron * s/p course of baricitinib * refused remdesivir on admission/presentation * On respiratory isolation (6) Cardiac arrest: Code(s): I46.9 - Cardiac arrest, cause unspecified Status: Acute Assessment and Plan: * PEA arrest * secondary to bilateral tension pneumothorax * Bilateral chest tubes in place. No air leak (7) Hypertension: Code(s): I10 - Essential (primary) hypertension Status: Chronic Assessment and Plan: * Systolic running 120s/60s * follow trend of hemodyanmics (8) Type 2 diabetes mellitus: Code(s): E11.9 - Type 2 diabetes mellitus without complications Status: Acute Assessment and Plan: * on accuchecks and ssi Subjective Date/time seen: 06/05/21 10:22 Interval history: patient is sedated and on the ventilator. He is on paralytics still. He is now on pressors. Norepinephrine at 5. Blood pressure was in the 90s now is between 100 and 125. Oxygenation worsened and he is in the prone position again. Bilateral chest tubes in place Cannot give a history or review of systems due to medical condition Exam Narrative: General: WD/WN male intubated/sedated/paralyzed on mechanical ventilation Heart: normal S1 and S2; no rub or gallop Lungs: c
--- NOTE | 2021-06-05 10:22 | PM.PNNEP ---
Progress Note: A&P Assessment and Plan (1) Acute kidney injury: Code(s): N17.9 - Acute kidney failure, unspecified Status: Acute Assessment and Plan: multifactorial etiology: cardiac arrest infection (pneumonia/COVID-19) possible pre-renal factors Urine output 1115 yesterday. Creatinine is higher. up to 3.2. evaluation to date: urine electrolytes prerenal renal ultrasound without acute pathology No signs of uremia. Volume status about the same. BUN and creatinine are a bit higher. This is most likely from his lower blood pressure. He is on pressors now in the blood pressure is better. Hopefully renal function will improve some over the next day or 2 (2) Chronic kidney disease, unspecified: Code(s): N18.9 - Chronic kidney disease, unspecified Status: Chronic Assessment and Plan: unclear what baseline creatinine/GFR is creatinine baseline probably around 1.3 renal ultrasound with evidence of CKD (bilateral renal cortical thinning and atrophy) suspect secondary to hypertension and diabetes (3) Hypernatremia: Code(s): E87.0 - Hyperosmolality and hypernatremia Status: Acute Assessment and Plan: due to free water deficit He is on 2 calories per cc of tube feeding flushes increased free water flushes to compensate Sodium level is better He is on tube feeding flushes at 200 cc q.4 hours. urine osmolality still pending. I was going to increase tube feeding flushes but now the sodium is down to 143 so I think we will leave where it is. (4) Acute respiratory failure with hypoxia: Code(s): J96.01 - Acute respiratory failure with hypoxia Status: Acute Assessment and Plan: been on mechanical ventilation since 05/18/21 due to COVID-19 pneumonia complciated by bilateral tension pneumothorax s/p bilateral chest tube placement prone position currently. FiO2 now 75%. (5) Pneumonia due to COVID-19 virus: Code(s): U07.1 - COVID-19; J12.82 - Pneumonia due to coronavirus disease 2019 Status: Acute Assessment and Plan: COVID positive 05/10/21 s/p course of decadron s/p course of baricitinib refused remdesivir on admission/presentation On respiratory isolation (6) Cardiac arrest: Code(s): I46.9 - Cardiac arrest, cause unspecified Status: Acute Assessment and Plan: PEA arrest secondary to bilateral tension pneumothorax Bilateral chest tubes in place. No air leak (7) Hypertension: Code(s): I10 - Essential (primary) hypertension Status: Chronic Assessment and Plan: Systolic running 120s/60s follow trend of hemodyanmics (8) Type 2 diabetes mellitus: Code(s): E11.9 - Type 2 diabetes mellitus without complications Status: Acute Assessment and Plan: on accuchecks and ssi Subjective Date/time seen: 06/05/21 10:22 Interval history: patient is sedated and on the ventilator. He is on paralytics still. He is now on pressors. Norepinephrine at 5. Blood pressure was in the 90s now is between 100 and 125. Oxygenation worsened and he is in the prone position again. Bilateral chest tubes in place Cannot give a history or review of systems due to medical condition Exam Narrative: General: WD/WN male intubated/sedated/paralyzed on mechanical ventilation Heart: normal S1 and S2; no rub or gallop Lungs: coarse breath sounds bilaterally Abdomen: soft, nontender, nondistended, positive bowel sounds Extremities: 1+ edema bilaterally Skin: No rash Objective Data Vital Signs Vital Signs: Vital Signs - 24 hr 06/04/21 11:16 06/04/21 11:19 06/04/21 11:40 Temperature Pulse Rate 115 H 115 H 114 H Respiratory Rate 33 H 35 H Blood Pressure 145/54 H Pulse Oximetry 85 L 06/04/21 11:43 06/04/21 12:00 06/04/21 13:16 Temperature 38.8 C H 38.9 C H Pulse Rate 114 H 113 H Respiratory Rate 31 H 33 H
--- NOTE | 2021-06-05 11:18 | PM.IMPN ---
Progress Note: A&P Assessment and Plan (1) Acute respiratory failure with hypoxia: Code(s): J96.01 - Acute respiratory failure with hypoxia Status: Acute Assessment and Plan: Acute respiratory failure likely related to COVID pneumonia requiring intubation on 05/18/21. MV Day - 05/25 bilateral tension PTX spontaneous which also led to a brief PEA arrest. S/P chest tube placement bilateral. - He remains on mechanical ventilator, sedated and paralyzed. - Inhaled Flolan that was started on 05/25 and stopped 06/02 - Continue prone positioning per fish and wildlife biologist - continue current sedation with fentanyl, Versed; Nimbex infusion for vent synchrony -no change (2) Pneumonia due to COVID-19 virus: Code(s): U07.1 - COVID-19; J12.82 - Pneumonia due to coronavirus disease 2019 Status: Acute Assessment and Plan: Patient was found to be COVID positive on 05/10/21; he is unvaccinated. Patient completed a 10 day course of dexamethasone and baricitinib. Patient refused remdesivir on presentation. Continue vitamin-D, vitamin-C and zinc. Continue droplet, airborne and contact isolation/precautions. Continue supportive care. (3) Sepsis: Code(s): A41.9 - Sepsis, unspecified organism Status: Acute Assessment and Plan: Present on admission with elevated WBC, lactic acidosis but has been afebrile. BCx 05/16 negative. Sputum growing yeast 05/22. UCx 05/29 negative. BCx 05/28 growing Staph Epi and Staph cohnii (1of2) suspected to be a contaminate. Procalcitonin was 3.4. No fevers. Rocha replaced. Treated with vancomycin and cefepime. (4) Spontaneous tension pneumothorax: Code(s): J93.0 - Spontaneous tension pneumothorax Status: Acute Assessment and Plan: Patient developed spontaneous bilateral tension pneumothorax on 05/25/21 when he was placed in supine position. He had PEA requiring code blue. Bilateral chest tubes were emergently placed. Chest tube management per [facility]Sur. Appreciate General surgery input. (5) Cardiac arrest: Code(s): I46.9 - Cardiac arrest, cause unspecified Status: Acute Assessment and Plan: PEA arrest on 05/25/21 related to bilateral tension pneumothorax. ROSC after 1 dose of epinephrine and 1 round of CPR. (6) Acute renal failure superimposed on stage 4 chronic kidney disease: Code(s): N17.9 - Acute kidney failure, unspecified; N18.4 - Chronic kidney disease, stage 4 (severe) Status: Acute Assessment and Plan: Patient does have a ureteral stent which was placed at [facility] 5 weeks ago due to some sort of scar tissue. Patient presented with acute on chronic kidney disease with a creatinine of 3.3 on admission. Patient was treated with IV fluids. Renal ultrasound 05/17 shows bilateral renal cortical thinning with atrophy but no hydronephrosis. Cr normalized but then worsened to the 2 range. Creatinine remaining elevated but stable in the mid-2 range. BUN still elevated but less than 100 now. He continues to have excellent UOP. Continue to follow. Nephrology following. (7) Shock: Code(s): R57.9 - Shock, unspecified Status: Acute Assessment and Plan: Blood pressure dropped after tension pneumothorax. 1 L saline bolus given and started on levophed. Levophed drip has been weaned off. BP stable. Follow (8) Electrolyte abnormality: Code(s): E87.8 - Other disorders of electrolyte and fluid balance, not elsewhere classified Status: Acute Assessment and Plan: Improved Hyperkalemia - Resolved. Follow (9) Type 2 diabetes mellitus: Code(s): E11.9 - Type 2 diabetes mellitus without complications Status: Acute Assessment and Plan: A1c 8.4. The patient's blood glucose was reviewed on 06/03 Continue insulin sliding scale (10) Lice infested hair: Code(s): B85.2 - Pediculosis, unspecified Status: Acute Assessment and Plan: Patient noted to have li
[2021-06-05 11:57] LABS: Glucose Point of Care 193 mg/dl (65-105)
--- NOTE | 2021-06-05 13:22 | WPDINTPN ---
Progress Note: A&P Assessment and Plan (1) Acute respiratory failure with hypoxia: Code(s): J96.01 - Acute respiratory failure with hypoxia Status: Acute Assessment and Plan: Acute respiratory failure likely related to COVID pneumonia -Intubated on 05/18/2021 - 05/25 bilateral tension pneumothorax spontaneous which also led to a brief PEA arrest. S/P chest tube placement bilateral 06/04: patient was hypoxic, dropped his O2 sats in the low to mid 80s. Peep was increased 16, FiO2 was increased to 100%. Patient was restarted on Flolan and Nimbex. Despite which O2 sats remain low, patient was placed in supine position on 06/04 with improvement in oxygen saturations and peep was decreased to 16. -restarted on Flolan 06/04 Currently on CMV mode of ventilation, peep of 14 and 75% FiO2, wean FiO2 tolerate O2 sats greater than 90% -chest x-ray this morning shows diffuse lung disease with slight interval worsening -ABGs reviewed - low tidal volume, strategy to avoid volutrauma -continue bronchodilators -sedated with fentanyl, Versed, restarted Nimbex on 06/04 (2) Shock: Code(s): R57.9 - Shock, unspecified Status: Acute Assessment and Plan: Currently in severe sepsis, tachycardia, bandemia, increase in ventilatory support -likely due to bacterial pneumonia and or bacteremia -worsening creatinine -fever curve is improving -continue cefepime and vancomycin, added levofloxacin (06/04) -06/04: restarted on Levophed -white blood cell count trending up, with 13% bands -06/04: Blood cultures: Preliminary report, negative x2 -06/04: Urine and sputum cultures pending (3) Pneumonia due to COVID-19 virus: Code(s): U07.1 - COVID-19; J12.82 - Pneumonia due to coronavirus disease 2019 Status: Acute Assessment and Plan: Positive COVID on 05/10/2020, patient is unvaccinated -patient has completed a 10 day course of dexamethasone which was started on 05/16/2021 - he has completed a 14 day course of baricitinib -patient refused remdesivir on presentation -continue vitamin-D, vitamin-C and zinc -continue droplet, airborne and contact isolation/precautions (4) Spontaneous tension pneumothorax: Code(s): J93.0 - Spontaneous tension pneumothorax Status: Acute Assessment and Plan: 05/25 Patient was spontaneous tension pneumothorax bilateral when he was placed in supine position Bilateral chest tubes were emergently placed Chest x-ray reviewed No air leak on chest tubes at this time (5) Cardiac arrest: Code(s): I46.9 - Cardiac arrest, cause unspecified Status: Acute Assessment and Plan: PEA arrest Secondary to bilateral tension pneumothorax ROSC after 1 dose of epinephrine and 1 round of CPR (6) Type 2 diabetes mellitus: Code(s): E11.9 - Type 2 diabetes mellitus without complications Status: Acute Assessment and Plan: Patient with history of type 2 diabetes and now on steroids - currently hyperglycemic Currently off of insulin infusion. - Continue Lantus - continue sliding scale insulin -hemoglobin A1c is 8.4 this admission (7) Acute renal failure superimposed on stage 4 chronic kidney disease: Code(s): N17.9 - Acute kidney failure, unspecified; N18.4 - Chronic kidney disease, stage 4 (severe) Status: Acute Assessment and Plan: Patient presented with acute on chronic kidney disease with a creatinine of 3.30 on admission, patient was given IV fluid bolus in the ER for elevated lactic acid -patient does have a ureteral stent which was placed at [facility] 5 weeks ago due to some sort of scar tissue -05/17/2021: Renal ultrasound shows bilateral renal cortical thinning, atrophy, no hydronephrosis a hepatic steatosis -BUN creatinine rising -urine output decline which could be related to hypotension secondary to shock requiring vasopressors -nephrology following, may require dialysis if urine output decreases
[2021-06-05] MEDS: FENTANYL 2,500MCG/NS250ML(*CRX 2,500 MCG/250 ML BAG 12.5 MCG IV CONT (14:11)
[2021-06-05] MEDS: ALTEPLASE 2 MG VIAL (CATHFLO) IV PUSH (14:18)
[2021-06-05 17:33] LABS: Glucose Point of Care 171 mg/dl (65-105)
[2021-06-05 23:11] LABS: Vancomycin Trough 19.2 ug/mL (10.0-20.0)
[2021-06-06] VITALS (46 sets, daily range): BP systolic 101–128; BP diastolic 40–64; PULSE 87–109; RESP 27–30; TEMP 36.4–37.6; O2SAT 90–98
[2021-06-06] MEDS: NOREPINEPHRINE 8 MG/D5W 250 ML 8 MG/250 ML BAG 7.5 MG IV CONT (00:06)
[2021-06-06] MEDS: METOCLOPRAMIDE HCL INJ 10 MG/2 ML VIAL IV PUSH ×4 (00:07→17:51)
[2021-06-06 00:31] LABS: Glucose Point of Care 179 mg/dl (65-105)
[2021-06-06] MEDS: CISATRACURIUM BESYLATE 200 MG in DEXTROSE 5% 80 ML 18.48 ML IV CONT ×3 (01:51→12:25)
[2021-06-06] MEDS: EPOPROSTENOL SODIUM 0.5 MG VIAL 1 MG INHALATION ×3 (01:57→14:09)
[2021-06-06 03:17] LABS: Osmolality, Urine 484 mOsm/kg (50-1200)
[2021-06-06 05:25] LABS: Basophils Percent Auto 0.3 % (0.2-1.2); Eosinophils Absolute Auto 0.3 K/mm3 (0-0.3); Eosinophils Percent Auto 2.1 % (0-4.4); Hematocrit 28.2 % (42.0-52.0); Hemoglobin 8.4 g/dL (14.0-18.0); Lymphocytes Percent Auto 9.9 % (18.3-44.2); Mean Corpuscular HGB Conc 29.8 g/dl (32-36); Mean Corpuscular Hemoglobin 29.9 pg (26-34); Mean Corpuscular Volume 100.4 fl (80-100); Mean Platelet Volume 10.4 fl (7.4-10.4); Monocytes Absolute Auto 0.5 K/mm3 (0.1-0.6); Monocytes Percent Auto 3.8 % (2.6-8.5); Neutrophils Absolute Auto 10.7 K/mm3 (1.3-6.7); Neutrophils Percent Auto 80.9 % (45.5-73.1); Platelet Count Result 196 k/mm3 (150-375); Red Blood Count 2.81 M/mm3 (4.6-6.20); Red Cell Distribution Width 15.9 % (11.5-14.5); White Blood Count 13.2 K/mm3 (4.5-10.0)
[2021-06-06 05:35] LABS: Alveolar/Arterial O2 Gradient 334.4 mmHg; Base Excess ABG 4.2 mEq/l (+/-2.0); Carboxyhemoglobin 0.2 % THb (0-2.0); Fractional Inspired Oxygen 65 %; HCO3 ABG 30.3 mEq/l (22.0-26.0); Oxygen Content ABG 13.9 %vol (16.0-22.0); Oxygen Saturation ABG 93.7 % (95.0-100.0); Oxyhemoglobin 92.5 % THb (90.0-100.0); PCO2 ABG 53.1 mmHg (35.0-45.0); PO2 ABG 71.3 mmHg (80.0-100.0); Reduced Hemoglobin 7.3 %THb (0-5.0); Total Hemoglobin 10.6 g/dL (12.0-18.0); pH ABG 7.374 (7.350-7.450)
[2021-06-06 05:37] LABS: Device VENTILATOR; Modified Allen's Test Unable to perform; Site Drawn RIGHT RADIAL
[2021-06-06 05:38] LABS: Arterial Blood Gas PEEP 14 cmH2O; Arterial Blood Gas Tidal Volume 480 ml; Arterial Blood Gas Vent Mode CMV; Arterial Blood Gas Ventilator rate 30 /MIN
[2021-06-06 05:42] LABS: Alanine Aminotransferase 40 U/L (4-50); Albumin Level 2.3 g/dL (3.5-5.1); Alkaline Phosphatase 260 U/L (38-126); Anion Gap 5 mmol/L (8-16); Aspartate Amino Transferase 33 U/L (17-59); Bilirubin,Total 0.3 mg/dL (0.2-1.3); Blood Urea Nitrogen 98 mg/dL (9-20); Calcium 8.9 mg/dL (8.4-10.2); Carbon Dioxide 32 mmol/L (22-30); Chloride 107 mmol/L (98-107); Estimated CRCL calculation 35 ml/min; Estimated Glomerular Filt Rate 24; Glucose 203 mg/dL (65-110); Phosphorus 5.4 mg/dL (2.5-4.5); Potassium 4.2 mmol/L (3.4-5.0); Sodium 144 mmol/L (137-145)
[2021-06-06] MEDS: CENTRAL LINE FLUSH 10 ML IV PUSH ×3 (06:29→20:29)
[2021-06-06 06:38] LABS: Glucose Point of Care 169 mg/dl (65-105)
[2021-06-06] MEDS: FENTANYL 2,500MCG/NS250ML(*CRX 2,500 MCG/250 ML BAG 12.5 MCG IV CONT (09:23)
[2021-06-06] MEDS: CEFEPIME 0.5 GM in DEXTROSE 5% IN WATER 50 ML IVPB (09:25)
[2021-06-06] MEDS: INSULIN GLARGINE (*BKC) 100 UNITS/ML 35 UNITS SUB-Q (09:25)
[2021-06-06] MEDS: ZINC SULFATE 220 MG CAPSULE PO (09:30)
[2021-06-06] MEDS: ENOXAPARIN 40 MG/0.4 ML SYRINGE SUB-Q (09:30)
[2021-06-06] MEDS: polyethylene glycoL 3350 17 GM POWD.PACK PO (09:30)
[2021-06-06] MEDS: PANTOPRAZOLE SODIUM IV 40 MG VIAL IV PUSH (09:30)
[2021-06-06] MEDS: MINERAL OIL/WHITE PETROLATUM OINTMENT 1 APPLIC EACH EYE ×2 (09:31→20:29)
[2021-06-06] MEDS: CHOLECALCIFEROL 1,000 UNITS TABLET 1000 UNITS PO (09:31)
[2021-06-06] MEDS: ASCORBIC ACID 500 MG TABLET PO (09:31)
--- NOTE | 2021-06-06 09:54 | PM.IMPN ---
Progress Note: A&P Assessment and Plan (1) Acute respiratory failure with hypoxia: Code(s): J96.01 - Acute respiratory failure with hypoxia Status: Acute Assessment and Plan: Acute respiratory failure likely related to COVID pneumonia requiring intubation on 05/18/21. MV Day - 05/25 bilateral tension PTX spontaneous which also led to a brief PEA arrest. S/P chest tube placement bilateral. - He remains on mechanical ventilator, sedated and paralyzed. - Inhaled Flolan that was started on 05/25 and stopped 06/02 - Continue prone positioning per incubator operator - continue current sedation with fentanyl, Versed; Nimbex infusion for vent synchrony -vent management by Critical Care (2) Pneumonia due to COVID-19 virus: Code(s): U07.1 - COVID-19; J12.82 - Pneumonia due to coronavirus disease 2018 Status: Acute Assessment and Plan: Patient was found to be COVID positive on 05/10/21; he is unvaccinated. Patient completed a 10 day course of dexamethasone and baricitinib. Patient refused remdesivir on presentation. Continue vitamin-D, vitamin-C and zinc. Continue droplet, airborne and contact isolation/precautions. Continue supportive care. (3) Sepsis: Code(s): A41.9 - Sepsis, unspecified organism Status: Acute Assessment and Plan: Present on admission with elevated WBC, lactic acidosis but has been afebrile. BCx 05/16 negative. Sputum growing yeast 05/22. UCx 05/29 negative. BCx 05/28 growing Staph Epi and Staph cohnii (1of2) suspected to be a contaminate. Procalcitonin was 3.4. No fevers. Rocha replaced. Treated with vancomycin and cefepime. (4) Spontaneous tension pneumothorax: Code(s): J93.0 - Spontaneous tension pneumothorax Status: Acute Assessment and Plan: Patient developed spontaneous bilateral tension pneumothorax on 05/25/21 when he was placed in supine position. He had PEA requiring code blue. Bilateral chest tubes were emergently placed. Chest tube management per GenSurg. Appreciate General surgery input. (5) Cardiac arrest: Code(s): I46.9 - Cardiac arrest, cause unspecified Status: Acute Assessment and Plan: PEA arrest on 05/25/21 related to bilateral tension pneumothorax. ROSC after 1 dose of epinephrine and 1 round of CPR. (6) Acute renal failure superimposed on stage 4 chronic kidney disease: Code(s): N17.9 - Acute kidney failure, unspecified; N18.4 - Chronic kidney disease, stage 4 (severe) Status: Acute Assessment and Plan: Patient does have a ureteral stent which was placed at [facility] 5 weeks ago due to some sort of scar tissue. Patient presented with acute on chronic kidney disease with a creatinine of 3.3 on admission. Patient was treated with IV fluids. Renal ultrasound 05/17 shows bilateral renal cortical thinning with atrophy but no hydronephrosis. Cr normalized but then worsened to the 2 range. Creatinine remaining elevated but stable in the mid-2 range. BUN still elevated but less than 100 now. He continues to have excellent UOP. Continue to follow. Nephrology following. (7) Shock: Code(s): R57.9 - Shock, unspecified Status: Acute Assessment and Plan: Blood pressure dropped after tension pneumothorax. 1 L saline bolus given and started on levophed. Levophed drip has been weaned off. BP stable. Follow (8) Electrolyte abnormality: Code(s): E87.8 - Other disorders of electrolyte and fluid balance, not elsewhere classified Status: Acute Assessment and Plan: Improved Hyperkalemia - Resolved. Follow (9) Type 2 diabetes mellitus: Code(s): E11.9 - Type 2 diabetes mellitus without complications Status: Acute Assessment and Plan: A1c 8.4. The patient's blood glucose was reviewed on 06/03 Continue insulin sliding scale (10) Lice infested hair: Code(s): B85.2 - Pediculosis, unspecified Status: Acute Assessment and Plan: P
--- NOTE | 2021-06-06 10:32 | P.PNNP_ITS ---
Progress Note: A&P Assessment and Plan (1) Acute kidney injury: Code(s): N17.9 - Acute kidney failure, unspecified Status: Acute Assessment and Plan: * multifactorial etiology: * cardiac arrest * infection (pneumonia/COVID-19) * possible pre-renal factors * Urine output 1290 overnight alone. * Creatinine is Back down with the improvement in blood pressure. * evaluation to date: * urine electrolytes prerenal * renal ultrasound without acute pathology * No signs of uremia. * Volume status about the same. * BUN and creatinine are Better. (2) Chronic kidney disease, unspecified: Code(s): N18.9 - Chronic kidney disease, unspecified Status: Chronic Assessment and Plan: * unclear what baseline creatinine/GFR is * creatinine baseline probably around 1.3 * renal ultrasound with evidence of CKD (bilateral renal cortical thinning and atrophy) * suspect secondary to hypertension and diabetes (3) Hypernatremia: Code(s): E87.0 - Hyperosmolality and hypernatremia Status: Acute Assessment and Plan: * due to free water deficit * Sodium level to 144. * With improvement of urine output his sodium may go back up again. * Await urine osmolality. (4) Acute respiratory failure with hypoxia: Code(s): J96.01 - Acute respiratory failure with hypoxia Status: Acute Assessment and Plan: * been on mechanical ventilation since 05/18/21 * due to COVID-19 pneumonia * complciated by bilateral tension pneumothorax s/p bilateral chest tube placement * prone position currently. * FiO2 now 75%. (5) Pneumonia due to COVID-19 virus: Code(s): U07.1 - COVID-19; J12.82 - Pneumonia due to coronavirus disease 2018 Status: Acute Assessment and Plan: * COVID positive 05/10/21 * s/p course of decadron * s/p course of baricitinib * refused remdesivir on admission/presentation * On respiratory isolation (6) Cardiac arrest: Code(s): I46.9 - Cardiac arrest, cause unspecified Status: Acute Assessment and Plan: * PEA arrest * secondary to bilateral tension pneumothorax * Bilateral chest tubes in place. No air leak (7) Hypertension: Code(s): I10 - Essential (primary) hypertension Status: Chronic Assessment and Plan: * no need for antihypertensives of course. (8) Type 2 diabetes mellitus: Code(s): E11.9 - Type 2 diabetes mellitus without complications Status: Acute Assessment and Plan: * on accuchecks and ssi Subjective Date/time seen: 06/06/21 10:32 Interval history: patient is sedated and on the ventilator. He is on paralytics still. he is in the prone position. FiO2 is 65%. Still on low-dose pressors urine output is better Cannot give a history or review of systems due to medical condition Exam Narrative: General: WD/WN male intubated/sedated/paralyzed on mechanical ventilation Heart: normal S1 and S2; no rub or gallop Lungs: coarse breath sounds bilaterally Abdomen: soft, nontender, nondistended, positive bowel sounds Extremities: 1+ edema bilaterally Skin: No rash or subcu nodules Objective Data Vital Signs Vital Signs: Vital Signs - 24 hr 06/05/21 12:00 06/05/21 12:45 06/05/21 13:38 Temperature 36.4 C L Pulse Rate 88 88 88 Respiratory Rate 30 H 30 H 30 H B
--- NOTE | 2021-06-06 10:32 | PM.PNNEP ---
Progress Note: A&P Assessment and Plan (1) Acute kidney injury: Code(s): N17.9 - Acute kidney failure, unspecified Status: Acute Assessment and Plan: multifactorial etiology: cardiac arrest infection (pneumonia/COVID-19) possible pre-renal factors Urine output 1290 overnight alone. Creatinine is Back down with the improvement in blood pressure. evaluation to date: urine electrolytes prerenal renal ultrasound without acute pathology No signs of uremia. Volume status about the same. BUN and creatinine are Better. (2) Chronic kidney disease, unspecified: Code(s): N18.9 - Chronic kidney disease, unspecified Status: Chronic Assessment and Plan: unclear what baseline creatinine/GFR is creatinine baseline probably around 1.3 renal ultrasound with evidence of CKD (bilateral renal cortical thinning and atrophy) suspect secondary to hypertension and diabetes (3) Hypernatremia: Code(s): E87.0 - Hyperosmolality and hypernatremia Status: Acute Assessment and Plan: due to free water deficit Sodium level to 144. With improvement of urine output his sodium may go back up again. Await urine osmolality. (4) Acute respiratory failure with hypoxia: Code(s): J96.01 - Acute respiratory failure with hypoxia Status: Acute Assessment and Plan: been on mechanical ventilation since 05/18/21 due to COVID-19 pneumonia complciated by bilateral tension pneumothorax s/p bilateral chest tube placement prone position currently. FiO2 now 75%. (5) Pneumonia due to COVID-19 virus: Code(s): U07.1 - COVID-19; J12.82 - Pneumonia due to coronavirus disease 2018 Status: Acute Assessment and Plan: COVID positive 05/10/21 s/p course of decadron s/p course of baricitinib refused remdesivir on admission/presentation On respiratory isolation (6) Cardiac arrest: Code(s): I46.9 - Cardiac arrest, cause unspecified Status: Acute Assessment and Plan: PEA arrest secondary to bilateral tension pneumothorax Bilateral chest tubes in place. No air leak (7) Hypertension: Code(s): I10 - Essential (primary) hypertension Status: Chronic Assessment and Plan: no need for antihypertensives of course. (8) Type 2 diabetes mellitus: Code(s): E11.9 - Type 2 diabetes mellitus without complications Status: Acute Assessment and Plan: on accuchecks and ssi Subjective Date/time seen: 06/06/21 10:32 Interval history: patient is sedated and on the ventilator. He is on paralytics still. he is in the prone position. FiO2 is 65%. Still on low-dose pressors urine output is better Cannot give a history or review of systems due to medical condition Exam Narrative: General: WD/WN male intubated/sedated/paralyzed on mechanical ventilation Heart: normal S1 and S2; no rub or gallop Lungs: coarse breath sounds bilaterally Abdomen: soft, nontender, nondistended, positive bowel sounds Extremities: 1+ edema bilaterally Skin: No rash or subcu nodules Objective Data Vital Signs Vital Signs: Vital Signs - 24 hr 06/05/21 12:00 06/05/21 12:45 06/05/21 13:38 Temperature 36.4 C L Pulse Rate 88 88 88 Respiratory Rate 30 H 30 H 30 H Blood Pressure 124/55 L Pulse Oximetry 97 97 06/05/21 14:00 06/05/21 14:11 06/05/21 14:12 Temperature 36.3 C L Pulse Rate 89 88 88 Respiratory Rate 30 H 30 H 30 H Blood Pressure 106/53 L 106/53 L Pulse Oximetry 97 06/05/21 14:20 06/05/21 16:00 06/05/21 16:40 Temperature 36.2 C L Pulse Rate 89 89 89 Respiratory Rate 30 H 30 H 30 H Blood Pressure 134/56 L Pulse Oximetry 97 96 91 06/05/21 16:45 06/05/21 16:46 06/05/21 18:00 Temperature 36.1 C L Pulse Rate 89 89 89 Respiratory Rate 30 H 30 H 30 H Blood Pressure 134/56 L 111/52 L Pulse Oximetry 94 06/05/21 18:22
[2021-06-06 12:43] LABS: Glucose Point of Care 190 mg/dl (65-105)
--- NOTE | 2021-06-06 13:16 | WPDINTPN ---
Progress Note: A&P Assessment and Plan (1) Acute respiratory failure with hypoxia: Code(s): J96.01 - Acute respiratory failure with hypoxia Status: Acute Assessment and Plan: Acute respiratory failure likely related to COVID pneumonia -Intubated on 05/18/2021 - 05/25 bilateral tension pneumothorax spontaneous which also led to a brief PEA arrest. S/P chest tube placement bilateral 06/04: patient was hypoxic, dropped his O2 sats in the low to mid 80s. Peep was increased 16, FiO2 was increased to 100%. Patient was restarted on Flolan and Nimbex. Despite which O2 sats remain low, patient was placed in supine position on 06/04 with improvement in oxygen saturations and peep was decreased to 16. -restarted on Flolan 06/04 Currently on CMV mode of ventilation, peep of 14 and 65% FiO2, wean FiO2 tolerate O2 sats greater than 90% -chest x-ray and ABGs reviewed - low tidal volume, strategy to avoid volutrauma -continue bronchodilators -sedated with fentanyl, Versed, restarted Nimbex on 06/04 -will place patient in supine position as he has increased facial and periorbital swelling (2) Shock: Code(s): R57.9 - Shock, unspecified Status: Acute Assessment and Plan: Currently in severe sepsis, tachycardia, bandemia, increase in ventilatory support -likely due to bacterial pneumonia and or bacteremia -fever curve is improving -continue cefepime and vancomycin, added levofloxacin (06/04) -06/04: restarted on Levophed -white blood cell count trending down -06/04: Blood cultures: Preliminary report, negative x2 -06/04: Urine culture pending -06/04 sputum cultures growing yeast (3) Pneumonia due to COVID-19 virus: Code(s): U07.1 - COVID-19; J12.82 - Pneumonia due to coronavirus disease 2019 Status: Acute Assessment and Plan: Positive COVID on 05/10/2020, patient is unvaccinated -patient has completed a 10 day course of dexamethasone which was started on 05/16/2021 - he has completed a 14 day course of baricitinib -patient refused remdesivir on presentation -continue vitamin-D, vitamin-C and zinc -continue droplet, airborne and contact isolation/precautions (4) Spontaneous tension pneumothorax: Code(s): J93.0 - Spontaneous tension pneumothorax Status: Acute Assessment and Plan: 2 Patient was spontaneous tension pneumothorax bilateral when he was placed in supine position Bilateral chest tubes were emergently placed Chest x-ray reviewed No air leak on chest tubes at this time (5) Cardiac arrest: Code(s): I46.9 - Cardiac arrest, cause unspecified Status: Acute Assessment and Plan: PEA arrest Secondary to bilateral tension pneumothorax ROSC after 1 dose of epinephrine and 1 round of CPR (6) Type 2 diabetes mellitus: Code(s): E11.9 - Type 2 diabetes mellitus without complications Status: Acute Assessment and Plan: Patient with history of type 2 diabetes and now on steroids - currently hyperglycemic Currently off of insulin infusion. - Continue Lantus - continue sliding scale insulin -hemoglobin A1c is 8.4 this admission (7) Acute renal failure superimposed on stage 4 chronic kidney disease: Code(s): N17.9 - Acute kidney failure, unspecified; N18.4 - Chronic kidney disease, stage 4 (severe) Status: Acute Assessment and Plan: Patient presented with acute on chronic kidney disease with a creatinine of 3.30 on admission, patient was given IV fluid bolus in the ER for elevated lactic acid -patient does have a ureteral stent which was placed at [facility] 5 weeks ago due to some sort of scar tissue -05/17/2021: Renal ultrasound shows bilateral renal cortical thinning, atrophy, no hydronephrosis a hepatic steatosis -urine output improved, creatinine trending down, this is likely related to his blood pressures, will maintain mean arterial pressures close to 70 mmHg -urine output decline which coul
[2021-06-06] MEDS: MIDAZOLAM 100MG/NS 100ML(*CRX) 100 MG/100 ML BAG 6 MG IV CONT (14:26)
[2021-06-06] MEDS: ACETAMINOPHEN ELIXIR 325 MG/10.15 ML UDC 650 MG PO (16:33)
[2021-06-06] MEDS: CISATRACURIUM BESYLATE 200 MG in DEXTROSE 5% 80 ML 22.18 ML IV CONT (17:48)
[2021-06-06 18:11] LABS: Glucose Point of Care 182 mg/dl (65-105)
[2021-06-06] MEDS: CISATRACURIUM BESYLATE 200 MG in DEXTROSE 5% 80 ML 29.57 ML IV CONT (21:41)
[2021-06-06 23:45] LABS: Glucose Point of Care 141 mg/dl (65-105)
[2021-06-07] VITALS (54 sets, daily range): BP systolic 93–137; BP diastolic 43–67; PULSE 74–97; RESP 22–32; TEMP 36.7–37.4; O2SAT 90–97
--- NOTE | 2021-06-07 | ECHO_ITS ---
Patient Info Name: Jake Davis Age: 66 years : 1955 Gender: Male Ht: 72 in Wt: 306 lbs BSA: 2.72 m2 HR: 90 bpm BP: 110 / 51 mmHg Technical Quality: Poor Exam Date: 06/07/2021 11:21 AM Exam Location: [facility] Patient Status: Inpatient Admit Date: 05/16/2021 Staff Ordering Physician: Hansel Terrazas MD Rug [employer] Room Attendant: Brennon Ramirez RDCS, RT Attending Provider: Amber Hogan MD Exam Type: CA echo doppler color flow Study Info Indications I46.2 - Cardiac arrest due to underlying cardiac condition Complete two-dimensional, color flow and Doppler transthoracic echocardiogram is performed with contrast to opacify the left ventricle and to improve the deliniation of the left ventricle endocardial borders. Summary 1. Technically suboptimal study due to poor sonographic images. 2. Definity contrast administered improved wall motion interpretation. 3. Left ventricular chamber dimension is normal. 4. Left ventricular systolic function is hyperdynamic, estimated at >70%. 5. There is mildly increased left ventricular wall thickness. 6. The left ventricular diastolic function is grade I diastolic dysfunction. 7. E/e' 8 is minimally elevated. 8. Moderate pulmonary hypertension, estimated pulmonary arterial systolic pressure is 58 mmHg. Left Ventricle Technically suboptimal study due to poor sonographic images. Definity contrast administered improved wall motion interpretation. E/e' 8 is minimally elevated. Left ventricular chamber dimension is normal. Left ventricular systolic function is hyperdynamic, estimated at >70%. There is mildly increased left ventricular wall thickness. The left ventricular diastolic function is grade I diastolic dysfunction. Right Ventricle Right ventricular systolic function is normal and with normal TAPSE 2.4 cm. Right ventricular chamber dimension is not well visualized. Left Atria Left atrial chamber dimension is normal. Right Atria Right atrial chamber dimension is not well visualized. Aortic Valve The aortic valve is trileaflet. There is no aortic valve stenosis. There is no aortic valve regurgitation. Pulmonic Valve The pulmonic valve is not well visualized. Mitral Valve There is no mitral valve stenosis. There is no mitral valve regurgitation. Tricuspid Valve There is no tricuspid valve regurgitation. Moderate pulmonary hypertension, estimated pulmonary arterial systolic pressure is 58 mmHg. Pericardium/Pleural There is no pericardial effusion. Inferior Vena Cava Normal inferior vena cava with >50% collapse upon inspiration consistent with normal right atrial pressure, 5 mmHg. Aorta The aortic root size at the sinus of Valsalva is normal. Left Ventricular Outflow Tract Name Value Normal LVOT 2D LVOT Diameter 2.1 cm LVOT Doppler LVOT Peak Gradient 5 mmHg LVOT Mean Gradient 3 mmHg LVOT VTI 20 cm LVOT VTI/AV VTI Ratio 0.8 LVOT Stroke Volume 66 ml LVOT CO 6.1 l/
[2021-06-07] MEDS: CISATRACURIUM BESYLATE 200 MG in DEXTROSE 5% 80 ML 29.57 ML IV CONT (00:58)
[2021-06-07] MEDS: FENTANYL 2,500MCG/NS250ML(*CRX 2,500 MCG/250 ML BAG 15 MCG IV CONT ×2 (03:52→17:03)
[2021-06-07] MEDS: MIDAZOLAM 100MG/NS 100ML(*CRX) 100 MG/100 ML BAG 8 MG IV CONT ×2 (04:12→17:44)
[2021-06-07] MEDS: CISATRACURIUM BESYLATE 200 MG in DEXTROSE 5% 80 ML 36.96 ML IV CONT ×8 (04:14→23:11)
[2021-06-07 04:55] LABS: Basophils Absolute Auto 0.1 K/mm3 (0.0-0.1); Basophils Percent Auto 0.4 % (0.2-1.2); Eosinophils Absolute Auto 0.4 K/mm3 (0-0.3); Eosinophils Percent Auto 2.6 % (0-4.4); Immature Granulocyte Absolute 0.62 K/mm3 (0.00-0.031); Immature Granulocyte Percent A 4.4 % (0-0.5); Lymphocytes Absolute Auto 1.51 K/mm3 (0.9-3.2); Lymphocytes Percent Auto 10.8 % (18.3-44.2); Mean Corpuscular HGB Conc 29.6 g/dl (32-36); Mean Corpuscular Hemoglobin 29.7 pg (26-34); Mean Corpuscular Volume 100.4 fl (80-100); Mean Platelet Volume 10.3 fl (7.4-10.4); Monocytes Absolute Auto 0.7 K/mm3 (0.1-0.6); Monocytes Percent Auto 5.3 % (2.6-8.5); Neutrophils Absolute Auto 10.7 K/mm3 (1.3-6.7); Neutrophils Percent Auto 76.5 % (45.5-73.1); Nucleated Red Blood Cells Perc 0.2 % (0.0-0.2); Platelet Count Result 184 k/mm3 (150-375); Red Blood Count 2.69 M/mm3 (4.6-6.20); Red Cell Distribution Width 16.2 % (11.5-14.5)
[2021-06-07 05:04] LABS: Alanine Aminotransferase 41 U/L (4-50); Albumin Level 2.3 g/dL (3.5-5.1); Alkaline Phosphatase 275 U/L (38-126); Anion Gap 6 mmol/L (8-16); Aspartate Amino Transferase 41 U/L (17-59); Bilirubin,Total 0.2 mg/dL (0.2-1.3); Blood Urea Nitrogen 100 mg/dL (9-20); Calcium 8.5 mg/dL (8.4-10.2); Carbon Dioxide 30 mmol/L (22-30); Chloride 106 mmol/L (98-107); Estimated CRCL calculation 33 ml/min; Estimated Glomerular Filt Rate 22; Glucose 184 mg/dL (65-110); Phosphorus 6.3 mg/dL (2.5-4.5); Potassium 4.5 mmol/L (3.4-5.0); Sodium 142 mmol/L (137-145)
[2021-06-07 05:37] LABS: Alveolar/Arterial O2 Gradient 529.1 mmHg; Base Excess ABG 3.6 mEq/l (+/-2.0); Carboxyhemoglobin 0.5 % THb (0-2.0); Fractional Inspired Oxygen 95 %; HCO3 ABG 29.7 mEq/l (22.0-26.0); Methemoglobin ABG 0.5 %THb (0-1.5); Oxygen Content ABG 11.6 %vol (16.0-22.0); Oxygen Saturation ABG 96.8 % (95.0-100.0); Oxyhemoglobin 95.6 % THb (90.0-100.0); PCO2 ABG 53.5 mmHg (35.0-45.0); PO2 ABG 94.1 mmHg (80.0-100.0); PO2 FiO2 Ratio Arterial Blood 0.99 %; Reduced Hemoglobin 3.4 %THb (0-5.0); Total Hemoglobin 8.5 g/dL (12.0-18.0); pH ABG 7.362 (7.350-7.450)
[2021-06-07 05:38] LABS: Device VENTILATOR; Modified Allen's Test Pass; Site Drawn LEFT RADIAL
[2021-06-07 05:39] LABS: Arterial Blood Gas Ventilator rate 30 /MIN
[2021-06-07 05:40] LABS: Arterial Blood Gas PEEP 14 cmH2O; Arterial Blood Gas Tidal Volume 480 ml; Arterial Blood Gas Vent Mode CMV
[2021-06-07] MEDS: CENTRAL LINE FLUSH 10 ML IV PUSH ×2 (06:56→19:54)
--- NOTE | 2021-06-07 07:17 | P.PNNP_ITS ---
Progress Note: A&P Assessment and Plan (1) Acute kidney injury: Code(s): N17.9 - Acute kidney failure, unspecified Status: Acute Assessment and Plan: * multifactorial etiology: * cardiac arrest * infection (pneumonia/COVID-19) * possible pre-renal factors * Urine output 1850 yesterday. * Creatinine is Back down with the improvement in blood pressure. * evaluation to date: * urine electrolytes prerenal * renal ultrasound without acute pathology * No signs of uremia. * Volume status about the same. * BUN and creatinine are up and down but generally stable (2) Chronic kidney disease, unspecified: Code(s): N18.9 - Chronic kidney disease, unspecified Status: Chronic Assessment and Plan: * unclear what baseline creatinine/GFR is * creatinine baseline probably around 1.3 * renal ultrasound with evidence of CKD (bilateral renal cortical thinning and atrophy) * suspect secondary to hypertension and diabetes (3) Hypernatremia: Code(s): E87.0 - Hyperosmolality and hypernatremia Status: Acute Assessment and Plan: * due to free water deficit * Sodium level is down to 142. * Urine osmolality is 484. * This could be high urine output because of osmotic diuresis. 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 * complicated by bilateral tension pneumothorax s/p bilateral chest tube placement * He is supine right now. But also goes prone as tolerated. (5) Pneumonia due to COVID-19 virus: Code(s): U07.1 - COVID-19; J12.82 - Pneumonia due to coronavirus disease 2019 Status: Acute Assessment and Plan: * COVID positive 05/10/21 * s/p course of decadron * s/p course of baricitinib * refused remdesivir on admission/presentation * On respiratory isolation (6) Cardiac arrest: Code(s): I46.9 - Cardiac arrest, cause unspecified Status: Acute Assessment and Plan: * PEA arrest * secondary to bilateral tension pneumothorax * Bilateral chest tubes in place. No air leak (7) Hypertension: Code(s): I10 - Essential (primary) hypertension Status: Chronic Assessment and Plan: * no need for antihypertensives of course. (8) Type 2 diabetes mellitus: Code(s): E11.9 - Type 2 diabetes mellitus without complications Status: Acute Assessment and Plan: * on accuchecks and ssi Subjective Date/time seen: 06/07/21 07:17 Interval history: patient is sedated and on the ventilator. He is on paralytics still. He is in the supine position. He is on Flolan. His FiO2 is up to 95%, however this was because he was trying to over breathe the vent. Nimbex was increased and his FiO2 is better now. Still on low-dose pressors urine output is Doing okay, not as good as it had been. Cannot give a history or review of systems due to medical condition Exam Narrative: General: WD/WN male intubated/sedated/paralyzed on mechanical ventilation Heart: normal S1 and S2; no rub or gallop Lungs: coarse breath sounds Abdomen: soft, nontender, nondistended, positive bowel sounds Extremities: 1+ edema in both legs Skin: No rash or subcu nodules Objective Data Vital Signs Vital Sign
--- NOTE | 2021-06-07 07:17 | PM.PNNEP ---
Progress Note: A&P Assessment and Plan (1) Acute kidney injury: Code(s): N17.9 - Acute kidney failure, unspecified Status: Acute Assessment and Plan: multifactorial etiology: cardiac arrest infection (pneumonia/COVID-19) possible pre-renal factors Urine output 1850 yesterday. Creatinine is Back down with the improvement in blood pressure. evaluation to date: urine electrolytes prerenal renal ultrasound without acute pathology No signs of uremia. Volume status about the same. BUN and creatinine are up and down but generally stable (2) Chronic kidney disease, unspecified: Code(s): N18.9 - Chronic kidney disease, unspecified Status: Chronic Assessment and Plan: unclear what baseline creatinine/GFR is creatinine baseline probably around 1.3 renal ultrasound with evidence of CKD (bilateral renal cortical thinning and atrophy) suspect secondary to hypertension and diabetes (3) Hypernatremia: Code(s): E87.0 - Hyperosmolality and hypernatremia Status: Acute Assessment and Plan: due to free water deficit Sodium level is down to 142. Urine osmolality is 484. This could be high urine output because of osmotic diuresis. (4) Acute respiratory failure with hypoxia: Code(s): J96.01 - Acute respiratory failure with hypoxia Status: Acute Assessment and Plan: been on mechanical ventilation since 05/18/21 due to 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 complicated by bilateral tension pneumothorax s/p bilateral chest tube placement He is supine right now. But also goes prone as tolerated. (5) Pneumonia due to COVID-19 virus: Code(s): U07.1 - COVID-19; J12.82 - Pneumonia due to coronavirus disease 2018 Status: Acute Assessment and Plan: COVID positive 05/10/21 s/p course of decadron s/p course of baricitinib refused remdesivir on admission/presentation On respiratory isolation (6) Cardiac arrest: Code(s): I46.9 - Cardiac arrest, cause unspecified Status: Acute Assessment and Plan: PEA arrest secondary to bilateral tension pneumothorax Bilateral chest tubes in place. No air leak (7) Hypertension: Code(s): I10 - Essential (primary) hypertension Status: Chronic Assessment and Plan: no need for antihypertensives of course. (8) Type 2 diabetes mellitus: Code(s): E11.9 - Type 2 diabetes mellitus without complications Status: Acute Assessment and Plan: on accuchecks and ssi Subjective Date/time seen: 06/07/21 07:17 Interval history: patient is sedated and on the ventilator. He is on paralytics still. He is in the supine position. He is on Flolan. His FiO2 is up to 95%, however this was because he was trying to over breathe the vent. Nimbex was increased and his FiO2 is better now. Still on low-dose pressors urine output is Doing okay, not as good as it had been. Cannot give a history or review of systems due to medical condition Exam Narrative: General: WD/WN male intubated/sedated/paralyzed on mechanical ventilation Heart: normal S1 and S2; no rub or gallop Lungs: coarse breath sounds Abdomen: soft, nontender, nondistended, positive bowel sounds Extremities: 1+ edema in both legs Skin: No rash or subcu nodules Objective Data Vital Signs Vital Signs: Vital Signs - 24 hr 06/06/21 07:57 06/06/21 07:58 06/06/21 08:00 Temperature 36.4 C L Pulse Rate 94 93 92 Respiratory Rate 30 H 30 H Blood Pressure 107/64 Pulse Oximetry 97 95 90 06/06/21 09:23 06/06/21 10:00 06/06/21 10:07 Temperature Pulse Rate 95 93 97 Respiratory Rate 29 H 30 H 30 H Blood Pressure 114/56 L Pulse Oximetry 97 97 06/06/21 11:46 06/06/21 11:48 06/06/21 12:00 Temperature 36.6 C Pulse Rate 95 95 96 Respiratory Rate 30 H 30 H Blood Pressure 112/49 L Pulse Oximetry 93
[2021-06-07] MEDS: EPOPROSTENOL SODIUM 0.5 MG VIAL 1 MG INHALATION ×3 (08:13→20:04)
[2021-06-07] MEDS: NOREPINEPHRINE 8 MG/D5W 250 ML 8 MG/250 ML BAG 11.25 MG IV CONT (08:23)
[2021-06-07] MEDS: MINERAL OIL/WHITE PETROLATUM OINTMENT 1 APPLIC EACH EYE ×2 (08:26→19:54)
[2021-06-07] MEDS: ASCORBIC ACID 500 MG TABLET PO (08:27)
[2021-06-07] MEDS: ZINC SULFATE 220 MG CAPSULE PO (08:27)
[2021-06-07] MEDS: ENOXAPARIN 40 MG/0.4 ML SYRINGE SUB-Q (08:27)
[2021-06-07] MEDS: CHOLECALCIFEROL 1,000 UNITS TABLET 1000 UNITS PO (08:27)
[2021-06-07] MEDS: PANTOPRAZOLE SODIUM IV 40 MG VIAL IV PUSH (08:27)
--- NOTE | 2021-06-07 08:38 | PM.IMPN ---
Progress Note: A&P Assessment and Plan (1) Acute respiratory failure with hypoxia: Code(s): J96.01 - Acute respiratory failure with hypoxia Status: Acute Assessment and Plan: Acute respiratory failure likely related to COVID pneumonia requiring intubation on 05/18/21. MV Day - 05/25 bilateral tension PTX spontaneous which also led to a brief PEA arrest. S/P chest tube placement bilateral. - He remains on mechanical ventilator, sedated and paralyzed. - Inhaled Flolan that was started on 05/25 and stopped 06/02; Resumed 06/04 - Continue prone positioning per mortgage loan reviewer - continue current sedation with fentanyl, Versed; Nimbex infusion for vent synchrony (2) Pneumonia due to COVID-19 virus: Code(s): U07.1 - COVID-19; J12.82 - Pneumonia due to coronavirus disease 2018 Status: Acute Assessment and Plan: Patient was found to be COVID positive on 05/10/21; he is unvaccinated. Patient completed a 10 day course of dexamethasone and baricitinib. Patient refused remdesivir on presentation. Continue vitamin-D, vitamin-C and zinc. Continue droplet, airborne and contact isolation/precautions. Continue supportive care. (3) Sepsis: Code(s): A41.9 - Sepsis, unspecified organism Status: Acute Assessment and Plan: Present on admission with elevated WBC, lactic acidosis. BCx 05/16 negative. Sputum growing yeast 05/22. UCx 05/29 and 06/04 negative. BCx 05/28 growing Staph Epi and Staph cohnii (1of2) suspected to be a contaminate. Procalcitonin was 3.4 and CRP 15.7 associated with fevers; BCx 06/04 NGTD. Sputum Cx 06/04 growing yeast again. CXR reviewed and again showing extensive lung zone changes. Patient remains on vancomycin (D10), cefepime (D10) and Levaquin (D4). Last fever was on 06/04/21. Follow. (4) Spontaneous tension pneumothorax: Code(s): J93.0 - Spontaneous tension pneumothorax Status: Acute Assessment and Plan: Patient developed spontaneous bilateral tension pneumothorax on 05/25/21 when he was placed in supine position. He had PEA requiring code blue. Bilateral chest tubes were emergently placed. Chest tube management per GenSurg. Appreciate General surgery input. (5) Cardiac arrest: Code(s): I46.9 - Cardiac arrest, cause unspecified Status: Acute Assessment and Plan: PEA arrest on 05/25/21 related to bilateral tension pneumothorax. ROSC after 1 dose of epinephrine and 1 round of CPR. (6) Acute renal failure superimposed on stage 4 chronic kidney disease: Code(s): N17.9 - Acute kidney failure, unspecified; N18.4 - Chronic kidney disease, stage 4 (severe) Status: Acute Assessment and Plan: Patient does have a ureteral stent which was placed at [facility] 5 weeks ago due to some sort of scar tissue. Patient presented with acute on chronic kidney disease with a creatinine of 3.3 on admission. Patient was treated with IV fluids. Renal ultrasound 05/17 shows bilateral renal cortical thinning with atrophy but no hydronephrosis. Cr normalized but then worsened to the 2 range. Creatinine remaining elevated but stable in the mid-2 range. BUN still elevated to 100 now. UOP has dropped off. Continue to follow. Nephrology following. (7) Shock: Code(s): R57.9 - Shock, unspecified Status: Acute Assessment and Plan: Blood pressure dropped after tension pneumothorax on 05/25/21. 1 L saline bolus given and started on Levophed. Levophed drip was weaned off until 06/04. On 06/04, Levophed resumed and has required 3-6mcg/min since that time. BP stable. Wean Levophed as BP tolerates. Follow. Repeat EKG and check Trop to exclude cardiac cause. (8) Electrolyte abnormality: Code(s): E87.8 - Other disorders of electrolyte and fluid balance, not elsewhere classified Status: Acute Assessment and Plan: Hypernatremia - Na better at 142 today and stable. Continue current free water flushes. Continue to follow. Hyper
[2021-06-07] MEDS: INSULIN GLARGINE (*BKC) 100 UNITS/ML 35 UNITS SUB-Q (08:53)
[2021-06-07] MEDS: CEFEPIME 0.5 GM in DEXTROSE 5% IN WATER 50 ML IVPB (09:00)
--- NOTE | 2021-06-07 09:01 | ECG_ITS ---
Measurements Intervals [place] Rate: 80 P: -9 RI: 131 QRS: 24 QRSD: 97 T: 23 QT: 367 QTc: 426 Interpretive Statements SINUS RHYTHM DELAYED PRECORDIAL R/S TRANSITION BORDERLINE T WAVE ABNORMALITY- INFERIOR LEADS BORDERLINE ECG Electronically Signed On 06-07-2021 16:59:57 [employer]NAGER PLAN by Diony Skelton D.O.
[2021-06-07 09:09] LABS: Glucose Point of Care 184 mg/dl (65-105)
[2021-06-07] MEDS: PERFLUTREN LIPID MICROSPHERES 1.5 ML VIAL DILUTED TO 10 ML TOTAL VOLUME IV PUSH (11:30)
--- NOTE | 2021-06-07 11:30 | IVDEFINITY ---
Prior to administration of IV Definity the patient was educated on the risks and benefits of the imaging enhancing agent including potential adverse side effects. The patient verbalized understanding. Allergies were verified. No exclusion criteria were identified and at least one of the following inclusion criteria were met: 1) physician request, 2) patient technically difficult to image (per the [place] [employer] guidelines of two or more segments not discernable within the apical view), or 3) questionable left ventricular function. ?
--- NOTE | 2021-06-07 11:46 | WPDINTPN ---
Progress Note: A&P Assessment and Plan (1) Acute respiratory failure with hypoxia: Code(s): J96.01 - Acute respiratory failure with hypoxia Status: Acute Assessment and Plan: Acute respiratory failure likely related to COVID pneumonia -Intubated on 05/18/2021 - 05/25 bilateral tension pneumothorax spontaneous which also led to a brief PEA arrest. S/P chest tube placement bilateral 06/04: patient was hypoxic, dropped his O2 sats in the low to mid 80s. Peep was increased 16, FiO2 was increased to 100%. Patient was restarted on Flolan and Nimbex. Despite which O2 sats remain low, patient was placed in supine position on 06/04 with improvement in oxygen saturations and peep was decreased to 16. -restarted on Flolan 06/04 Currently on CMV mode of ventilation, peep of 14 and 75% FiO2, wean FiO2 tolerate O2 sats greater than 90% -chest x-ray and ABGs reviewed - low tidal volume, strategy to avoid volutrauma -continue bronchodilators -sedated with fentanyl, Versed, restarted Nimbex on 06/04 (2) Shock: Code(s): R57.9 - Shock, unspecified Status: Acute Assessment and Plan: Currently in severe sepsis, tachycardia, bandemia, increase in ventilatory support -likely due to bacterial pneumonia and or bacteremia -fever curve is improving -continue cefepime and vancomycin (05/29), levofloxacin (06/04) -06/04: restarted on Levophed, maintain MAP > 70 mmHg -white blood cell count trending down -06/04: Blood cultures: Preliminary report, negative x2 -06/04: Urine culture - no growth -06/04 sputum cultures growing yeast (3) Pneumonia due to COVID-19 virus: Code(s): U07.1 - COVID-19; J12.82 - Pneumonia due to coronavirus disease 2019 Status: Acute Assessment and Plan: Positive COVID on 05/10/2020, patient is unvaccinated -patient has completed a 10 day course of dexamethasone which was started on 05/16/2021 - he has completed a 14 day course of baricitinib -patient refused remdesivir on presentation -continue vitamin-D, vitamin-C and zinc -continue droplet, airborne and contact isolation/precautions (4) Spontaneous tension pneumothorax: Code(s): J93.0 - Spontaneous tension pneumothorax Status: Acute Assessment and Plan: 05/25 Patient was spontaneous tension pneumothorax bilateral when he was placed in supine position Bilateral chest tubes were emergently placed Chest x-ray reviewed No air leak on chest tubes at this time (5) Cardiac arrest: Code(s): I46.9 - Cardiac arrest, cause unspecified Status: Acute Assessment and Plan: PEA arrest Secondary to bilateral tension pneumothorax ROSC after 1 dose of epinephrine and 1 round of CPR Echo ordered given shock state (6) Type 2 diabetes mellitus: Code(s): E11.9 - Type 2 diabetes mellitus without complications Status: Acute Assessment and Plan: Patient with history of type 2 diabetes and now on steroids - currently hyperglycemic Currently off of insulin infusion. - Continue Lantus - continue sliding scale insulin -hemoglobin A1c is 8.4 this admission (7) Acute renal failure superimposed on stage 4 chronic kidney disease: Code(s): N17.9 - Acute kidney failure, unspecified; N18.4 - Chronic kidney disease, stage 4 (severe) Status: Acute Assessment and Plan: Patient presented with acute on chronic kidney disease with a creatinine of 3.30 on admission, patient was given IV fluid bolus in the ER for elevated lactic acid -patient does have a ureteral stent which was placed at [facility] weeks ago due to some sort of scar tissue -05/17/2021: Renal ultrasound shows bilateral renal cortical thinning, atrophy, no hydronephrosis a hepatic steatosis -urine output improved, creatinine trending down, this is likely related to his blood pressures, will maintain mean arterial pressures close to 70 mmHg - -nephrology following, may require dialysis if urine output
[2021-06-07 13:03] LABS: Glucose Point of Care 174 mg/dl (65-105)
--- NOTE | 2021-06-07 13:09 | PCFNICU ---
ICU Rounding Note: Pt current nutrition is Nepro at 55 ml/hr over 22 hours. Last recorded weight is 139 kg, up from 123.6 kg on admit. Bowel Motility:+BM reported 06/06 Labs Reviewed:PO4 6.3, Alb 2.3,Hgb 8.0,BUN 100, Glu 184, GFR 22, Cr 2.9, PO4 6.3 Meds Noted:Flolan, Nimbex, Fentanyl, Lantus, Versed, Atrovent, Zinc, Vit C, Vit D,Lovenox. Skin: WNL Additional Notes: Patient remains on mechanical vent and tube feeding of Nepro at 55 ml/hr over 22 hours. Current tube feeding is providing 2178 kcals/98 gms protein/888 ml water. Free water flush 150 ml q 4 hours. Agree with diet orders. Following daily in ICU rounds. Will monitor every Monday and Monday.
[2021-06-07 14:11] LABS: Troponin I < 0.012 ng/mL (0.000-0.034)
[2021-06-07] MEDS: METOCLOPRAMIDE HCL INJ 10 MG/2 ML VIAL IV PUSH ×2 (18:03→23:19)
[2021-06-07 18:38] LABS: Glucose Point of Care 200 mg/dl (65-105)
[2021-06-07 19:20] LABS: Hepatitis C RNA, Quant PCR <15 IU/mL
[2021-06-07] MEDS: NOREPINEPHRINE 8 MG/D5W 250 ML 8 MG/250 ML BAG 22.5 MG IV CONT (20:32)
[2021-06-07] MEDS: INSULIN ASPART (*BKC) 100 UNITS/ML SUB-Q (23:10)
[2021-06-07 23:24] LABS: Glucose Point of Care 207 mg/dl (65-105)
[2021-06-08] VITALS (53 sets, daily range): BP systolic 106–151; BP diastolic 54–68; PULSE 72–88; RESP 30; TEMP 36.2–36.8; O2SAT 91–100; BMI 41.8
[2021-06-08] MEDS: CISATRACURIUM BESYLATE 200 MG in DEXTROSE 5% 80 ML 36.96 ML IV CONT ×9 (01:51→23:05)
[2021-06-08] MEDS: EPOPROSTENOL SODIUM 0.5 MG VIAL 1 MG INHALATION ×4 (02:19→20:17)
[2021-06-08] MEDS: MIDAZOLAM 100MG/NS 100ML(*CRX) 100 MG/100 ML BAG 8 MG IV CONT ×2 (04:14→18:04)
[2021-06-08] MEDS: METOCLOPRAMIDE HCL INJ 10 MG/2 ML VIAL IV PUSH ×3 (04:16→18:06)
[2021-06-08] MEDS: CENTRAL LINE FLUSH 10 ML IV PUSH ×3 (04:16→20:00)
[2021-06-08 04:40] LABS: Basophils Absolute Auto 0.1 K/mm3 (0.0-0.1); Basophils Percent Auto 0.6 % (0.2-1.2); Eosinophils Absolute Auto 0.5 K/mm3 (0-0.3); Eosinophils Percent Auto 3.8 % (0-4.4); Hematocrit 26.6 % (42.0-52.0); Hemoglobin 7.9 g/dL (14.0-18.0); Immature Granulocyte Absolute 1.08 K/mm3 (0.00-0.031); Immature Granulocyte Percent A 8.9 % (0-0.5); Lymphocytes Absolute Auto 1.64 K/mm3 (0.9-3.2); Lymphocytes Percent Auto 13.6 % (18.3-44.2); Mean Corpuscular HGB Conc 29.7 g/dl (32-36); Mean Corpuscular Hemoglobin 29.7 pg (26-34); Monocytes Absolute Auto 0.6 K/mm3 (0.1-0.6); Monocytes Percent Auto 5.3 % (2.6-8.5); Neutrophils Absolute Auto 8.2 K/mm3 (1.3-6.7); Neutrophils Percent Auto 67.8 % (45.5-73.1); Nucleated Red Blood Cells Perc 0.2 % (0.0-0.2); Platelet Count Result 163 k/mm3 (150-375); Red Blood Count 2.66 M/mm3 (4.6-6.20); Red Cell Distribution Width 16.1 % (11.5-14.5); White Blood Count 12.1 K/mm3 (4.5-10.0)
[2021-06-08 05:12] LABS: Alanine Aminotransferase 37 U/L (4-50); Alkaline Phosphatase 244 U/L (38-126); Anion Gap 4 mmol/L (8-16); Aspartate Amino Transferase 32 U/L (17-59); Bilirubin,Total 0.3 mg/dL (0.2-1.3); Blood Urea Nitrogen 100 mg/dL (9-20); Calcium 8.5 mg/dL (8.4-10.2); Carbon Dioxide 32 mmol/L (22-30); Chloride 105 mmol/L (98-107); Estimated CRCL calculation 33 ml/min; Estimated Glomerular Filt Rate 22; Glucose 213 mg/dL (65-110); Magnesium 2.8 mg/dL (1.6-2.3); Phosphorus 5.4 mg/dL (2.5-4.5); Potassium 4.3 mmol/L (3.4-5.0); Sodium 141 mmol/L (137-145)
[2021-06-08 05:23] LABS: Base Excess ABG 4.7 mEq/l (+/-2.0); Carboxyhemoglobin 0.3 % THb (0-2.0); Fractional Inspired Oxygen 70 %; Methemoglobin ABG 0.5 %THb (0-1.5); Oxygen Content ABG 11.6 %vol (16.0-22.0); Oxygen Saturation ABG 94.2 % (95.0-100.0); Oxyhemoglobin 92.6 % THb (90.0-100.0); PCO2 ABG 56.2 mmHg (35.0-45.0); PO2 ABG 74.7 mmHg (80.0-100.0); PO2 FiO2 Ratio Arterial Blood 1.07 %; Reduced Hemoglobin 6.6 %THb (0-5.0); Total Hemoglobin 8.8 g/dL (12.0-18.0); pH ABG 7.359 (7.350-7.450)
[2021-06-08 05:24] LABS: Device VENTILATOR; Modified Allen's Test Pass; Site Drawn LEFT RADIAL
[2021-06-08 05:25] LABS: Arterial Blood Gas PEEP 14 cmH2O; Arterial Blood Gas Tidal Volume 480 ml; Arterial Blood Gas Vent Mode CMV; Arterial Blood Gas Ventilator rate 30 /MIN
[2021-06-08 06:18] LABS: Anisocytosis 1+ (NORMAL); Hypochromasia 1+ (NORMAL); Platelet Estimate Adequate (Adequate); Stomatocytes 1+ (NORMAL)
[2021-06-08] MEDS: INSULIN ASPART (*BKC) 100 UNITS/ML SUB-Q ×2 (06:47→18:09)
--- NOTE | 2021-06-08 08:02 | P.PNNP_ITS ---
Progress Note: A&P Assessment and Plan (1) Acute kidney injury: Code(s): N17.9 - Acute kidney failure, unspecified Status: Acute Assessment and Plan: * multifactorial etiology: * cardiac arrest * infection (pneumonia/COVID-19) * possible pre-renal factors * Urine output 1500 yesterday. * Creatinine is stable in the high 2s. * evaluation to date: * urine electrolytes prerenal * renal ultrasound without acute pathology * No signs of uremia. * Volume status about the same. (2) Chronic kidney disease, unspecified: Code(s): N18.9 - Chronic kidney disease, unspecified Status: Chronic Assessment and Plan: * unclear what baseline creatinine/GFR is * creatinine baseline probably around 1.3 * renal ultrasound with evidence of CKD (bilateral renal cortical thinning and atrophy) * suspect secondary to hypertension and diabetes (3) Hypernatremia: Code(s): E87.0 - Hyperosmolality and hypernatremia Status: Acute Assessment and Plan: * due to free water deficit * Sodium level is down to 142. * Urine osmolality is 484. * This could be high urine output because of osmotic diuresis. 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 * complicated by bilateral tension pneumothorax s/p bilateral chest tube placement * He is supine right now. (5) Pneumonia due to COVID-19 virus: Code(s): U07.1 - COVID-19; J12.82 - Pneumonia due to coronavirus disease 2018 Status: Acute Assessment and Plan: * COVID positive 05/10/21 * s/p course of decadron * s/p course of baricitinib * refused remdesivir on admission/presentation * On respiratory isolation (6) Cardiac arrest: Code(s): I46.9 - Cardiac arrest, cause unspecified Status: Acute Assessment and Plan: * PEA arrest * secondary to bilateral tension pneumothorax * Bilateral chest tubes in place. No air leak (7) Hypertension: Code(s): I10 - Essential (primary) hypertension Status: Chronic Assessment and Plan: * no need for antihypertensives at this time (8) Type 2 diabetes mellitus: Code(s): E11.9 - Type 2 diabetes mellitus without complications Status: Acute Assessment and Plan: * on accuchecks and ssi Subjective Date/time seen: 06/08/21 08:02 Interval history: patient is sedated and on the ventilator. He is on paralytics still. Nor epi doses up to 10. He is in the supine position. He is on Flolan. His FiO2 is 70% Cannot give a history or review of systems due to medical condition Exam Narrative: General: WD/WN male intubated/sedated/paralyzed on mechanical ventilation Heart: normal S1 and S2; no rub or gallop Lungs: coarse breath sounds Abdomen: soft, nontender, nondistended, positive bowel sounds Extremities: 1+ edema in both legs and presacral area Skin: No rash or subcu nodules Objective Data Vital Signs Vital Signs: Vital Signs - 24 hr 06/07/21 08:23 06/07/21 08:24 06/07/21 10:00 Temperature 37.1 C Pulse Rate 89 89 92 Respiratory Rate 30 H 22 H Blood Pressure 110/51 L Pulse Oximetry 93 93 92
--- NOTE | 2021-06-08 08:02 | PM.PNNEP ---
Progress Note: A&P Assessment and Plan (1) Acute kidney injury: Code(s): N17.9 - Acute kidney failure, unspecified Status: Acute Assessment and Plan: multifactorial etiology: cardiac arrest infection (pneumonia/COVID-19) possible pre-renal factors Urine output 1500 yesterday. Creatinine is stable in the high 2s. evaluation to date: urine electrolytes prerenal renal ultrasound without acute pathology No signs of uremia. Volume status about the same. (2) Chronic kidney disease, unspecified: Code(s): N18.9 - Chronic kidney disease, unspecified Status: Chronic Assessment and Plan: unclear what baseline creatinine/GFR is creatinine baseline probably around 1.3 renal ultrasound with evidence of CKD (bilateral renal cortical thinning and atrophy) suspect secondary to hypertension and diabetes (3) Hypernatremia: Code(s): E87.0 - Hyperosmolality and hypernatremia Status: Acute Assessment and Plan: due to free water deficit Sodium level is down to 142. Urine osmolality is 484. This could be high urine output because of osmotic diuresis. (4) Acute respiratory failure with hypoxia: Code(s): J96.01 - Acute respiratory failure with hypoxia Status: Acute Assessment and Plan: been on mechanical ventilation since 05/18/21 due to 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 complicated by bilateral tension pneumothorax s/p bilateral chest tube placement He is supine right now. (5) Pneumonia due to COVID-19 virus: Code(s): U07.1 - COVID-19; J12.82 - Pneumonia due to coronavirus disease 2019 Status: Acute Assessment and Plan: COVID positive 05/10/21 s/p course of decadron s/p course of baricitinib refused remdesivir on admission/presentation On respiratory isolation (6) Cardiac arrest: Code(s): I46.9 - Cardiac arrest, cause unspecified Status: Acute Assessment and Plan: PEA arrest secondary to bilateral tension pneumothorax Bilateral chest tubes in place. No air leak (7) Hypertension: Code(s): I10 - Essential (primary) hypertension Status: Chronic Assessment and Plan: no need for antihypertensives at this time (8) Type 2 diabetes mellitus: Code(s): E11.9 - Type 2 diabetes mellitus without complications Status: Acute Assessment and Plan: on accuchecks and ssi Subjective Date/time seen: 06/08/21 08:02 Interval history: patient is sedated and on the ventilator. He is on paralytics still. Nor epi doses up to 10. He is in the supine position. He is on Flolan. His FiO2 is 70% Cannot give a history or review of systems due to medical condition Exam Narrative: General: WD/WN male intubated/sedated/paralyzed on mechanical ventilation Heart: normal S1 and S2; no rub or gallop Lungs: coarse breath sounds Abdomen: soft, nontender, nondistended, positive bowel sounds Extremities: 1+ edema in both legs and presacral area Skin: No rash or subcu nodules Objective Data Vital Signs Vital Signs: Vital Signs - 24 hr 06/07/21 08:23 06/07/21 08:24 06/07/21 10:00 Temperature 37.1 C Pulse Rate 89 89 92 Respiratory Rate 30 H 22 H Blood Pressure 110/51 L Pulse Oximetry 93 93 92 06/07/21 10:32 06/07/21 11:46 06/07/21 12:00 Temperature 37.4 C Pulse Rate 89 86 92 Respiratory Rate 30 H 30 H Blood Pressure 93/47 L Pulse Oximetry 93 97 92 06/07/21 14:00 06/07/21 14:01 06/07/21 16:00 Temperature 37.4 C 37.4 C Pulse Rate 83 82 82 Respiratory Rate 30 H 30 H Blood Pressure 116/60 123/61 Pulse Oximetry 93 97 93 06/07/21 16:25 06/07/21 17:03 06/07/21 17:20 Temperature Pulse Rate 81 83 81 Respiratory Rate 30 H 30 H 30 H Blood Pressure Pulse Oximetry 94 93 06/07/21 17:21 06/07/21 18:00 06/07/21 18:30 Temperature 37.2 C Pulse Rate 81 79 Respiratory
[2021-06-08] MEDS: NOREPINEPHRINE 8 MG/D5W 250 ML 8 MG/250 ML BAG 18.75 MG IV CONT (08:39)
[2021-06-08] MEDS: INSULIN GLARGINE (*BKC) 100 UNITS/ML 35 UNITS SUB-Q (09:49)
[2021-06-08] MEDS: CEFEPIME 0.5 GM in DEXTROSE 5% IN WATER 50 ML IVPB (09:56)
[2021-06-08] MEDS: MINERAL OIL/WHITE PETROLATUM OINTMENT 1 APPLIC EACH EYE ×2 (09:56→20:00)
[2021-06-08] MEDS: ENOXAPARIN 40 MG/0.4 ML SYRINGE SUB-Q (09:57)
[2021-06-08] MEDS: PANTOPRAZOLE SODIUM IV 40 MG VIAL IV PUSH (09:57)
[2021-06-08] MEDS: polyethylene glycoL 3350 17 GM POWD.PACK PO (09:57)
[2021-06-08] MEDS: CHOLECALCIFEROL 1,000 UNITS TABLET 1000 UNITS PO (09:57)
[2021-06-08] MEDS: ASCORBIC ACID 500 MG TABLET PO (09:57)
[2021-06-08] MEDS: ZINC SULFATE 220 MG CAPSULE PO (09:57)
[2021-06-08 11:42] LABS: Vancomycin Trough 16.7 ug/mL (10.0-20.0)
--- NOTE | 2021-06-08 12:16 | WPDINTPN ---
Progress Note: A&P Assessment and Plan (1) Acute respiratory failure with hypoxia: Code(s): J96.01 - Acute respiratory failure with hypoxia Status: Acute Assessment and Plan: Acute respiratory failure likely related to COVID pneumonia -Intubated on 05/18/2021 - 05/25 bilateral tension pneumothorax spontaneous which also led to a brief PEA arrest. S/P chest tube placement bilateral - 06/04: patient was hypoxic, dropped his O2 sats in the low to mid 80s. Peep was increased 16, FiO2 was increased to 100%. Patient was restarted on Flolan and Nimbex. - Currently on CMV mode of ventilation, peep of 14 and 70% FiO2, wean FiO2 tolerate O2 sats greater than 90% - Chest x-ray and ABGs reviewed - low tidal volume, strategy to avoid volutrauma - Continue bronchodilators - Sedated with fentanyl, Versed, restarted Nimbex on 06/04 (2) Shock: Code(s): R57.9 - Shock, unspecified Status: Acute Assessment and Plan: Currently in severe sepsis, tachycardia, bandemia, increase in ventilatory support -likely due to bacterial pneumonia and or bacteremia -fever curve is improving -continue cefepime and vancomycin (05/29), levofloxacin (06/04) -06/04: restarted on Levophed, maintain MAP > 70 mmHg -white blood cell count trending down -06/04: Blood cultures: Preliminary report, negative x2 -06/04: Urine culture - no growth -06/04 sputum cultures growing yeast (3) Pneumonia due to COVID-19 virus: Code(s): U07.1 - COVID-19; J12.82 - Pneumonia due to coronavirus disease 2019 Status: Acute Assessment and Plan: Positive COVID on 05/10/2020, patient is unvaccinated -patient has completed a 10 day course of dexamethasone which was started on 05/16/2021 - he has completed a 14 day course of baricitinib -patient refused remdesivir on presentation -continue vitamin-D, vitamin-C and zinc -continue droplet, airborne and contact isolation/precautions (4) Spontaneous tension pneumothorax: Code(s): J93.0 - Spontaneous tension pneumothorax Status: Acute Assessment and Plan: 05/25 Patient was spontaneous tension pneumothorax bilateral when he was placed in supine position Bilateral chest tubes were emergently placed Chest x-ray reviewed No air leak on chest tubes at this time (5) Cardiac arrest: Code(s): I46.9 - Cardiac arrest, cause unspecified Status: Acute Assessment and Plan: PEA arrest Secondary to bilateral tension pneumothorax ROSC after 1 dose of epinephrine and 1 round of CPR Echo ordered given shock state (6) Type 2 diabetes mellitus: Code(s): E11.9 - Type 2 diabetes mellitus without complications Status: Acute Assessment and Plan: Patient with history of type 2 diabetes and now on steroids - currently hyperglycemic Currently off of insulin infusion. - Continue Lantus -will increase dose - continue sliding scale insulin -hemoglobin A1c is 8.4 this admission (7) Acute renal failure superimposed on stage 4 chronic kidney disease: Code(s): N17.9 - Acute kidney failure, unspecified; N18.4 - Chronic kidney disease, stage 4 (severe) Status: Acute Assessment and Plan: Patient presented with acute on chronic kidney disease with a creatinine of 3.30 on admission, patient was given IV fluid bolus in the ER for elevated lactic acid -patient does have a ureteral stent which was placed at [facility] 5 weeks ago due to some sort of scar tissue -05/17/2021: Renal ultrasound shows bilateral renal cortical thinning, atrophy, no hydronephrosis a hepatic steatosis -urine output continues to be adequate, creatinine has been elevated but stable -continue to maintain adequate mean arterial pressures close to 70 mmHg -nephrology following, may require dialysis if urine output decreases or renal function worsens (8) Prostate cancer: Code(s): C61 - Malignant neoplasm of prostate Status: Chronic Assessment and Pl
--- NOTE | 2021-06-08 12:19 | PCNFU ---
Nutrition Follow-Up Complete: Inadequate Oral Intake as related to mechanical vent and evidenced by NPO Goal: Meet estimated nutritional needs Patient continues with current goal. Pt current nutrition is Nepro at 55 ml/hr over 22 hours. Last recorded weight is 139.8 kg up from 123.6 kg on admit. Bowel Motility: +BM reported 06/07 Labs Reviewed:Glu 213, BUN 100, Cr 2.9,GFR 22, Alb 2.0 Meds Noted:Flolan, Nimbex, Fentanyl, Lantus, Versed, Atrovent, Zinc, Vit C, Vit D,Lovenox,. NovoLog, Reglan. Skin: WNL Additional Notes: Patient remains on mechanical vent and tube feedings of Nepro at 55 ml/hr over 22 hours. Spoke with nursing, patient is tolerating feedings. Current tube feeding is providing 2178 kcals/98 gms protein/888 ml water, meeting 100% of caloric needs and 88% of protein needs. Free water flush 150 ml q 4 hours. Agree with diet orders. Will monitor in ICU rounds and reassessing every Monday and Monday.
[2021-06-08] MEDS: FENTANYL 2,500MCG/NS250ML(*CRX 2,500 MCG/250 ML BAG 15 MCG IV CONT (12:40)
[2021-06-08 15:01] LABS: Glucose Point of Care 206 mg/dl (65-105)
[2021-06-08] MEDS: NOREPINEPHRINE 8 MG/D5W 250 ML 8 MG/250 ML BAG 16.88 MG IV CONT (16:41)
--- NOTE | 2021-06-08 17:02 | PM.IMPN ---
Progress Note: A&P Assessment and Plan (1) Acute respiratory failure with hypoxia: Code(s): J96.01 - Acute respiratory failure with hypoxia Status: Acute Assessment and Plan: Acute respiratory failure likely related to COVID pneumonia requiring intubation on 05/18/21. MV - 05/25 bilateral tension PTX spontaneous which also led to a brief PEA arrest. S/P chest tube placement bilateral. - He remains on mechanical ventilator, sedated and paralyzed. - Inhaled Flolan that was started on 05/25 and stopped 06/02; Resumed 06/04 - Continue prone positioning per store operations specialist - continue current sedation with fentanyl, Versed; Nimbex infusion for vent synchrony (2) Pneumonia due to COVID-19 virus: Code(s): U07.1 - COVID-19; J12.82 - Pneumonia due to coronavirus disease 2018 Status: Acute Assessment and Plan: Patient was found to be COVID positive on 05/10/21; he is unvaccinated. Patient completed a 10 day course of dexamethasone and baricitinib. Patient refused remdesivir on presentation. Continue vitamin-D, vitamin-C and zinc. Continue droplet, airborne and contact isolation/precautions. Continue supportive care. (3) Sepsis: Code(s): A41.9 - Sepsis, unspecified organism Status: Acute Assessment and Plan: Present on admission with elevated WBC, lactic acidosis. BCx 05/16 negative. Sputum growing yeast 05/22. UCx 05/29 and 06/04 negative. BCx 05/28 growing Staph Epi and Staph cohnii (1of2) suspected to be a contaminate. BCx 06/04 NGTD. Sputum Cx 06/04 growing yeast again. CXR reviewed and again showing extensive lung zone changes mostly lower lobes. Patient remains on vancomycin (D11), cefepime (D11) and Levaquin (D5). Last fever was on 06/04/21. Follow. (4) Spontaneous tension pneumothorax: Code(s): J93.0 - Spontaneous tension pneumothorax Status: Acute Assessment and Plan: Patient developed spontaneous bilateral tension pneumothorax on 05/25/21 when he was placed in supine position. He had PEA requiring code blue. Bilateral chest tubes were emergently placed. Chest tube management per GenSurg. Appreciate General surgery input. (5) Cardiac arrest: Code(s): I46.9 - Cardiac arrest, cause unspecified Status: Acute Assessment and Plan: PEA arrest on 05/25/21 related to bilateral tension pneumothorax. ROSC after 1 dose of epinephrine and 1 round of CPR. (6) Acute renal failure superimposed on stage 4 chronic kidney disease: Code(s): N17.9 - Acute kidney failure, unspecified; N18.4 - Chronic kidney disease, stage 4 (severe) Status: Acute Assessment and Plan: Patient does have a ureteral stent which was placed at [facility] 5 weeks ago due to some sort of scar tissue. Patient presented with acute on chronic kidney disease with a creatinine of 3.3 on admission. Patient was treated with IV fluids. Renal ultrasound 05/17 shows bilateral renal cortical thinning with atrophy but no hydronephrosis. Cr normalized but then worsened to the 2 range. Creatinine remaining elevated but stable in the mid-2 range. BUN still elevated to 100 now. UOP stable. Continue to follow. Nephrology following. (7) Shock: Code(s): R57.9 - Shock, unspecified Status: Acute Assessment and Plan: Blood pressure dropped after tension pneumothorax on 05/25/21. 1 L saline bolus given and started on Levophed but weaned off quickly. On 06/04, Levophed resumed and has required up to 12mcg/min now. BP stable. Trop negative, EKG showing no acute changes and Echo EF 70% with Grade I diastolic dysfunction. Wean Levophed as BP tolerates. Follow. (8) Electrolyte abnormality: Code(s): E87.8 - Other disorders of electrolyte and fluid balance, not elsewhere classified Status: Acute Assessment and Plan: Hypernatremia - Na remaining normal now. Continue current free water flushes. Continue to follow. Hyperkalemia - Resolved. Follow (9) Type 2 d
[2021-06-08 18:45] LABS: Glucose Point of Care 214 mg/dl (65-105)
[2021-06-08] MEDS: NOREPINEPHRINE 8 MG/D5W 250 ML 8 MG/250 ML BAG 13.13 MG IV CONT (21:16)
[2021-06-09] VITALS (64 sets, daily range): BP systolic 106–137; BP diastolic 52–67; PULSE 88–105; RESP 30; TEMP 36.3–37.4; O2SAT 90–95
[2021-06-09] MEDS: METOCLOPRAMIDE HCL INJ 10 MG/2 ML VIAL IV PUSH ×4 (00:44→18:15)
[2021-06-09] MEDS: INSULIN ASPART (*BKC) 100 UNITS/ML SUB-Q ×2 (00:45→18:22)
[2021-06-09 01:08] LABS: Glucose Point of Care 217 mg/dl (65-105)
[2021-06-09] MEDS: CISATRACURIUM BESYLATE 200 MG in DEXTROSE 5% 80 ML 36.96 ML IV CONT ×9 (01:39→22:45)
[2021-06-09] MEDS: EPOPROSTENOL SODIUM 0.5 MG VIAL 1 MG INHALATION ×4 (02:22→20:00)
--- NOTE | 2021-06-09 03:01 | PC.NURSE ---
[facility] transfer center called, one bed available in their medical ICU at [facility] in [place]. Patient Son, Lai notified of available bed as Jacqueline did not answer her phone. Lai unsure if they would want him transferred at this time. Lai (son) will talk with family in the morning and call back with answer. They were made aware of the possible risks with transferring due to patient's critical status and high oxygen demands. [facility] Transfer center notified of family to make decision in the morning. Patient still on transfer list with [facility]. Dr. George notified of updates.
[2021-06-09] MEDS: FENTANYL 2,500MCG/NS250ML(*CRX 2,500 MCG/250 ML BAG 15 MCG IV CONT ×2 (03:13→19:49)
[2021-06-09] MEDS: CENTRAL LINE FLUSH 10 ML IV PUSH ×3 (04:31→19:58)
[2021-06-09 04:51] LABS: Alveolar/Arterial O2 Gradient 370.1 mmHg; Base Excess ABG 4.5 mEq/l (+/-2.0); Carboxyhemoglobin 0.5 % THb (0-2.0); Device VENTILATOR; Fractional Inspired Oxygen 70 %; HCO3 ABG 31.2 mEq/l (22.0-26.0); Methemoglobin ABG 0.4 %THb (0-1.5); Modified Allen's Test Unable to perform; Oxygen Content ABG 11.3 %vol (16.0-22.0); Oxygen Saturation ABG 91.4 % (95.0-100.0); Oxyhemoglobin 90.3 % THb (90.0-100.0); PCO2 ABG 58.8 mmHg (35.0-45.0); PO2 ABG 65.8 mmHg (80.0-100.0); PO2 FiO2 Ratio Arterial Blood 0.94 %; Reduced Hemoglobin 8.8 %THb (0-5.0); Site Drawn RIGHT RADIAL; Total Hemoglobin 8.8 g/dL (12.0-18.0); pH ABG 7.342 (7.350-7.450)
[2021-06-09 04:52] LABS: Arterial Blood Gas PEEP 14 cmH2O; Arterial Blood Gas Tidal Volume 480 ml; Arterial Blood Gas Vent Mode CMV; Arterial Blood Gas Ventilator rate 30 /MIN
[2021-06-09 04:57] LABS: Hematocrit 26.7 % (42.0-52.0); Hemoglobin 8.2 g/dL (14.0-18.0); Mean Corpuscular HGB Conc 30.7 g/dl (32-36); Mean Corpuscular Volume 97.8 fl (80-100); Mean Platelet Volume 9.9 fl (7.4-10.4); Platelet Count Result 155 k/mm3 (150-375); Red Blood Count 2.73 M/mm3 (4.6-6.20); Red Cell Distribution Width 15.9 % (11.5-14.5); White Blood Count 12.7 K/mm3 (4.5-10.0)
[2021-06-09 05:15] LABS: Alanine Aminotransferase 39 U/L (4-50); Albumin Level 2.3 g/dL (3.5-5.1); Alkaline Phosphatase 217 U/L (38-126); Anion Gap 4 mmol/L (8-16); Aspartate Amino Transferase 40 U/L (17-59); Bilirubin,Total 0.2 mg/dL (0.2-1.3); Blood Urea Nitrogen 96 mg/dL (9-20); Calcium 8.7 mg/dL (8.4-10.2); Carbon Dioxide 31 mmol/L (22-30); Chloride 105 mmol/L (98-107); Estimated CRCL calculation 39 ml/min; Estimated Glomerular Filt Rate 27; Glucose 179 mg/dL (65-110); Magnesium 2.7 mg/dL (1.6-2.3); Phosphorus 5.6 mg/dL (2.5-4.5); Potassium 4.2 mmol/L (3.4-5.0); Sodium 140 mmol/L (137-145)
[2021-06-09 06:31] LABS: Atypical Lymphocytes Present; Band Neutrophils Percent 14 % (0-6); Eosinophils Absolute Manual 0.88 K/mm3 (0.02-0.5); Eosinophils Percent Manual 7 % (0-4); Lymphocytes Absolute Manual 1.14 K/mm3 (1.1-4.5); Monocytes Absolute Manual 0.25 K/mm3 (0.1-0.90); Monocytes Percent Manual 2 % (3-9); Neutrophils Absolute Manual 10.41 K/mm3 (1.3-6.7); Neutrophils Percent Manual 68 % (46-73); Platelet Estimate Adequate (Adequate); Total Cells Counted 100
[2021-06-09] MEDS: MIDAZOLAM 100MG/NS 100ML(*CRX) 100 MG/100 ML BAG 8 MG IV CONT ×2 (06:31→18:20)
[2021-06-09] MEDS: CEFEPIME 0.5 GM in DEXTROSE 5% IN WATER 50 ML IVPB (08:18)
[2021-06-09] MEDS: ENOXAPARIN 40 MG/0.4 ML SYRINGE SUB-Q (08:19)
[2021-06-09] MEDS: BUMETANIDE INJ 1 MG/4 ML VIAL IV PUSH (08:19)
[2021-06-09] MEDS: INSULIN GLARGINE (*BKC) 100 UNITS/ML 35 UNITS SUB-Q (08:19)
[2021-06-09] MEDS: polyethylene glycoL 3350 17 GM POWD.PACK PO (08:19)
[2021-06-09] MEDS: ASCORBIC ACID 500 MG TABLET PO (08:20)
[2021-06-09] MEDS: CHOLECALCIFEROL 1,000 UNITS TABLET 1000 UNITS PO (08:20)
[2021-06-09] MEDS: PANTOPRAZOLE SODIUM IV 40 MG VIAL IV PUSH (08:20)
[2021-06-09] MEDS: ZINC SULFATE 220 MG CAPSULE PO (08:20)
[2021-06-09] MEDS: MINERAL OIL/WHITE PETROLATUM OINTMENT 1 APPLIC EACH EYE ×2 (08:20→19:58)
--- NOTE | 2021-06-09 08:20 | P.PNNP_ITS ---
Progress Note: A&P Assessment and Plan (1) Acute kidney injury: Code(s): N17.9 - Acute kidney failure, unspecified Status: Acute Assessment and Plan: * multifactorial etiology: * cardiac arrest * infection (pneumonia/COVID-19) * possible pre-renal factors * Urine output 2500 yesterday. * Creatinine is stable in the high 2s. * evaluation to date: * urine electrolytes prerenal * renal ultrasound without acute pathology * No signs of uremia. * Volume status about the same. the edema, and since blood pressure seems more stable, I agree with trying diuretics for a short time. * Discussed with Dr George (2) Chronic kidney disease, unspecified: Code(s): N18.9 - Chronic kidney disease, unspecified Status: Chronic Assessment and Plan: * unclear what baseline creatinine/GFR is * suspect secondary to hypertension and diabetes (3) Hypernatremia: Code(s): E87.0 - Hyperosmolality and hypernatremia Status: Acute Assessment and Plan: * due to free water deficit * Sodium level is down to 142. * Urine osmolality is 484. * This could be high urine output because of osmotic diuresis. 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 * complicated by bilateral tension pneumothorax s/p bilateral chest tube placement * He is supine right now. (5) Hypertension: Code(s): I10 - Essential (primary) hypertension Status: Chronic Assessment and Plan: * no need for antihypertensives at this time (6) Type 2 diabetes mellitus: Code(s): E11.9 - Type 2 diabetes mellitus without complications Status: Acute Assessment and Plan: * on accuchecks and ssi Subjective Date/time seen: 06/09/21 08:20 Interval history: patient is sedated and on the ventilator. He is on paralytics still. the patient is on norepinephrine at 5. His blood pressure is doing well. He is in the supine position. He is on Flolan. His FiO2 is 75% Tolerating tube feeding Cannot give a history or review of systems due to medical condition Exam Narrative: General: WD/WN male intubated/sedated/paralyzed on mechanical ventilation Heart: normal S1 and S2; no rub Lungs: coarse breath sounds Abdomen: soft, nontender, nondistended, positive bowel sounds Extremities: 1+ edema Skin: No rash or subcu nodules Objective Data Vital Signs Vital Signs: Vital Signs - 24 hr 06/08/21 08:32 06/08/21 08:33 06/08/21 08:39 Temperature Pulse Rate 74 72 77 Respiratory Rate 30 H Blood Pressure 121/59 L Pulse Oximetry 99 97 06/08/21 09:47 06/08/21 10:00 06/08/21 10:30 Temperature 36.6 C Pulse Rate 77 74 80 Respiratory Rate 30 H 30 H 30 H Blood Pressure 140/63 111/61 Pulse Oximetry 93 94 06/08/21 11:28 06/08/21 12:00 06/08/21 12:23 Temperature 36.4 C Pulse Rate 80 77 81 Respiratory Rate 30 H 30 H Blood Pressure 133/68 Pulse Oximetry 93 92 95 06/08/21 12:29 06/08/21 12:40 06/08/21 13:0
--- NOTE | 2021-06-09 08:20 | PM.PNNEP ---
Progress Note: A&P Assessment and Plan (1) Acute kidney injury: Code(s): N17.9 - Acute kidney failure, unspecified Status: Acute Assessment and Plan: multifactorial etiology: cardiac arrest infection (pneumonia/COVID-19) possible pre-renal factors Urine output 2500 yesterday. Creatinine is stable in the high 2s. evaluation to date: urine electrolytes prerenal renal ultrasound without acute pathology No signs of uremia. Volume status about the same. the edema, and since blood pressure seems more stable, I agree with trying diuretics for a short time. Discussed with Dr George (2) Chronic kidney disease, unspecified: Code(s): N18.9 - Chronic kidney disease, unspecified Status: Chronic Assessment and Plan: unclear what baseline creatinine/GFR is suspect secondary to hypertension and diabetes (3) Hypernatremia: Code(s): E87.0 - Hyperosmolality and hypernatremia Status: Acute Assessment and Plan: due to free water deficit Sodium level is down to 142. Urine osmolality is 484. This could be high urine output because of osmotic diuresis. (4) Acute respiratory failure with hypoxia: Code(s): J96.01 - Acute respiratory failure with hypoxia Status: Acute Assessment and Plan: been on mechanical ventilation since 05/18/21 due to 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 complicated by bilateral tension pneumothorax s/p bilateral chest tube placement He is supine right now. (5) Hypertension: Code(s): I10 - Essential (primary) hypertension Status: Chronic Assessment and Plan: no need for antihypertensives at this time (6) Type 2 diabetes mellitus: Code(s): E11.9 - Type 2 diabetes mellitus without complications Status: Acute Assessment and Plan: on accuchecks and ssi Subjective Date/time seen: 06/09/21 08:20 Interval history: patient is sedated and on the ventilator. He is on paralytics still. the patient is on norepinephrine at 5. His blood pressure is doing well. He is in the supine position. He is on Flolan. His FiO2 is 75% Tolerating tube feeding Cannot give a history or review of systems due to medical condition Exam Narrative: General: WD/WN male intubated/sedated/paralyzed on mechanical ventilation Heart: normal S1 and S2; no rub Lungs: coarse breath sounds Abdomen: soft, nontender, nondistended, positive bowel sounds Extremities: 1+ edema Skin: No rash or subcu nodules Objective Data Vital Signs Vital Signs: Vital Signs - 24 hr 06/08/21 08:32 06/08/21 08:33 06/08/21 08:39 Temperature Pulse Rate 74 72 77 Respiratory Rate 30 H Blood Pressure 121/59 L Pulse Oximetry 99 97 06/08/21 09:47 06/08/21 10:00 06/08/21 10:30 Temperature 36.6 C Pulse Rate 77 74 80 Respiratory Rate 30 H 30 H 30 H Blood Pressure 140/63 111/61 Pulse Oximetry 93 94 06/08/21 11:28 06/08/21 12:00 06/08/21 12:23 Temperature 36.4 C Pulse Rate 80 77 81 Respiratory Rate 30 H 30 H Blood Pressure 133/68 Pulse Oximetry 93 92 95 06/08/21 12:29 06/08/21 12:40 06/08/21 13:09 Temperature Pulse Rate 75 77 76 Respiratory Rate 30 H 30 H 30 H Blood Pressure 106/56 L Pulse Oximetry 06/08/21 14:00 06/08/21 14:14 06/08/21 14:22 Temperature 36.4 C Pulse Rate 74 78 83 Respiratory Rate 30 H 30 H Blood Pressure 143/67 H Pulse Oximetry 91 98 92 06/08/21 15:52 06/08/21 16:00 06/08/21 16:15 Temperature 36.3 C L Pulse Rate 77 78 78 Respiratory Rate 30 H 30 H 30 H Blood Pressure 151/68 H 151/68 H Pulse Oximetry 100 100 06/08/21 17:43 06/08/21 18:00 06/08/21 18:04 Temperature 36.2 C L Pulse Rate 78 77 78 Respiratory Rate 30 H 30 H Blood Pressure 145/67 H Pulse Oximetry 100 100 06/08/21 18:09 06/08/21 20:00 06/08/21 20:01 Temperature 36.2 C L Pulse Rate 77 83 83 Respirat
--- NOTE | 2021-06-09 09:46 | WPDINTPN ---
Progress Note: A&P Assessment and Plan (1) Acute respiratory failure with hypoxia: Code(s): J96.01 - Acute respiratory failure with hypoxia Status: Acute Assessment and Plan: Acute respiratory failure likely related to COVID pneumonia -Intubated on 05/18/2021 - 05/25 bilateral tension pneumothorax spontaneous which also led to a brief PEA arrest. S/P chest tube placement bilateral - 06/04: patient was hypoxic, dropped his O2 sats in the low to mid 80s. Peep was increased 16, FiO2 was increased to 100%. Patient was restarted on Flolan and Nimbex. - Currently on CMV mode of ventilation, peep of 14 and 75% FiO2, wean FiO2 tolerate O2 sats greater than 90% - Chest x-ray and ABGs reviewed - low tidal volume, strategy to avoid volutrauma - Continue bronchodilators -continue prone ventilation - Sedated with fentanyl, Versed, restarted Nimbex on 06/04 (2) Shock: Code(s): R57.9 - Shock, unspecified Status: Acute Assessment and Plan: Currently in severe sepsis, tachycardia, bandemia, increase in ventilatory support -likely due to bacterial pneumonia -fever curve is improving -continue cefepime and vancomycin (05/29), levofloxacin (06/04) -06/04: restarted on Levophed, maintain MAP > 70 mmHg -white blood cell count trending down -06/04: Blood cultures: Preliminary report, negative x2 -06/04: Urine culture - no growth -06/04 sputum cultures growing yeast DC levofloxacin. Continue cefepime and vancomycin for 14 days (3) Pneumonia due to COVID-19 virus: Code(s): U07.1 - COVID-19; J12.82 - Pneumonia due to coronavirus disease 2019 Status: Acute Assessment and Plan: Positive COVID on 05/10/2020, patient is unvaccinated -patient has completed a 10 day course of dexamethasone which was started on 05/16/2021 -He has completed a 14 day course of baricitinib -patient refused remdesivir on presentation -continue vitamin-D, vitamin-C and zinc -continue droplet, airborne and contact isolation/precautions (4) Spontaneous tension pneumothorax: Code(s): J93.0 - Spontaneous tension pneumothorax Status: Acute Assessment and Plan: 05/25 Patient was spontaneous tension pneumothorax bilateral when he was placed in supine position Bilateral chest tubes were emergently placed Chest x-ray reviewed No air leak on chest tubes at this time (5) Cardiac arrest: Code(s): I46.9 - Cardiac arrest, cause unspecified Status: Acute Assessment and Plan: PEA arrest Secondary to bilateral tension pneumothorax ROSC after 1 dose of epinephrine and 1 round of CPR Echo ordered given shock state (6) Type 2 diabetes mellitus: Code(s): E11.9 - Type 2 diabetes mellitus without complications Status: Acute Assessment and Plan: Patient with history of type 2 diabetes and now on steroids - currently hyperglycemic Currently off of insulin infusion. - Continue Lantus - - Continue sliding scale insulin -hemoglobin A1c is 8.4 this admission (7) Acute renal failure superimposed on stage 4 chronic kidney disease: Code(s): N17.9 - Acute kidney failure, unspecified; N18.4 - Chronic kidney disease, stage 4 (severe) Status: Acute Assessment and Plan: Patient presented with acute on chronic kidney disease with a creatinine of 3.30 on admission, patient was given IV fluid bolus in the ER for elevated lactic acid -patient does have a ureteral stent which was placed at [facility] 5 weeks ago due to some sort of scar tissue -05/17/2021: Renal ultrasound shows bilateral renal cortical thinning, atrophy, no hydronephrosis a hepatic steatosis -urine output continues to be adequate, creatinine has been elevated but stable -continue to maintain adequate mean arterial pressures close to 70 mmHg -nephrology following. Discussed with nephrology will give Bumex IV x1 today - may require dialysis if urine output decreases or renal function worsens (8) Pros
--- NOTE | 2021-06-09 12:26 | PCFNICU ---
ICU Rounding Note: Pt current nutrition is Nepro at 55 ml/hr over 22 hours. Last recorded weight is 135.3 kg, up from 123.6 kg on admit. Bowel Motility:+BM reported 06/07 Labs Reviewed:GFR 27, BUN 96, Alb 2.3,Hgb 8.2,Cr 2.4,Glu 179,PO4 5.6 Meds Noted:Flolan, Nimbex, Fentanyl, Lantus, Versed, Atrovent, Zinc, Vit C, Vit D,Lovenox,NovoLog, Reglan. Skin: WNL Additional Notes: Patient remains on mechanical vent and tube feedings of Nepro at 55 ml/hr and tolerating per nursing. Free water flush 100 ml q 4hours, Na 140 today. Agree with diet orders. Following daily in ICU rounds. Will monitor every Monday and Monday.
[2021-06-09 12:30] LABS: Glucose Point of Care 196 mg/dl (65-105)
[2021-06-09] MEDS: NOREPINEPHRINE 8 MG/D5W 250 ML 8 MG/250 ML BAG 20.63 MG IV CONT (14:49)
--- NOTE | 2021-06-09 16:33 | PM.IMPN ---
Progress Note: A&P Assessment and Plan (1) Acute respiratory failure with hypoxia: Code(s): J96.01 - Acute respiratory failure with hypoxia Status: Acute Assessment and Plan: Acute respiratory failure likely related to COVID pneumonia requiring intubation on 05/18/21. MV Day - 05/25 bilateral tension PTX spontaneous which also led to a brief PEA arrest. S/P chest tube placement bilateral. - He remains on mechanical ventilator, sedated and paralyzed. - Inhaled Flolan that was started on 05/25 and stopped 06/02; Resumed 06/04 - Continue prone positioning per contact printer dry film - continue current sedation with fentanyl, Versed; Nimbex infusion for vent synchrony (2) Shock: Code(s): R57.9 - Shock, unspecified Status: Acute Assessment and Plan: Blood pressure dropped after tension pneumothorax on 05/25/21. 1 L saline bolus given and started on Levophed but weaned off quickly. On 06/04, Levophed resumed and remains on it now. BP stable. Trop negative, EKG showing no acute changes and Echo EF 70% with Grade I diastolic dysfunction. Wean Levophed as BP tolerates. Follow. (3) Pneumonia due to COVID-19 virus: Code(s): U07.1 - COVID-19; J12.82 - Pneumonia due to coronavirus disease 2019 Status: Acute Assessment and Plan: Patient was found to be COVID positive on 05/10/21; he is unvaccinated. Patient completed a 10 day course of dexamethasone and baricitinib. Patient refused remdesivir on presentation. Continue vitamin-D, vitamin-C and zinc. Continue droplet, airborne and contact isolation/precautions. Continue supportive care. (4) Sepsis: Code(s): A41.9 - Sepsis, unspecified organism Status: Acute Assessment and Plan: Present on admission with elevated WBC, lactic acidosis. BCx 05/16 negative. Sputum growing yeast 05/22. UCx 05/29 and 06/04 negative. BCx 05/28 growing Staph Epi and Staph cohnii (1of2) suspected to be a contaminate. BCx 06/04 negative. Sputum Cx 06/04 growing yeast again. CXR reviewed showing worsening extensive lung zone changes mostly lower lobes. Patient remains on vancomycin (D12), cefepime (D12) and Levaquin (D6). Last fever was on 06/04/21. WBC mildly elevated but bandemia noted. Levaquin stopped today. Follow. (5) Spontaneous tension pneumothorax: Code(s): J93.0 - Spontaneous tension pneumothorax Status: Acute Assessment and Plan: Patient developed spontaneous bilateral tension pneumothorax on 05/25/21 when he was placed in supine position. He had PEA requiring code blue. Bilateral chest tubes were emergently placed. Chest tube management per GenSurg. Appreciate General surgery input. (6) Cardiac arrest: Code(s): I46.9 - Cardiac arrest, cause unspecified Status: Acute Assessment and Plan: PEA arrest on 05/25/21 related to bilateral tension pneumothorax. ROSC after 1 dose of epinephrine and 1 round of CPR. (7) Acute renal failure superimposed on stage 4 chronic kidney disease: Code(s): N17.9 - Acute kidney failure, unspecified; N18.4 - Chronic kidney disease, stage 4 (severe) Status: Acute Assessment and Plan: Patient does have a ureteral stent which was placed at [facility] 5 weeks ago due to some sort of scar tissue. Patient presented with acute on chronic kidney disease with a creatinine of 3.3 on admission. Patient was treated with IV fluids. Renal ultrasound 05/17 shows bilateral renal cortical thinning with atrophy but no hydronephrosis. Cr normalized but then worsened to the 2 range. Creatinine remaining elevated but stable in the mid-2 range. BUN still elevated 90-100 range. UOP stable. Continue to follow. Nephrology following. (8) Electrolyte abnormality: Code(s): E87.8 - Other disorders of electrolyte and fluid balance, not elsewhere classified Status: Acute Assessment and Plan: Hypernatremia - Na remaining normal now. Continue current free water flushes. Continue to fo
[2021-06-09 18:49] LABS: Glucose Point of Care 207 mg/dl (65-105)
[2021-06-10] VITALS (79 sets, daily range): BP systolic 112–174; BP diastolic 47–90; PULSE 87–105; RESP 30; TEMP 36.1–37.2; O2SAT 89–95
[2021-06-10] MEDS: METOCLOPRAMIDE HCL INJ 10 MG/2 ML VIAL IV PUSH ×5 (00:27→23:35)
[2021-06-10] MEDS: CISATRACURIUM BESYLATE 200 MG in DEXTROSE 5% 80 ML 36.96 ML IV CONT ×9 (01:22→23:48)
[2021-06-10 01:31] LABS: Glucose Point of Care 185 mg/dl (65-105)
[2021-06-10] MEDS: EPOPROSTENOL SODIUM 0.5 MG VIAL 1 MG INHALATION ×4 (01:56→19:04)
[2021-06-10] MEDS: CENTRAL LINE FLUSH 10 ML IV PUSH ×3 (04:06→23:36)
[2021-06-10 04:47] LABS: Hematocrit 26.4 % (42.0-52.0); Hemoglobin 7.8 g/dL (14.0-18.0); Mean Corpuscular HGB Conc 29.5 g/dl (32-36); Mean Corpuscular Hemoglobin 29.3 pg (26-34); Mean Corpuscular Volume 99.2 fl (80-100); Mean Platelet Volume 10.4 fl (7.4-10.4); Platelet Count Result 154 k/mm3 (150-375); Red Blood Count 2.66 M/mm3 (4.6-6.20); Red Cell Distribution Width 16.1 % (11.5-14.5); White Blood Count 16.3 K/mm3 (4.5-10.0)
[2021-06-10 05:02] LABS: Alveolar/Arterial O2 Gradient 395.3 mmHg; Base Excess ABG 5.6 mEq/l (+/-2.0); Carboxyhemoglobin 0.5 % THb (0-2.0); Fractional Inspired Oxygen 75 %; HCO3 ABG 33.5 mEq/l (22.0-26.0); Methemoglobin ABG 0.3 %THb (0-1.5); Oxygen Content ABG 14.1 %vol (16.0-22.0); Oxygen Saturation ABG 91.3 % (95.0-100.0); Oxyhemoglobin 91.1 % THb (90.0-100.0); PO2 ABG 67.8 mmHg (80.0-100.0); Reduced Hemoglobin 8.1 %THb (0-5.0); pH ABG 7.314 (7.350-7.450)
[2021-06-10 05:03] LABS: Device VENTILATOR; Modified Allen's Test Pass; PCO2 ABG 67.4 mmHg (35.0-45.0); Site Drawn LEFT RADIAL
[2021-06-10 05:04] LABS: Arterial Blood Gas PEEP 14 cmH2O; Arterial Blood Gas Tidal Volume 480 ml; Arterial Blood Gas Vent Mode CMV; Arterial Blood Gas Ventilator rate 30 /MIN
[2021-06-10 05:49] LABS: Band Neutrophils Percent 5 % (0-6); Eosinophils Absolute Manual 0.32 K/mm3 (0.02-0.5); Eosinophils Percent Manual 2 % (0-4); Lymphocytes Absolute Manual 1.46 K/mm3 (1.1-4.5); Metamyelocytes Percent 2 %; Monocytes Absolute Manual 0.81 K/mm3 (0.1-0.90); Monocytes Percent Manual 5 % (3-9); Neutrophils Absolute Manual 13.36 K/mm3 (1.3-6.7); Neutrophils Percent Manual 77 % (46-73); Total Cells Counted 100
[2021-06-10 05:50] LABS: Platelet Estimate Adequate (Adequate)
[2021-06-10] MEDS: MIDAZOLAM 100MG/NS 100ML(*CRX) 100 MG/100 ML BAG 8 MG IV CONT ×2 (06:09→17:54)
[2021-06-10 06:54] LABS: Alanine Aminotransferase 34 U/L (4-50); Albumin Level 1.9 g/dL (3.5-5.1); Alkaline Phosphatase 200 U/L (38-126); Anion Gap 2 mmol/L (8-16); Aspartate Amino Transferase 36 U/L (17-59); Bilirubin,Total 0.3 mg/dL (0.2-1.3); Blood Urea Nitrogen 92 mg/dL (9-20); Calcium 8.6 mg/dL (8.4-10.2); Carbon Dioxide 32 mmol/L (22-30); Chloride 102 mmol/L (98-107); Estimated CRCL calculation 43 ml/min; Estimated Glomerular Filt Rate 30; Glucose 199 mg/dL (65-110); Potassium 4.3 mmol/L (3.4-5.0); Sodium 136 mmol/L (137-145)
[2021-06-10] MEDS: polyethylene glycoL 3350 17 GM POWD.PACK PO (08:34)
[2021-06-10] MEDS: ENOXAPARIN 40 MG/0.4 ML SYRINGE SUB-Q (08:34)
[2021-06-10] MEDS: ZINC SULFATE 220 MG CAPSULE PO (08:34)
[2021-06-10] MEDS: PANTOPRAZOLE SODIUM IV 40 MG VIAL IV PUSH (08:35)
[2021-06-10] MEDS: ASCORBIC ACID 500 MG TABLET PO (08:35)
[2021-06-10] MEDS: CHOLECALCIFEROL 1,000 UNITS TABLET 1000 UNITS PO (08:35)
[2021-06-10] MEDS: INSULIN GLARGINE (*BKC) 100 UNITS/ML 35 UNITS SUB-Q (08:36)
[2021-06-10] MEDS: NOREPINEPHRINE 8 MG/D5W 250 ML 8 MG/250 ML BAG 7.5 MG IV CONT (08:43)
[2021-06-10] MEDS: MINERAL OIL/WHITE PETROLATUM OINTMENT 1 APPLIC EACH EYE ×2 (08:50→20:40)
[2021-06-10] MEDS: ALBUMIN HUMAN 25% 25 GM/100 ML 100 ML IVPB (08:58)
[2021-06-10] MEDS: BUMETANIDE INJ 1 MG/4 ML VIAL IV PUSH (09:28)
--- NOTE | 2021-06-10 11:21 | WPDINTPN ---
Progress Note: A&P Assessment and Plan (1) Acute respiratory failure with hypoxia: Code(s): J96.01 - Acute respiratory failure with hypoxia Status: Acute Assessment and Plan: Acute respiratory failure likely related to COVID pneumonia -Intubated on 05/18/2021 - 05/25 bilateral tension pneumothorax spontaneous which also led to a brief PEA arrest. S/P chest tube placement bilateral - 06/04: patient was hypoxic, dropped his O2 sats in the low to mid 80s. Peep was increased 16, FiO2 was increased to 100%. Patient was restarted on Flolan and Nimbex. - Currently on CMV mode of ventilation, peep of 14 and 75% FiO2, wean FiO2 tolerate O2 sats greater than 90% - Chest x-ray resume showed stable diffuse lung disease - ABGs reviewed -tolerate permissive hypercapnia - low tidal volume, strategy to avoid volutrauma - Continue bronchodilators -continue prone ventilation but will supine today for 6 hours as tolerated - Sedated with fentanyl, Versed, restarted Nimbex on 06/04 (2) Shock: Code(s): R57.9 - Shock, unspecified Status: Acute Assessment and Plan: Currently in severe sepsis, tachycardia, bandemia, increase in ventilatory support -likely due to bacterial pneumonia -fever curve is improving -continue cefepime and vancomycin (05/29), levofloxacin (06/04) -06/04: restarted on Levophed, maintain MAP > 70 mmHg -white blood cell count trending down -06/04: Blood cultures: Preliminary report, negative x2 -06/04: Urine culture - no growth -06/04 sputum cultures growing yeast Off levofloxacin. Continue cefepime and vancomycin for 14 days (3) Pneumonia due to COVID-19 virus: Code(s): U07.1 - COVID-19; J12.82 - Pneumonia due to coronavirus disease 2019 Status: Acute Assessment and Plan: Positive COVID on 05/10/2020, patient is unvaccinated -patient has completed a 10 day course of dexamethasone which was started on 05/16/2021 -He has completed a 14 day course of baricitinib -patient refused remdesivir on presentation -continue vitamin-D, vitamin-C and zinc -continue droplet, airborne and contact isolation/precautions (4) Spontaneous tension pneumothorax: Code(s): J93.0 - Spontaneous tension pneumothorax Status: Acute Assessment and Plan: 2 Patient was spontaneous tension pneumothorax bilateral when he was placed in supine position Bilateral chest tubes were emergently placed Chest x-ray reviewed No air leak on chest tubes at this time (5) Cardiac arrest: Code(s): I46.9 - Cardiac arrest, cause unspecified Status: Acute Assessment and Plan: PEA arrest Secondary to bilateral tension pneumothorax ROSC after 1 dose of epinephrine and 1 round of CPR Echo ordered given shock state (6) Type 2 diabetes mellitus: Code(s): E11.9 - Type 2 diabetes mellitus without complications Status: Acute Assessment and Plan: Patient with history of type 2 diabetes and now on steroids - currently hyperglycemic Currently off of insulin infusion. - Continue Lantus - - Continue sliding scale insulin -hemoglobin A1c is 8.4 this admission (7) Acute renal failure superimposed on stage 4 chronic kidney disease: Code(s): N17.9 - Acute kidney failure, unspecified; N18.4 - Chronic kidney disease, stage 4 (severe) Status: Acute Assessment and Plan: Patient presented with acute on chronic kidney disease with a creatinine of 3.30 on admission, patient was given IV fluid bolus in the ER for elevated lactic acid -patient does have a ureteral stent which was placed at [facility] 5 weeks ago due to some sort of scar tissue -05/17/2021: Renal ultrasound shows bilateral renal cortical thinning, atrophy, no hydronephrosis a hepatic steatosis -urine output continues to be adequate, creatinine has been elevated but stable -continue to maintain adequate mean arterial pressures close to 70 mmHg -nephrology following. Discussed with nephro
--- NOTE | 2021-06-10 11:41 | PCFNICU ---
ICU Rounding Note: Pt current nutrition is Nepro at 55 ml/hr over 22 hours. Last recorded weight is 136.9 kg, up from 123 kg on admit. Bowel Motility: +BM reported 06/07 Labs Reviewed:Glu 199,Cr 2.2,GFR 30, Alb 1.9, Hgb 7.8,Hct 26.4 Meds Noted: Flolan, Nimbex, Fentanyl, Lantus, Versed, Atrovent, Zinc, Vit C, Vit D,Lovenox, NovoLog, Reglan, Miralax. Skin: WNL Additional Notes: Patient remains on mechanical vent and tube feedings of Nepro at 55 ml/hr over 22 hours,tolerating per nursing. Free water flush 50 ml q 4 hours. Agree with diet orders. Following daily in ICU rounds. Will monitor every Monday and Monday.
--- NOTE | 2021-06-10 11:58 | P.PNNP_ITS ---
Progress Note: A&P Assessment and Plan (1) Acute kidney injury: Code(s): N17.9 - Acute kidney failure, unspecified Status: Acute Assessment and Plan: * multifactorial etiology: * cardiac arrest * infection (pneumonia/COVID-19) * possible pre-renal factors * Urine output 3700 yesterday. * Creatinine is stable in the high 2s. * evaluation to date: * urine electrolytes prerenal * renal ultrasound without acute pathology * No signs of uremia. * he made more urine in response to 1 dose of the Bumex. (2) Chronic kidney disease, unspecified: Code(s): N18.9 - Chronic kidney disease, unspecified Status: Chronic Assessment and Plan: * unclear what baseline creatinine/GFR is * suspect secondary to hypertension and diabetes (3) Hypernatremia: Code(s): E87.0 - Hyperosmolality and hypernatremia Status: Acute Assessment and Plan: * due to free water deficit * Sodium level is down to 136. * Urine osmolality is 484. * We can reduce the free water flushes. 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 * complicated by bilateral tension pneumothorax s/p bilateral chest tube placement * He is supine right now. (5) Hypertension: Code(s): I10 - Essential (primary) hypertension Status: Chronic Assessment and Plan: * no need for antihypertensives at this time (6) Type 2 diabetes mellitus: Code(s): E11.9 - Type 2 diabetes mellitus without complications Status: Acute Assessment and Plan: * on accuchecks and ssi Subjective Date/time seen: 06/10/21 11:58 Interval history: patient is sedated and on the ventilator. He is on paralytics still. the patient is on norepinephrine at 6. His blood pressure is doing well. He is in the prone position. He is on Flolan. His FiO2 is 75% Tolerating tube feeding Cannot give a history or review of systems due to medical condition Exam Narrative: General: WD/WN male intubated/sedated/paralyzed on mechanical ventilation Heart: normal S1 and S2; no rub or gallop Lungs: coarse breath sounds Abdomen: soft, nontender, nondistended, positive bowel sounds Extremities: 1+ edema or sinus Skin: No rash or subcu nodules Objective Data Vital Signs Vital Signs: Vital Signs - 24 hr 06/09/21 12:00 06/09/21 12:06 06/09/21 12:07 Temperature 36.5 C Pulse Rate 95 95 93 Respiratory Rate 30 H 30 H 30 H Blood Pressure 114/55 L 114/55 L Pulse Oximetry 92 06/09/21 12:08 06/09/21 12:38 06/09/21 14:00 Temperature 36.9 C Pulse Rate 93 96 98 Respiratory Rate 30 H 30 H 30 H Blood Pressure 114/55 L 115/52 L Pulse Oximetry 93 92 06/09/21 14:07 06/09/21 14:08 06/09/21 14:18 Temperature Pulse Rate 99 99 101 H Respiratory Rate 30 H 30 H 30 H Blood Pressure 115/52 L 115/52 L Pulse Oximetry 91 06/09/21 14:49 06/09/21 14:52 06/09/21 14:53 Temperature Pulse Rate 102 H 102 H Respiratory Rate
--- NOTE | 2021-06-10 11:58 | PM.PNNEP ---
Progress Note: A&P Assessment and Plan (1) Acute kidney injury: Code(s): N17.9 - Acute kidney failure, unspecified Status: Acute Assessment and Plan: multifactorial etiology: cardiac arrest infection (pneumonia/COVID-19) possible pre-renal factors Urine output 3700 yesterday. Creatinine is stable in the high 2s. evaluation to date: urine electrolytes prerenal renal ultrasound without acute pathology No signs of uremia. he made more urine in response to 1 dose of the Bumex. (2) Chronic kidney disease, unspecified: Code(s): N18.9 - Chronic kidney disease, unspecified Status: Chronic Assessment and Plan: unclear what baseline creatinine/GFR is suspect secondary to hypertension and diabetes (3) Hypernatremia: Code(s): E87.0 - Hyperosmolality and hypernatremia Status: Acute Assessment and Plan: due to free water deficit Sodium level is down to 136. Urine osmolality is 484. We can reduce the free water flushes. (4) Acute respiratory failure with hypoxia: Code(s): J96.01 - Acute respiratory failure with hypoxia Status: Acute Assessment and Plan: been on mechanical ventilation since 05/18/21 due to 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 complicated by bilateral tension pneumothorax s/p bilateral chest tube placement He is supine right now. (5) Hypertension: Code(s): I10 - Essential (primary) hypertension Status: Chronic Assessment and Plan: no need for antihypertensives at this time (6) Type 2 diabetes mellitus: Code(s): E11.9 - Type 2 diabetes mellitus without complications Status: Acute Assessment and Plan: on accuchecks and ssi Subjective Date/time seen: 06/10/21 11:58 Interval history: patient is sedated and on the ventilator. He is on paralytics still. the patient is on norepinephrine at 6. His blood pressure is doing well. He is in the prone position. He is on Flolan. His FiO2 is 75% Tolerating tube feeding Cannot give a history or review of systems due to medical condition Exam Narrative: General: WD/WN male intubated/sedated/paralyzed on mechanical ventilation Heart: normal S1 and S2; no rub or gallop Lungs: coarse breath sounds Abdomen: soft, nontender, nondistended, positive bowel sounds Extremities: 1+ edema or sinus Skin: No rash or subcu nodules Objective Data Vital Signs Vital Signs: Vital Signs - 24 hr 06/09/21 12:00 06/09/21 12:06 06/09/21 12:07 Temperature 36.5 C Pulse Rate 95 95 93 Respiratory Rate 30 H 30 H 30 H Blood Pressure 114/55 L 114/55 L Pulse Oximetry 92 06/09/21 12:08 06/09/21 12:38 06/09/21 14:00 Temperature 36.9 C Pulse Rate 93 96 98 Respiratory Rate 30 H 30 H 30 H Blood Pressure 114/55 L 115/52 L Pulse Oximetry 93 92 06/09/21 14:07 06/09/21 14:08 06/09/21 14:18 Temperature Pulse Rate 99 99 101 H Respiratory Rate 30 H 30 H 30 H Blood Pressure 115/52 L 115/52 L Pulse Oximetry 91 06/09/21 14:49 06/09/21 14:52 06/09/21 14:53 Temperature Pulse Rate 102 H 102 H Respiratory Rate 30 H 30 H Blood Pressure 108/52 L 108/52 L Pulse Oximetry 06/09/21 14:54 06/09/21 16:00 06/09/21 16:45 Temperature 37.3 C Pulse Rate 102 H 104 H 105 H Respiratory Rate 30 H 30 H 30 H Blood Pressure 120/54 L Pulse Oximetry 92 92 06/09/21 18:00 06/09/21 18:06 06/09/21 18:07 Temperature 37.4 C Pulse Rate 104 H 101 H 100 Respiratory Rate 30 H 30 H 30 H Blood Pressure 106/52 L 106/52 L Pulse Oximetry 90 06/09/21 18:09 06/09/21 18:11 06/09/21 18:20 Temperature Pulse Rate 101 H 103 H Respiratory Rate 30 H 30 H Blood Pressure 106/52 L Pulse Oximetry 06/09/21 18:25 06/09/21 19:49 06/09/21 19:52 Temperature Pulse Rate 103 H 96 97 Respiratory Rate 30 H 30 H 30 H Blood Pressure Pulse Oximetry 91
[2021-06-10] MEDS: FENTANYL 2,500MCG/NS250ML(*CRX 2,500 MCG/250 ML BAG 15 MCG IV CONT (12:01)
[2021-06-10 12:04] LABS: Glucose Point of Care 175 mg/dl (65-105)
[2021-06-10] MEDS: SILVERGEL (ELTA) 45 ML 1 APPLIC TOPICAL (14:58)
--- NOTE | 2021-06-10 16:46 | PM.IMPN ---
Progress Note: A&P Assessment and Plan (1) Acute respiratory failure with hypoxia: Code(s): J96.01 - Acute respiratory failure with hypoxia Status: Acute Assessment and Plan: Acute respiratory failure likely related to COVID pneumonia requiring intubation on 05/18/21. MV Day - 05/25 bilateral tension PTX spontaneous which also led to a brief PEA arrest. S/P chest tube placement bilateral. - He remains on mechanical ventilator, sedated and paralyzed. 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 1 L saline bolus given and started on Levophed but weaned off quickly. On 06/04, Levophed resumed and now able to be weaned off today. BP stable. Trop negative, EKG showing no acute changes and Echo EF 70% with Grade I diastolic dysfunction. Follow. (3) Pneumonia due to COVID-19 virus: Code(s): U07.1 - COVID-19; J12.82 - Pneumonia due to coronavirus disease 2019 Status: Acute Assessment and Plan: Patient was found to be COVID positive on 05/10/21; he is unvaccinated. Patient completed a 10 day course of dexamethasone and baricitinib. Patient refused remdesivir on presentation. Continue vitamin-D, vitamin-C and zinc. Continue droplet, airborne and contact isolation/precautions. Continue supportive care. (4) Sepsis: Code(s): A41.9 - Sepsis, unspecified organism Status: Acute Assessment and Plan: Present on admission with elevated WBC, lactic acidosis. BCx 05/16 negative. Sputum growing yeast 05/22. UCx 05/29 and 06/04 negative. BCx 05/28 growing Staph Epi and Staph cohnii (1of2) suspected to be a contaminate. BCx 06/04 negative. Sputum Cx 06/04 growing yeast again. Patient remains on vancomycin (D13), cefepime (D13); Levaquin stopped after 6 days (last dose 06/08). Last fever was on 06/04/21. WBC mildly elevated again. Follow. (5) Spontaneous tension pneumothorax: Code(s): J93.0 - Spontaneous tension pneumothorax Status: Acute Assessment and Plan: Patient developed spontaneous bilateral tension pneumothorax on 05/25/21 when he was placed in supine position. He had PEA requiring code blue. Bilateral chest tubes were emergently placed. Chest tube management per GenSurg. Appreciate General surgery input. (6) Cardiac arrest: Code(s): I46.9 - Cardiac arrest, cause unspecified Status: Acute Assessment and Plan: PEA arrest on 05/25/21 related to bilateral tension pneumothorax. ROSC after 1 dose of epinephrine and 1 round of CPR. (7) Acute renal failure superimposed on stage 4 chronic kidney disease: Code(s): N17.9 - Acute kidney failure, unspecified; N18.4 - Chronic kidney disease, stage 4 (severe) Status: Acute Assessment and Plan: Patient does have a ureteral stent which was placed at [facility] 5 weeks ago due to some sort of scar tissue. Patient presented with acute on chronic kidney disease with a creatinine of 3.3 on admission. Patient was treated with IV fluids. Renal ultrasound 05/17 shows bilateral renal cortical thinning with atrophy but no hydronephrosis. Cr normalized but then worsened to the 2 range. Creatinine remaining elevated but stable in the mid-2 range. BUN still elevated 90-100 range. UOP stable. Continue to follow. Nephrology following. (8) Electrolyte abnormality: Code(s): E87.8 - Other disorders of electrolyte and fluid balance, not elsewhere classified Status: Acute Assessment and Plan: Hypernatremia - Na remaining normal now. Continue current free water flushes. Continue to follow. Hyperkalemia - Resolved. Follow (9) Type 2 diabetes mellitus: Code(s): E11.9 - Type 2 d
[2021-06-10 17:47] LABS: Glucose Point of Care 176 mg/dl (65-105)
[2021-06-10 22:10] LABS: Vancomycin Trough 14.4 ug/mL (10.0-20.0)
[2021-06-10 23:56] LABS: Glucose Point of Care 148 mg/dl (65-105)
[2021-06-11] VITALS (62 sets, daily range): BP systolic 108–146; BP diastolic 44–87; PULSE 87–112; RESP 30; TEMP 36.1–38.1; O2SAT 92–99
[2021-06-11] MEDS: EPOPROSTENOL SODIUM 0.5 MG VIAL 1 MG INHALATION ×4 (01:11→19:49)
[2021-06-11] MEDS: CISATRACURIUM BESYLATE 200 MG in DEXTROSE 5% 80 ML 36.96 ML IV CONT ×7 (02:31→21:57)
[2021-06-11 04:29] LABS: Alveolar/Arterial O2 Gradient 382.2 mmHg; Carboxyhemoglobin 0.6 % THb (0-2.0); Fractional Inspired Oxygen 75 %; HCO3 ABG 30.6 mEq/l (22.0-26.0); Methemoglobin ABG 0.6 %THb (0-1.5); Oxygen Content ABG 10.9 %vol (16.0-22.0); PO2 ABG 80.8 mmHg (80.0-100.0); PO2 FiO2 Ratio Arterial Blood 1.08 %; Reduced Hemoglobin 5.8 %THb (0-5.0); Total Hemoglobin 8.2 g/dL (12.0-18.0)
[2021-06-11 04:31] LABS: pH ABG 7.274 (7.350-7.450)
[2021-06-11 04:32] LABS: Arterial Blood Gas PEEP 14 cmH2O; Arterial Blood Gas Tidal Volume 480 ml; Arterial Blood Gas Vent Mode CMV; Arterial Blood Gas Ventilator rate 30 /MIN; Device VENTILATOR; Modified Allen's Test Unable to perform; PCO2 ABG 67.5 mmHg (35.0-45.0); Site Drawn RIGHT RADIAL
[2021-06-11] MEDS: FENTANYL 2,500MCG/NS250ML(*CRX 2,500 MCG/250 ML BAG 15 MCG IV CONT ×2 (04:55→20:23)
[2021-06-11 05:17] LABS: Hematocrit 24.4 % (42.0-52.0); Hemoglobin 7.1 g/dL (14.0-18.0); Mean Corpuscular HGB Conc 29.1 g/dl (32-36); Mean Platelet Volume 10.4 fl (7.4-10.4); Platelet Count Result 124 k/mm3 (150-375); Red Blood Count 2.37 M/mm3 (4.6-6.20); Red Cell Distribution Width 16.4 % (11.5-14.5); White Blood Count 17.2 K/mm3 (4.5-10.0)
[2021-06-11 05:27] LABS: Alanine Aminotransferase 31 U/L (4-50); Albumin Level 2.3 g/dL (3.5-5.1); Alkaline Phosphatase 160 U/L (38-126); Anion Gap 5 mmol/L (8-16); Aspartate Amino Transferase 32 U/L (17-59); Bilirubin,Total 0.2 mg/dL (0.2-1.3); Blood Urea Nitrogen 97 mg/dL (9-20); Calcium 8.6 mg/dL (8.4-10.2); Carbon Dioxide 30 mmol/L (22-30); Chloride 102 mmol/L (98-107); Estimated CRCL calculation 38 ml/min; Estimated Glomerular Filt Rate 26; Glucose 199 mg/dL (65-110); Phosphorus 5.4 mg/dL (2.5-4.5); Potassium 4.3 mmol/L (3.4-5.0); Sodium 137 mmol/L (137-145)
[2021-06-11] MEDS: CENTRAL LINE FLUSH 10 ML IV PUSH ×3 (06:18→20:31)
[2021-06-11] MEDS: METOCLOPRAMIDE HCL INJ 10 MG/2 ML VIAL IV PUSH ×3 (06:54→17:09)
[2021-06-11] MEDS: MINERAL OIL/WHITE PETROLATUM OINTMENT 1 APPLIC EACH EYE ×2 (08:03→20:32)
[2021-06-11] MEDS: ASCORBIC ACID 500 MG TABLET PO (08:03)
[2021-06-11] MEDS: CHOLECALCIFEROL 1,000 UNITS TABLET 1000 UNITS PO (08:03)
[2021-06-11] MEDS: ZINC SULFATE 220 MG CAPSULE PO (08:03)
[2021-06-11] MEDS: polyethylene glycoL 3350 17 GM POWD.PACK PO (08:03)
[2021-06-11] MEDS: ENOXAPARIN 40 MG/0.4 ML SYRINGE SUB-Q (08:03)
[2021-06-11] MEDS: PANTOPRAZOLE SODIUM IV 40 MG VIAL IV PUSH (08:04)
[2021-06-11] MEDS: INSULIN GLARGINE (*BKC) 100 UNITS/ML 35 UNITS SUB-Q (08:04)
[2021-06-11] MEDS: SILVERGEL (ELTA) 45 ML 1 APPLIC TOPICAL (08:11)
--- NOTE | 2021-06-11 08:15 | WPDINTPN ---
Progress Note: A&P Assessment and Plan (1) Acute respiratory failure with hypoxia: Code(s): J96.01 - Acute respiratory failure with hypoxia Status: Acute Assessment and Plan: Acute respiratory failure likely related to COVID pneumonia -Intubated on 05/18/2021 - 05/25 bilateral tension pneumothorax spontaneous which also led to a brief PEA arrest. S/P chest tube placement bilateral - 06/04: patient was hypoxic, dropped his O2 sats in the low to mid 80s. Peep was increased 16, FiO2 was increased to 100%. Patient was restarted on Flolan and Nimbex. - Currently on CMV mode of ventilation, peep of 14 and 75% FiO2, wean FiO2 tolerate O2 sats greater than 90% - Chest x-ray shows stable diffuse lung disease - ABGs reviewed -tolerate permissive hypercapnia - low tidal volume, strategy to avoid volutrauma - Continue bronchodilators -continue prone ventilation as tolerated with intermittent supine position as tolerated - Sedated with fentanyl, Versed, restarted Nimbex on 06/04 -continue Bumex today (2) Shock: Code(s): R57.9 - Shock, unspecified Status: Acute Assessment and Plan: Currently in severe sepsis, tachycardia, bandemia, increase in ventilatory support -likely due to bacterial pneumonia -afebrile now -continue cefepime and vancomycin (05/29), levofloxacin (06/04) -06/04: restarted on Levophed, maintain MAP > 70 mmHg -white blood cell count trending down -06/04: Blood cultures: Preliminary report, negative x2 -06/04: Urine culture - no growth -06/04 sputum cultures growing yeast Off levofloxacin. Continue cefepime and vancomycin for 14 days (3) Pneumonia due to COVID-19 virus: Code(s): U07.1 - COVID-19; J12.82 - Pneumonia due to coronavirus disease 2019 Status: Acute Assessment and Plan: Positive COVID on 05/10/2020, patient is unvaccinated -patient has completed a 10 day course of dexamethasone which was started on 05/16/2021 -He has completed a 14 day course of baricitinib -patient refused remdesivir on presentation -continue vitamin-D, vitamin-C and zinc -continue droplet, airborne and contact isolation/precautions (4) Spontaneous tension pneumothorax: Code(s): J93.0 - Spontaneous tension pneumothorax Status: Acute Assessment and Plan: 05/25 Patient was spontaneous tension pneumothorax bilateral when he was placed in supine position Bilateral chest tubes were emergently placed Chest x-ray reviewed No air leak on chest tubes at this time (5) Cardiac arrest: Code(s): I46.9 - Cardiac arrest, cause unspecified Status: Acute Assessment and Plan: PEA arrest Secondary to bilateral tension pneumothorax ROSC after 1 dose of epinephrine and 1 round of CPR Echo ordered given shock state (6) Type 2 diabetes mellitus: Code(s): E11.9 - Type 2 diabetes mellitus without complications Status: Acute Assessment and Plan: Patient with history of type 2 diabetes and now on steroids - currently hyperglycemic Currently off of insulin infusion. - Continue Lantus - - Continue sliding scale insulin -hemoglobin A1c is 8.4 this admission (7) Acute renal failure superimposed on stage 4 chronic kidney disease: Code(s): N17.9 - Acute kidney failure, unspecified; N18.4 - Chronic kidney disease, stage 4 (severe) Status: Acute Assessment and Plan: Patient presented with acute on chronic kidney disease with a creatinine of 3.30 on admission, patient was given IV fluid bolus in the ER for elevated lactic acid -patient does have a ureteral stent which was placed at [facility] 5 weeks ago due to some sort of scar tissue -05/17/2021: Renal ultrasound shows bilateral renal cortical thinning, atrophy, no hydronephrosis a hepatic steatosis -urine output continues to be adequate, creatinine has been elevated but stable -continue to maintain adequate mean arterial pressures close to 70 mmHg -nephrology following. - w
[2021-06-11 08:20] LABS: Band Neutrophils Percent 6 % (0-6); Eosinophils Absolute Manual 0.51 K/mm3 (0.02-0.5); Eosinophils Percent Manual 3 % (0-4); Lymphocytes Absolute Manual 1.03 K/mm3 (1.1-4.5); Metamyelocytes Percent 6 %; Monocytes Absolute Manual 0.34 K/mm3 (0.1-0.90); Monocytes Percent Manual 2 % (3-9); Neutrophils Absolute Manual 14.27 K/mm3 (1.3-6.7); Neutrophils Percent Manual 77 % (46-73); Total Cells Counted 100
[2021-06-11 08:21] LABS: Platelet Estimate Adequate (Adequate)
[2021-06-11] MEDS: MIDAZOLAM 100MG/NS 100ML(*CRX) 100 MG/100 ML BAG 8 MG IV CONT ×2 (09:02→19:21)
[2021-06-11] MEDS: BUMETANIDE INJ 1 MG/4 ML VIAL IV PUSH (09:11)
[2021-06-11 11:54] LABS: Glucose Point of Care 179 mg/dl (65-105)
--- NOTE | 2021-06-11 11:57 | PCNFU ---
Nutrition Follow-Up Complete: Inadequate Oral Intake as related to mechanical vent and evidenced by NPO Goal: Meet estimated nutritional needs Patient is progressing towards goal. We will continue current goal. Pt current nutrition is Nepro at 55 ml/hr over 22 hours. Last recorded weight is 136.9 kg, up from 123.6 kg on admit Bowel Motility: +BM reported 06/07-Miralax given today per nursing. Labs Reviewed:Glu 199, Cr 2.5,GFR 26, BUN 97,Alb 2.3,Hct 24.4,Hgb 7.1 Meds Noted:Flolan, Nimbex, Fentanyl, Lantus, Versed, Atrovent, Zinc, Vit C, Vit D,Lovenox, NovoLog, Reglan, Miralax. Skin: unstageable pressure ulcer-Right lower leg. Additional Notes: Patient remains on mechanical vent and tube feeding of Nepro at 55 ml/hr over 22 hours. Per nursing patient is tolerating tube feedings. Current tube feeding is providing 2178 kcals/98 gms protein/888 ml water. Free water flush 30 ml q 4 hours. Agree with diet orders. Will monitor in ICU rounds and reassessing every Monday and Monday.
--- NOTE | 2021-06-11 13:02 | P.PNNP_ITS ---
Progress Note: A&P Assessment and Plan (1) Acute kidney injury: Code(s): N17.9 - Acute kidney failure, unspecified Status: Acute Assessment and Plan: * multifactorial etiology: * cardiac arrest * infection (pneumonia/COVID-19) * possible pre-renal factors * Urine output 2200 yesterday. * Creatinine is stable in the high 2s. * evaluation to date: * urine electrolytes prerenal * renal ultrasound without acute pathology * no cardiac rub * (2) Chronic kidney disease, unspecified: Code(s): N18.9 - Chronic kidney disease, unspecified Status: Chronic Assessment and Plan: * unclear what baseline creatinine/GFR is * suspect secondary to hypertension and diabetes (3) Hypernatremia: Code(s): E87.0 - Hyperosmolality and hypernatremia Status: Acute Assessment and Plan: * resolved (4) Acute respiratory failure with hypoxia: Code(s): J96.01 - Acute respiratory failure with hypoxia Status: Acute Assessment and Plan: * been on mechanical ventilation since 05/18/21 * due to 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 * complicated by bilateral tension pneumothorax s/p bilateral chest tube placement * He is supine right now. (5) Hypertension: Code(s): I10 - Essential (primary) hypertension Status: Chronic Assessment and Plan: * no need for antihypertensives at this time (6) Type 2 diabetes mellitus: Code(s): E11.9 - Type 2 diabetes mellitus without complications Status: Acute Assessment and Plan: * on accuchecks and ssi Subjective Date/time seen: 06/11/21 13:02 Interval history: patient is sedated and on the ventilator. He is on paralytics still. the patient is off norepinephrine. Blood pressure is in the 1 teens. He is in the prone position. He is on Flolan. His FiO2 is 75% Tolerating tube feeding Cannot give a history or review of systems due to medical condition Exam Narrative: General: WD/WN male intubated/sedated/paralyzed on mechanical ventilation Heart: normal S1 and S2; no rub or gallop Lungs: coarse Bilaterally Abdomen: soft, nontender, nondistended, positive bowel sounds Extremities: 1+ edema Skin: No rash or subcu nodules Objective Data Vital Signs Vital Signs: Vital Signs - 24 hr 06/10/21 14:00 06/10/21 14:54 06/10/21 14:55 Temperature 36.2 C L Pulse Rate 100 97 97 Respiratory Rate 30 H 30 H 30 H Blood Pressure 154/63 H 142/63 H Pulse Oximetry 90 06/10/21 14:57 06/10/21 15:01 06/10/21 16:00 Temperature 36.7 C Pulse Rate 97 99 99 Respiratory Rate 30 H 30 H 30 H Blood Pressure 117/54 L Pulse Oximetry 91 95 06/10/21 17:00 06/10/21 17:04 06/10/21 17:05 Temperature Pulse Rate 102 H 96 96 Respiratory Rate 30 H 30 H Blood Pressure Pulse Oximetry 92 95 95 06/10/21 17:07 06/10/21 17:08 06/10/21 17:51 Temperature Pulse Rate 97 97 100 Respiratory Rate 30 H 30 H 30 H Blood Pressure 118/49 L 119/47 L Pulse Oximetry 06/10/21 17:54 06/10/21 18:00 06/10/21 19:15 Temperature 36.9 C Pulse
--- NOTE | 2021-06-11 13:02 | PM.PNNEP ---
Progress Note: A&P Assessment and Plan (1) Acute kidney injury: Code(s): N17.9 - Acute kidney failure, unspecified Status: Acute Assessment and Plan: multifactorial etiology: cardiac arrest infection (pneumonia/COVID-19) possible pre-renal factors Urine output 2200 yesterday. Creatinine is stable in the high 2s. evaluation to date: urine electrolytes prerenal renal ultrasound without acute pathology no cardiac rub (2) Chronic kidney disease, unspecified: Code(s): N18.9 - Chronic kidney disease, unspecified Status: Chronic Assessment and Plan: unclear what baseline creatinine/GFR is suspect secondary to hypertension and diabetes (3) Hypernatremia: Code(s): E87.0 - Hyperosmolality and hypernatremia Status: Acute Assessment and Plan: resolved (4) Acute respiratory failure with hypoxia: Code(s): J96.01 - Acute respiratory failure with hypoxia Status: Acute Assessment and Plan: been on mechanical ventilation since 05/18/21 due to 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 complicated by bilateral tension pneumothorax s/p bilateral chest tube placement He is supine right now. (5) Hypertension: Code(s): I10 - Essential (primary) hypertension Status: Chronic Assessment and Plan: no need for antihypertensives at this time (6) Type 2 diabetes mellitus: Code(s): E11.9 - Type 2 diabetes mellitus without complications Status: Acute Assessment and Plan: on accuchecks and ssi Subjective Date/time seen: 06/11/21 13:02 Interval history: patient is sedated and on the ventilator. He is on paralytics still. the patient is off norepinephrine. Blood pressure is in the 1 teens. He is in the prone position. He is on Flolan. His FiO2 is 75% Tolerating tube feeding Cannot give a history or review of systems due to medical condition Exam Narrative: General: WD/WN male intubated/sedated/paralyzed on mechanical ventilation Heart: normal S1 and S2; no rub or gallop Lungs: coarse Bilaterally Abdomen: soft, nontender, nondistended, positive bowel sounds Extremities: 1+ edema Skin: No rash or subcu nodules Objective Data Vital Signs Vital Signs: Vital Signs - 24 hr 06/10/21 14:00 06/10/21 14:54 06/10/21 14:55 Temperature 36.2 C L Pulse Rate 100 97 97 Respiratory Rate 30 H 30 H 30 H Blood Pressure 154/63 H 142/63 H Pulse Oximetry 90 06/10/21 14:57 06/10/21 15:01 06/10/21 16:00 Temperature 36.7 C Pulse Rate 97 99 99 Respiratory Rate 30 H 30 H 30 H Blood Pressure 117/54 L Pulse Oximetry 91 95 06/10/21 17:00 06/10/21 17:04 06/10/21 17:05 Temperature Pulse Rate 102 H 96 96 Respiratory Rate 30 H 30 H Blood Pressure Pulse Oximetry 92 95 95 06/10/21 17:07 06/10/21 17:08 06/10/21 17:51 Temperature Pulse Rate 97 97 100 Respiratory Rate 30 H 30 H 30 H Blood Pressure 118/49 L 119/47 L Pulse Oximetry 06/10/21 17:54 06/10/21 18:00 06/10/21 19:15 Temperature 36.9 C Pulse Rate 99 100 101 H Respiratory Rate 30 H 30 H 30 H Blood Pressure 121/49 L Pulse Oximetry 95 93 06/10/21 20:00 06/10/21 20:30 06/10/21 20:34 Temperature 37.0 C Pulse Rate 105 H 104 H 102 H Respiratory Rate 30 H 30 H Blood Pressure 126/47 L Pulse Oximetry 91 06/10/21 20:50 06/10/21 21:00 06/10/21 21:01 Temperature 37.0 C 37.1 C 37.1 C Pulse Rate 105 H 104 H 102 H Respiratory Rate 30 H 30 H 30 H Blood Pressure 116/53 L Pulse Oximetry 93 90 94 06/10/21 21:15 06/10/21 21:30 06/10/21 21:31 Temperature 37.1 C 37.1 C 37.1 C Pulse Rate 91 97 96 Respiratory Rate 30 H 30 H 30 H Blood Pressure 126/47 L Pulse Oximetry 95 90 92 06/10/21 21:45 06/10/21 22:00 06/10/21 22:01 Temperature 37.2 C 37.2 C 37.2 C Pulse Rate 100 103 H 104 H Respiratory Rate 30 H 30 H 30 H Blood Pressure 117/49 L Pul
[2021-06-11 17:24] LABS: Glucose Point of Care 174 mg/dl (65-105)
--- NOTE | 2021-06-11 22:30 | PC.NURSE ---
[facility] transfer line (Jyoti [phone]) called stating that they had a bed for Pt at [facility]. Spoke with pt's family members, Veronica, Cesar, and Jacqueline. Cesar states he wanted pt to transfer. Veronica and Jacqueline said they would only transfer pt to [facility] or [facility]. Explained that the transfer line stated it will be next to impossible to get a bed at [facility] and that [facility] has told Dr. George there are no beds available. Family expresses that they understand by passing on this bed, [facility] will be removing the pt from their transfer list. All parties verbalized understanding.
[2021-06-12] VITALS (47 sets, daily range): BP systolic 115–151; BP diastolic 43–68; PULSE 90–107; RESP 30; TEMP 36.1–36.9; O2SAT 88–97
[2021-06-12 00:26] LABS: Glucose Point of Care 179 mg/dl (65-105)
[2021-06-12] MEDS: CISATRACURIUM BESYLATE 200 MG in DEXTROSE 5% 80 ML 36.96 ML IV CONT ×8 (00:40→23:32)
[2021-06-12] MEDS: EPOPROSTENOL SODIUM 0.5 MG VIAL 1 MG INHALATION ×2 (02:02→20:02)
[2021-06-12] MEDS: METOCLOPRAMIDE HCL INJ 10 MG/2 ML VIAL IV PUSH ×4 (02:22→18:40)
[2021-06-12] MEDS: CENTRAL LINE FLUSH 10 ML IV PUSH ×3 (05:21→20:13)
[2021-06-12 05:42] LABS: Hematocrit 23.4 % (42.0-52.0); Mean Corpuscular HGB Conc 29.5 g/dl (32-36); Mean Corpuscular Hemoglobin 29.4 pg (26-34); Mean Corpuscular Volume 99.6 fl (80-100); Mean Platelet Volume 10.4 fl (7.4-10.4); Platelet Count Result 154 k/mm3 (150-375); Red Blood Count 2.35 M/mm3 (4.6-6.20); Red Cell Distribution Width 16.5 % (11.5-14.5); White Blood Count 18.1 K/mm3 (4.5-10.0)
[2021-06-12 05:45] LABS: Hemoglobin 6.9 g/dL (14.0-18.0)
[2021-06-12 06:11] LABS: Alanine Aminotransferase 32 U/L (4-50); Albumin Level 2.4 g/dL (3.5-5.1); Alkaline Phosphatase 163 U/L (38-126); Anion Gap 5 mmol/L (8-16); Aspartate Amino Transferase 35 U/L (17-59); Bilirubin,Total 0.1 mg/dL (0.2-1.3); Blood Urea Nitrogen 108 mg/dL (9-20); Calcium 8.9 mg/dL (8.4-10.2); Carbon Dioxide 30 mmol/L (22-30); Chloride 100 mmol/L (98-107); Estimated CRCL calculation 37 ml/min; Estimated Glomerular Filt Rate 25; Glucose 161 mg/dL (65-110); Magnesium 2.8 mg/dL (1.6-2.3); Phosphorus 6.2 mg/dL (2.5-4.5); Potassium 4.7 mmol/L (3.4-5.0); Sodium 135 mmol/L (137-145)
[2021-06-12 06:26] LABS: Alveolar/Arterial O2 Gradient 351.3 mmHg; Base Excess ABG 2.7 mEq/l (+/-2.0); Carboxyhemoglobin 0.4 % THb (0-2.0); Fractional Inspired Oxygen 70 %; HCO3 ABG 29.9 mEq/l (22.0-26.0); Methemoglobin ABG 0.5 %THb (0-1.5); Oxygen Content ABG 11.2 %vol (16.0-22.0); Oxygen Saturation ABG 94.2 % (95.0-100.0); Oxyhemoglobin 93.4 % THb (90.0-100.0); PO2 ABG 79.9 mmHg (80.0-100.0); PO2 FiO2 Ratio Arterial Blood 1.14 %; Reduced Hemoglobin 5.7 %THb (0-5.0); Total Hemoglobin 8.4 g/dL (12.0-18.0)
[2021-06-12 06:28] LABS: PCO2 ABG 63.2 mmHg (35.0-45.0); pH ABG 7.293 (7.350-7.450)
[2021-06-12 06:29] LABS: Device VENTILATOR; Modified Allen's Test Pass; Site Drawn LEFT RADIAL
[2021-06-12 06:30] LABS: Arterial Blood Gas PEEP 14 cmH2O; Arterial Blood Gas Tidal Volume 480 ml; Arterial Blood Gas Vent Mode CMV; Arterial Blood Gas Ventilator rate 14 /MIN
[2021-06-12] MEDS: MIDAZOLAM 100MG/NS 100ML(*CRX) 100 MG/100 ML BAG 8 MG IV CONT ×2 (07:37→20:16)
[2021-06-12] MEDS: polyethylene glycoL 3350 17 GM POWD.PACK PO (08:26)
[2021-06-12] MEDS: ENOXAPARIN 40 MG/0.4 ML SYRINGE SUB-Q (08:26)
[2021-06-12] MEDS: BUMETANIDE INJ 1 MG/4 ML VIAL IV PUSH (08:27)
[2021-06-12] MEDS: ASCORBIC ACID 500 MG TABLET PO (08:27)
[2021-06-12] MEDS: PANTOPRAZOLE SODIUM IV 40 MG VIAL IV PUSH ×2 (08:27→20:14)
[2021-06-12] MEDS: ZINC SULFATE 220 MG CAPSULE PO (08:27)
[2021-06-12] MEDS: CHOLECALCIFEROL 1,000 UNITS TABLET 1000 UNITS PO (08:27)
[2021-06-12] MEDS: INSULIN GLARGINE (*BKC) 100 UNITS/ML 35 UNITS SUB-Q (08:28)
[2021-06-12] MEDS: SILVERGEL (ELTA) 45 ML 1 APPLIC TOPICAL (08:39)
[2021-06-12] MEDS: MINERAL OIL/WHITE PETROLATUM OINTMENT 1 APPLIC EACH EYE ×2 (08:39→20:14)
--- NOTE | 2021-06-12 10:25 | P.PNNP_ITS ---
Progress Note: A&P Assessment and Plan (1) Acute kidney injury: Code(s): N17.9 - Acute kidney failure, unspecified Status: Acute Assessment and Plan: * multifactorial etiology: * cardiac arrest * infection (pneumonia/COVID-19) * possible pre-renal factors * Urine output 1150 yesterday. * Creatinine is up and down between 2 and 3 but basically stable * evaluation to date: * urine electrolytes prerenal * renal ultrasound without acute pathology * no cardiac rub (2) Chronic kidney disease, unspecified: Code(s): N18.9 - Chronic kidney disease, unspecified Status: Chronic Assessment and Plan: * unclear what baseline creatinine/GFR is * suspect secondary to hypertension and diabetes (3) Hypernatremia: Code(s): E87.0 - Hyperosmolality and hypernatremia Status: Acute Assessment and Plan: * resolved (4) Acute respiratory failure with hypoxia: Code(s): J96.01 - Acute respiratory failure with hypoxia Status: Acute Assessment and Plan: * been on mechanical ventilation since 05/18/21 * due to 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 * complicated by bilateral tension pneumothorax s/p bilateral chest tube placement * He is supine right now. (5) Hypertension: Code(s): I10 - Essential (primary) hypertension Status: Chronic Assessment and Plan: * no need for antihypertensives at this time (6) Type 2 diabetes mellitus: Code(s): E11.9 - Type 2 diabetes mellitus without complications Status: Acute Assessment and Plan: * on accuchecks and ssi Subjective Date/time seen: 06/12/21 10:25 Interval history: Patient is stable. On paralytic agents plus sedatives. In the prone position. FiO2 70% Exam Narrative: General: WD/WN male intubated/sedated/paralyzed on mechanical ventilation Heart: normal S1 and S2; no rub or gallop Lungs: coarse breath sounds Abdomen: soft, nontender, nondistended, positive bowel sounds Extremities: 1+ edema Skin: No rash Objective Data Vital Signs Vital Signs: Vital Signs - 24 hr 06/11/21 10:48 06/11/21 11:32 06/11/21 12:00 Temperature 36.7 C Pulse Rate 97 98 95 Respiratory Rate 30 H 30 H 30 H Blood Pressure 133/55 L 118/53 L Pulse Oximetry 93 97 06/11/21 13:15 06/11/21 13:18 06/11/21 14:00 Temperature 36.6 C Pulse Rate 94 94 93 Respiratory Rate 30 H 30 H 30 H Blood Pressure 126/58 L 135/59 L Pulse Oximetry 94 93 06/11/21 14:21 06/11/21 15:15 06/11/21 15:53 Temperature Pulse Rate 91 91 90 Respiratory Rate 30 H 30 H Blood Pressure 132/61 Pulse Oximetry 93 93 06/11/21 16:00 06/11/21 17:33 06/11/21 17:39 Temperature 36.2 C L Pulse Rate 89 87 87 Respiratory Rate 30 H 30 H Blood Pressure 131/59 L Pulse Oximetry 94 94 95 06/11/21 18:00 06/11/21 19:51 06/11/21 20:00 Temperature 36.1 C L 36.1 C L Pulse Rate 97 90 87 Respiratory Rate 30 H 30 H 30 H Blood Pressure 134/49 L 122/50 L Pulse Oximetry 94 92 94 06/11/21 20:23 06/11/21 20:24 06/11/21 20:25
--- NOTE | 2021-06-12 10:25 | PM.PNNEP ---
Progress Note: A&P Assessment and Plan (1) Acute kidney injury: Code(s): N17.9 - Acute kidney failure, unspecified Status: Acute Assessment and Plan: multifactorial etiology: cardiac arrest infection (pneumonia/COVID-19) possible pre-renal factors Urine output 1150 yesterday. Creatinine is up and down between 2 and 3 but basically stable evaluation to date: urine electrolytes prerenal renal ultrasound without acute pathology no cardiac rub (2) Chronic kidney disease, unspecified: Code(s): N18.9 - Chronic kidney disease, unspecified Status: Chronic Assessment and Plan: unclear what baseline creatinine/GFR is suspect secondary to hypertension and diabetes (3) Hypernatremia: Code(s): E87.0 - Hyperosmolality and hypernatremia Status: Acute Assessment and Plan: resolved (4) Acute respiratory failure with hypoxia: Code(s): J96.01 - Acute respiratory failure with hypoxia Status: Acute Assessment and Plan: been on mechanical ventilation since 05/18/21 due to 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 complicated by bilateral tension pneumothorax s/p bilateral chest tube placement He is supine right now. (5) Hypertension: Code(s): I10 - Essential (primary) hypertension Status: Chronic Assessment and Plan: no need for antihypertensives at this time (6) Type 2 diabetes mellitus: Code(s): E11.9 - Type 2 diabetes mellitus without complications Status: Acute Assessment and Plan: on accuchecks and ssi Subjective Date/time seen: 06/12/21 10:25 Interval history: Patient is stable. On paralytic agents plus sedatives. In the prone position. FiO2 70% Exam Narrative: General: WD/WN male intubated/sedated/paralyzed on mechanical ventilation Heart: normal S1 and S2; no rub or gallop Lungs: coarse breath sounds Abdomen: soft, nontender, nondistended, positive bowel sounds Extremities: 1+ edema Skin: No rash Objective Data Vital Signs Vital Signs: Vital Signs - 24 hr 06/11/21 10:48 06/11/21 11:32 06/11/21 12:00 Temperature 36.7 C Pulse Rate 97 98 95 Respiratory Rate 30 H 30 H 30 H Blood Pressure 133/55 L 118/53 L Pulse Oximetry 93 97 06/11/21 13:15 06/11/21 13:18 06/11/21 14:00 Temperature 36.6 C Pulse Rate 94 94 93 Respiratory Rate 30 H 30 H 30 H Blood Pressure 126/58 L 135/59 L Pulse Oximetry 94 93 06/11/21 14:21 06/11/21 15:15 06/11/21 15:53 Temperature Pulse Rate 91 91 90 Respiratory Rate 30 H 30 H Blood Pressure 132/61 Pulse Oximetry 93 93 06/11/21 16:00 06/11/21 17:33 06/11/21 17:39 Temperature 36.2 C L Pulse Rate 89 87 87 Respiratory Rate 30 H 30 H Blood Pressure 131/59 L Pulse Oximetry 94 94 95 06/11/21 18:00 06/11/21 19:51 06/11/21 20:00 Temperature 36.1 C L 36.1 C L Pulse Rate 97 90 87 Respiratory Rate 30 H 30 H 30 H Blood Pressure 134/49 L 122/50 L Pulse Oximetry 94 92 94 06/11/21 20:23 06/11/21 20:24 06/11/21 20:25 Temperature Pulse Rate 88 88 88 Respiratory Rate 30 H 30 H 30 H Blood Pressure 122/50 L Pulse Oximetry 06/11/21 21:57 06/11/21 22:00 06/11/21 22:06 Temperature 36.1 C L Pulse Rate 90 90 88 Respiratory Rate 30 H 30 H 30 H Blood Pressure 138/53 L 141/56 H Pulse Oximetry 99 97 06/12/21 00:00 06/12/21 00:33 06/12/21 00:37 Temperature 36.3 C L Pulse Rate 90 91 90 Respiratory Rate 30 H 30 H Blood Pressure 123/59 L Pulse Oximetry 96 97 97 06/12/21 00:40 06/12/21 02:00 06/12/21 02:03 Temperature 36.5 C Pulse Rate 92 92 92 Respiratory Rate 30 H 30 H 30 H Blood Pressure 132/49 L 132/49 L Pulse Oximetry 95 91 06/12/21 02:34 06/12/21 03:23 06/12/21 04:00 Temperature 36.8 C Pulse Rate 97 95 Respiratory Rate 30 H 30 H Blood Pressure 132/49 L 136/56 L 130/57 L Pulse Oximetry 95 06/12/21 04:32 06/12/21 05:19 02
--- NOTE | 2021-06-12 11:24 | WPDINTPN ---
Progress Note: A&P Assessment and Plan (1) Acute respiratory failure with hypoxia: Code(s): J96.01 - Acute respiratory failure with hypoxia Status: Acute Assessment and Plan: Acute respiratory failure likely related to COVID pneumonia -Intubated on 05/18/2021 - 05/25 bilateral tension pneumothorax spontaneous which also led to a brief PEA arrest. S/P chest tube placement bilateral - 06/04: patient was hypoxic, dropped his O2 sats in the low to mid 80s. Peep was increased 16, FiO2 was increased to 100%. Patient was restarted on Flolan and Nimbex. - Currently on CMV mode of ventilation, peep of 14 and 70% FiO2, wean FiO2 tolerate O2 sats greater than 90% - Chest x-ray shows stable diffuse lung disease - ABGs reviewed -tolerate permissive hypercapnia - low tidal volume, strategy to avoid volutrauma - Continue bronchodilators -continue prone ventilation as tolerated with intermittent supine position as tolerated - Sedated with fentanyl, Versed, restarted Nimbex on 06/04 -continue Bumex today after transfusion (2) Shock: Code(s): R57.9 - Shock, unspecified Status: Acute Assessment and Plan: Currently in severe sepsis, tachycardia, bandemia, increase in ventilatory support -likely due to bacterial pneumonia -afebrile now -continue cefepime and vancomycin (05/29), levofloxacin (06/04) -06/04: restarted on Levophed, maintain MAP > 70 mmHg -white blood cell count trending down -06/04: Blood cultures: Preliminary report, negative x2 -06/04: Urine culture - no growth -06/04 sputum cultures growing yeast Off levofloxacin. will complete a 14 day course of cefepime and vancomycin today on 06/12 (3) Pneumonia due to COVID-19 virus: Code(s): U07.1 - COVID-19; J12.82 - Pneumonia due to coronavirus disease 2019 Status: Acute Assessment and Plan: Positive COVID on 05/10/2020, patient is unvaccinated -patient has completed a 10 day course of dexamethasone which was started on 05/16/2021 -He has completed a 14 day course of baricitinib -patient refused remdesivir on presentation -continue vitamin-D, vitamin-C and zinc -continue droplet, airborne and contact isolation/precautions (4) Spontaneous tension pneumothorax: Code(s): J93.0 - Spontaneous tension pneumothorax Status: Acute Assessment and Plan: 05/25 Patient was spontaneous tension pneumothorax bilateral when he was placed in supine position Bilateral chest tubes were emergently placed Chest x-ray reviewed No air leak on chest tubes at this time (5) Cardiac arrest: Code(s): I46.9 - Cardiac arrest, cause unspecified Status: Acute Assessment and Plan: PEA arrest Secondary to bilateral tension pneumothorax ROSC after 1 dose of epinephrine and 1 round of CPR Echo ordered given shock state (6) Type 2 diabetes mellitus: Code(s): E11.9 - Type 2 diabetes mellitus without complications Status: Acute Assessment and Plan: Patient with history of type 2 diabetes and now on steroids - currently hyperglycemic Currently off of insulin infusion. - Continue Lantus - Continue sliding scale insulin -hemoglobin A1c is 8.4 this admission (7) Acute renal failure superimposed on stage 4 chronic kidney disease: Code(s): N17.9 - Acute kidney failure, unspecified; N18.4 - Chronic kidney disease, stage 4 (severe) Status: Acute Assessment and Plan: Patient presented with acute on chronic kidney disease with a creatinine of 3.30 on admission, patient was given IV fluid bolus in the ER for elevated lactic acid -patient does have a ureteral stent which was placed at [facility] 5 weeks ago due to some sort of scar tissue -05/17/2021: Renal ultrasound shows bilateral renal cortical thinning, atrophy, no hydronephrosis a hepatic steatosis -urine output continues to be adequate, creatinine has been elevated but stable -continue to maintain adequate mean arterial pressures close
[2021-06-12] MEDS: FENTANYL 2,500MCG/NS250ML(*CRX 2,500 MCG/250 ML BAG 15 MCG IV CONT (13:19)
[2021-06-12 13:36] LABS: Glucose Point of Care 119 mg/dl (65-105)
[2021-06-12] MEDS: INSULIN ASPART (*BKC) 100 UNITS/ML SUB-Q (18:39)
[2021-06-12 18:41] LABS: Glucose Point of Care 218 mg/dl (65-105)
[2021-06-12 23:35] LABS: Glucose Point of Care 178 mg/dl (65-105)
[2021-06-13] VITALS (50 sets, daily range): BP systolic 80–160; BP diastolic 33–63; PULSE 88–97; RESP 30; TEMP 35.9–36.7; O2SAT 89–96
[2021-06-13] MEDS: METOCLOPRAMIDE HCL INJ 10 MG/2 ML VIAL IV PUSH ×5 (00:23→23:28)
[2021-06-13] MEDS: EPOPROSTENOL SODIUM 0.5 MG VIAL 1 MG INHALATION ×4 (02:01→20:34)
[2021-06-13] MEDS: CISATRACURIUM BESYLATE 200 MG in DEXTROSE 5% 80 ML 36.96 ML IV CONT ×8 (02:38→23:22)
[2021-06-13 04:38] LABS: Alveolar/Arterial O2 Gradient 415.6 mmHg; Base Excess ABG -0.3 mEq/l (+/-2.0); Carboxyhemoglobin 0.1 % THb (0-2.0); Fractional Inspired Oxygen 80 %; HCO3 ABG 27.8 mEq/l (22.0-26.0); Methemoglobin ABG 0.4 %THb (0-1.5); Oxygen Content ABG 14.4 %vol (16.0-22.0); Oxygen Saturation ABG 94.9 % (95.0-100.0); Oxyhemoglobin 94.9 % THb (90.0-100.0); PO2 ABG 87.2 mmHg (80.0-100.0); PO2 FiO2 Ratio Arterial Blood 1.09 %; Reduced Hemoglobin 4.6 %THb (0-5.0); Total Hemoglobin 10.7 g/dL (12.0-18.0)
[2021-06-13 04:40] LABS: Device VENTILATOR; Modified Allen's Test Unable to perform; PCO2 ABG 64.4 mmHg (35.0-45.0); Site Drawn LEFT RADIAL; pH ABG 7.253 (7.350-7.450)
[2021-06-13 04:41] LABS: Arterial Blood Gas PEEP 14 cmH2O; Arterial Blood Gas Tidal Volume 480 ml; Arterial Blood Gas Vent Mode CMV; Arterial Blood Gas Ventilator rate 30 /MIN
[2021-06-13] MEDS: NOREPINEPHRINE 8 MG/D5W 250 ML 8 MG/250 ML BAG 9.38 MG IV CONT (05:11)
[2021-06-13] MEDS: FENTANYL 2,500MCG/NS250ML(*CRX 2,500 MCG/250 ML BAG 15 MCG IV CONT ×2 (05:33→21:59)
[2021-06-13] MEDS: CENTRAL LINE FLUSH 10 ML IV PUSH ×3 (05:35→20:09)
[2021-06-13 06:02] LABS: Glucose Point of Care 179 mg/dl (65-105)
[2021-06-13 06:03] LABS: Hematocrit 25.7 % (42.0-52.0); Hemoglobin 7.8 g/dL (14.0-18.0); Mean Corpuscular HGB Conc 30.4 g/dl (32-36); Mean Corpuscular Volume 98.8 fl (80-100); Mean Platelet Volume 10.7 fl (7.4-10.4); Platelet Count Result 175 k/mm3 (150-375); Red Cell Distribution Width 17.2 % (11.5-14.5); White Blood Count 26.3 K/mm3 (4.5-10.0)
[2021-06-13 06:31] LABS: Alanine Aminotransferase 34 U/L (4-50); Albumin Level 2.4 g/dL (3.5-5.1); Alkaline Phosphatase 169 U/L (38-126); Anion Gap 3 mmol/L (8-16); Aspartate Amino Transferase 36 U/L (17-59); Bilirubin,Total 0.3 mg/dL (0.2-1.3); Blood Urea Nitrogen 117 mg/dL (9-20); Calcium 8.5 mg/dL (8.4-10.2); Carbon Dioxide 30 mmol/L (22-30); Chloride 99 mmol/L (98-107); Estimated CRCL calculation 33 ml/min; Estimated Glomerular Filt Rate 21; Glucose 188 mg/dL (65-110); Magnesium 2.7 mg/dL (1.6-2.3); Phosphorus 6.2 mg/dL (2.5-4.5); Potassium 4.9 mmol/L (3.4-5.0); Sodium 132 mmol/L (137-145)
--- NOTE | 2021-06-13 08:34 | P.PNNP_ITS ---
Progress Note: A&P Assessment and Plan (1) Acute kidney injury: Code(s): N17.9 - Acute kidney failure, unspecified Status: Acute Assessment and Plan: * multifactorial etiology: * cardiac arrest * infection (pneumonia/COVID-19) * possible pre-renal factors * Urine output down to 975 yesterday. * Creatinine is creeping up. Now it is above 3. * evaluation to date: * urine electrolytes prerenal * renal ultrasound without acute pathology * no cardiac rub * FiO2 is elevated. Will try another dose of Bumex today. * The patient's white cell count is elevated. Some superinfection could be occurring. * Unfortunately patient continues to deteriorate slowly. His BUN and creatinine are higher, then output is lower, blood pressure is soft and is on norepinephrine, his white cell count is elevated, and his FiO2 is higher. Overall prognosis is grim. 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 * complicated by bilateral tension pneumothorax s/p bilateral chest tube placement * He is supine right now. (5) Hypertension: Code(s): I10 - Essential (primary) hypertension Status: Chronic Assessment and Plan: * no need for antihypertensives at this time (6) Type 2 diabetes mellitus: Code(s): E11.9 - Type 2 diabetes mellitus without complications Status: Acute Assessment and Plan: * on accuchecks and ssi Subjective Date/time seen: 06/13/21 08:34 Interval history: Patient is lying in bed on sedatives was paralytics. In the prone position. FiO2 80% Exam Narrative: General: WD/WN male intubated/sedated/paralyzed on mechanical ventilation Heart: normal S1 and S2; no rub or gallop Lungs: coarse breath sounds bilaterally Abdomen: soft, nontender, nondistended, positive bowel sounds Extremities: 1+ edema Skin: No rash Objective Data Vital Signs Vital Signs: Vital Signs - 24 hr 06/12/21 10:00 06/12/21 10:05 06/12/21 10:07 Temperature 36.1 C L Pulse Rate 98 97 97 Respiratory Rate 30 H 30 H Blood Pressure Pulse Oximetry 88 L 93 93 06/12/21 10:19 06/12/21 11:08 06/12/21 12:00 Temperature 36.9 C Pulse Rate 92 97 96 Respiratory Rate 30 H 30 H 30 H Blood Pressure 140/61 130/65 Pulse Oximetry 94 06/12/21 12:14 06/12/21 12:34 06/12/21 12:36 Temperature 36.9 C Pulse Rate 93 93 97 Respiratory Rate 30 H 30 H Blood Pressure 130/65 Pulse Oximetry 97 96 96 06/12/21 13:19 06/12/21 13:21 06/12/21 13:26 Temperature 36.8 C Pulse Rate 97 92 92 Respiratory Rate 30 H 30 H 30 H Blood Pressure 140/61 140/61
--- NOTE | 2021-06-13 08:34 | PM.PNNEP ---
Progress Note: A&P Assessment and Plan (1) Acute kidney injury: Code(s): N17.9 - Acute kidney failure, unspecified Status: Acute Assessment and Plan: multifactorial etiology: cardiac arrest infection (pneumonia/COVID-19) possible pre-renal factors Urine output down to 975 yesterday. Creatinine is creeping up. Now it is above 3. evaluation to date: urine electrolytes prerenal renal ultrasound without acute pathology no cardiac rub FiO2 is elevated. Will try another dose of Bumex today. The patient's white cell count is elevated. Some superinfection could be occurring. Unfortunately patient continues to deteriorate slowly. His BUN and creatinine are higher, then output is lower, blood pressure is soft and is on norepinephrine, his white cell count is elevated, and his FiO2 is higher. Overall prognosis is grim. (2) Chronic kidney disease, unspecified: Code(s): N18.9 - Chronic kidney disease, unspecified Status: Chronic Assessment and Plan: unclear what baseline creatinine/GFR is suspect secondary to hypertension and diabetes (3) Hypernatremia: Code(s): E87.0 - Hyperosmolality and hypernatremia Status: Acute Assessment and Plan: resolved (4) Acute respiratory failure with hypoxia: Code(s): J96.01 - Acute respiratory failure with hypoxia Status: Acute Assessment and Plan: been on mechanical ventilation since 05/18/21 due to 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 complicated by bilateral tension pneumothorax s/p bilateral chest tube placement He is supine right now. (5) Hypertension: Code(s): I10 - Essential (primary) hypertension Status: Chronic Assessment and Plan: no need for antihypertensives at this time (6) Type 2 diabetes mellitus: Code(s): E11.9 - Type 2 diabetes mellitus without complications Status: Acute Assessment and Plan: on accuchecks and ssi Subjective Date/time seen: 06/13/21 08:34 Interval history: Patient is lying in bed on sedatives was paralytics. In the prone position. FiO2 80% Exam Narrative: General: WD/WN male intubated/sedated/paralyzed on mechanical ventilation Heart: normal S1 and S2; no rub or gallop Lungs: coarse breath sounds bilaterally Abdomen: soft, nontender, nondistended, positive bowel sounds Extremities: 1+ edema Skin: No rash Objective Data Vital Signs Vital Signs: Vital Signs - 24 hr 06/12/21 10:00 06/12/21 10:05 06/12/21 10:07 Temperature 36.1 C L Pulse Rate 98 97 97 Respiratory Rate 30 H 30 H Blood Pressure Pulse Oximetry 88 L 93 93 06/12/21 10:19 06/12/21 11:08 06/12/21 12:00 Temperature 36.9 C Pulse Rate 92 97 96 Respiratory Rate 30 H 30 H 30 H Blood Pressure 140/61 130/65 Pulse Oximetry 94 06/12/21 12:14 06/12/21 12:34 06/12/21 12:36 Temperature 36.9 C Pulse Rate 93 93 97 Respiratory Rate 30 H 30 H Blood Pressure 130/65 Pulse Oximetry 97 96 96 06/12/21 13:19 06/12/21 13:21 06/12/21 13:26 Temperature 36.8 C Pulse Rate 97 92 92 Respiratory Rate 30 H 30 H 30 H Blood Pressure 140/61 140/61 Pulse Oximetry 95 06/12/21 14:00 06/12/21 14:06 06/12/21 14:07 Temperature 36.8 C Pulse Rate 92 91 90 Respiratory Rate 30 H 30 H Blood Pressure 146/68 H Pulse Oximetry 94 96 96 06/12/21 15:41 06/12/21 15:42 06/12/21 15:43 Temperature Pulse Rate 91 91 91 Respiratory Rate 30 H 30 H Blood Pressure 139/54 L Pulse Oximetry 91 91 06/12/21 16:00 06/12/21 17:55 06/12/21 18:00 Temperature 36.6 C 36.5 C Pulse Rate 92 100 103 H Respiratory Rate 30 H 30 H 30 H Blood Pressure 142/52 H 151/51 H Pulse Oximetry 93 92 92 06/12/21 20:00 06/12/21 20:02 06/12/21 20:13 Temperature 36.3 C L Pulse Rate 99 100 101 H Respiratory Rate 30 H 30 H 30 H Blood Pressure 133/49 L Pulse Oximetry 93 92 06/12/21 20:16 06/12/21 20:50 02
[2021-06-13] MEDS: MIDAZOLAM 100MG/NS 100ML(*CRX) 100 MG/100 ML BAG 8 MG IV CONT ×2 (08:52→20:38)
[2021-06-13] MEDS: polyethylene glycoL 3350 17 GM POWD.PACK PO (08:56)
[2021-06-13] MEDS: BUMETANIDE INJ 1 MG/4 ML VIAL IV PUSH (08:56)
[2021-06-13] MEDS: ENOXAPARIN 40 MG/0.4 ML SYRINGE SUB-Q (08:56)
[2021-06-13] MEDS: ASCORBIC ACID 500 MG TABLET PO (08:57)
[2021-06-13] MEDS: ZINC SULFATE 220 MG CAPSULE PO (08:57)
[2021-06-13] MEDS: CHOLECALCIFEROL 1,000 UNITS TABLET 1000 UNITS PO (08:57)
[2021-06-13] MEDS: SILVERGEL (ELTA) 45 ML 1 APPLIC TOPICAL (08:57)
[2021-06-13] MEDS: PANTOPRAZOLE SODIUM IV 40 MG VIAL IV PUSH ×2 (08:57→20:09)
[2021-06-13] MEDS: MINERAL OIL/WHITE PETROLATUM OINTMENT 1 APPLIC EACH EYE ×2 (08:57→20:09)
[2021-06-13] MEDS: INSULIN GLARGINE (*BKC) 100 UNITS/ML 35 UNITS SUB-Q (09:10)
[2021-06-13 09:14] LABS: Glucose Point of Care 189 mg/dl (65-105)
--- NOTE | 2021-06-13 10:13 | WPDINTPN ---
Progress Note: A&P Assessment and Plan (1) Acute respiratory failure with hypoxia: Code(s): J96.01 - Acute respiratory failure with hypoxia Status: Acute Assessment and Plan: Acute respiratory failure likely related to COVID pneumonia -Intubated on 05/18/2021 - 05/25 bilateral tension pneumothorax spontaneous which also led to a brief PEA arrest. S/P chest tube placement bilateral - 06/04: patient was hypoxic, dropped his O2 sats in the low to mid 80s. Peep was increased 16, FiO2 was increased to 100%. Patient was restarted on Flolan and Nimbex. - Currently on CMV mode of ventilation, peep of 14 and 70% FiO2, wean FiO2 tolerate O2 sats greater than 90% - Chest x-ray shows stable diffuse lung disease. ET tube in acceptable position - ABGs reviewed -tolerate permissive hypercapnia - low tidal volume, strategy to avoid volutrauma - Continue bronchodilators -continue prone ventilation as tolerated with intermittent supine position as tolerated - Sedated with fentanyl, Versed, restarted Nimbex on 06/04 -continue Bumex today after discussion with Nephrology (2) Shock: Code(s): R57.9 - Shock, unspecified Status: Acute Assessment and Plan: Currently in severe sepsis, tachycardia, bandemia, increase in ventilatory support -likely due to bacterial pneumonia -afebrile now -continue cefepime and vancomycin (05/29), levofloxacin (06/04) -06/04: restarted on Levophed, maintain MAP > 70 mmHg -white blood cell count trending down -06/04: Blood cultures: Preliminary report, negative x2 -06/04: Urine culture - no growth -06/04 sputum cultures growing yeast. He completed 14 day course of cefepime and vancomycin today on 06/12 (3) Pneumonia due to COVID-19 virus: Code(s): U07.1 - COVID-19; J12.82 - Pneumonia due to coronavirus disease 2019 Status: Acute Assessment and Plan: Positive COVID on 05/10/2020, patient is unvaccinated -patient has completed a 10 day course of dexamethasone which was started on 05/16/2021 -He has completed a 14 day course of baricitinib -patient refused remdesivir on presentation -continue vitamin-D, vitamin-C and zinc -continue droplet, airborne and contact isolation/precautions (4) Spontaneous tension pneumothorax: Code(s): J93.0 - Spontaneous tension pneumothorax Status: Acute Assessment and Plan: 2 Patient was spontaneous tension pneumothorax bilateral when he was placed in supine position Bilateral chest tubes were emergently placed Chest x-ray reviewed No air leak on chest tubes at this time (5) Cardiac arrest: Code(s): I46.9 - Cardiac arrest, cause unspecified Status: Acute Assessment and Plan: PEA arrest Secondary to bilateral tension pneumothorax ROSC after 1 dose of epinephrine and 1 round of CPR Echo ordered given shock state (6) Type 2 diabetes mellitus: Code(s): E11.9 - Type 2 diabetes mellitus without complications Status: Acute Assessment and Plan: Patient with history of type 2 diabetes and now on steroids - currently hyperglycemic Currently off of insulin infusion. - Continue Lantus - Continue sliding scale insulin -hemoglobin A1c is 8.4 this admission (7) Acute renal failure superimposed on stage 4 chronic kidney disease: Code(s): N17.9 - Acute kidney failure, unspecified; N18.4 - Chronic kidney disease, stage 4 (severe) Status: Acute Assessment and Plan: Patient presented with acute on chronic kidney disease with a creatinine of 3.30 on admission, patient was given IV fluid bolus in the ER for elevated lactic acid -patient does have a ureteral stent which was placed at [facility] [place] 5 weeks ago due to some sort of scar tissue -05/17/2021: Renal ultrasound shows bilateral renal cortical thinning, atrophy, no hydronephrosis a hepatic steatosis -urine output is on the down trend, creatinine has increased to 3 today -continue to maintain adequate mean
[2021-06-13 11:08] LABS: Glucose Point of Care 178 mg/dl (65-105)
[2021-06-13 18:17] LABS: Glucose Point of Care 156 mg/dl (65-105)
[2021-06-13 23:47] LABS: Glucose Point of Care 144 mg/dl (65-105)
[2021-06-14] VITALS (44 sets, daily range): BP systolic 91–142; BP diastolic 43–61; PULSE 87–110; RESP 27–30; TEMP 36.6–37.9; O2SAT 89–98
[2021-06-14] MEDS: CISATRACURIUM BESYLATE 200 MG in DEXTROSE 5% 80 ML 36.96 ML IV CONT ×7 (02:05→18:44)
[2021-06-14] MEDS: EPOPROSTENOL SODIUM 0.5 MG VIAL 1 MG INHALATION ×4 (02:21→20:19)
[2021-06-14] MEDS: METOCLOPRAMIDE HCL INJ 10 MG/2 ML VIAL IV PUSH ×3 (05:27→18:19)
[2021-06-14] MEDS: CENTRAL LINE FLUSH 10 ML IV PUSH ×3 (05:27→21:37)
[2021-06-14 05:53] LABS: Hematocrit 24.3 % (42.0-52.0); Hemoglobin 7.3 g/dL (14.0-18.0); Mean Corpuscular Hemoglobin 30.3 pg (26-34); Mean Corpuscular Volume 100.8 fl (80-100); Mean Platelet Volume 10.5 fl (7.4-10.4); Platelet Count Result 183 k/mm3 (150-375); Red Blood Count 2.41 M/mm3 (4.6-6.20)
[2021-06-14 06:14] LABS: Alanine Aminotransferase 33 U/L (4-50); Albumin Level 2.3 g/dL (3.5-5.1); Alkaline Phosphatase 158 U/L (38-126); Anion Gap 6 mmol/L (8-16); Aspartate Amino Transferase 43 U/L (17-59); Bilirubin,Total 0.2 mg/dL (0.2-1.3); Calcium 8.5 mg/dL (8.4-10.2); Carbon Dioxide 28 mmol/L (22-30); Chloride 98 mmol/L (98-107); Estimated CRCL calculation 30 ml/min; Estimated Glomerular Filt Rate 19; Glucose 137 mg/dL (65-110); Magnesium 2.9 mg/dL (1.6-2.3); Phosphorus 7.1 mg/dL (2.5-4.5); Potassium 5.2 mmol/L (3.4-5.0); Sodium 132 mmol/L (137-145)
[2021-06-14 06:19] LABS: Blood Urea Nitrogen 122 mg/dL (9-20)
[2021-06-14 06:20] LABS: Alveolar/Arterial O2 Gradient 409.9 mmHg; Base Excess ABG -0.5 mEq/l (+/-2.0); Carboxyhemoglobin 0.3 % THb (0-2.0); Fractional Inspired Oxygen 80 %; HCO3 ABG 27.4 mEq/l (22.0-26.0); Methemoglobin ABG 0.5 %THb (0-1.5); Oxygen Content ABG 13.6 %vol (16.0-22.0); Oxyhemoglobin 95.1 % THb (90.0-100.0); PO2 ABG 94.9 mmHg (80.0-100.0); PO2 FiO2 Ratio Arterial Blood 1.19 %; Reduced Hemoglobin 4.1 %THb (0-5.0); Total Hemoglobin 10.1 g/dL (12.0-18.0)
[2021-06-14 06:22] LABS: pH ABG 7.259 (7.350-7.450)
[2021-06-14 06:23] LABS: Device VENTILATOR; Modified Allen's Test Pass; PCO2 ABG 62.5 mmHg (35.0-45.0); Site Drawn LEFT RADIAL
[2021-06-14 06:24] LABS: Arterial Blood Gas PEEP 14 cmH2O; Arterial Blood Gas Tidal Volume 480 ml; Arterial Blood Gas Vent Mode CMV; Arterial Blood Gas Ventilator rate 30 /MIN
[2021-06-14] MEDS: MIDAZOLAM 100MG/NS 100ML(*CRX) 100 MG/100 ML BAG 8 MG IV CONT ×2 (09:25→23:13)
[2021-06-14] MEDS: INSULIN GLARGINE (*BKC) 100 UNITS/ML 35 UNITS SUB-Q (09:40)
[2021-06-14] MEDS: ZINC SULFATE 220 MG CAPSULE PO (09:40)
[2021-06-14] MEDS: PANTOPRAZOLE SODIUM IV 40 MG VIAL IV PUSH ×2 (09:41→21:37)
[2021-06-14] MEDS: MINERAL OIL/WHITE PETROLATUM OINTMENT 1 APPLIC EACH EYE ×2 (09:41→21:37)
[2021-06-14] MEDS: ASCORBIC ACID 500 MG TABLET PO (09:41)
[2021-06-14] MEDS: polyethylene glycoL 3350 17 GM POWD.PACK PO (09:41)
[2021-06-14] MEDS: ENOXAPARIN 40 MG/0.4 ML SYRINGE SUB-Q (09:41)
[2021-06-14] MEDS: CHOLECALCIFEROL 1,000 UNITS TABLET 1000 UNITS PO (09:41)
[2021-06-14 10:13] LABS: Glucose Point of Care 151 mg/dl (65-105)
--- NOTE | 2021-06-14 12:09 | WPDINTPN ---
Progress Note: A&P Assessment and Plan (1) Acute respiratory failure with hypoxia: Code(s): J96.01 - Acute respiratory failure with hypoxia Status: Acute Assessment and Plan: Acute respiratory failure likely related to COVID pneumonia -Intubated on 05/18/2021 - 05/25 bilateral tension pneumothorax spontaneous which also led to a brief PEA arrest. S/P chest tube placement bilateral - 06/04: patient was hypoxic, dropped his O2 sats in the low to mid 80s. Peep was increased 16, FiO2 was increased to 100%. Patient was restarted on Flolan and Nimbex. - Currently on CMV mode of ventilation, peep of 14 and 70% FiO2, wean FiO2 tolerate O2 sats greater than 90% - Chest x-ray shows stable diffuse lung disease. ET tube in acceptable position - ABGs reviewed -tolerate permissive hypercapnia - low tidal volume, strategy to avoid volutrauma - Continue bronchodilators -continue prone ventilation as tolerated with intermittent supine position as tolerated - Sedated with fentanyl, Versed, restarted Nimbex on 06/04 -patient received Bumex on 06/13/2021, currently held because of worsening renal function (2) Shock: Code(s): R57.9 - Shock, unspecified Status: Acute Assessment and Plan: Currently in severe sepsis, tachycardia, bandemia, increase in ventilatory support -likely due to bacterial pneumonia -afebrile now -off all antibiotics cefepime and vancomycin (05/29), levofloxacin (06/04) -06/04: restarted on Levophed, maintain MAP > 70 mmHg -white blood cell count trending down -06/04: Blood cultures: Preliminary report, negative x2 -06/04: Urine culture - no growth -06/04 sputum cultures growing yeast. - He completed 14 day course of cefepime and vancomycin on 06/12 (3) Pneumonia due to COVID-19 virus: Code(s): U07.1 - COVID-19; J12.82 - Pneumonia due to coronavirus disease 2019 Status: Acute Assessment and Plan: Positive COVID on 05/10/2020, patient is unvaccinated -patient has completed a 10 day course of dexamethasone which was started on 05/16/2021 -He has completed a 14 day course of baricitinib -patient refused remdesivir on presentation -continue vitamin-D, vitamin-C and zinc -continue droplet, airborne and contact isolation/precautions (4) Spontaneous tension pneumothorax: Code(s): J93.0 - Spontaneous tension pneumothorax Status: Acute Assessment and Plan: 05/25 Patient was spontaneous tension pneumothorax bilateral when he was placed in supine position Bilateral chest tubes were emergently placed Chest x-ray reviewed No air leak on chest tubes at this time (5) Cardiac arrest: Code(s): I46.9 - Cardiac arrest, cause unspecified Status: Acute Assessment and Plan: PEA arrest Secondary to bilateral tension pneumothorax ROSC after 1 dose of epinephrine and 1 round of CPR Echo 06/07/2021: LV systolic function is hyperdynamic, EF 70%, grade 1 diastolic dysfunction, moderate pulmonary hypertension with RVSP of 58 mmHg (6) Type 2 diabetes mellitus: Code(s): E11.9 - Type 2 diabetes mellitus without complications Status: Acute Assessment and Plan: Patient with history of type 2 diabetes and now on steroids - currently hyperglycemic Currently off of insulin infusion. - Continue Lantus - Continue sliding scale insulin -hemoglobin A1c is 8.4 this admission (7) Acute renal failure superimposed on stage 4 chronic kidney disease: Code(s): N17.9 - Acute kidney failure, unspecified; N18.4 - Chronic kidney disease, stage 4 (severe) Status: Acute Assessment and Plan: Patient presented with acute on chronic kidney disease with a creatinine of 3.30 on admission, patient was given IV fluid bolus in the ER for elevated lactic acid -patient does have a ureteral stent which was placed at [facility] 5 weeks ago due to some sort of scar tissue -05/17/2021: Renal ultrasound shows bilateral renal cortical thinning, atr
--- NOTE | 2021-06-14 12:12 | P.PNNP_ITS ---
Progress Note: A&P Assessment and Plan (1) Acute kidney injury: Code(s): N17.9 - Acute kidney failure, unspecified Status: Acute Assessment and Plan: * multifactorial etiology: * cardiac arrest * infection (pneumonia/COVID-19) * possible pre-renal factors * creatinine rising associated with declining UOP (athough seems to correlate with associated hypotension) * evaluation to date: * urine electrolytes prerenal * renal ultrasound without acute pathology * agree with attempting to keep MAP > 65 in the hopes this will facilitate better renal perfusion * remains at risk for CHILLER TENDER/dialysis but given his ongoing deterioration, I doubt dialysis would change his overall poor prognosis (2) Chronic kidney disease, unspecified: Code(s): N18.9 - Chronic kidney disease, unspecified Status: Chronic Assessment and Plan: * unclear what baseline creatinine/GFR is * suspect secondary to hypertension and diabetes (3) Hypernatremia: Code(s): E87.0 - Hyperosmolality and hypernatremia Status: Acute Assessment and Plan: * resolved (4) Acute respiratory failure with hypoxia: Code(s): J96.01 - Acute respiratory failure with hypoxia Status: Acute Assessment and Plan: * been on mechanical ventilation since 05/18/21 * due to 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 * complicated by bilateral tension pneumothorax s/p bilateral chest tube placement * He is supine right now. (5) Hypertension: Code(s): I10 - Essential (primary) hypertension Status: Chronic Assessment and Plan: * not an issues at this time * on pressor therapy due to hypotension (6) Type 2 diabetes mellitus: Code(s): E11.9 - Type 2 diabetes mellitus without complications Status: Acute Assessment and Plan: * follow accuchecks * on SSI Discussed case with Dr. Callahan -- doubt CHILLER TENDER/dialysis would help his ongoing deteriorating status and I question if he would tolerated such an intervention g iven his tenuous status... Will continue to follow Subjective Date/time seen: 06/14/21 12:12 Chart reviewed since last seen - assuming care from Dr. Oconnell; remains on full ventilator support and currently sedated/paralyzed; renal function has been deteriorating and continues to require levophed to maintain MAP; afebrile at this time; otherwise, no real significant change. Exam Narrative: General: WD/WN male intubated/sedated/paralyzed on mechanical ventilation Heart: RRR, normal S1 and S2 Lungs: coarse breath sounds bilaterally Abdomen: soft, nontender, nondistended, positive bowel sounds Extremities: 1+ edema noted Skin: warm and dry Objective Data Vital Signs Vital Signs: Vital Signs Temp Pulse Resp BP Pulse Ox 06/14/21 11:21 99 92 06/14/21 10:33 101 H 104/43 L 06/14/21 10:00 103 H 30 H 95 06/14/21 09:29 101 H 30 H 118/48 L 06/14/21 09:25 101 H 30 H 06/14/21 08:10 99 30 H 98 06/14/21 07:30 101 H 102/47 L 06/14/21 06:27 100 30 H 96 06/14/21 06:00 37.1 C 101 H 30 H 104/47 L 95 06/14/21 04:48 100 30 H 95/43 L 06/14/21 04:17 98 30 H 96 06/14/21 04:00 37.0 C 100 30 H 91/43 L 95 06/14/21 02:21 98 30 H 94 06/14/21 02:05 98 30 H 98/47 L 02
--- NOTE | 2021-06-14 12:12 | PM.PNNEP ---
Progress Note: A&P Assessment and Plan (1) Acute kidney injury: Code(s): N17.9 - Acute kidney failure, unspecified Status: Acute Assessment and Plan: multifactorial etiology: cardiac arrest infection (pneumonia/COVID-19) possible pre-renal factors creatinine rising associated with declining UOP (athough seems to correlate with associated hypotension) evaluation to date: urine electrolytes prerenal renal ultrasound without acute pathology agree with attempting to keep MAP > 65 in the hopes this will facilitate better renal perfusion remains at risk for DJANGO DEVELOPER/dialysis but given his ongoing deterioration, I doubt dialysis would change his overall poor prognosis (2) Chronic kidney disease, unspecified: Code(s): N18.9 - Chronic kidney disease, unspecified Status: Chronic Assessment and Plan: unclear what baseline creatinine/GFR is suspect secondary to hypertension and diabetes (3) Hypernatremia: Code(s): E87.0 - Hyperosmolality and hypernatremia Status: Acute Assessment and Plan: resolved (4) Acute respiratory failure with hypoxia: Code(s): J96.01 - Acute respiratory failure with hypoxia Status: Acute Assessment and Plan: been on mechanical ventilation since 05/18/21 due to 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 complicated by bilateral tension pneumothorax s/p bilateral chest tube placement He is supine right now. (5) Hypertension: Code(s): I10 - Essential (primary) hypertension Status: Chronic Assessment and Plan: not an issues at this time on pressor therapy due to hypotension (6) Type 2 diabetes mellitus: Code(s): E11.9 - Type 2 diabetes mellitus without complications Status: Acute Assessment and Plan: follow accuchecks on SSI Discussed case with Dr. Callahan -- doubt DJANGO DEVELOPER/dialysis would help his ongoing deteriorating status and I question if he would tolerated such an intervention given his tenuous status... Will continue to follow Subjective Date/time seen: 06/14/21 12:12 Chart reviewed since last seen - assuming care from Dr. Oconnell; remains on full ventilator support and currently sedated/paralyzed; renal function has been deteriorating and continues to require levophed to maintain MAP; afebrile at this time; otherwise, no real significant change. Exam Narrative: General: WD/WN male intubated/sedated/paralyzed on mechanical ventilation Heart: RRR, normal S1 and S2 Lungs: coarse breath sounds bilaterally Abdomen: soft, nontender, nondistended, positive bowel sounds Extremities: 1+ edema noted Skin: warm and dry Objective Data Vital Signs Vital Signs: Vital Signs Temp Pulse Resp BP Pulse Ox 06/14/21 11:21 99 92 06/14/21 10:33 101 H 104/43 L 06/14/21 10:00 103 H 30 H 95 06/14/21 09:29 101 H 30 H 118/48 L 06/14/21 09:25 101 H 30 H 06/14/21 08:10 99 30 H 98 06/14/21 07:30 101 H 102/47 L 06/14/21 06:27 100 30 H 96 06/14/21 06:00 37.1 C 101 H 30 H 104/47 L 95 06/14/21 04:48 100 30 H 95/43 L 06/14/21 04:17 98 30 H 96 06/14/21 04:00 37.0 C 100 30 H 91/43 L 95 06/14/21 02:21 98 30 H 94 06/14/21 02:05 98 30 H 98/47 L 06/14/21 02:00 36.8 C 97 30 H 98/47 L 94 06/14/21 00:10 98 30 H 93 06/14/21 00:00 36.6 C 98 30 H 106/49 L 94 06/13/21 23:22 97 30 H 116/49 L 06/13/21 22:35 96 30 H 96 06/13/21 22:00 36.3 C L 95 30 H 113/49 L 95 06/13/21 21:59 94 30 H 06/13/21 20:40 93 30 H 06/13/21 20:39 93 30 H 110/48 L 06/13/21 20:38 93 30 H 06/13/21 20:34 91 30 H 96 06/13/21 20:00 36.0 C L 92 30 H 116/48 L 95 06/13/21 18:00 89 30 H 123/48 L 95 06/13/21 17:58 30 H 125/48 L 06/13/21 17:16 90 96 06/13/21 16:15 90 30 H 96 06/13/21 16:00 36.2 C L 89 30 H 129/51 L 96 06/13/21 15:53
[2021-06-14] MEDS: SILVERGEL (ELTA) 45 ML 1 APPLIC TOPICAL (12:17)
--- NOTE | 2021-06-14 12:19 | PCFNICU ---
ICU Rounding Note: Pt current nutrition is Nepro at 55 ml/hr over 22 hours. Last recorded weight is 147.9 kg, up from 123.6 kg on admit. Bowel Motility:+BM reported 06/12 Labs Reviewed:Glu 137, Cr 3.3,BUN 122, GFR 19, Na 132, Na 132, Alb 2.3,Hct 24.3,Hgb 7.3 Meds Noted:Flolan, Nimbex, Fentanyl, Lantus, Versed, Atrovent, Zinc, Vit C, Vit D,Lovenox, NovoLog, Reglan, Miralax Skin: unstageable pressure ulcer-right lower leg. Additional Notes: Patient remains on mechanical vent and tube tube feedings of Nepro at 55 ml/hr0-tolerating per nursing. Free water flush 50 ml q 4 hours. Agree with diet orders. Following daily in ICU rounds. Will monitor every Monday and Monday.
[2021-06-14 13:37] LABS: Glucose Point of Care 152 mg/dl (65-105)
[2021-06-14] MEDS: FENTANYL 2,500MCG/NS250ML(*CRX 2,500 MCG/250 ML BAG 15 MCG IV CONT (14:35)
--- NOTE | 2021-06-14 15:37 | PM.IMPN ---
Progress Note: A&P Assessment and Plan (1) Acute respiratory failure with hypoxia: Code(s): J96.01 - Acute respiratory failure with hypoxia Status: Acute Assessment and Plan: Acute respiratory failure likely related to COVID pneumonia requiring intubation on 05/18/21. MV Day - 05/25 bilateral tension PTX spontaneous which also led to a brief PEA arrest. S/P chest tube placement bilateral. - He remains on mechanical ventilator, sedated and paralyzed. - Inhaled Flolan that was started on 05/25 and stopped 06/02; Resumed 06/04 - Continue prone positioning per curriculum specialist - continue current sedation with fentanyl, Versed; Nimbex infusion for vent synchrony (2) Shock: Code(s): R57.9 - Shock, unspecified Status: Acute Assessment and Plan: Blood pressure dropped after tension pneumothorax on 05/25/21. 1 L saline bolus given and started on Levophed but weaned off quickly. On 06/04, Levophed resumed and now able to be weaned off today. BP stable. Trop negative, EKG showing no acute changes and Echo EF 70% with Grade I diastolic dysfunction. Levophed resumed to improve SBP to help with renal perfusion. Follow. (3) Pneumonia due to COVID-19 virus: Code(s): U07.1 - COVID-19; J12.82 - Pneumonia due to coronavirus disease 2019 Status: Acute Assessment and Plan: Patient was found to be COVID positive on 05/10/21; he is unvaccinated. Patient completed a 10 day course of dexamethasone and baricitinib. Patient refused remdesivir on presentation. Continue vitamin-D, vitamin-C and zinc. Continue droplet, airborne and contact isolation/precautions. Continue supportive care. (4) Sepsis: Code(s): A41.9 - Sepsis, unspecified organism Status: Acute Assessment and Plan: Present on admission with elevated WBC, lactic acidosis. BCx 05/16 negative. Sputum growing yeast 05/22. UCx 05/29 and 06/04 negative. BCx 05/28 growing Staph Epi and Staph cohnii (1of2) suspected to be a contaminate. BCx 06/04 negative. Sputum Cx 06/04 growing yeast again. Vancomycin (D15), cefepime (D15) stopped 06/12; Levaquin stopped after 6 days (last dose 06/08). Last low grade fever was on 06/11/21. WBC elevated to 26K but better today. Follow off abx. (5) Spontaneous tension pneumothorax: Code(s): J93.0 - Spontaneous tension pneumothorax Status: Acute Assessment and Plan: Patient developed spontaneous bilateral tension pneumothorax on 05/25/21 when he was placed in supine position. He had PEA requiring code blue. Bilateral chest tubes were emergently placed. Chest tube management per GenSurg. Appreciate General surgery input. (6) Cardiac arrest: Code(s): I46.9 - Cardiac arrest, cause unspecified Status: Acute Assessment and Plan: PEA arrest on 05/25/21 related to bilateral tension pneumothorax. ROSC after 1 dose of epinephrine and 1 round of CPR. As above. (7) Acute renal failure superimposed on stage 4 chronic kidney disease: Code(s): N17.9 - Acute kidney failure, unspecified; N18.4 - Chronic kidney disease, stage 4 (severe) Status: Acute Assessment and Plan: Patient does have a ureteral stent which was placed at [facility] 5 weeks ago due to some sort of scar tissue. Patient presented with acute on chronic kidney disease with a creatinine of 3.3 on admission. Patient was treated with IV fluids. Renal ultrasound 05/17 shows bilateral renal cortical thinning with atrophy but no hydronephrosis. Cr normalized but then worsened to the 3 range now. Creatinine remaining elevated with BUN still elevated 120 range. UOP dropping. Continue to follow. Nephrology following and appreciate their input. (8) Electrolyte abnormality: Code(s): E87.8 - Other disorders of electrolyte and fluid balance, not elsewhere classified Status: Acute Assessment and Plan: Hypernatremia - Na low now. May need to back off on free water flushes. Hyperkalemia - potassium up
[2021-06-14] MEDS: NOREPINEPHRINE 8 MG/D5W 250 ML 8 MG/250 ML BAG 35.63 MG IV CONT (16:15)
[2021-06-14] MEDS: ACETAMINOPHEN ELIXIR 325 MG/10.15 ML UDC 650 MG PO (18:19)
[2021-06-14 18:27] LABS: Glucose Point of Care 191 mg/dl (65-105)
[2021-06-14 23:18] LABS: Glucose Point of Care 209 mg/dl (65-105)
[2021-06-15] VITALS (47 sets, daily range): BP systolic 106–141; BP diastolic 49–78; PULSE 94–111; RESP 30; TEMP 37.4–38.1; O2SAT 89–97
[2021-06-15] MEDS: CISATRACURIUM BESYLATE 200 MG in DEXTROSE 5% 80 ML 36.96 ML IV CONT ×8 (00:15→21:14)
[2021-06-15] MEDS: NOREPINEPHRINE 8 MG/D5W 250 ML 8 MG/250 ML BAG 35.63 MG IV CONT ×3 (00:15→14:48)
[2021-06-15] MEDS: METOCLOPRAMIDE HCL INJ 10 MG/2 ML VIAL IV PUSH ×4 (00:17→18:38)
[2021-06-15] MEDS: INSULIN ASPART (*BKC) 100 UNITS/ML SUB-Q ×3 (00:17→12:44)
[2021-06-15] MEDS: ACETAMINOPHEN ELIXIR 325 MG/10.15 ML UDC 650 MG PO (03:10)
[2021-06-15] MEDS: EPOPROSTENOL SODIUM 0.5 MG VIAL 1 MG INHALATION ×4 (03:49→20:47)
[2021-06-15 05:26] LABS: Hematocrit 24.9 % (42.0-52.0); Hemoglobin 7.5 g/dL (14.0-18.0); Mean Corpuscular HGB Conc 30.1 g/dl (32-36); Mean Corpuscular Hemoglobin 30.6 pg (26-34); Mean Corpuscular Volume 101.6 fl (80-100); Mean Platelet Volume 10.4 fl (7.4-10.4); Platelet Count Result 270 k/mm3 (150-375); Red Blood Count 2.45 M/mm3 (4.6-6.20); Red Cell Distribution Width 17.2 % (11.5-14.5); White Blood Count 36.9 K/mm3 (4.5-10.0)
[2021-06-15 05:38] LABS: Alveolar/Arterial O2 Gradient 586.3 mmHg; Carboxyhemoglobin 0.7 % THb (0-2.0); Fractional Inspired Oxygen 100 %; HCO3 ABG 28.6 mEq/l (22.0-26.0); Methemoglobin ABG 0.4 %THb (0-1.5); Oxygen Content ABG 11.2 %vol (16.0-22.0); PO2 ABG 55.5 mmHg (80.0-100.0); PO2 FiO2 Ratio Arterial Blood 0.56 %; Reduced Hemoglobin 14.3 %THb (0-5.0); Total Hemoglobin 9.4 g/dL (12.0-18.0)
[2021-06-15 05:42] LABS: Alanine Aminotransferase 36 U/L (4-50); Albumin Level 2.2 g/dL (3.5-5.1); Alkaline Phosphatase 186 U/L (38-126); Anion Gap 5 mmol/L (8-16); Aspartate Amino Transferase 39 U/L (17-59); Bilirubin,Total 0.4 mg/dL (0.2-1.3); Calcium 8.3 mg/dL (8.4-10.2); Carbon Dioxide 27 mmol/L (22-30); Chloride 96 mmol/L (98-107); Glucose 211 mg/dL (65-110); Magnesium 2.9 mg/dL (1.6-2.3); Potassium 5.8 mmol/L (3.4-5.0); Sodium 128 mmol/L (137-145)
[2021-06-15 05:43] LABS: pH ABG 7.221 (7.350-7.450)
[2021-06-15 05:44] LABS: Oxygen Saturation ABG 81.6 % (95.0-100.0); PCO2 ABG 71.2 mmHg (35.0-45.0)
[2021-06-15 05:45] LABS: Device VENTILATOR; Modified Allen's Test Pass; Oxyhemoglobin 84.6 % THb (90.0-100.0); Site Drawn LEFT RADIAL
[2021-06-15 05:46] LABS: Estimated CRCL calculation 30 ml/min; Estimated Glomerular Filt Rate 19
[2021-06-15 05:46] LABS: Arterial Blood Gas PEEP 16 cmH2O; Arterial Blood Gas Tidal Volume 510 ml; Arterial Blood Gas Vent Mode CMV; Arterial Blood Gas Ventilator rate 30 /MIN
[2021-06-15 05:57] LABS: Blood Urea Nitrogen 134 mg/dL (9-20)
[2021-06-15] MEDS: FENTANYL 2,500MCG/NS250ML(*CRX 2,500 MCG/250 ML BAG 15 MCG IV CONT ×2 (06:17→21:27)
[2021-06-15] MEDS: CENTRAL LINE FLUSH 10 ML IV PUSH ×3 (06:23→21:29)
[2021-06-15] MEDS: INSULIN GLARGINE (*BKC) 100 UNITS/ML 35 UNITS SUB-Q (09:16)
[2021-06-15] MEDS: MINERAL OIL/WHITE PETROLATUM OINTMENT 1 APPLIC EACH EYE ×2 (09:16→21:29)
[2021-06-15] MEDS: PANTOPRAZOLE SODIUM IV 40 MG VIAL IV PUSH ×2 (09:16→21:29)
[2021-06-15] MEDS: SILVERGEL (ELTA) 45 ML 1 APPLIC TOPICAL (09:16)
[2021-06-15] MEDS: CHOLECALCIFEROL 1,000 UNITS TABLET 1000 UNITS PO (09:17)
[2021-06-15] MEDS: polyethylene glycoL 3350 17 GM POWD.PACK PO (09:17)
[2021-06-15] MEDS: ENOXAPARIN 40 MG/0.4 ML SYRINGE SUB-Q (09:17)
[2021-06-15] MEDS: ASCORBIC ACID 500 MG TABLET PO (09:17)
[2021-06-15] MEDS: ZINC SULFATE 220 MG CAPSULE PO (09:17)
--- NOTE | 2021-06-15 11:02 | P.PNNP_ITS ---
Progress Note: A&P Assessment and Plan (1) Acute kidney injury: Code(s): N17.9 - Acute kidney failure, unspecified Status: Acute Assessment and Plan: * multifactorial etiology: * cardiac arrest * infection (pneumonia/COVID-19) * possible pre-renal factors * creatinine about the same and urine output a bit better (although K+ up a bit) * evaluation to date: * urine electrolytes prerenal * renal ultrasound without acute pathology * agree with attempting to keep MAP > 65 in the hopes this will facilitate better renal perfusion * remains at risk for GEOTHERMAL PRODUCTION MANAGER/dialysis but given his ongoing deterioration, I doubt dialysis would change his overall poor prognosis assuming he would even tolerated such an intervention (2) Chronic kidney disease, unspecified: Code(s): N18.9 - Chronic kidney disease, unspecified Status: Chronic Assessment and Plan: * unclear what baseline creatinine/GFR is * suspect secondary to hypertension and diabetes (3) Hypernatremia: Code(s): E87.0 - Hyperosmolality and hypernatremia Status: Acute Assessment and Plan: * resolved (4) Acute respiratory failure with hypoxia: Code(s): J96.01 - Acute respiratory failure with hypoxia Status: Acute Assessment and Plan: * been on mechanical ventilation since 05/18/21 * due to 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 * complicated by bilateral tension pneumothorax s/p bilateral chest tube p lacement * He is supine right now. (5) Hypertension: Code(s): I10 - Essential (primary) hypertension Status: Chronic Assessment and Plan: * not an issues at this time * on pressor therapy due to hypotension (6) Type 2 diabetes mellitus: Code(s): E11.9 - Type 2 diabetes mellitus without complications Status: Acute Assessment and Plan: * follow accuchecks * on SSI Will continue to follow Subjective Date/time seen: 06/15/21 11:02 No real significant change at the time of my visit -- remains on full ventilator support and continues to require vasopressor therapy to maintain his MAP; urine output fluctuating and kidney function has not significantly improved either; noted plans for family meeting later today to discuss goals of care. Exam Narrative: General: WD/WN male intubated/sedated/paralyzed on mechanical ventilation Heart: RRR, normal S1 and S2 Lungs: coarse breath sounds bilaterally Abdomen: soft, nontender, nondistended, positive bowel sounds Extremities: 1+ edema noted Skin: warm and intact Objective Data Vital Signs Vital Signs: Vital Signs Temp Pulse Resp BP Pulse Ox 06/15/21 10:00 99 30 H 121/56 L 06/15/21 09:15 100 95 06/15/21 09:01 99 30 H 96 06/15/21 08:00 101 H 30 H 121/56 L 06/15/21 07:53 101 H 30 H 94 06/15/21 07:52 101 H 94 06/15/21 07:34 107 H 106/49 L 06/15/21 06:17 104 H 30 H 06/15/21 06:00 37.5 C 104 H 30 H 130/57 L 91 06/15/21 05:27 103 H 30 H 92 06/15/21 05:05 110 H 30 H 130/61 06/15/21 04:00 37.9 C H 110 H 30 H 130/61 89 L 06/15/21 03:50 111 H 30 H 91 06/15/21 03:10 38.1 C H 06/15/21 02:39 108 H 30 H 90 06/15/21 02:38 108 H 90 06/15/21 02:24 107 H 30 H 135/59 L 05/26
--- NOTE | 2021-06-15 11:02 | PM.PNNEP ---
Progress Note: A&P Assessment and Plan (1) Acute kidney injury: Code(s): N17.9 - Acute kidney failure, unspecified Status: Acute Assessment and Plan: multifactorial etiology: cardiac arrest infection (pneumonia/COVID-19) possible pre-renal factors creatinine about the same and urine output a bit better (although K+ up a bit) evaluation to date: urine electrolytes prerenal renal ultrasound without acute pathology agree with attempting to keep MAP > 65 in the hopes this will facilitate better renal perfusion remains at risk for FIELD AUDITOR/dialysis but given his ongoing deterioration, I doubt dialysis would change his overall poor prognosis assuming he would even tolerated such an intervention (2) Chronic kidney disease, unspecified: Code(s): N18.9 - Chronic kidney disease, unspecified Status: Chronic Assessment and Plan: unclear what baseline creatinine/GFR is suspect secondary to hypertension and diabetes (3) Hypernatremia: Code(s): E87.0 - Hyperosmolality and hypernatremia Status: Acute Assessment and Plan: resolved (4) Acute respiratory failure with hypoxia: Code(s): J96.01 - Acute respiratory failure with hypoxia Status: Acute Assessment and Plan: been on mechanical ventilation since 05/18/21 due to 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 complicated by bilateral tension pneumothorax s/p bilateral chest tube placement He is supine right now. (5) Hypertension: Code(s): I10 - Essential (primary) hypertension Status: Chronic Assessment and Plan: not an issues at this time on pressor therapy due to hypotension (6) Type 2 diabetes mellitus: Code(s): E11.9 - Type 2 diabetes mellitus without complications Status: Acute Assessment and Plan: follow accuchecks on SSI Will continue to follow Subjective Date/time seen: 06/15/21 11:02 No real significant change at the time of my visit -- remains on full ventilator support and continues to require vasopressor therapy to maintain his MAP; urine output fluctuating and kidney function has not significantly improved either; noted plans for family meeting later today to discuss goals of care. Exam Narrative: General: WD/WN male intubated/sedated/paralyzed on mechanical ventilation Heart: RRR, normal S1 and S2 Lungs: coarse breath sounds bilaterally Abdomen: soft, nontender, nondistended, positive bowel sounds Extremities: 1+ edema noted Skin: warm and intact Objective Data Vital Signs Vital Signs: Vital Signs Temp Pulse Resp BP Pulse Ox 06/15/21 10:00 99 30 H 121/56 L 06/15/21 09:15 100 95 06/15/21 09:01 99 30 H 96 06/15/21 08:00 101 H 30 H 121/56 L 06/15/21 07:53 101 H 30 H 94 06/15/21 07:52 101 H 94 06/15/21 07:34 107 H 106/49 L 06/15/21 06:17 104 H 30 H 06/15/21 06:00 37.5 C 104 H 30 H 130/57 L 91 06/15/21 05:27 103 H 30 H 92 06/15/21 05:05 110 H 30 H 130/61 06/15/21 04:00 37.9 C H 110 H 30 H 130/61 89 L 06/15/21 03:50 111 H 30 H 91 06/15/21 03:10 38.1 C H 06/15/21 02:39 108 H 30 H 90 06/15/21 02:38 108 H 90 06/15/21 02:24 107 H 30 H 135/59 L 06/15/21 02:00 108 H 30 H 141/59 H 90 06/15/21 00:15 107 H 30 H 135/59 L 06/15/21 00:01 107 H 30 H 91 06/15/21 00:00 37.9 C H 107 H 30 H 113/53 L 91 06/14/21 23:16 107 H 135/59 L 06/14/21 23:13 107 H 30 H 06/14/21 22:04 107 H 30 H 91 06/14/21 22:00 37.7 C H 107 H 30 H 135/59 L 91 06/14/21 21:55 107 H 30 H 06/14/21 21:27 107 H 30 H 135/59 L 06/14/21 20:19 108 H 30 H 90 06/14/21 20:00 37.6 C H 107 H 27 H 133/59 L 91 06/14/21 18:44 110 H 30 H 132/61 06/14/21 18:19 37.9 C H 06/14/21 18:00 110 H 30 H 138/57 L 89 L 06/14/21 17:32 107 H 30 H 90 06/14/21 16:41 97 30 H 90
[2021-06-15] MEDS: MIDAZOLAM 100MG/NS 100ML(*CRX) 100 MG/100 ML BAG 8 MG IV CONT ×2 (11:07→23:05)
--- NOTE | 2021-06-15 11:20 | PCNFU ---
Addendum entered by Becky Munoz RD, LDN 06/15/21 12:24: Correction: Free water flush 30 ml q 4 hours. Original Note: Nutrition Follow-Up Complete: Inadequate Oral Intake as related to mechanical vent and evidenced by NPO Goal: Meet estimated nutritional needs We will continue current goal. Pt current nutrition is Nepro at 55 ml/hr over 22 hours. Last recorded weight is 146.9 kg, up from 123.6 kg on admit. Bowel Motility:+BM reported 06/15 Labs Reviewed: Hgb 7.5,Hct 24.9,K 5.8,GFR 19, BUN 134, Cr 3.3, Glu 211, Mg 2.9 Meds Noted:Flolan, Nimbex, Fentanyl, Lantus, Versed, Atrovent, Zinc, Vit C, Vit D,Lovenox, NovoLog, Reglan, Miralax Skin:unstageable pressure ulcer-right lower leg. Additional Notes: Patient remains on mechanical vent and tube feedings of Nepro at 55 ml/hr over 2 hours. Current tube feeding is providing 2178 kcals/98 gms protein/888 ml water. 50 ml q 4 hour water flush. Agree with diet orders. Will monitor in ICU rounds and reassessing every Monday and Monday.
[2021-06-15 11:30] LABS: Glucose Point of Care 210 mg/dl (65-105)
--- NOTE | 2021-06-15 13:00 | WPDINTPN ---
Progress Note: A&P Assessment and Plan (1) Acute respiratory failure with hypoxia: Code(s): J96.01 - Acute respiratory failure with hypoxia Status: Acute Assessment and Plan: Acute respiratory failure likely related to COVID pneumonia -Intubated on 05/18/2021 - 05/25 bilateral tension pneumothorax spontaneous which also led to a brief PEA arrest. S/P chest tube placement bilateral - 06/04: patient was hypoxic, dropped his O2 sats in the low to mid 80s. Peep was increased 16, FiO2 was increased to 100%. Patient was restarted on Flolan and Nimbex. - Currently on CMV mode of ventilation, peep of 14 and 70% FiO2, wean FiO2 tolerate O2 sats greater than 90% - Chest x-ray shows stable diffuse lung disease. ET tube in acceptable position - ABGs reviewed -tolerate permissive hypercapnia - low tidal volume, strategy to avoid volutrauma - Continue bronchodilators -continue prone ventilation as tolerated with intermittent supine position as tolerated - Sedated with fentanyl, Versed, restarted Nimbex on 06/04 -patient received Bumex on 06/13/2021, currently held because of worsening renal function (2) Shock: Code(s): R57.9 - Shock, unspecified Status: Acute Assessment and Plan: Currently in severe sepsis, tachycardia, bandemia, increase in ventilatory support -likely due to bacterial pneumonia -afebrile now -off all antibiotics cefepime and vancomycin (05/29), levofloxacin (06/04) -06/04: restarted on Levophed, maintain MAP > 70 mmHg -white blood cell count trending down -06/04: Blood cultures: Preliminary report, negative x2 -06/04: Urine culture - no growth -06/04 sputum cultures growing yeast. - He completed 14 day course of cefepime and vancomycin on 06/12 06/15: WBC count trending up again, low-grade fevers with a T-max of 100.5?, patient just came off antibiotics. Will panculture. Hold off antibiotics at this time (3) Pneumonia due to COVID-19 virus: Code(s): U07.1 - COVID-19; J12.82 - Pneumonia due to coronavirus disease 2019 Status: Acute Assessment and Plan: Positive COVID on 05/10/2020, patient is unvaccinated -patient has completed a 10 day course of dexamethasone which was started on 05/16/2021 -He has completed a 14 day course of baricitinib -patient refused remdesivir on presentation -continue vitamin-D, vitamin-C and zinc -continue droplet, airborne and contact isolation/precautions (4) Spontaneous tension pneumothorax: Code(s): J93.0 - Spontaneous tension pneumothorax Status: Acute Assessment and Plan: 05/25 Patient was spontaneous tension pneumothorax bilateral when he was placed in supine position Bilateral chest tubes were emergently placed Chest x-ray reviewed No air leak on chest tubes at this time (5) Cardiac arrest: Code(s): I46.9 - Cardiac arrest, cause unspecified Status: Acute Assessment and Plan: PEA arrest Secondary to bilateral tension pneumothorax ROSC after 1 dose of epinephrine and 1 round of CPR Echo 06/07/2021: LV systolic function is hyperdynamic, EF 70%, grade 1 diastolic dysfunction, moderate pulmonary hypertension with RVSP of 58 mmHg (6) Type 2 diabetes mellitus: Code(s): E11.9 - Type 2 diabetes mellitus without complications Status: Acute Assessment and Plan: Patient with history of type 2 diabetes and now on steroids - currently hyperglycemic Currently off of insulin infusion. - Continue Lantus - Continue sliding scale insulin -hemoglobin A1c is 8.4 this admission (7) Acute renal failure superimposed on stage 4 chronic kidney disease: Code(s): N17.9 - Acute kidney failure, unspecified; N18.4 - Chronic kidney disease, stage 4 (severe) Status: Acute Assessment and Plan: Patient presented with acute on chronic kidney disease with a creatinine of 3.30 on admission, patient was given IV fluid bolus in the ER for elevated lactic acid -patient does have a ureteral stent [facility]
--- NOTE | 2021-06-15 13:41 | PC.NURSE ---
Family conference with Dr. Callahan, Dr. Terrazas, inés Schneider, RN and RN student. Family states we believe in miracles, and we are willing to take the risk to transfer him even if he is unstable. Dr. Callahan to contact [facility] and [facility] systems for a bed transfer. Family allowed to stand at door to see patient with inés Schneider.
--- NOTE | 2021-06-15 14:00 | PC.NURSE ---
Face sheet faxed to [facility] call center.
--- NOTE | 2021-06-15 15:41 | PM.IMPN ---
Progress Note: A&P Assessment and Plan (1) Acute respiratory failure with hypoxia: Code(s): J96.01 - Acute respiratory failure with hypoxia Status: Acute Assessment and Plan: Acute respiratory failure likely related to COVID pneumonia requiring intubation on 05/18/21. MV - 05/25 bilateral tension PTX spontaneous which also led to a brief PEA arrest. S/P chest tube placement bilateral. - He remains on mechanical ventilator, sedated and paralyzed. - Inhaled Flolan that was started on 05/25 and stopped 06/02; Resumed 06/04 - Continue prone positioning per breakfast hostess - continue current sedation with fentanyl, Versed; Nimbex infusion for vent synchrony Had family meeting with son, dtr and . Cut Off Saw Operator Pipe Blanks, RN and baylee present as well. Discussed the dire condition of the patient and that overall outlook is grim. They hold strong faith believes and feel that a miracle could happen. They do ask for transfer to a another hospital for further evaluation and treatment. Since we do not do CVVHD here, plan transfer to a tertiary care center that performs this. All questions were answered. (2) Shock: Code(s): R57.9 - Shock, unspecified Status: Acute Assessment and Plan: Blood pressure dropped after tension pneumothorax on 05/25/21. 1 L saline bolus given and started on Levophed but weaned off quickly. On 06/04, Levophed resumed and now able to be weaned off. BP stable. Trop negative, EKG showing no acute changes and Echo EF 70% with Grade I diastolic dysfunction. Levophed resumed 06/14 to improve SBP to help with renal perfusion. Follow. (3) Sepsis: Code(s): A41.9 - Sepsis, unspecified organism Status: Acute Assessment and Plan: Present on admission with elevated WBC, lactic acidosis. BCx 05/16 negative. Sputum growing yeast 05/22. UCx 05/29 and 06/04 negative. BCx 05/28 growing Staph Epi and Staph cohnii (1of2) suspected to be a contaminate. BCx 06/04 negative. Sputum Cx 06/04 growing yeast again. Vancomycin (D15), cefepime (D15) stopped 06/12; Levaquin stopped after 6 days (last dose 06/08). WBC elevated to 37K today and having low grade fevers again. Cultures obtained again. Abx are held at this time. Follow. (4) Pneumonia due to COVID-19 virus: Code(s): U07.1 - COVID-19; J12.82 - Pneumonia due to coronavirus disease 2018 Status: Acute Assessment and Plan: Patient was found to be COVID positive on 05/10/21; he is unvaccinated. Patient completed a 10 day course of dexamethasone and baricitinib. Patient refused remdesivir on presentation. Continue vitamin-D, vitamin-C and zinc. Continue droplet, airborne and contact isolation/precautions. Continue supportive care. (5) Spontaneous tension pneumothorax: Code(s): J93.0 - Spontaneous tension pneumothorax Status: Acute Assessment and Plan: Patient developed spontaneous bilateral tension pneumothorax on 05/25/21 when he was placed in supine position. He had PEA requiring code blue. Bilateral chest tubes were emergently placed. Chest tube management per GenSurg. Appreciate General surgery input. (6) Cardiac arrest: Code(s): I46.9 - Cardiac arrest, cause unspecified Status: Acute Assessment and Plan: PEA arrest on 05/25/21 related to bilateral tension pneumothorax. ROSC after 1 dose of epinephrine and 1 round of CPR. As above. (7) Acute renal failure superimposed on stage 4 chronic kidney disease: Code(s): N17.9 - Acute kidney failure, unspecified; N18.4 - Chronic kidney disease, stage 4 (severe) Status: Acute Assessment and Plan: Patient does have a ureteral stent which was placed at [facility] 5 weeks ago due to some sort of scar tissue. Patient presented with acute on chronic kidney disease with a creatinine of 3.3 on admission. Patient was treated with IV fluids. Renal ultrasound 05/17 shows bilateral renal cortical thinning with atrophy but no hydronephrosis. Cr normal
--- NOTE | 2021-06-15 18:23 | PC.NURSE ---
On 06/15/21, the student, [Jay Styles ], provided care and completed [facility] documentation on this patient. I have reviewed the student's documentation and agree with the findings.
[2021-06-15 19:15] LABS: Glucose Point of Care 189 mg/dl (65-105)
[2021-06-15] MEDS: NOREPINEPHRINE 8 MG/D5W 250 ML 8 MG/250 ML BAG 33.75 MG IV CONT (22:25)
[2021-06-16] VITALS (43 sets, daily range): BP systolic 116–150; BP diastolic 49–64; PULSE 98–108; RESP 30; TEMP 37.1–37.4; O2SAT 86–94
[2021-06-16] MEDS: CISATRACURIUM BESYLATE 200 MG in DEXTROSE 5% 80 ML 36.96 ML IV CONT ×6 (00:12→13:38)
[2021-06-16] MEDS: METOCLOPRAMIDE HCL INJ 10 MG/2 ML VIAL IV PUSH ×3 (00:14→13:39)
[2021-06-16 00:24] LABS: Glucose Point of Care 199 mg/dl (65-105)
[2021-06-16] MEDS: EPOPROSTENOL SODIUM 0.5 MG VIAL 1 MG INHALATION ×2 (03:11→08:35)
[2021-06-16 04:38] LABS: Alveolar/Arterial O2 Gradient 576.8 mmHg; Base Excess ABG -1.7 mEq/l (+/-2.0); Fractional Inspired Oxygen 100 %; HCO3 ABG 26.1 mEq/l (22.0-26.0); Methemoglobin ABG 0.6 %THb (0-1.5); Oxygen Content ABG 10.1 %vol (16.0-22.0); Oxygen Saturation ABG 90.9 % (95.0-100.0); Oxyhemoglobin 91.1 % THb (90.0-100.0); PO2 ABG 71.9 mmHg (80.0-100.0); PO2 FiO2 Ratio Arterial Blood 0.72 %; Reduced Hemoglobin 7.3 %THb (0-5.0)
[2021-06-16 04:39] LABS: PCO2 ABG 64.3 mmHg (35.0-45.0); pH ABG 7.227 (7.350-7.450)
[2021-06-16 04:40] LABS: Device VENTILATOR; Modified Allen's Test Unable to perform; Site Drawn RIGHT RADIAL; Total Hemoglobin 7.8 g/dL (12.0-18.0)
[2021-06-16 04:41] LABS: Arterial Blood Gas PEEP 16 cmH2O; Arterial Blood Gas Tidal Volume 510 ml; Arterial Blood Gas Vent Mode CMV; Arterial Blood Gas Ventilator rate 30 /MIN
[2021-06-16 05:28] LABS: Mean Corpuscular HGB Conc 30.5 g/dl (32-36); Mean Corpuscular Hemoglobin 30.3 pg (26-34); Mean Corpuscular Volume 99.5 fl (80-100); Mean Platelet Volume 9.9 fl (7.4-10.4); Platelet Count Result 259 k/mm3 (150-375); Red Blood Count 2.21 M/mm3 (4.6-6.20); Red Cell Distribution Width 16.9 % (11.5-14.5)
[2021-06-16 05:33] LABS: Hemoglobin 6.7 g/dL (14.0-18.0)
[2021-06-16] MEDS: NOREPINEPHRINE 8 MG/D5W 250 ML 8 MG/250 ML BAG 33.75 MG IV CONT (06:09)
[2021-06-16] MEDS: CENTRAL LINE FLUSH 10 ML IV PUSH ×2 (06:33→13:40)
[2021-06-16 06:58] LABS: Alanine Aminotransferase 35 U/L (4-50); Albumin Level 2.5 g/dL (3.5-5.1); Alkaline Phosphatase 184 U/L (38-126); Anion Gap 7 mmol/L (8-16); Aspartate Amino Transferase 34 U/L (17-59); Bilirubin,Total 0.2 mg/dL (0.2-1.3); Calcium 7.8 mg/dL (8.4-10.2); Carbon Dioxide 25 mmol/L (22-30); Chloride 93 mmol/L (98-107); Estimated CRCL calculation 26 ml/min; Estimated Glomerular Filt Rate 16; Glucose 213 mg/dL (65-110); Magnesium 2.9 mg/dL (1.6-2.3); Potassium 5.9 mmol/L (3.4-5.0); Sodium 125 mmol/L (137-145)
[2021-06-16 07:30] LABS: Blood Urea Nitrogen 141 mg/dL (9-20)
[2021-06-16 08:50] LABS: INR 1.3; Prothrombin Time 15.4 Seconds (11.1-14.7)
[2021-06-16 08:51] LABS: Partial Thromboplastin Time 38.1 SECONDS (22.3-36.8)
[2021-06-16] MEDS: DEXTROSE 50% 25 GM/50 ML SYRINGE IV PUSH (09:38)
[2021-06-16] MEDS: SODIUM POLYSTYRENE SULFONONATE 15 GM/60 ML BTL 30 GM PO (09:38)
[2021-06-16] MEDS: INSULIN HUMAN REGULAR (*BKC) 100 UNITS/ML 10 UNITS IV PUSH (09:39)
[2021-06-16] MEDS: SODIUM CHLORIDE 0.9% IV 250 ML 30 ML IV CONT (09:39)
[2021-06-16] MEDS: SODIUM BICARBONATE 8.4% 50 MEQ/50 ML SYRINGE 100 MEQ IV PUSH (09:39)
[2021-06-16] MEDS: INSULIN GLARGINE (*BKC) 100 UNITS/ML 35 UNITS SUB-Q (09:39)
[2021-06-16] MEDS: SILVERGEL (ELTA) 45 ML 1 APPLIC TOPICAL (09:40)
[2021-06-16] MEDS: MINERAL OIL/WHITE PETROLATUM OINTMENT 1 APPLIC EACH EYE (09:40)
[2021-06-16] MEDS: polyethylene glycoL 3350 17 GM POWD.PACK PO (09:40)
[2021-06-16] MEDS: PANTOPRAZOLE SODIUM IV 40 MG VIAL IV PUSH (09:40)
[2021-06-16] MEDS: ZINC SULFATE 220 MG CAPSULE PO (09:41)
[2021-06-16] MEDS: CHOLECALCIFEROL 1,000 UNITS TABLET 1000 UNITS PO (09:41)
[2021-06-16] MEDS: ASCORBIC ACID 500 MG TABLET PO (09:41)
[2021-06-16] MEDS: MIDAZOLAM 100MG/NS 100ML(*CRX) 100 MG/100 ML BAG 8 MG IV CONT (11:37)
--- NOTE | 2021-06-16 12:28 | WPDINTPN ---
Progress Note: A&P Assessment and Plan (1) Acute respiratory failure with hypoxia: Code(s): J96.01 - Acute respiratory failure with hypoxia Status: Acute Assessment and Plan: Acute respiratory failure likely related to COVID pneumonia -Intubated on 05/18/2021 - 05/25 bilateral tension pneumothorax spontaneous which also led to a brief PEA arrest. S/P chest tube placement bilateral - 06/04: patient was hypoxic, dropped his O2 sats in the low to mid 80s. Peep was increased 16, FiO2 was increased to 100%. - 06/04: Patient was restarted on Flolan and Nimbex. - Currently on CMV mode of ventilation, peep of 16 and 100% FiO2, wean FiO2 tolerate O2 sats greater than 90% - Chest x-ray shows stable diffuse lung disease. ET tube in acceptable position - ABGs reviewed -tolerate permissive hypercapnia - low tidal volume, strategy to avoid volutrauma - Continue bronchodilators -continue prone ventilation as tolerated with intermittent supine position as tolerated - Sedated with fentanyl, Versed, restarted Nimbex on 06/04 -patient received Bumex on 06/13/2021, currently held because of worsening renal function (2) Shock: Code(s): R57.9 - Shock, unspecified Status: Acute Assessment and Plan: Currently in severe sepsis, tachycardia, bandemia, increase in ventilatory support -likely due to bacterial pneumonia -afebrile now -off all antibiotics cefepime and vancomycin (05/29), levofloxacin (06/04) -06/04: restarted on Levophed, maintain MAP > 70 mmHg -white blood cell count trending down -06/04: Blood cultures: Preliminary report, negative x2 -06/04: Urine culture - no growth -06/04 sputum cultures growing yeast. - He completed 14 day course of cefepime and vancomycin on 06/12 06/16: WBC count trending up again, currently afebrile , -06/15/2021 blood cultures negative x 2 so far, urine cultures pending, sputum culture with no organisms seen -hold antibiotics at this time (3) Pneumonia due to COVID-19 virus: Code(s): U07.1 - COVID-19; J12.82 - Pneumonia due to coronavirus disease 2019 Status: Acute Assessment and Plan: Positive COVID on 05/10/2020, patient is unvaccinated -patient has completed a 10 day course of dexamethasone which was started on 05/16/2021 -He has completed a 14 day course of baricitinib -patient refused remdesivir on presentation -continue vitamin-D, vitamin-C and zinc -continue droplet, airborne and contact isolation/precautions (4) Spontaneous tension pneumothorax: Code(s): J93.0 - Spontaneous tension pneumothorax Status: Acute Assessment and Plan: 05/25 Patient was spontaneous tension pneumothorax bilateral when he was placed in supine position Bilateral chest tubes were emergently placed Chest x-ray reviewed No air leak on chest tubes at this time (5) Cardiac arrest: Code(s): I46.9 - Cardiac arrest, cause unspecified Status: Acute Assessment and Plan: PEA arrest Secondary to bilateral tension pneumothorax ROSC after 1 dose of epinephrine and 1 round of CPR Echo 06/07/2021: LV systolic function is hyperdynamic, EF 70%, grade 1 diastolic dysfunction, moderate pulmonary hypertension with RVSP of 58 mmHg (6) Type 2 diabetes mellitus: Code(s): E11.9 - Type 2 diabetes mellitus without complications Status: Acute Assessment and Plan: Patient with history of type 2 diabetes and now on steroids - currently hyperglycemic Currently off of insulin infusion. - Continue Lantus - Continue sliding scale insulin -hemoglobin A1c is 8.4 this admission (7) Acute renal failure superimposed on stage 4 chronic kidney disease: Code(s): N17.9 - Acute kidney failure, unspecified; N18.4 - Chronic kidney disease, stage 4 (severe) Status: Acute Assessment and Plan: Patient presented with acute on chronic kidney disease with a creatinine of 3.30 on admission, patient was given IV fluid bolus in the ER for elevated lac
--- NOTE | 2021-06-16 12:40 | P.PNNP_ITS ---
Progress Note: A&P Assessment and Plan (1) Acute kidney injury: Code(s): N17.9 - Acute kidney failure, unspecified Status: Acute Assessment and Plan: * multifactorial etiology: * cardiac arrest * infection (pneumonia/COVID-19) * possible pre-renal factors * creatinine rising with hyperkalemia and hyponatremia noted * evaluation to date: * urine electrolytes prerenal * renal ultrasound without acute pathology * agree with attempting to keep MAP > 65 in the hopes this will facilitate better renal perfusion * remains at risk for MANUFACTURING BAKER/dialysis but given his ongoing deterioration, I doubt dialysis would change his overall poor prognosis assuming he would even tolerated such an intervention (2) Chronic kidney disease, unspecified: Code(s): N18.9 - Chronic kidney disease, unspecified Status: Chronic Assessment and Plan: * unclear what baseline creatinine/GFR is * suspect secondary to hypertension and diabetes (3) Hypernatremia: Code(s): E87.0 - Hyperosmolality and hypernatremia Status: Acute Assessment and Plan: * resolved (4) Acute respiratory failure with hypoxia: Code(s): J96.01 - Acute respiratory failure with hypoxia Status: Acute Assessment and Plan: * been on mechanical ventilation since 05/18/21 * due to 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 * complicated by bilateral tension pneumothorax s/p bilateral chest tube placement * He is supine right now. (5) Hypertension: Code(s): I10 - Essential (primary) hypertension Status: Chronic Assessment and Plan: * not an issues at this time * on pressor therapy due to hypotension (6) Type 2 diabetes mellitus: Code(s): E11.9 - Type 2 diabetes mellitus without complications Status: Acute Assessment and Plan: * follow accuchecks * on SSI Will continue to follow Subjective Date/time seen: 06/16/21 12:40 Results of family meeting yesterday noted -- possible transfer to another facility depending on bed availability as per family wishes; he continues to require vasopressor therapy to maintain MAP; renal function continues decline with resultant issues related to hyponatremia and hyperkalemia as well as decli michell urine output; ongoing issues with hypoxia noted despite maximum ventilator support. Exam Narrative: General: WD/WN male intubated/sedated/paralyzed on mechanical ventilation Heart: RRR, normal S1 and S2 Lungs: coarse breath sounds bilaterally Abdomen: soft, nontender, nondistended, positive bowel sounds Extremities: 1+ edema noted in LEs Skin: warm and intact Objective Data Vital Signs Vital Signs: Vital Signs Temp Pulse Resp BP Pulse Ox 06/16/21 12:03 37.2 C 103 H 30 H 135/60 89 L 06/16/21 12:00 37.1 C 102 H 30 H 150/64 H 88 L 06/16/21 11:40 100 30 H 88 L 06/16/21 11:39 108 H 30 H 145/57 H 06/16/21 11:38 100 145/57 H 06/16/21 11:37 108 H 30 H 06/16/21 11:36 101 H 30 H 06/16/21 11:10 108 H 30 H 145/57 H 06/16/21 11:03 37.1 C 108 H 30 H 135/56 L 86 L 06/16/21 10:05 99 92 06/16/21 10:03 37.2 C 105 H 30 H 130/53 L 90 06/16/21 10:00 37.1 C 107 H 30 H 134/52 L 90 06/16/21 09:42 37.2 C 99 30 H 125/53 L 94 06/16/21 09:37 98 30 H 123/53 L
--- NOTE | 2021-06-16 12:40 | PM.PNNEP ---
Progress Note: A&P Assessment and Plan (1) Acute kidney injury: Code(s): N17.9 - Acute kidney failure, unspecified Status: Acute Assessment and Plan: multifactorial etiology: cardiac arrest infection (pneumonia/COVID-19) possible pre-renal factors creatinine rising with hyperkalemia and hyponatremia noted evaluation to date: urine electrolytes prerenal renal ultrasound without acute pathology agree with attempting to keep MAP > 65 in the hopes this will facilitate better renal perfusion remains at risk for C ARCHITECT/dialysis but given his ongoing deterioration, I doubt dialysis would change his overall poor prognosis assuming he would even tolerated such an intervention (2) Chronic kidney disease, unspecified: Code(s): N18.9 - Chronic kidney disease, unspecified Status: Chronic Assessment and Plan: unclear what baseline creatinine/GFR is suspect secondary to hypertension and diabetes (3) Hypernatremia: Code(s): E87.0 - Hyperosmolality and hypernatremia Status: Acute Assessment and Plan: resolved (4) Acute respiratory failure with hypoxia: Code(s): J96.01 - Acute respiratory failure with hypoxia Status: Acute Assessment and Plan: been on mechanical ventilation since 05/18/21 due to 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 complicated by bilateral tension pneumothorax s/p bilateral chest tube placement He is supine right now. (5) Hypertension: Code(s): I10 - Essential (primary) hypertension Status: Chronic Assessment and Plan: not an issues at this time on pressor therapy due to hypotension (6) Type 2 diabetes mellitus: Code(s): E11.9 - Type 2 diabetes mellitus without complications Status: Acute Assessment and Plan: follow accuchecks on SSI Will continue to follow Subjective Date/time seen: 06/16/21 12:40 Results of family meeting yesterday noted -- possible transfer to another facility depending on bed availability as per family wishes; he continues to require vasopressor therapy to maintain MAP; renal function continues decline with resultant issues related to hyponatremia and hyperkalemia as well as declining urine output; ongoing issues with hypoxia noted despite maximum ventilator support. Exam Narrative: General: WD/WN male intubated/sedated/paralyzed on mechanical ventilation Heart: RRR, normal S1 and S2 Lungs: coarse breath sounds bilaterally Abdomen: soft, nontender, nondistended, positive bowel sounds Extremities: 1+ edema noted in LEs Skin: warm and intact Objective Data Vital Signs Vital Signs: Vital Signs Temp Pulse Resp BP Pulse Ox 06/16/21 12:03 37.2 C 103 H 30 H 135/60 89 L 06/16/21 12:00 37.1 C 102 H 30 H 150/64 H 88 L 06/16/21 11:40 100 30 H 88 L 06/16/21 11:39 108 H 30 H 145/57 H 06/16/21 11:38 100 145/57 H 06/16/21 11:37 108 H 30 H 06/16/21 11:36 101 H 30 H 06/16/21 11:10 108 H 30 H 145/57 H 06/16/21 11:03 37.1 C 108 H 30 H 135/56 L 86 L 06/16/21 10:05 99 92 06/16/21 10:03 37.2 C 105 H 30 H 130/53 L 90 06/16/21 10:00 37.1 C 107 H 30 H 134/52 L 90 06/16/21 09:42 37.2 C 99 30 H 125/53 L 94 06/16/21 09:37 98 30 H 123/53 L 06/16/21 09:36 98 30 H 123/53 L 06/16/21 08:35 101 H 30 H 92 06/16/21 08:27 99 30 H 123/52 L 06/16/21 08:16 99 92 06/16/21 08:15 99 30 H 123/52 L 06/16/21 08:00 37.2 C 100 30 H 124/54 L 88 L 06/16/21 06:09 102 H 122/54 L 06/16/21 06:04 102 H 30 H 91 06/16/21 06:00 37.2 C 101 H 30 H 116/49 L 91 06/16/21 05:50 102 H 122/54 L 06/16/21 05:32 100 30 H 122/54 L 06/16/21 04:35 100 30 H 93 06/16/21 04:33 100 93 06/16/21 04:00 37.3 C 100 30 H 122/54 L 93 06/16/21 03:12 101 H 30 H 92 06/16/21 03:03 100 30 H 132/51 L 06/16/21 02:55 100 30 H
--- NOTE | 2021-06-16 13:12 | PCFNICU ---
ICU Rounding Note: Pt current nutrition is Nepro at 55 ml/hr over 22 hours. Last recorded weight is 146.9 kg, up from 123.6 gm on admit. Bowel Motility:Last BM reported 06/12-scant. Labs Reviewed: BUN 141, Cr 3.8,Na 125, Hct 22.0,Hgb 6.7 Meds Noted:Flolan, Nimbex, Fentanyl, Lantus, Versed, Atrovent, Zinc, Vit C, Vit D,Lovenox, Lantus, Reglan, Miralax, Levophed. Skin:unstageable pressure-left leg. Additional Notes: Patient remains on mechanical vent and tube feedings of Nepro at 55 ml/hr over 22 hours-tolerating tube feedings per nursing. Free water flush 30 ml q 4 hours. Agree with diet orders. Patient is not a candidate for Trach at this time. MD continues to speak with family, regarding plan of care. Following daily in ICU rounds and reassessing every Monday and Monday.
[2021-06-16 13:28] LABS: Glucose Point of Care 215 mg/dl (65-105)
[2021-06-16 13:29] LABS: Anion Gap 8 mmol/L (8-16); Calcium 7.4 mg/dL (8.4-10.2); Carbon Dioxide 26 mmol/L (22-30); Chloride 86 mmol/L (98-107); Glucose 431 mg/dL (65-110); Potassium 5.5 mmol/L (3.4-5.0); Sodium 120 mmol/L (137-145)
[2021-06-16] MEDS: FENTANYL 2,500MCG/NS250ML(*CRX 2,500 MCG/250 ML BAG 15 MCG IV CONT (13:36)
[2021-06-16] MEDS: NOREPINEPHRINE 8 MG/D5W 250 ML 8 MG/250 ML BAG 31.88 MG IV CONT (13:37)
[2021-06-16] MEDS: INSULIN ASPART (*BKC) 100 UNITS/ML SUB-Q (13:38)
[2021-06-16 13:39] LABS: Estimated CRCL calculation 28 ml/min; Estimated Glomerular Filt Rate 18
[2021-06-16 13:45] LABS: Blood Urea Nitrogen 135 mg/dL (9-20)
--- NOTE | 2021-06-16 14:12 | PM.TDS ---
Transfer Discharge Sum: Prov Provider Date of admission: 05/16/21 17:11 Primary care physician: UNKNOWN,DOCTOR Admitting clinician: Amber Hogan MD Consults: 05/17/21 Consult to Physician Routine Comment: Consulting Provider: Sonia Callahan Reason for consultation: ICU admit, covid pna Has provider been notified: Yes 05/17/21 08:25 Consult to Physician Routine Comment: notified Dr. Hernandez of consult Consulting Provider: Angela Hernandez engrosser/MD group to consult: pulmonary Reason for consultation: covid pnuemonia Has provider been notified: Yes 05/21/21 12:23 Consult to Physician Routine Comment: called exchange with consult information Consulting Provider: Remington Oconnell engrosser/ group to consult: Nephrology Reason for consultation: Acute kidney injury, hyperkalemia, COVID-19 pneumonia Has provider been notified: Yes 05/24/21 Consult to Spiritual Care Services Routine Comment: Attending physician on discharge: Hansel Terrazas Discharging clinician: Hansel Terrazas Anticipated date of transfer: 06/16/21 Receiving physician/facility: [facility] DS: Admitting Diagnosis Discharge Date 06/16/21 Admitting Diagnosis Shortness of breath DS: Discharge Diagnosis Discharge Diagnosis (1) Acute respiratory failure with hypoxia: Code(s): J96.01 - Acute respiratory failure with hypoxia Status: Acute Assessment and Plan: Acute respiratory failure related to COVID pneumonia requiring intubation on 05/18/21. - on 05/25, he developed bilateral spontaneous tension PTX which also led to a brief PEA arrest. S/P chest tube placement bilateral. - He remains on mechanical ventilator, sedated and paralyzed. - Inhaled Flolan that was started on 05/25 and stopped 06/02; Resumed 06/04 - Patient tolerated prone positioning - we continued sedation with fentanyl, Versed; Nimbex infusion for vent synchrony Had family meeting on 06/15/21. Discussed the dire condition of the patient and that overall outlook is grim. The family hold strong sikhism beliefs and did not want to withdraw care. The family is requesting transfer to another hospital for further evaluation and treatment. Since we do not do CVVHD here, plan transfer to a tertiary care center that performs this. Stacy has been accepted at [facility]. Family notified. Patient transported by air ambulance. (2) Shock: Code(s): R57.9 - Shock, unspecified Status: Acute Assessment and Plan: Blood pressure dropped after tension pneumothorax on 05/25/21. 1 L saline bolus given and started on Levophed but weaned off quickly. Trop negative, EKG showing no acute changes and Echo EF 70% with Grade I diastolic dysfunction. Levophed resumed 06/14 to improve SBP to help with renal perfusion. (3) Sepsis: Code(s): A41.9 - Sepsis, unspecified organism Status: Acute Assessment and Plan: Present on admission with elevated WBC, lactic acidosis. BCx 05/16 negative. Sputum growing yeast 05/22. UCx 05/29 and 06/04 negative. BCx 05/28 growing Staph Epi and Staph cohnii (1of2) suspected to be a contaminate (both susceptible to Vanco). Repeat BCx 06/04 negative. Sputum Cx 06/04 growing yeast again. Vancomycin (D15), cefepime (D15) stopped 06/12; Levaquin stopped after 6 days (last dose 06/08). WBC elevated to 37K yesterday and having low grade fevers again. BCx 06/15 NGTD. Sputum 06/15 no growth. Abx are held at this time. WBC better and fever curve improved. (4) Anemia: Code(s): D64.9 - Anemia, unspecified Status: Acute Assessment and Plan: Hgb 11-14 early in his hospiutal course but has drifted down to the 7 range. [place] related to his sever medical condition and MEJIA. Hgb dropped to 6.9 on 06/12 and one unit PRBC given. Hgb improved but down to 6.7 today and 1 unit PRBC ordered again. (5) Pneumonia due to COVID-19 virus: Code(s): U07.1 - COVID-19; J12.82 - Pneumonia due to gautam
--- NOTE | 2021-06-16 16:54 | PC.NURSE ---
Addendum entered by Addie Lr RN 06/16/21 19:35: Report called to accepting facility at 1350. [facility] arrived to ICU 11 at 1410, and departed ICU at 1535. Original Note: Report called to BINDU Marcelo at [facility], room. 3504. Accepting physician is Dr. Nye. Patient left ICU with [facility] staff.
== END 2021-06-16 15:30 | disposition short-term general hospital (02) | DRG 870 ==
LOC: ANHED 16:02 → ANHICU 05-17 08:16 → ANHIMU 06-17 10:13
PROVIDERS: Internal Medicine; Internal Medicine Nephrology; Physician Assistant; Admitting Provider Internal Medicine; Emergency Provider Emergency Medicine; Visit Provider Internal Medicine
DX: A41.9 Sepsis, unspecified organism (principal); U07.1 COVID-19; J12.82 Pneumonia due to coronavirus disease 2019; J96.01 Acute respiratory failure with hypoxia; J93.0 Spontaneous tension pneumothorax; I46.8 Cardiac arrest due to other underlying condition; R57.8 Other shock; J15.9 Unspecified bacterial pneumonia; R65.21 Severe sepsis with septic shock; N17.9 Acute kidney failure, unspecified; N18.4 Chronic kidney disease, stage 4 (severe); E87.0 Hyperosmolality and hypernatremia; C61 Malignant neoplasm of prostate; R00.0 Tachycardia, unspecified; M19.90 Unspecified osteoarthritis, unspecified site; E11.65 Type 2 diabetes mellitus with hyperglycemia; E87.5 Hyperkalemia; Z96.641 Presence of right artificial hip joint; E11.22 Type 2 diabetes mellitus with diabetic chronic kidney disease; I12.9 Hypertensive chronic kidney disease with stage 1 through stage 4 chronic kidney disease, or unspecified chronic kidney disease; D64.9 Anemia, unspecified; B85.2 Pediculosis, unspecified; G47.33 Obstructive sleep apnea (adult) (pediatric); Z90.49 Acquired absence of other specified parts of digestive tract; Z87.891 Personal history of nicotine dependence
CPT/HCPCS: 31500; 36415; 36430; 36569; 36600; 70450; 71045; 74018; 76775; 80048; 80053; 80069; 80074; 80076; 80202; 81001; 82375; 82436; 82550; 82565; 82570; 82728; 82805; 82948; 83036; 83050; 83605; 83615; 83735; 83880; 83935; 84100; 84133; 84145; 84300; 84450; 84460; 84484; 85025; 85027; 85055; 85380; 85610; 85730; 85999; 86140; 86850; 86900; 86901; 86920; 87040; 87070; 87077; 87086; 87088; 87106; 87186; 87205; 87449; 87522; 87899; 93005; 93306; 93970; 93971; 94002; 94003; 94640; 96374; 99291; A9270; C1729; C1751; C9113; C9803; G0378; J0171; J0282; J0330; J0360; J0456; J0461; J0692; J0696; J1100; J1650; J1815; J1956; J2250; J2704; J2765; J2997; J3010; J3370; J7030; J7050; J7070; J7120; P9016; P9047; Q9957; U0003; U0005